=== PATIENT | female | born 1950 | race Caucasian/White ===

== ENCOUNTER 2018-07-09 17:08 | Outpatient (REF) | payer MEDICARE, SELFPAY ==
[2018-07-09 22:20] LABS: Iron 28 ug/dL (50-175); Total Iron Binding Capacity 479 ug/dL (250-450); Transferrin Sat 6 % (15-50)
[2018-07-09 22:21] LABS: Anion Gap 9.6 mmol/L (3-11); BUN 31 mg/dL (7-18); CO2 26.4 mmol/L (21.0-32.0); CREATININE 0.82 mg/dL (0.55-1.02); Calcium 8.6 mg/dL (8.5-10.1); Chloride 104 mmol/L (98-107); Cholesterol 211 mg/dL (50-200); Ferritin 6 ng/mL (8-388); Glucose 88 mg/dL (70-100); HDL Cholesterol 41 mg/dL (40-60); LDL CHOLESTEROL 143 mg/dL (<100); Potassium 3.9 mmol/L (3.5-5.1); Sodium 140 mmol/L (136-145); Triglyceride 190 mg/dL (30-150)
== END 2018-07-09 17:09 ==
LOC: NCHCN 17:08
PROVIDERS: PCP Nurse Practitioner Family; Visit Provider Internal Medicine
DX: I10 Essential (primary) hypertension (principal); D50.9 Iron deficiency anemia, unspecified; J45.40 Moderate persistent asthma, uncomplicated
CPT/HCPCS: 80048; 80061; 83721; 82728; 83540; 83550

== ENCOUNTER 2019-06-03 09:56 | Outpatient (REF) | payer MEDICARE, SELFPAY ==
[2019-06-03 21:19] LABS: HCT 32.7 % (36.0-46.0); HGB 9.2 g/dL (12.0-15.5); Mean Corp. HGB Concentration 28.1 g/dL (32.0-36.0); Mean Corpuscular Hemoglobin 23.2 pg (27.0-33.0); Mean Corpuscular Volume 82.4 fL (80-95); Platelet Count 379 x1000/uL (130-400); RBC 3.97 m/cumm (4.00-5.20); RBC Distribution Width 17.7 % (11.7-14.6); White Blood Cell Count 6.56 k/cumm (4.4-10.8)
[2019-06-03 21:53] LABS: BUN 19 mg/dL (7-18); CREATININE 0.74 mg/dL (0.55-1.02); Calcium 9.3 mg/dL (8.5-10.1); Calculated LDL 148 mg/dL; Chloride 103 mmol/L (98-107); Cholesterol 209 mg/dL (50-200); Ferritin 8 ng/mL (8-388); Glucose 97 mg/dL (70-100); HDL Cholesterol 46 mg/dL (40-60); Potassium 4.4 mmol/L (3.5-5.1); Sodium 141 mmol/L (136-145); Triglyceride 76 mg/dL (30-150)
== END 2019-06-03 10:16 ==
LOC: NCHCN 09:56
PROVIDERS: PCP Nurse Practitioner Family; Visit Provider Internal Medicine
DX: R06.09 Other forms of dyspnea (principal); D50.9 Iron deficiency anemia, unspecified; I10 Essential (primary) hypertension
CPT/HCPCS: 80048; 80061; 83721; 85027; 82728

== ENCOUNTER 2019-07-24 10:42 | Outpatient (REF) | payer MEDICARE, SELFPAY ==
[2019-07-25 05:48] LABS: Calculated LDL 77 mg/dL; Cholesterol 140 mg/dL (50-200); HDL Cholesterol 46 mg/dL (40-60); Triglyceride 86 mg/dL (30-150)
== END 2019-07-24 11:02 ==
LOC: NCHCN 10:42
PROVIDERS: PCP Nurse Practitioner Family; Visit Provider Internal Medicine
DX: Z13.6 Encounter for screening for cardiovascular disorders (principal)
CPT/HCPCS: 80061

== ENCOUNTER 2020-01-14 08:28 | Outpatient (REF) | payer MEDICARE, SELFPAY ==
[2020-01-14 21:27] LABS: HCT 35.3 % (36.0-46.0); HGB 10.3 g/dL (12.0-15.5)
[2020-01-14 21:49] LABS: Ferritin 8 ng/mL (8-252)
== END 2020-01-14 08:48 ==
LOC: NCHCN 08:28
PROVIDERS: PCP Internal Medicine; Visit Provider Internal Medicine
DX: D50.9 Iron deficiency anemia, unspecified (principal)
CPT/HCPCS: 82728; 85014; 85018

== ENCOUNTER 2020-04-22 08:20 | Outpatient (REF) | payer MEDICARE, SELFPAY ==
[2020-04-22 21:23] LABS: Abs Immature Grans 0.02 k/cumm (0.0-0.09); Absolute Basophil Count 0.02 k/cumm (0.0-0.2); Absolute Eosinophil Count 0.19 k/cumm (0.0-0.7); Absolute Lymphocyte Count 1.27 k/cumm (1.2-3.4); Absolute Monocyte Count 0.79 k/cumm (0.11-0.7); Absolute Neutrophil Count 6.82 k/cumm (1.2-6.7); Basophils % 0.2; Eosinophils % 2.1; HCT 42.4 % (36.0-46.0); HGB 13.4 g/dL (12.0-15.5); Immature Grans % 0.2 %; Lymphocytes % 13.9; Mean Corp. HGB Concentration 31.6 g/dL (32.0-36.0); Mean Corpuscular Volume 94.9 fL (80-95); Mean Platelet Volume 11.4 fL (8.0-11.0); Monocytes % 8.7; Neutrophils % 74.9; Platelet Count 238 x1000/uL (130-400); RBC 4.47 m/cumm (4.00-5.20); RBC Distribution Width 14.9 % (11.7-14.6); White Blood Cell Count 9.11 k/cumm (4.4-10.8)
[2020-04-22 22:10] LABS: Ferritin 23 ng/mL (8-252)
== END 2020-04-22 08:40 ==
LOC: NCHCN 08:20
PROVIDERS: PCP Internal Medicine; Visit Provider Internal Medicine
DX: D50.9 Iron deficiency anemia, unspecified (principal)
CPT/HCPCS: 82728; 85025

== ENCOUNTER 2020-10-26 08:02 | Outpatient (REF) | payer MEDICARE, SELFPAY ==
[2020-10-26 21:55] LABS: ALT 34 U/L (14-59); AST 18 U/L (15-37); Alkaline Phosphatase 111 U/L (46-116); Anion Gap 8.1 mmol/L (3-11); BUN 19 mg/dL (7-18); Bilirubin, Total 0.9 mg/dL (0.2-1.0); CO2 29.9 mmol/L (21.0-32.0); Calcium 9.6 mg/dL (8.5-10.1); Calculated LDL 78 mg/dL (<100); Chloride 101 mmol/L (98-107); Cholesterol 141 mg/dL (<200); Glucose 97 mg/dL (74-106); HDL Cholesterol 48 mg/dL (40-60); Potassium 3.6 mmol/L (3.5-5.1); Sodium 139 mmol/L (136-145); Total Protein 7.4 g/dL (6.4-8.2); Triglyceride 79 mg/dL (<150)
[2020-10-26 21:59] LABS: HCT 41.9 % (36.0-46.0); MCH 29.8 pg (27.0-33.0); MCV 96.1 fL (80-95); MPV 11.4 fL (8.0-11.0); Platelet Count 267 10^3/uL (130-400); RBC 4.36 10^6/uL (3.93-5.22); RDW 13.2 % (11.7-14.6); RDW-SD 47.3 fL; WBC 9.14 10^3/uL (4.4-10.8)
== END 2020-10-26 08:22 ==
LOC: NCHCN 08:02
PROVIDERS: PCP Internal Medicine; Visit Provider Internal Medicine
DX: I10 Essential (primary) hypertension (principal); D50.9 Iron deficiency anemia, unspecified
CPT/HCPCS: 80053; 80061; 85027

== ENCOUNTER 2021-04-23 08:05 | Outpatient (REF) | payer MEDICARE, SELFPAY ==
[2021-04-23 20:49] LABS: HCT 41.2 % (36.0-46.0); MCH 29.7 pg (27.0-33.0); MCHC 31.6 % (32.0-36.0); MCV 94.3 fL (80-95); MPV 11.7 fL (8.0-11.0); Platelet Count 246 10^3/uL (130-400); RBC 4.37 10^6/uL (3.93-5.22); RDW 13.5 % (11.7-14.6); RDW-SD 47.4 fL; WBC 9.11 10^3/uL (4.4-10.8)
[2021-04-23 21:26] LABS: Ferritin 19 ng/mL (8-252)
== END 2021-04-23 08:06 | disposition home or self-care (01) ==
LOC: NCHCN 08:05
PROVIDERS: PCP Internal Medicine; Visit Provider Internal Medicine
DX: D50.9 Iron deficiency anemia, unspecified (principal); I10 Essential (primary) hypertension
CPT/HCPCS: 85027; 82728

== ENCOUNTER 2021-12-16 15:28 | Outpatient (REF) | payer MEDICARE, SELFPAY ==
[2021-12-16 22:32] LABS: Ferritin 39 ng/mL (8-252)
[2021-12-16 22:42] LABS: Vitamin D 25 Total 26.8 ng/mL (30-100)
== END 2021-12-16 15:29 | disposition home or self-care (01) ==
LOC: NCHCN 15:28
PROVIDERS: PCP Internal Medicine; Visit Provider Internal Medicine
DX: D50.9 Iron deficiency anemia, unspecified (principal); M85.88 Other specified disorders of bone density and structure, other site
CPT/HCPCS: 82306; 82728

== ENCOUNTER 2022-02-21 13:37 | Outpatient (REF) | payer MEDICARE, SELFPAY ==
[2022-02-21 20:58] LABS: Abs Immature Grans 0.05 10^3/uL (0.0-0.06); Absolute Basophil Count 0.06 10^3/uL (0.0-0.2); Absolute Eosinophil Count 0.13 10^3/uL (0.0-0.7); Absolute Lymphocyte Count 1.93 10^3/uL (1.2-3.4); Absolute Monocyte Count 0.78 10^3/uL (0.1-0.8); Basophils % 0.6; Eosinophils % 1.2; HCT 40.4 % (36.0-46.0); HGB 12.7 g/dL (11.2-15.7); Immature Grans % 0.5; MCH 30.2 pg (27.0-33.0); MCHC 31.4 % (32.0-36.0); MCV 96.2 fL (80-95); MPV 11.4 fL (8.0-11.0); Monocytes % 7.3; Neutrophils % 72.4; Nucleated RBC 0 %; Platelet Count 263 10^3/uL (130-400); RDW 13.2 % (11.7-14.6); WBC 10.75 10^3/uL (4.4-10.8)
[2022-02-21 21:44] LABS: Ferritin 24 ng/mL (8-252)
[2022-02-21 21:56] LABS: Vitamin D 25 Total 29.5 ng/mL (30-100)
== END 2022-02-21 13:38 | disposition home or self-care (01) ==
LOC: LBN 13:37
PROVIDERS: PCP Internal Medicine; Visit Provider Internal Medicine Hematology & Oncology
DX: C50.919 Malignant neoplasm of unspecified site of unspecified female breast (principal); Z17.0 Estrogen receptor positive status [ER+]; D50.8 Other iron deficiency anemias; M85.80 Other specified disorders of bone density and structure, unspecified site
CPT/HCPCS: 82306; 82728; 85025

== ENCOUNTER 2022-03-29 09:21 | Outpatient (REF) | payer MEDICARE, SELFPAY ==
[2022-03-29 14:56] LABS: Abs Immature Grans 0.03 10^3/uL (0.0-0.06); Absolute Basophil Count 0.04 10^3/uL (0.0-0.2); Absolute Eosinophil Count 0.07 10^3/uL (0.0-0.7); Absolute Monocyte Count 0.41 10^3/uL (0.1-0.8); Absolute Neutrophil Count 6.64 10^3/uL (1.2-6.7); Basophils % 0.5; Eosinophils % 0.9; HCT 42.8 % (36.0-46.0); HGB 13.5 g/dL (11.2-15.7); Immature Grans % 0.4; Lymphocytes % 12.2; MCH 30.7 pg (27.0-33.0); MCHC 31.5 % (32.0-36.0); MCV 97 fL (80-95); MPV 11.4 fL (8.0-11.0); Platelet Count 229 10^3/uL (130-400); RDW 13.2 % (11.7-14.6); RDW-SD 47.2 fL; WBC 8.19 10^3/uL (4.4-10.8)
[2022-03-29 16:06] LABS: Ferritin 92 ng/mL (8-252)
[2022-03-30 09:05] LABS: Transferrin 263 mg/dL (201-352)
== END 2022-03-29 09:22 | disposition home or self-care (01) ==
LOC: LBN 09:21
PROVIDERS: PCP Internal Medicine; Visit Provider Internal Medicine Hematology & Oncology
DX: D50.8 Other iron deficiency anemias (principal)
CPT/HCPCS: 82728; 84466; 85025

== ENCOUNTER 2022-05-13 13:54 | Outpatient (REF) | payer MEDICARE, SELFPAY ==
[2022-05-13 21:14] LABS: Abs Immature Grans 0.07 10^3/uL (0.0-0.06); Absolute Eosinophil Count 0.04 10^3/uL (0.0-0.7); Absolute Lymphocyte Count 2.29 10^3/uL (1.2-3.4); Absolute Monocyte Count 0.97 10^3/uL (0.1-0.8); Basophils % 0.4; Eosinophils % 0.3; HCT 38.5 % (36.0-46.0); HGB 12.5 g/dL (11.2-15.7); Immature Grans % 0.5; Lymphocytes % 16.2; MCH 30.6 pg (27.0-33.0); MCHC 32.5 % (32.0-36.0); MCV 94 fL (80-95); MPV 11.2 fL (8.0-11.0); Monocytes % 6.9; Neutrophils % 75.7; Platelet Count 236 10^3/uL (130-400); RBC 4.08 10^6/uL (3.93-5.22); RDW 13.3 % (11.7-14.6); RDW-SD 46.5 fL; WBC 14.12 10^3/uL (4.4-10.8)
[2022-05-13 21:22] LABS: Absolute Basophil Count 0.06 10^3/uL (0.0-0.2); Absolute Neutrophil Count 10.69 10^3/uL (1.2-6.7)
[2022-05-13 23:04] LABS: Ferritin 46 ng/mL (8-252)
[2022-05-16 09:32] LABS: Transferrin 287 mg/dL (201-352)
== END 2022-05-13 13:55 | disposition home or self-care (01) ==
LOC: LBN 13:54
PROVIDERS: PCP Internal Medicine; Visit Provider Internal Medicine Hematology & Oncology
DX: D50.0 Iron deficiency anemia secondary to blood loss (chronic) (principal)
CPT/HCPCS: 82728; 84466; 85025

== ENCOUNTER 2022-07-12 11:21 | Outpatient (REF) | payer MEDICARE, SELFPAY ==
--- OUTSIDE RECORDS SUMMARY | 2022-07-12 11:36 | XMS_ITS | Encounter Summary ---
:1950 Author Organization [facility] Address [address] [place] [address] Care Team Providers Name Role Phone Jaimie Delgado Primary Care Provider Reason for Visit Reason Onset Date Comments Advice Only 05/27/2022 Encounter Details Date Type Department Care Team Description 05/27/2022 Telephone [facility] Armando Martinez MD Advice Only Adult Hematology & O ncology [address] [facility] [address] [facility] 1[address]2 [facility] [address] [place] [address] [place] [address] (Wo rk) Social History Tobacco Use Types Packs/Day Years Used Date Never Smoker Smokeless Tobacco: Never Used Alcohol Use Standard Drinks/Week Comments No 0 (1 standard drink = 0.6 oz pure alcoho l) Sex Assigned at Date Recorded Not on file documented as of this encounter Functional Status Functional Status Response Date of Assessment Because of a physical, mental, or emotional condition, No 09/03/2018 does this person have difficulty doing errands alone such as visiting a doctor's office or shopping? Cognitive Status Response Date of Assessment Because of a physical, mental, or emotional condition, No 09/03/2018 does this person have serious difficulty concentrating, remembering, or making decisions? documented as of this encounter Ordered Prescriptions Prescription Sig Dispensed Refills Start Date End Date phenazopyridine (PYRIDIUM) Take 1 Tablet by 21 Tablet 0 06/202206/03/2022 100 mg tablet mouth 3 times daily for 7 days. phenazopyridine (PYRIDIUM) Take 1 Tablet by 15 Tablet 0 06/202205/27/2022 100 mg tablet mouth 3 times daily as needed for up to 7 days for Pain. documented in this encounter Miscellaneous Notes Telephone Encounter - Armando Martinez MD - 05/27/2022 1700 EDT Patient call with complaint of dysuria started today. She tried to get a hold of her primary care physician and the heart rate clinic there was no one there to help her so she called us. Obtained at urinalysis at [facility] does not appear to clamp clear evidence of infection. Cultures are pending should be available in 2 to 3 days possibly Monday. In interim will start Pyridium as needed. There is any worsening of symptoms she should go to express care. documented in this encounter Plan of Treatment Upcoming Encounters Date Type Specialty Care Team Description 07/15/2022 Telemedicine Hematology and Oncology Armando Martinez MD [address] [place] [address] [address] [place] [address] (Wo rk) 07/20/2022 Office Visit Surgical Oncology Rio Pearson DO 111 [facility], [facility] 2 [place], [place] [address] (Chula rk) 09/23/2022 Office Visit Dermatology Miriam Bentley MD [address] [facility], [address] [place] [address] (Chula rk) documented as of this encounter Visit Diagnoses Not on filedocumented in this encounter Discontinued Medications Medication Sig Discontinue Reason Start Date End Date phenazopyridine (PYRIDIUM) Take 1 Tablet by Error 05/27/2022 05/27/2022 100 mg tablet mouth 3 times daily as needed for up to 7 days for Pain. documented as of this encounter Care Teams Social Professionals Relationship Specialty Start Date End Date Jaimie Delgado PCP - General Internal Medicine - Primary 08/18/21 [address] [place] [address] documented as of this encounter
--- OUTSIDE RECORDS SUMMARY | 2022-07-12 11:36 | XMS_ITS | Encounter Summary ---
:1950 Author Organization [facility] Address [address] [place] [address] Care Team Providers Name Role Phone Jaimie Delgado Primary Care Provider Reason for Visit Reason Onset Date Comments Appointment Related 05/25/2022 Encounter Details Date Type Department Care Team Description 05/25/2022 Telephone [facility] - Vitaliy Martinez MD Appointment Related [facility] Adult Hematology & [address] [facility], Oncology [facility] [address] [facility] [address] [place] [address] [place] [phone] (Wo rk) Social History Tobacco Use [...] making decisions? documented as of this encounter Miscellaneous Notes Telephone Encounter - Kaylyn Davies MA - 05/26/2022 1515 EDT 05/26/22 15:15 Orders printed and faxed elephone Encounter - Armando Martinez MD - 05/26/2022 1422 EDT Signed thank you elephone Encounter - Kaylyn Davies MA - 05/26/2022 1247 EDT DO - please review and sign labs attached and I will fax over to [facility]. Patient is all set to have a follow-up with you on 07/18/22 @ 1530 elephone Encounter - Armando Martinez MD - 05/25/2022 1627 EDT 1: History of iron deficiency. Status post IV Venofer with no side effects. Most recent mid February. Current hemoglobin 12.5 g, MCV 94, ferritin 46. No source of blood loss despite capsule endoscopy upper endoscopy and recent colonoscopy. Plan: -Follow-up CBC, ferritin to be drawn at a [facility] 07/11/2021. -Telemedicine to discuss results 07/18/2022. Kaylyn please schedule lab work at [facility] thank you documented in this encounter Plan of Treatment Upcoming Encounters Date Type Specialty Care Team Description 07/15/2022 Telemedicine Hematology and Oncology Armando Martinez MD [address] [facility], [facility] [address] [place] [address] (Wo rk) 07/20/2022 Office Visit Surgical Oncology Rio Pearson, DO [address] [facility], [facility], [facility] 2 [place], [place] [phone] (Wo rk) 09/23/2022 Office Visit Dermatology Miriam Bentley MD 111 [facility], [address] [place], [place] [phone] (Wo rk) Scheduled Orders Name Type Priority Associated Diagnoses Order S chedule COMPLETE BLOOD COUNT AND Lab Routine Iron deficiency anemia Expected: 07/11/2022 DIFFERENTIAL due to chronic blood (Approx imate), loss Expires: 2022 FERRITIN Lab Routine Iron deficiency anemia Expec nusrat: 07/11/2022, due to chronic blood Expires : 06/26/2023 loss documented as of this encounter Visit Diagnoses Diagnosis Iron deficiency anemia due to chronic bl ood loss - Primary Iron deficiency anemia secondary to bloo d loss (chronic) documented in this encounter Care Teams Senior Asic Design Engineer Relationship Specialty Start Date End Date Jaimie Delgado PCP - General Internal Medicine - Primary 08/18/21 [address] [place] [address] documented as of this encounter
--- OUTSIDE RECORDS SUMMARY | 2022-07-12 11:36 | XMS_ITS | Encounter Summary ---
:1950 Author Organization [facility] Address [address] [place] [address] Care Team Providers Name Role Phone Jaimie Delgado Primary Care Provider Reason for Referral Radiology Services (Routine/Next Available) - Authorization Not Required Specialty Diagnoses / Procedures Referred By Contact Refer red To Contact Diagnoses Asymptomatic menopausal state Jaimie Delgado [facility] Procedures XR DEXA BONE DENSITY [address] [place] [address] Referral ID Status Reason Start Expiration Visits Visits Date Date Requested Authorized [id number] Authorization Not 12/17/2021 1 1 Required Reason for Visit Radiology Services (Routine/Next Available) - Authorization Not Required Specialty Diagnoses / Procedures Referred By Contact Refer red To Contact Diagnoses Asymptomatic menopausal state Jaimie Delgado [facility] [place] [facility] Procedures XR DEXA BONE DENSITY [address] [place] [address] Referral ID Status Reason Start Expiration Visits Visits Date Date Requested Authorized [id number] Authorization Not 12/17/2021 1 1 Required Encounter Details Date Type Department Care Team Description 03/16/2022 Hospital Encounter [facility] - A symptomatic menopausal [facility] [place] [address] Social History Tobacco Use Types Packs/Day Years [...] making decisions? documented as of this encounter Medications at Time of Discharge Medication Sig Dispensed Refills Start Date End Date ALBUTEROL INHL Inhale 2 Inhalers as directed as needed (Rarely) . 0 anastrozole (ARIMIDEX) 1 mg Take 1 Tablet by 90 Tablet 3 tablet mouth daily. atorvastatin (LIPITOR) 20 mg Take 20 mg by 0 02/19 tablet mouth daily. Calcium-Cholecalciferol, D3, Take by mouth 0 (CALCARB) 600 mg(1,500mg) daily. -200 unit tablet ferrous sulfate (SLOW FE) 142 Take 284 mg by 0 mg (45 mg iron) ER tablet mouth daily. FLUoxetine (PROZAC) 20 mg Take 20 mg by 0 capsuleIndications: Anemia, mouth daily. unspecified fluticasone-salmeterol Inhale 1 Puff as 0 (ADVAIR) 250-50 mcg/dose directed every 12 diskus inhalerIndications: hours as needed. Anemia, unspecified gluc agarwal/chondro agarwal A/vit C/Mn Take 1 Tab by 0 (GLUCOSAMINE 1500 COMPLEX mouth daily. ORAL) hydrochlorothiazide Take 50 mg by 0 (HYDRODIURIL) 50 mg mouth daily. tabletIndications: Anemia, unspecified montelukast (SINGULAIR) 10 mg Take 10 mg by 0 tabletIndications: Anemia, mouth daily. unspecified rOPINIRole (REQUIP) 0.5 mg Take 1 mg by mouth 0 tabletIndications: Anemia, at bedtime. unspecified SYMBICORT 160-4.5 Inhale 1 Puff as 0 04/17/2021 mcg/actuation HFA aerosol directed 2 times inhaler inhaler daily. documented as of this encounter Discharge Disposition Disposition Code Departure Means Destination Home or Self Care documented in this encounter Plan of Treatment Upcoming Encounters Date Type Specialty Care Team Description 07/15/2022 Telemedicine Hematology and Oncology Armando Martinez MD 130 [facility] [address] [place], [place] [phone] (Wo rk) 07/20/2022 Office Visit Surgical Oncology Rio Pearson ricarda Bush DO 111 [facility], [facility], [facility] 2 [place], [place] [phone] (Wo rk) 09/23/2022 Office Visit Dermatology Miriam Bentley MD [address] [facility], [facility] 5 [place], [place] [address] (Wo rk) documented as of this encounter Procedures Procedure Name Priority Date/Time Associated Diagnosis Comme nts DXA BONE DENSITY Routine 03/16/2022 8:53 EDT Asymptomatic Resu lts for this menopausal state procedure a re in the results section. documented in this encounter Results XR DEXA BONE DENSITY (03/16/2022 8:53 EDT) Anatomical Region Laterality Modality DEXA Specimen Narrative Felix Gallegos MD - 03/18/2022 11:54 ED T Indication: postmenopausal; screening for osteoporosis; history of glucocorticoids; prior fracture; cancer; asthma or emphysema; Accession number: [id number] Clinical Information Provided by Patient : Has had a low trauma fracture ?? Has taken Glucocorticoids ?? Has used the following medications: Clari min D Has the following medical conditions: As thma or Emphysema, Cancer Patient maximum height was 63.5 Menopause Age 55 No regular weight bearing exercise ?? Onset of menses at age 11 Number of children 3 Bone Density: Exam date 03/16/2022 Region BMD (g/cm2) T-score Z-score Classification AP Spine(L1-L4) 1.035 -0.1 ??2.2 Normal Femoral Neck(Left) 0.675 -1.6 ??0.5 Oste openia Total Hip(Left) 0.805 -1.1 ??0.6 Osteope dean World Health Organization criteria for B MD impression classify patients as Normal (T-score at or above ? 1.0), Osteopenia (T-score between ? 1.0 and ? 2.5), or Osteoporosis (T-score at or below ? 2.5). ?? 10-year Fracture Risk??: Major Osteoporotic Fracture 25% Hip Fracture 5.0% Reported Risk Factors: [place] (), Neck BMD=0.675, BMI=30.9 , previous fracture, glucocorticoids ?? FRAX?? Version 3.08. Fracture probabi lity calculated for an untreated patient. Fracture probability may be low er if the patient has received treatment. Previous Exams: ?? Region Exam Date Age BMD (g/cm2) T-score BMD Change vs. Baseline BMD Change vs. Previous AP Spine (L1-L4) 03/16/2022 72 1.035 -0. 1 -0.020 (-1.9%) -0.020 (-1.9%) 10/19/2018 68 1.056 ??0.1 ?? Total Hip(Left) 03/16/2022 72 0.805 -1.1 -0.070 (-7.9%)* -0.070 (-7.9%)* 10/19/2018 68 0.875 -0.6 ?? *Denotes significance at 95% confidence level, LSC for AP Spine = 0.022 g/cm2, ??LSC for Total Hip = 0.027 g/cm2 ? Impression: The patient has low bone mas s, based on the Left Femoral Neck T-score. The patient has an estimated te n-year risk of hip fracture of 5% and an estimated ten-year risk of major fracture of 25%, based on the WHO FRAX algorithm. The patient has risk fac tors, including: previous fracture, history of glucocorticoid ther apy. The BMD for the Total Hip(Left) decreased, changing by -7.9% s moody the last DXA exam. Discussion: BONE DENSITY IS LOW AT ONE O R MORE SKELETAL SITES. THE PATIENT'S BMD AND CLINICAL RISK FACTORS CONTRIBUTE TO THIS PATIENT'S HIGH RISK OF FRACTURE. This patient's lowest T-score is low at one or more skeletal sites. ??It meets the World Health Organization's (W HO) criteria for ? low bone mass? (T-score between -1.0 and -2.5). ?? The patient's 10-year risk of hip fractu re and 10 year risk of a major osteoporotic fracture as calculated by F RAX exceeds the threshold where pharmacological therapy is recommended b y the National Osteoporosis Foundation (NOF). ??However, all treatme nt decisions require clinical judgment and consideration of individual patient factors, including pa tient preferences, comorbidities, previous drug use, risk factors not capt ured in the FRAX model (e.g., frailty, falls, vitamin D deficiency, in creased bone turnover, interval significant decline in bone density) and possible under or overestimation of fracture risk by FRAX. The patient sh ould follow a healthful lifestyle (good nutrition with adequate calcium an d vitamin D, and appropriate weight-bearing exercise). Follow-Up: Consider a repeat BMD and Mikayla tebral Fracture Assessment (VFA) exam in 2 years or sooner if medically n ecessary, to reassess this patient's status. Reported by: Felix Gallegos MD, on 03/16 8:53:00 AM. documented in this encounter Visit Diagnoses Diagnosis Asymptomatic menopausal state Asymptomatic postmenopausal status (age- related) (natural) documented in this encounter Care Teams Special Educator Relationship Specialty Start Date End Date Jaimie Delgado PCP - General Internal Medicine - Primary 08/18/21 [address] [place] [address] documented as of this encounter
--- OUTSIDE RECORDS SUMMARY | 2022-07-12 11:36 | XMS_ITS | Clinical Summary ---
:1950 Author Organization [facility] Address [address] [place] [address] Care Team Providers Name Role Phone Jaimie Delgado Primary Care Provider Allergies Active Allergy Reactions Severity Noted Date Comments Awsex-Iradq-Bitgmpz-Pramoxine Rash 09/16/2009 Erythromycin Rash 02/05/2019 Shellfish Containing Products Anaphylaxis High 08/01/2012 Avoid lobster as well Sulfa (Sulfonamide Antibiotics) Rash Medium 2 Tetracycline 05/25/2022 Medications Medication Sig Dispensed Refills Start Date End Date Status ALBUTEROL INHL Inhale 2 Inhalers as directed as needed (Rarely) . 0 Active montelukast (SINGULAIR) 10 Take 10 mg by 0 Active mg tabletIndications: mouth daily. Anemia, unspecified rOPINIRole (REQUIP) 0.5 mg Take 1 mg by 0 Active tabletIndications: Anemia, mouth at unspecified bedtime. hydrochlorothiazide Take 50 mg by 0 Active (HYDRODIURIL) 50 mg mouth daily. tabletIndications: Anemia, unspecified FLUoxetine (PROZAC) 20 mg Take 20 mg by 0 Active capsuleIndications: mouth daily. Anemia, unspecified fluticasone-salmeterol Inhale 1 Puff 0 Active (ADVAIR) 250-50 mcg/dose as directed diskus inhalerIndications: every 12 hours Anemia, unspecified as needed. gluc agarwal/chondro agarwal A/vit Take 1 Tab by 0 Active C/Mn (GLUCOSAMINE 1500 mouth daily. COMPLEX ORAL) Calcium-Cholecalciferol, Take by mouth 0 Active D3, (CALCARB) 600 daily. mg(1,500mg) -200 unit tablet atorvastatin (LIPITOR) 20 Take 20 mg by 0 03/14/2021 Active mg tablet mouth daily. SYMBICORT 160-4.5 Inhale 1 Puff 0 04/17/2021 Active mcg/actuation HFA aerosol as directed 2 inhaler inhaler times daily. anastrozole (ARIMIDEX) 1 Take 1 Tablet 90 Tablet 3 09/08/2021 Active mg tablet by mouth daily. ferrous sulfate (SLOW FE) Take 284 mg by 0 Active 142 mg (45 mg iron) ER mouth daily. tablet oxyCODONE (ROXICODONE) 5 TAKE ONE 0 05/12/2022 Active mg immediate release TABLET BY tablet MOUTH EVERY 6 HOURS NEEDED FOR PAIN FOR 3 DAYS * MAX DOSE 4 TABS Active Problems Problem Noted Date Vitamin D deficiency 12/28/2021 Absolute anemia 02/04/2020 Moderate persistent asthma without complication 2019 Malignant neoplasm of female breast ([facility]) 09/14/20 18 Overview: Left breast cancer. 1. 08/14/18: Routine mammogram BI-RADS Ca tegory 4 on left, Category 1 on right. Patient noted no appreciable changes in self-breast exam, chronic nipple inversion and discharge x 15 years 2. 08/21/18: Stereotactic bx showed nucle ar grade 1, invasive ductal carcinoma. ER+ (>90%), WA+ (>90%), Her-2 negative. 3. 09/14/18: Partial mastectomy and sent inel lymph node bx with Dr. Pearson. Tumor size 0.45 cm. Well differentiated. 0/1 lymph node involvement. 4. 11/21/18: completed XRT. 5. 12/21/18: Started anastrazole. 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 Heterozygous factor V Leiden mutation ([facility]) 2011 Asthma 02/18/2006 Abnormal Papanicolaou smear of non-cervical specimen 0 11/20/2000 Overview: S/P Colposcopy- negative Encounters Date Type Specialty Care Team Description 06/17/2022 Telephone Surgical Oncology Ami Pearson tment Related M, DO 05/27/2022 Telephone Hematology and Armando Martinez, Advice On ly Oncology MD 05/25/2022 Telemedicine Hematology and Armando Martinez, Iron defi ciency Oncology MD anemia due to chronic blood l oss (Primary Dx) 05/25/2022 Telephone Hematology and Armando Martinez, Appointme nt Related Oncology 05/14/2022 Lab Requisition Clinical Laboratory Outr Resulting Lab, Provider 04/27/2022 Telephone Hematology and Armando Martinez, Appointme nt Related Oncology from Last 3 Months Immunizations Name Administration Dates Next Due Covid-19 mRNA Vaccine (MODERNA COVID-19) PF 0.5 ml IM 2020, 12/15/2020 (12 yrs+) Shingrix (Zoster Vaccine, Recombinant) IM 10/29/2020, 2019 Surgical History Surgery Date Site/Laterality Comments SECTION times 3 BREAST SURGERY 08/20/2018 - Left Partial mastecto my and 09/19/2018 SLNBx BREAST LUMPECTOMY 11/20/2017 - Left 11/19/2018 RADIATION THERAPY OF 11/20/2017 - Left BREAST 11/19/2018 Medical History Medical History Date Comments Restless legs syndrome 08/01/2012 Galactorrhea 08/01/2012 Anemia Colon polyp Hypertension Lung disease asthma Chronic kidney disease hx kidney stones GERD (gastroesophageal reflux disease) Factor V Leiden (HCC-CMS) (HCC) Breast cancer, left (HCC-CMS) (HCC) 2018 Family History Medical History Relation Name Comments Heart Attack Under 50 Daughter Colon Cancer Father High Cholesterol Father Hypertension Father Breast Cancer Maternal Aunt Heart Attack Mother Colon Polyps Neg Hx Endometrial Cancer Neg Hx Esophageal Cancer Neg Hx Ovarian Cancer Neg Hx Pancreatic Cancer Neg Hx Rectal Cancer Neg Hx Stomach Cancer Neg Hx Relation Name Status Comments Brother Alive Brother Alive Daughter Alive Daughter Alive Daughter Alive Father Maternal Aunt Mother Alive Sister Alive Sister Alive Sister Alive Social History Tobacco Use Types Packs/Day Years Used Date Never Smoker Smokeless Tobacco: Never Used Alcohol Use Standard Drinks/Week Comments No 0 (1 standard drink = 0.6 oz pure alcoho l) Sex Assigned at Date Recorded Not on file Obstetrics History Grav Para Term Pre Abrt (TAB) (SAB) (Ect) Mult Lvng Comments 3 3 Date Outcome GA Total Labor/2nd/3rd Weight Sex Delivery Anes PTL Buffy A 1 A5 Name Clin Labor Para Para Para Last Filed Vital Signs Vital Sign Reading Time Taken Comments Blood Pressure 179/83 03/04/2022 1130 EDT Pulse 86 09/08/2021 1015 EDT Temperature 37.2 ??C (98.9 ??F) 03/04/2022 0950 EDT Respiratory Rate 16 06/22/2021 1313 EDT Oxygen Saturation 95% 03/04/2022 0951 EDT Inhaled Oxygen Concentration - - Weight 79.4 kg (175 lb) 03/04/2022 0950 EDT Height 157.5 cm (5' 2) 03/04/2022 0950 EDT Body Mass Index 32.01 03/04/2022 0950 EDT Plan of Treatment Upcoming Encounters Date Type Specialty Care Team Description 07/15/2022 Telemedicine Hematology and Oncology Armando Martinez MD [address] [place] [address] [address] [place] [address] (Wo rk) 07/20/2022 Office Visit Surgical Oncology Rio Pearson DO 111 [facility], [facility] 2 [place], [place] [phone] (Wo rk) 09/23/2022 Office Visit Dermatology Miriam Bentley MD 111 [facility], [facility] 5 [place], [place] [phone] (Wo rk) Health Maintenance Due Date Last Done Comments Asthma Action Plan 1950 Hepatitis C Screen 1950 Lung Function Test (Spirometry) 1950 COVID-19 Vaccine (3 - Booster for 06/11/2021 01/12/2021, Moderna series) Fall Risk Screening 06/22/2022 06/22/2021, 05/07/2020, 04/30/2019 Procedures Procedure Name Priority Date/Time Associated Diagnosis Comme nts TRANSFERRIN Routine 05/13/2022 13:20 EDT Results for this procedure are i n the results section . from Last 3 Months Results TRANSFERRIN (05/13/2022 13:20 EDT) Pathologist Sig nature Transferrin 287 201 - 352 mg/dL [facility] Specimen Blood - Venous blood (substance) Performing Organization Address City/State/ZIP Code Phon e Number [facility] [address] [place] [address] SERVICES from Last 3 Months Insurance Payer Benefit Plan Subscriber ID Effective Phone Address Typ e / Group Dates MEDICARE MEDICARE A/B [id number] 2013-Pres [address] edicare GL ent [id number] [place] [address] [facility] [id number] 2013-Pres [phone] [address] [address] [employer] ent [phone] [place] [address] [phone] (Work) Brittaney Grullon Personal/Family Self 1950 [address] (Home) [place], [place] [phone] (Work) Brittaney Grullon Personal/Family Self 1950 [address] (Home) [place], [place] [phone] (Work) Brittaney Grullon Personal/Family Self 1950 [address] (Home) [place], [place] [phone] (Work) Brittaney Grullon Personal/Family Self 1950 [address] (Home) [place], [place] [phone] (Work) Brittaney Grullon Personal/Family Self 1950 [address] (Home) [place], [place] [phone] (Work) Brittaney Grullon Personal/Family Self 1950 [address] (Home) [place], [place] [phone] (Work) Brittaney Grullon Personal/Family Self 1950 [address] (Home) [place], [place] [phone] (Work) Care Teams Architectural Project Manager Relationship Specialty Start Date End Date Jaimie Delgado PCP - General Internal Medicine - Primary 08/18/21 [address] [facility] [place] [id number]
--- OUTSIDE RECORDS SUMMARY | 2022-07-12 11:36 | XMS_ITS | Encounter Summary ---
:1950 Author Organization [facility] Address [address] [place] [address] Care Team Providers Name Role Phone Jaimie Delgado Primary Care Provider Encounter Details Date Type Department Care Team Description 03/29/2022 Lab Requisition [facility] Outr Resulting Lab, Pathology & Laboratory Provider [facility] [address] [place] [address] Social History Tobacco Use Types Packs/Day Years [...] making decisions? documented as of this encounter Plan of Treatment Upcoming Encounters Date Type Specialty Care Team Description 07/15/2022 Telemedicine Hematology and Oncology Armando Martinez MD [address] [place] [address] [address] [place] [address] (Wo rk) 07/20/2022 Office Visit Surgical Oncology Rio Pearson, [facility], Level 2 [place], [place] [address] (Wo rk) 09/23/2022 Office Visit Dermatology Miriam Bentley MD 111 [facility], [address] 5 [place], [place] [address] (Wo rk) documented as of this encounter Procedures Procedure Name Priority Date/Time Associated Diagnosis Comme nts TRANSFERRIN Routine 03/29/2022 9:15 EDT Results for this procedure are i n the results section . documented in this encounter Results TRANSFERRIN (03/29/2022 9:15 EDT) Pathologist Sig nature Transferrin 263 201 - 352 mg/dL [facility] Specimen Blood - Venous blood (substance) Performing Organization Address City/State/ZIP Code Phon e Number [facility] [address] [place] [address] SERVICES documented in this encounter Visit Diagnoses Not on filedocumented in this encounter Care Teams Interventional Technologist Relationship Specialty Start Date End Date Jaimie Delgado PCP - General Internal Medicine - Primary 08/18/21 [address] [place], [place] [address] documented as of this encounter
--- OUTSIDE RECORDS SUMMARY | 2022-07-12 11:36 | XMS_ITS | CCD ---
:1950 Author Care Team Providers Name Role Phone RANDOLPH KAN Attending Physician Unavailable RANDOLPH KAN Rounding (Secondary) Physician Unavailab le Vital Signs Unknown or Not Available. Allergies Allergy Code Allergy Type Reaction Status TETRACYCLINE 0 Drug allergy Hives Active ERYTHROMYCIN 0 Drug allergy Hives Active Procedures Unknown or Not Available. History of Immunizations Unknown or Not Available. Problems Unknown or Not Available. Results Unknown or Not Available. Active Medications Unknown or Not Available. Medications Administered During Visit Unknown or Not Available. Encounters Encounter Diagnosis Diagnosis Code Start Date Ganglion, right wrist [id number] 03/03/2022 Social History Smoking Status Code Start Date End Date Current every day smoker [id number] Patient Decision Aids Unknown or Not Available. Discharge Instructions You were admitted to [facility] on 03/03/2022 12:38 with a principal diagnosis of Ganglion, right wrist You were discharged from [facility] on 03/03/2022 00:00 Should you have any questions prior to d ischarge, please contact a member of your healthcare team. If you have left the ho spital and have any questions, please contact your primary care physician. Chief Complaint and Reason For Visit Unknown or Not Available. Function Status Unknown or Not Available. Plan of Care Unknown or Not Available. Referral/Transition of Care Unknown or Not Available.
--- OUTSIDE RECORDS SUMMARY | 2022-07-12 11:36 | XMS_ITS | Encounter Summary ---
:1950 Author Organization [facility] Address [address] [place] [address] Care Team Providers Name Role Phone Jaimie Delgado Primary Care Provider Reason for Referral Laboratory Services (Routine/Next Available) - New Request Specialty Diagnoses / Procedures Referred By Contact Refer red To Contact Diagnoses Iron deficiency anemia due to chronic blood loss Armando Martinez MD Procedures TRANSFERRIN SATURATION [address] [facility], [facility] [address] [place] [address] Referral ID Status Reason Start Date Expiration Date Visits V isits Requested Authorized [id number] New Request 05/02/2022 1 1 Reason for Visit Reason Onset Date Comments Appointment Related 04/27/2022 Encounter Details Date Type Department Care Team Description 04/27/2022 Telephone [facility] - Vitaliy Martinez MD Appointment Related [facility] & [address] [facility], Oncology [facility] [address] [place] [address] [place] [phone] (Wo rk) Social History Tobacco Use [...] encounter Miscellaneous Notes Telephone Encounter - Kaylyn Spencer RN - 05/02/2022 1104 EDT Armando Martinez MD to Md 14:25 She needs a follow-up appointment next year with [place] for diagnosis of breast cancer. At the [facility] where she had been referred she needs CBC, ferritin and transferrin saturation follow-up on recent iron infusion. Please arrange with her and then a telemedicine a week later to discuss telemedicine can be 15 minutes. Thank you all 11:09 Left message requesting call back. 11:16 New orders faxed to [facility]. 05/11/22 13:57 Patient aware elephone Encounter - Kaylyn Spencer RN - 04/27/[address] Martinez- Please advise elephone Encounter - Kelsea Oakley - 04/27/2022 1029 EDT Patient is calling to see when her next appointment is. February 25 note does not say when she should return. Please advise. Thanks. documented in this encounter Plan of Treatment Upcoming Encounters Date Type Specialty Care Team Description 07/15/2022 Telemedicine Hematology and Oncology Armando Martinez MD [address] [place] [address] [address] [place], [place] [phone] (Wo rk) 07/20/2022 Office Visit Surgical Oncology Lili Rio ricarda Bush, [address] [place] [facility], Level 2 [place], [place] [address] (Wo rk) 09/23/2022 Office Visit Dermatology Miriam Bentley MD [address] [place] [address] [facility], [address] 5 [place], [place] [address] (Wo rk) Scheduled Orders Name Type Priority Associated Diagnoses Order S chedule TRANSFERRIN SATURATION Lab Routine Iron deficiency an emia Expected: 05/02/2022 due to chronic blood loss (A pproximate), Expires: 05/02/2023 documented as of this encounter Visit Diagnoses Diagnosis Iron deficiency anemia due to chronic bl ood loss - Primary Iron deficiency anemia secondary to bloo d loss (chronic) documented in this encounter Care Teams Felt Finishing Supervisor Relationship Specialty Start Date End Date Jaimie Delgado PCP - General Internal Medicine - Primary 08/18/21 [address] [facility] [place] [address] documented as of this encounter
--- OUTSIDE RECORDS SUMMARY | 2022-07-12 11:36 | XMS_ITS | Encounter Summary ---
:1950 Author Organization [facility] Address [address] [place] [address] Care Team Providers Name Role Phone Jaimie Delgado Primary Care Provider Reason for Visit Reason Onset Date Comments Appointment Related 06/17/2022 Encounter Details Date Type Department Care Team Description 06/17/2022 Telephone [facility] Deepali Pearson DO Appointment Related Surgical Oncology - [address] [place] [address], [address], [address] [place], [place] [address] [place] [address] [phone] (Wo rk) Social History Tobacco Use Types [...] this encounter Miscellaneous Notes Telephone Encounter - Hayde Chris - 06/17/2022 1336 EDT Provider in OR on the morning of 06/24/2022. Reschedule to 07/20/2022 @ 15:[address] Pearson. Patient is aware. Mailed out appt reminder. Hayde Chris 06/17/2022 13:39 documented in this encounter Plan of Treatment Upcoming Encounters Date Type Specialty Care Team Description 07/15/2022 Telemedicine Hematology and Oncology Armando Martinez MD [address] [place] [address] [address] [place] [address] (Wo rk) 07/20/2022 Office Visit Surgical Oncology Rio Pearson DO [address] [facility], [facility] 2 [place], [place] [address] (Wo rk) 09/23/2022 Office Visit Dermatology Miriam Bentley MD 111 [facility], [facility] 5 [place], [place] [address] (Wo rk) documented as of this encounter Visit Diagnoses Not on filedocumented in this encounter Care Teams Imaging Account Manager Relationship Specialty Start Date End Date Jaimie Delgado PCP - General Internal Medicine - Primary 08/18/21 [address] [place] [address] documented as of this encounter
--- OUTSIDE RECORDS SUMMARY | 2022-07-12 11:36 | XMS_ITS | CCD ---
:1950 Author Care Team Providers Name Role Phone RANDOLPH SHARMA Attending Physician Unavailable Vital Signs Unknown or Not Available. Allergies Allergy Code Allergy Type Reaction Status COLY-MYCIN M PARENTERAL [id number] Drug allergy Hives Acti ve TETRACYCLINE 0 Drug allergy Hives Active ERYTHROMYCIN 0 Drug allergy Hives Active LOBSTER {Clinical monitoring 0 Food allergy ANAPHYLAXIS THROAT CLOSES Active unavailable} UP Procedures Unknown or Not Available. History of Immunizations Unknown or Not Available. Problems Unknown or Not Available. Results CULT URINE CULTURE* - Collect Date/Time: 05/27/2022 13:34 Test Name Code Test Result Test Units Test Ref Range COLLECTION MODE: 85744-2 NOT STATED N/A URINALYSIS WITH REFLEX CULT IF POSITIVE* - Collect Date/Time: 05/27/2022 13:34 Test Name Code Test Result Test Units Test Ref Range COLLECTION MODE: 47433-3 NOT STATED N/A Color 5778-6 YELLOW N/A yellow Appearance 5767-9 CLEAR N/A clear Glucose urine 43386-4 NEGATIVE N/A negative mg/dl Bilirubin 5770-3 NEGATIVE N/A negative Ketones 2514-8 NEGATIVE N/A negative mg/dl Spec gravity 5811-5 1.025 N/A 1.003 - 1.030 pH urine 2756-5 6.0 N/A 5.0 - 7.0 Protein 78367-5 NEGATIVE N/A negative mg/dl Urobilinogen 21942-4 0.2 N/A <or= 1 EU/dl Nitrite. 5802-4 NEGATIVE N/A negative Blood 5794-3 SMALL N/A negative Leukocytes. SMALL N/A negative MICROSCOPIC INDICATED N/A WBCs. 41182-4 10-25 N/A 0-5 / hpf RBCs 26389-9 0-5 N/A 0-5 / hpf Epith cells 85087-8 none N/A 0-5 / hpf Crystals none N/A none Bacteria moderate N/A none Mucus 8247-9 none N/A none Casts 91674-5 none N/A none /lpf Active Medications Unknown or Not Available. Medications Administered During Visit Unknown or Not Available. Encounters Unknown or Not Available. Social History Smoking Status Code Start Date End Date Current every day smoker [id number] Patient Decision Aids Unknown or Not Available. Discharge Instructions You were admitted to [facility] on 05/27/2022 13:21 You had the following tests done: CULT URINE CULTURE* URINALYSIS WITH REFLEX CULT IF POSITIVE* You were discharged from [facility] on 05/27/2022 13:21 Should you have any questions prior to d ischarge, please contact a member of your healthcare team. If you have left the spital and have any questions, please contact your primary care physician. Chief Complaint and Reason For Visit Unknown or Not Available. Function Status Unknown or Not Available. Plan of Care Unknown or Not Available. Referral/Transition of Care Unknown or Not Available.
--- OUTSIDE RECORDS SUMMARY | 2022-07-12 11:36 | XMS_ITS | CCD ---
:1950 Author Care Team Providers Name Role Phone HI BECERRIL Attending Physician Unavailable Vital Signs Unknown or Not Available. Allergies Allergy Code Allergy Type Reaction Status COLY-MYCIN M PARENTERAL 3364912 Drug allergy Hives Acti ve TETRACYCLINE 0 Drug allergy Hives Active ERYTHROMYCIN 0 Drug allergy Hives Active LOBSTER {Clinical monitoring 0 Food allergy ANAPHYLAXIS THROAT CLOSES Active unavailable} UP Procedures Unknown or Not Available. History of Immunizations Unknown or Not Available. Problems Unknown or Not Available. Results [facility] COVID RHEONIX* - Collect Date/Christophe e: 05/10/2022 09:43 Test Name Code Test Result Test Units Test Ref Range Tier- 51416-2 PRE-OP N/A SARS COV2 RNA: 18316-8 NEGATIVE N/A REFERENCE RAN GE: NEGAT Active Medications Unknown or Not Available. Medications Administered During Visit Unknown or Not Available. Encounters Unknown or Not Available. Social History Smoking Status Code Start Date End Date Current every day smoker [id number] Patient Decision Aids Unknown or Not Available. Discharge Instructions You were admitted to [facility] on 05/10/2022 15:52 You had the following tests done: COPLE Y COVID RHEONIX* You were discharged from [facility] on 05/10/2022 15:52 Should you have any questions prior to [...]
--- OUTSIDE RECORDS SUMMARY | 2022-07-12 11:36 | XMS_ITS | Encounter Summary ---
:1950 Author Organization [facility] Address [address] [place] [address] Care Team Providers Name Role Phone Jaimie Delgado Primary Care Provider Encounter Details Date Type Department Care Team Description 03/07/2022 Hospital Encounter [facility] [place] [address] [place], [place] [id number] Social History Tobacco Use Types Packs/Day Years [...] 20 mg Take 20 mg by 0 /2 03/2021 tablet mouth daily. Calcium-Cholecalciferol, D3, Take by [...] Telemedicine Hematology and Oncology Armando Martinez MD [address] [place] [address] [address] [place] [address] (Wo rk) 07/20/2022 Office Visit Surgical Oncology Rio Pearson DO 111 [facility], [facility] 2 [place], [place] [phone] (Wo rk) 09/23/2022 Office Visit Dermatology Miriam Bentley MD 111 [facility], [facility] 5 [place], [place] [address] (Wo rk) documented as of this encounter Visit Diagnoses Not on filedocumented in this encounter Care Teams Adjuster Leader Relationship Specialty Start Date End Date Jaimie Delgado PCP - General Internal Medicine - Primary 08/18/21 [address] [place] [address] documented as of this encounter
--- OUTSIDE RECORDS SUMMARY | 2022-07-12 11:36 | XMS_ITS | CCD ---
:1950 Author Care Team Providers Name Role Phone HI BECERRIL Attending Physician Unavailable Vital Signs Vital Sign Value Unit Date/Time Recent/Initial? BMI (Body Mass Index) 29.77 kg/m^2 05/03/2022 14:40 In itial VS Weight Measured 172.36 lbs 05/03/2022 14:40 Initial VS Height 63.8 in 05/03/2022 14:40 Initial VS BSA (Body Surface Area) 1.88 m^2 05/03/2022 14:40 Initial VS BP Systolic 167 mmHg 05/12/2022 10:42 Initial VS BP Diastolic 80 mmHg 05/12/2022 10:42 Initial VS Respiratory Rate 21 bpm 05/12/2022 10:42 Initial VS Heart Rate 69 bpm 05/12/2022 10:42 Initial VS O2 % BldC Oximetry 99 % 05/12/2022 10:42 Initi al VS Body Temperature 36.4 degrees 05/12/2022 10:42 Initial VS Allergies Allergy Code Allergy Type Reaction Status COLY-MYCIN M PARENTERAL 3534012 Drug allergy Hives Acti ve TETRACYCLINE 0 Drug allergy Hives Active ERYTHROMYCIN 0 Drug allergy Hives Active LOBSTER {Clinical monitoring 0 Food allergy ANAPHYLAXIS THROAT CLOSES Active unavailable} UP Procedures Procedure Code Procedure Type Date Synovectomy, Extensor Tendon Sheath, Wrist, Single 47734 CPT 05/12/2022 Compartment Anesthesia, Nerves/Muscles/Tendons/Fascia & 76902 CPT 05/12/2022 Bursae, Lower Arm/Hand History of Immunizations Unknown or Not Available. Problems Unknown or Not Available. Results Unknown or Not Available. Active Medications Unknown or Not Available. Medications Administered During Visit Medication Dose Units Frequency Route Date/Time of L ast Dose CeFAZolin IVPB FROZEN PREMIX: 2 GM X1 IVPB 05/12/2022 07:40 2GM/100ML ACETAMINOPHEN TABLET: 325MG 975 MG X1 PO 05/12/2022 07:14 CELECOXIB CAPSULE: 100MG 200 MG X1 PO 05/12/2022 07:14 LACTATED RINGERS 1000ML 1000 ML X1 IV 0 05/12/2022 07:15 MIDAZOLAM INJ SDV: 2MG/2ML 2 MG X1 IVP 05/12/2022 07:24 Encounters Encounter Diagnosis Diagnosis Code Start Date Other infective (teno)synovitis, right wrist L84671 05/12/2022 Social History Smoking Status Code Start Date End Date Current every day smoker [id number] Patient Decision Aids Unknown or Not Available. Discharge Instructions You were admitted to [facility] on 05/12/2022 06:16 with a principal diagnosis of Other infective (teno)synovitis, righ t wrist You had the following procedures done: Synovectomy, Extensor Tendon Sheath, Wrist, Single Compartment Anesthesia, Nerves/Mu scles/Tendons/Fascia & Bursae, Lower Arm/Hand You were discharged from [facility] on 05/12/2022 10:35 Should you have any questions prior to d ischarge, please contact a member of your healthcare team. If you have left the ho spital and have any questions, please contact your primary care physician. Chief Complaint and Reason For Visit Chief Complaint Date of Onset RIGHT DORSAL CARPAL MASS EXCISION 60MIN OP Function Status Unknown or Not Available. Plan of Care Unknown or Not Available. Referral/Transition of Care Unknown or Not Available.
--- OUTSIDE RECORDS SUMMARY | 2022-07-12 11:36 | XMS_ITS | Encounter Summary ---
:1950 Author Organization [facility] Address [address] [place] [address] Care Team Providers Name Role Phone Jaimie Delgado Primary Care Provider Encounter Details Date Type Department Care Team Description 05/14/2022 Lab Requisition [facility] Outr Resulting Lab, Pathology & Laboratory Provider [facility] [address] [place] [id number] Social History Tobacco Use Types Packs/Day Years [...] Telemedicine Hematology and Oncology Armando Martinez MD [address] [place] [address] [address] [place] [address] (Wo rk) 07/20/2022 Office Visit Surgical Oncology Rio Pearson, [facility], [address] [place], [place] [address] (Wo rk) 09/23/2022 Office Visit Dermatology Miriam Bentley MD 111 [facility], [address] [place], [place] [address] (Wo rk) documented as of this encounter Procedures Procedure Name Priority Date/Time Associated Diagnosis Comme nts TRANSFERRIN Routine 05/13/2022 13:20 EDT Results for this procedure are i n the results section . documented in this encounter Results TRANSFERRIN (05/13/2022 13:20 EDT) Pathologist Sig nature Transferrin 287 201 - 352 mg/dL [facility] Specimen Blood - Venous blood (substance) Performing Organization Address City/State/ZIP Code Phon e Number [facility] [address] [place] [address] SERVICES documented in this encounter Visit Diagnoses Not on filedocumented in this encounter Care Teams Military Logistics Specialist Relationship Specialty Start Date End Date Jaimie Delgado PCP - General Internal Medicine - Primary 08/18/21 [address] [place] [address] documented as of this encounter
--- OUTSIDE RECORDS SUMMARY | 2022-07-12 11:37 | XMS_ITS | Encounter Summary ---
:1950 Author Organization [facility] Address [address] [place] [address] Care Team Providers Name Role Phone Juan Pablo Garrett MD Primary Care Provider Reason for Visit Reason Onset Date Comments Appointment Related 08/11/2020 Encounter Details Date Type Department Care Team Description 08/11/[address] [facility] Deepali Pearson, Appointment Related Surgical Oncology - [address] [facility], [address], [address] [place], [place] [address] [place] [address] [phone] (Wo rk) Social History Tobacco Use Types Packs/Day Years Used Date Never Smoker Smokeless Tobacco: Never Used Alcohol Use Standard Drinks/Week Comments No 0 (1 standard drink = 0.6 oz pure alcoho l) Sex Assigned at Date Recorded Not on file COVID-19 Exposure Response Date Recorded In the last month, have you been in contact with No / Unsure 08/07/2020 9:35 EDT someone who was confirmed or suspected to have Coronavirus / COVID-19? documented as of this encounter Functional Status [...] Notes Telephone Encounter - Hayde Chris - 08/11/2020 1106 EDT Outside provider visit notes; put into Dr. Pearson's inbox for review. Hayde CuellarakinDalton 08/11/2020 11:07 documented in this encounter Plan of Treatment Upcoming Encounters Date Type Specialty Care Team Description 07/15/2022 Telemedicine Hematology and Oncology Armando Martinez MD [address] [place] [address] [address] [place] [address] (Wo rk) 07/20/2022 Office Visit Surgical Oncology Rio Pearson DO 111 [facility], [facility] 2 [place], [place] [address] (Wo rk) 09/23/2022 Office Visit Dermatology Miriam Bentley MD 111 [facility], [address] [place], [place] [address] (Wo rk) documented as of this encounter Visit Diagnoses Not on filedocumented in this encounter Care Teams Citrus Peeler Relationship Specialty Start Date End Date Juan Pablo Garrett MD PCP - General 04/30/19 06/21/21 [address] [place] [address] documented as of this encounter
--- OUTSIDE RECORDS SUMMARY | 2022-07-12 11:37 | XMS_ITS | Encounter Summary ---
:1950 Author Organization [facility] Address [address] [place] [address] Care Team Providers Name Role Phone Juan Pablo Garrett MD Primary Care Provider Reason for Visit (Routine) - Authorization Not Required Specialty Diagnoses / Procedures Referred By Contact Refer red To Contact Diagnoses Need for vaccination Sylvester Vance MD Procedures SARS-COV-2 VACCINE 1ST DOSE APPT [address] [place] [address] Referral ID Status Reason Start Expiration Visits Visits Date Date Requested Authorized [id number] Authorization Not 12/14/2020 1 1 Required Encounter Details Date Type Department Care Team Description 12/15/2020 Immunization [facility] N eed for vaccination [facility] (Prim michael Dx) Mobile Testing [address] [place], [place] [address] Social History Tobacco Use Types Packs/Day Years [...] Hematology and Oncology Armando Martinez MD 130 [facility] [address] [place], [place] [phone] (Wo rk) 07/20/2022 Office Visit Surgical Oncology Rio Pearson DO 111 [facility], [facility] 2 [place], [place] [phone] (Wo rk) 09/23/2022 Office Visit Dermatology Miriam Bentley MD 111 [facility], [facility] 5 [place], [place] [address] (Wo rk) documented as of this encounter Visit Diagnoses Diagnosis Need for vaccination - Primary Need for prophylactic vaccination and in oculation against unspecified single disease documented in this encounter Orders Immunization/Injection Count Last Ordered Date First O rdered Date COVID-19 MRNA VACCINE (MODERNA COVID-19) 1 021 PF 0.5 ML IM (18 YRS+) Appointment Requests Count Last Ordered Date First Ord ered Date SARS-COV-2 VACCINE 1ST DOSE APPT 1 12/15/2020 documented in this encounter Care Teams Potato Chip Sorter Relationship Specialty Start Date End Date Juan Pablo Garrett MD PCP - General 04/30/19 06/21/21 4 [place] [address] documented as of this encounter
--- OUTSIDE RECORDS SUMMARY | 2022-07-12 11:37 | XMS_ITS | Encounter Summary ---
:1950 Author Organization [facility] Address [address] [place] [address] Care Team Providers Name Role Phone Juan Pablo Garrett MD Primary Care Provider Encounter Details Date Type Department Care Team Description 06/06/2019 Orders Only [facility] Myrna Delgado Family history of ischemic heart disease (Primary Dx); Cardiology - Main 4 [facility] R [place] [address] 111 [facility] [phone] [place] [address] (Work) [phone] Social History Tobacco Use Types Packs/Day Years [...] Telemedicine Hematology and Oncology Armando Martinez MD [address] [place] [address] [address] [place] [address] (Wo rk) 07/20/2022 Office Visit Surgical Oncology Rio Pearson, 111 [facility], [facility] 2 [place], [place] [address] (Wo rk) 09/23/2022 Office Visit Dermatology Miriam Bentley MD [address] [place] [address] [facility], Level 5 [place], [place] [address] (Wo rk) documented as of this encounter Procedures Procedure Name Priority Date/Time Associated Diagnosis Comme nts EXERCISE TOLERANCE Routine 06/13/2019 13:57 Resul ts for this TEST WAVEFORM EDT procedure are in the results section. documented in this encounter Results EXERCISE TOLERANCE TEST WAVEFORM (06/13/2019 13:57 EDT) Specimen Narrative [facility] EKG - 06/13/2019 14:2 7 EDT For report of this Waveform, see associated Image Study. ? [facility] Stress ? Test Date: ?2019-06-13 Pat Name: ? BRITTANEY GRULLON ? Department: ? Room: ? Gender: ? Female ? Rn Advanced: ?? : ?1950 ? Requested By: CHASE ELY Order Number: [id number] ?Bill LOZOYA: ? Interpretive Statements Procedure Note DANCE INSTRUCTOR, IMAGING - 06/13/2019 For report of this Waveform, see asia silverio Image Study. [facility] Stress Test Date: 2019-06-13 Pat Name: BRITTANEY GRULLON Department: Room: Gender: Female Rn Advanced: : 1950 Requested By: CHASE ELY Order Number: [id number] Bill LOZOYA: Interpretive Statements Performing Organization Address City/State/ZIP Code Phon e Number [facility] EKG documented in this encounter Visit Diagnoses Diagnosis Family history of ischemic heart disease - Primary Dyspnea on exertion Other dyspnea and respiratory abnormalit y documented in this encounter Care Teams Manager Transit Relationship Specialty Start Date End Date Juan Pablo Garrett MD PCP - General 04/30/19 06/21/21 [address] [place] [address] documented as of this encounter
--- OUTSIDE RECORDS SUMMARY | 2022-07-12 11:37 | XMS_ITS | Encounter Summary ---
:1950 Author Organization [facility] Address [address] [place] [address] Care Team Providers Name Role Phone Juan Pablo Garrett MD Primary Care Provider Reason for Visit Reason Comments Cardiac Testing Cardiology (Routine) - Order Cancelled Specialty Diagnoses / Procedures Referred By Contact Refer red To Contact Diagnoses Family history of ischemic heart disease Dyspnea on exertion Jaimie Delgado Procedures EXERCISE TOLERANCE TEST [address] [place] [address] Referral ID Status Reason Start Date Expiration Date Visits V isits Requested Authorized [id number] Order 06/07/2019 1 1 Cancelled Encounter Details Date Type Department Care Team Description 06/13/2019 Procedure visit [facility] Myrna Delgado on R 4 [place] [address] Cardiology - [address] [place], [place] [address] Social History Tobacco Use Types Packs/Day Years [...] making decisions? documented as of this encounter Discharge Diagnoses Diagnosis I49.3 Ventricular premature depolarizati on-I49.3[ICD-10-CM] I10 Essential (primary) hypertension-I10 [ICD-10-CM] R06.09 Other forms of dyspnea-R06.09[ICD -10-CM] documented in this encounter Discharge Disposition Disposition Code Departure Means Destination Auto Discharge documented in this encounter Plan of Treatment Upcoming Encounters Date Type Specialty Care Team Description 07/15/2022 Telemedicine Hematology and Oncology Armando Martinez MD [address] [place] [address] [address] [place], [place] [phone] (Wo rk) 07/20/2022 Office Visit Surgical Oncology Rio Pearson DO 111 [facility] 2 [place], [place] [address] (Wo rk) 09/23/2022 Office Visit Dermatology Miriam Bentley MD 111 [facility], [facility] 5 [place], [place] [address] (Wo rk) documented as of this encounter Procedures Procedure Name Priority Date/Time Associated Diagnosis Comme nts STRESS TEST - SCANNED 06/13/2019 16:00 EDT documented in this encounter Visit Diagnoses Not on filedocumented in this encounter Orders Imaging Orders Without Results Count Last Ordered Date First Ordered Date STRESS TEST - SCANNED 1 06/13/2019 documented in this encounter Care Teams Hogshead Inspector Relationship Specialty Start Date End Date Juan Pablo Garrett MD PCP - General 04/30/19 06/21/21 [address] [place] [address] documented as of this encounter
--- OUTSIDE RECORDS SUMMARY | 2022-07-12 11:37 | XMS_ITS | Encounter Summary ---
:1950 Author Organization [facility] Address [address] [place] [address] Care Team Providers Name Role Phone Juan Pablo Garrett MD Primary Care Provider Reason for Visit Reason Onset Date Comments Results 09/24/2018 Appointment Related 09/24/2018 Encounter Details Date Type Department Care Team Description 09/24/2018 Telephone [facility] Ingris Betts Resul ts; Appointment Surgical Oncology - RN Related [address] [place] [address] [place] [address] Social History Tobacco Use Types Packs/Day [...] this encounter Miscellaneous Notes Telephone Encounter - Ingris Betts RN - 09/24/2018 1147 EST Spoke with Brittaney. Relayed her pathology was available. She was OK with hearing the results over the phone. Brittaney was glad that her margins and LN were negative and for the small size of her tumor. Relayed to her that she has an appointment with Dr. Peterson on 10/08 at 1:30. Stated that her records were sent to the Medical Oncology office and they will contact us with her appointment. Brittaney will be coming for her POV on Monday. She did mention she noticed a bunch under her arm. It is not painful, but she does notice it by evening. Explained this sounded like a seroma. Advised icing, Advil, some compression and rest. Advised she call if this becomes red or painful; otherwise, she will wait until Monday's appointment. documented in this encounter Plan of Treatment Upcoming Encounters Date Type Specialty Care Team Description 07/15/2022 Telemedicine Hematology and Oncology Armando Martinez MD [address] [place] [address] [address] [place] [address] (Wo rk) 07/20/2022 Office Visit Surgical Oncology Rio Pearson DO 111 [facility], [facility] 2 [place], [place] [address] (Wo rk) 09/23/2022 Office Visit Dermatology Miriam Bentley MD 111 [facility], [facility] 5 [place], [place] [address] (Wo rk) documented as of this encounter Visit Diagnoses Not on filedocumented in this encounter Care Teams Graphic Editor Relationship Specialty Start Date End Date Juan Pablo Garrett MD PCP - General 07/05/16 04/28/19 [address] [place] [address] documented as of this encounter
--- OUTSIDE RECORDS SUMMARY | 2022-07-12 11:37 | XMS_ITS | Encounter Summary ---
:1950 Author Organization [facility] Address [address] [place] [address] Care Team Providers Name Role Phone Jaimie Delgado Primary Care Provider Reason for Referral Laboratory Services (Routine/Next Available) - New Request Specialty Diagnoses / Procedures Referred By Contact Refer red To Contact Diagnoses Other iron deficiency anemia Armando Martinez MD Procedures TRANSFERRIN SATURATION [address] [facility] [address] [place] [address] Referral ID Status Reason Start Date Expiration Date Visits V isits Requested Authorized [id number] New Request 02/25/2022 1 1 aboratory Services (Routine/Next Available) - New Request Specialty Diagnoses / Procedures Referred By Contact Refer red To Contact Diagnoses Other iron deficiency anemia Armando Martinez MD Procedures COMPLETE BLOOD COUNT AND DIFFERENTIAL [address] [facility] [address] [place] [address] Referral ID Status Reason Start Date Expiration Date Visits V isits Requested Authorized [id number] New Request 02/25/2022 1 1 Reason for Visit Reason Onset Date Comments Appointment Related 02/25/2022 Encounter Details Date Type Department Care Team Description 02/25/2022 Telephone [facility] - Vitaliy Martinez MD Appointment Related [facility] [place] [facility] & [address] [facility], Oncology [facility] [address] [place] [address] [place], [place] [phone] ([place] butts) Social History Tobacco Use Types Packs/Day Years [...] this encounter Miscellaneous Notes Telephone Encounter - Anais Cummings RN - 02/25/2022 1624 EDT Labs ordered and faxed to [facility]. Therapy plan for Venofer 300 mg x1 entered. [facility] will call patient to schedule. elephone Encounter - Armando Martinez MD - 02/25/2022 1605 EDT Please schedule a infusion of Venofer 300 mg IV x1 next week at her convenience. Also could you call the [facility] ([phone]) where she gets blood work done : CBC, ferritin, transferrin saturation, labs to be drawn on March 29 diagnosis of iron deficiency anemia. Thank you documented in this encounter Plan of Treatment Upcoming Encounters Date Type Specialty Care Team Description 07/15/2022 Telemedicine Hematology and Oncology Armando Martinez MD 130 [facility], [facility] [address] [place] [address] (Wo rk) 07/20/2022 Office Visit Surgical Oncology Rio Pearson DO 111 [facility], [facility] 2 [place], [place] [address] (Wo rk) 09/23/2022 Office Visit Dermatology Miriam Bentley MD 111 [facility], Level [address] [place], [place] [phone] (Wo rk) Scheduled Orders Name Type Priority Associated Diagnoses Order S chedule COMPLETE BLOOD COUNT AND Lab Routine Other iron defic iency Expected: 03/29/2022 DIFFERENTIAL anemia (Approximate), Expires: 2022 TRANSFERRIN SATURATION Lab Routine Other iron deficie ncy Expected: 03/29/2022 anemia (Approximate), Expires: 2022 documented as of this encounter Visit Diagnoses Diagnosis Other iron deficiency anemia - Primary documented in this encounter Care Teams Ballet Soloist Relationship Specialty Start Date End Date Jaimie Delgado PCP - General Internal Medicine - Primary 08/18/21 [address] [place] [address] documented as of this encounter
--- OUTSIDE RECORDS SUMMARY | 2022-07-12 11:37 | XMS_ITS | Encounter Summary ---
:1950 Author Organization [facility] Address [address] [place] [address] Care Team Providers Name Role Phone Juan Pablo Garrett MD Primary Care Provider Reason for Referral (Routine) - Authorization Not Required Specialty Diagnoses / Procedures Referred By Contact Refer red To Contact Diagnoses Need for vaccination Sylvester Vance MD Procedures SARS-COV-2 VACCINE 1ST DOSE APPT [address] [place] [address] Referral ID Status Reason Start Expiration Visits Visits Date Date Requested Authorized [id number] Authorization Not 12/14/2020 1 1 Required Encounter Details Date Type Department Care Team Description 12/14/2020 Transcribe Orders [facility] Vance, [place] [facility] vaccination Center - [address] (Primary Dx) Mobile Testing [address] [phone] [address] (Work) [phone] Social History Tobacco Use Types Packs/Day Years [...] making decisions? documented as of this encounter Progress Notes Anmol Coreas - 12/14/2020 1229 EST tan documented in this encounter Plan of Treatment Upcoming Encounters Date Type Specialty Care Team Description 07/15/2022 Telemedicine Hematology and Oncology Armando Martinez MD [address] [place] [address] [address] [place] [address] (Wo rk) 07/20/2022 Office Visit Surgical Oncology Rio Pearson DO 111 [facility] 2 [place], [place] [address] (Wo rk) 09/23/2022 Office Visit Dermatology Miriam Bentley MD 111 [facility] 5 [place], [place] [address] (Wo rk) documented as of this encounter Visit Diagnoses Diagnosis Need for vaccination - Primary Need for prophylactic vaccination and in oculation against unspecified single disease documented in this encounter Orders Appointment Requests Count Last Ordered Date First Ord ered Date SARS-COV-2 VACCINE 1ST DOSE APPT 1 12/15/2020 documented in this encounter Care Teams Helper Maintenance Cleaning Relationship Specialty Start Date End Date Juan Pablo Garertt MD PCP - General 04/30/19 06/21/21 [address] [place] [address] documented as of this encounter
--- OUTSIDE RECORDS SUMMARY | 2022-07-12 11:37 | XMS_ITS | Encounter Summary ---
:1950 Author Organization [facility] Address [address] [place] [address] Care Team Providers Name Role Phone Juan Pablo Garrett MD Primary Care Provider Encounter Details Date Type Department Care Team Description 09/26/2018 Results Only [facility] Ami Pearson, Imaging Surgical Oncology - [address] [address] [place], [place] [phone] (Wo rk) Social History Tobacco Use Types [...] Telemedicine Hematology and Oncology Armando Martinez MD [address] [place] [address] [address] [place] [phone] (Wo rk) 07/20/2022 Office Visit Surgical Oncology Rio Pearson, [address] [facility], [facility] 2 [place], [place] [address] (Wo rk) 09/23/2022 Office Visit Dermatology Miriam Bentley MD 111 [facility], Level [address] [place], [place] [address] (Wo rk) documented as of this encounter Visit Diagnoses Not on filedocumented in this encounter Care Teams Roustabout Crew Leader Relationship Specialty Start Date End Date Juan Pablo Garrett MD PCP - General 07/05/16 04/28/19 [address] [place] [address] documented as of this encounter
--- OUTSIDE RECORDS SUMMARY | 2022-07-12 11:37 | XMS_ITS | Encounter Summary ---
:1950 Author Organization [facility] Address [address] [place] [address] Care Team Providers Name Role Phone Juan Pablo Garrett MD Primary Care Provider None, Provider Primary Care Provider Unavailable Juan Pablo Garrett MD Primary Care Provider Unknown, Provider Primary Care Provider Jaimie Delgado Primary Care Provider Encounter Details Date Type Department Care Team Description 04/24/2019 Documentation Visit [facility] Valery Pearson, Surgical Oncology - [address] [address] [address], [place] [phone] (Wo rk) Social History Tobacco Use Types [...] Hematology and Oncology Armando Martinez MD 130 [facility] [address] [place] [address] (Wo rk) 07/20/2022 Office Visit Surgical Oncology Rio Pearson DO 111 [facility], [facility] 2 [place], [place] [address] (Wo rk) 09/23/2022 Office Visit Dermatology Miriam Bentley MD 111 [facility], [facility] 5 [place], [place] [address] (Wo rk) documented as of this encounter Visit Diagnoses Not on filedocumented in this encounter Care Teams Middle School Professional Relationship Specialty Start Date End Date Juan Pablo Garrett MD PCP - General 07/05/16 04/28/19 [address] [place] [address] None, Provider PCP - General 04/29/19 04/29/19 Juan Pablo Garrett MD PCP - General 04/30/19 06/21/21 [address] [place] [address] Unknown, Provider, PCP - General 08/13/21 08/17/21 Jaiime Delgado PCP - General Internal Medicine - 08/18/21 [address] [place] [place] [address] documented as of this encounter
--- OUTSIDE RECORDS SUMMARY | 2022-07-12 11:37 | XMS_ITS | Encounter Summary ---
:1950 Author Organization [facility] Address [address] [place] [address] Care Team Providers Name Role Phone Juan Pablo Garrett MD Primary Care Provider Encounter Details Date Type Department Care Team Description 05/12/2020 Travel Social History Tobacco Use Types Packs/Day Years Used Date Never Smoker Smokeless Tobacco: Never Used Alcohol Use Standard Drinks/Week Comments No 0 (1 standard drink = 0.6 oz pure alcoho l) Sex Assigned at Date Recorded Not on file COVID-19 Exposure Response Date Recorded In the last month, have you been in contact with No / Unsure 05/12/2020 14:19 EDT someone who was confirmed or suspected [...] Telemedicine Hematology and Oncology Armando Martinez MD [address] [place] [address] [address] [place], [place] [phone] (Wo rk) 07/20/2022 Office Visit Surgical Oncology Rio Pearson, 111 [facility] Level 2 [place], [place] [address] (Wo rk) 09/23/2022 Office Visit Dermatology Miriam Bentley MD [address] [place] [address] [facility], Level [address] [place], [place] [address] (Wo rk) documented as of this encounter Visit Diagnoses Not on filedocumented in this encounter Care Teams Physician Practice Manager Relationship Specialty Start Date End Date Juan Pablo Garrett MD PCP - General 04/30/19 06/21/21 [address] [place] [address] documented as of this encounter
--- OUTSIDE RECORDS SUMMARY | 2022-07-12 11:37 | XMS_ITS | Encounter Summary ---
:1950 Author Organization [facility] Address [address] [place] [address] Care Team Providers Name Role Phone Jaimie Delgado Primary Care Provider Reason for Visit Reason Comments Follow-up Encounter Details Date Type Department Care Team Description 02/25/2022 Telemedicine [facility] - Randolph Martinez Iro n deficiency anemia due to chronic blood loss (Primary Dx); [facility] Adult Hematology MD Vitamin D deficiency; & Oncology [address], Other iron deficiency anemia [address] [place] [address] [place], [place] [phone] Social History Tobacco Use Types Packs/Day Years [...] documented as of this encounter Progress Notes Randolph Shoemaker RN - 02/25/2022 1530 EDT Patient rooming was completed remotely by RANDOLPH SHOEMAKER RN in compliance with efforts to reduce exposure to COVID19. Patient pharmacy verified: Yes Patient insurance verified: Yes Verbal consent given by patient to continue with telemedicine visit: Yes 02/25/22 14:58 Randolph ponce MD - 02/25/2022 1530 EDT [facility] Telemedicine/Audio Note Brittaney Grullon :1950 Age: 72 y.o. Date of Service: 02/25/2022 I am conducting today's visit by telemedicine due to the COVID-19 pandemic, and by the recommendations from the [facility] to minimize patient exposure to our medical center. All patients who have routine follow up visits or are not on active cancer treatments will have visits postponed for an appropriate interval (as decided by the physician) or these visits may be offered by telemedicine or phone consultation. This consultation has been reviewed by appropriate clinical staff and has been deemed appropriate for a phone consultation. The patient consents to a phone visit, is at home/work, and I, their MD, am in a private area. The location of the patient: Workplace Time of telemedicine initiation: 3: 36 Time of telemedicine conclusion: 4: 20 The location of the provider: Office Verbal consent: The concept of ???Telemedicine?? has been described to the patient.? Patient has been informed of the anticipated benefits and possible risks.? Patient understands the information provided regarding telemedicine, has had the opportunity to ask questions about this information, and all questions have been answered to patient???s satisfaction. Patient consents for the use of telemedicine in his/her medical care and authorizes the transmission of any relevant medical information to providers and theirstaff involved in patient???s medical or mental health care. The concept of ???Telemedicine?? has been described to the patient. Patient has been informed of the anticipated benefits and possible risks. Patient understands the information provided regarding telemedicine, has had the opportunity to ask questions about this information, and all questions have been answered to patient???s satisfaction. Patient consents for the use of telemedicine in his/her medical care and authorizes the transmission of any relevant medical information to providers and their staff involved in patient???s medical or mental health care. I have determined that an audio-only visit is appropriate due to: Patient request Internet access or other technical issue Physical exam not indicated based on available information Patient request due to travel and safety concerns Other HPI: 1:??Invasive ductal carcinoma left breast stage I, pT1, pN0 (SN), M0. ER positive OH positive HER-2 negative. -08/14/18: Routine mammogram BI-RADS Category 4 on left, Category 1 on right. Patient noted no appreciable changes in self-breast exam, chronic nipple inversion and discharge x 15 years -08/21/18: Stereotactic bx showed nuclear grade 1, invasive ductal carcinoma. ER+ (>90%), OH+ (>90%), Her-2 negative. -09/14/18: Partial mastectomy and sentinel lymph node bx with Dr. Pearson. Tumor size 0.45 cm. Well differentiated. 0/1 lymph node involvement. -11/21/18: completed XRT. Dr. Peterson -12/21/18: Started anastrazole. -08/18/2021 Bilateral cat 2 , benign. -09/08/2021 clinical LON. Surveillance: See Dr. Peterson today. I will see her once a year in December for the next [address] Pearson once a year in June. Continue anastrozole until December 2023. 2: Osteopenia -2018 osteopenia. On calcium and vitamin D -09/08/2021 asymptomatic. Schedule follow-up 02/11/2022. 3: History of iron deficiency on oral iron supplement. -Diagnosed many years ago. Takes intermittent oral iron supplement. -09/08/2021 pending CBC and iron studies. -09/10 status post Venofer x1, start oral iron twice a day. -12/28/2021 ferritin 39. -02/25/2022 ferritin 24. Hgb 12.7, MCH 30.2 MCV 96.2. PLT 263,000. WBC 10.7. Previous information: Colonoscopy 02/10/2021: Small polyp x1. Previous EGD 201 10: Possible Augusto's ulcer. Capsule ubinvjyxu04/6/12: Poor prep. Plan: Venofer x1. Check for stools for occult blood x4 consider EGD. Addendum: 03/09/2022 stools for occult blood negative x4. 4: Vitamin D deficiency. -12/28/2021 vitamin D 26.8 normal range 30-100 (Start vitamin D 1000 mg daily) -02/25/2022 vitamin D 29.5 (range 30-100) plan: Increase vitamin D 2000 mg a day recheck in 2 months. 4: Restless leg syndrome. -Chronic symptomatic. Check labs for electrolyte imbalances. Consider pramipexole Reason for Telemed: Discussed recent lab results for iron and vitamin D Subjective: Doing well has no complaints ROS: Review of Systems HENT: Negative for nosebleeds. Gastrointestinal: Negative for abdominal pain, blood in stool, diarrhea, heartburn, melena and nausea. Genitourinary: Negative for hematuria. Denies choluria Endo/Heme/Allergies: Does not bruise/bleed easily. All other systems reviewed and are negative. I have reviewed patient's past medical history, past surgical history, social and family history. Past Medical History: Diagnosis Date ??? Anemia ??? Breast cancer, left ([facility]) ([facility]) 2017 ??? Chronic kidney disease hx kidney stones ??? Colon polyp ??? Factor V Leiden ([facility]) (HCC) ??? 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 GERD (gastroesophageal reflux disease) ??? Hypertension ??? Lung disease asthma ??? Restless legs syndrome 08/01/2012 Past Surgical History: Procedure Laterality Date ??? BREAST LUMPECTOMY Left 2017 ??? BREAST SURGERY Left 08/2018 Partial mastectomy and SLNBx ??? SECTION times 3 ??? RADIATION THERAPY OF BREAST Left 2017 Social History Tobacco Use ??? Smoking status: Never Smoker ??? Smokeless tobacco: Never Used Substance Use Topics ??? Alcohol use: No ??? Drug use: No Social History Social History Narrative ??? Not on file Family History Problem Relation Age of Onset ??? Hypertension Father ??? High Cholesterol Father ??? Colon Cancer Father 86 ??? Heart Attack Mother ??? Heart Attack Under 50 Daughter 45 ??? Breast Cancer Maternal Aunt ??? Colon Polyps Neg Hx ??? Endometrial Cancer Neg Hx ??? Esophageal Cancer Neg Hx ??? Ovarian Cancer Neg Hx ??? Pancreatic Cancer Neg Hx ??? Rectal Cancer Neg Hx ??? Stomach Cancer Neg Hx I have reviewed allergies Allergies Allergen Reactions ??? Shellfish Containing Products Anaphylaxis Avoid lobster as well ??? Sulfa (Sulfonamide Antibiotics) Rash ??? Antibiotic [Vtais-Vbsvo-Ixyicph-Pramoxine] Rash ??? Erythromycin Rash I have reviewed current medications Current Outpatient Medications Medication Sig Dispense Refill Last Dose ??? albuterol 90 mcg/actuation inhaler (Patient not taking: Reported on 06/22/2021) ??? ALBUTEROL INHL Inhale 2 Inhalers as directed as needed (Rarely) . ??? anastrozole (ARIMIDEX) 1 mg tablet Take 1 Tablet by mouth daily. 90 Tablet 3 ??? atorvastatin (LIPITOR) 20 mg tablet ??? Calcium-Cholecalciferol, D3, (CALCARB) 600 mg(1,500mg) -200 unit tablet Take by mouth daily. (Patient not taking: Reported on 09/08/2021) ??? enoxaparin (LOVENOX) 40 mg/0.4 mL injection Inject 40 mg into the skin daily. Start 24 hours after surgery for 10 days (Patient not taking: Reported on 04/30/2019) 10 Syringe 0 ??? FERROUS FUMARATE (IRON ORAL) Take 50 mg by mouth 2 times daily . ??? FLUoxetine (PROZAC) 20 mg capsule Take 20 mg by mouth daily. ??? fluticasone-salmeterol (ADVAIR) 250-50 mcg/dose diskus inhaler Inhale 1 Puff as directed every 12 hours as needed. ??? gluc agarwal/chondro agarwal A/vit C/Mn (GLUCOSAMINE 1500 COMPLEX ORAL) Take 1 Tab by mouth daily. (Patient not taking: Reported on 09/08/2021) ??? Glucosamine HCl 1,500 mg tablet Take 1,500 mg by mouth daily. (Patient not taking: Reported on 06/22/2021) ??? hydrochlorothiazide (HYDRODIURIL) 50 mg tablet Take 50 mg by mouth daily. ??? montelukast (SINGULAIR) 10 mg tablet Take 10 mg by mouth daily. ??? oxyCODONE (ROXICODONE) 5 mg immediate release tablet Take 1 Tab by mouth every 4 hours as neededfor Pain. Daily Max: 30 mg (Patient not taking: Reported on 04/30/2019) 2 Tab 0 ??? rOPINIRole (REQUIP) 1 mg tablet Take 1 mg by mouth at bedtime. ??? SYMBICORT 160-4.5 mcg/actuation HFA aerosol inhaler inhaler No current facility-administered medications for this visit. Objective: No data found. There were no vitals taken for this visit. Examination: By history ECOG performance status:0 Maintaining all activities of daily living. General: Comfortable, cooperative and in no apparent distress NEURO: Alert and oriented x 3; Data reviewed with patient: Results for orders placed or performed in visit on 09/08/21 FERRITIN Result Value Ref Range FERRITIN - [facility] 19 11.1 - 264.0 ng/mL COMPLETE BLOOD COUNT WITH DIFFERENTIAL (AUTO) Result Value Ref Range ABSOLUTE NEUTROPHIL COUN - [facility] 7.0 2.2 - 8.85 10e3/uL BASO # - [facility] 0.08 0.01 - 0.11 10e/uL BASO % - [facility] 1 0 - 2 % EOS # - [facility] 0.18 0.03 - 0.61 10e3/ul EOS % - [facility] 2 0 - 5 % GRAN % - [facility] 75.0 40 - 80 % HEMATOCRIT - [facility] 44.4 34.9 - 44.4 % HEMOGLOBIN - [facility] 14.1 11.6 - 15.2 g/dl IG# - [facility] 0.03 0 - 0.7 10e3/uL IG% - [facility] 0.3 0 - 0.9 % LYMPH # - [facility] 1.3 1.09 - 3.3 10e3/ul LYMPH% - [facility] 13.3 (L) 20 - 40 % MEAN CORPUSCULAR HGB - [facility] 30.3 26.7 - 33.3 pg MEAN CORPUSCULAR HGB CONC - [facility] 31.8 (L) 32.1 - 35.9 g/dL MEAN CELL VOLUME - [facility] 95.3 81 - 98 fl MONO # - [facility] 0.8 0.1 - 0.8 10e3/uL MONO% - [facility] 8.6 0 - 12 % PLATELET COUNT 276 141 - 377 10e3/ul RED BLOOD COUNT - [facility] 4.66 3.86 - 5.04 10e6/ul RED CELL DISTRI WIDTH - [facility] 13.0 <14.7 % WHITE BLOOD COUNT - [facility] 9.4 4.0 - 12.4 10e3/ul COMPREHENSIVE METABOLIC PANEL (CMP) Result Value Ref Range ALBUMIN - [facility] 4.7 3.4 - 4.9 g/dL ALKALINE PHOSPHATASE - [facility] 117 38 - 126 U/L BILIRUBIN TOTAL 1.2 0.2 - 1.3 mg/dL BUN - [facility] 27 (H) 10 - 26 mg/dL CALCIUM - [facility] 10.6 (H) 8.5 - 10.5 mg/dL Chloride 96 96 - 110 mmol/L CO2 Total 30 22 - 32 mEq/L CREATININE 0.72 0.52 - 1.04 mg/dL eGFR >60 Anion Gap 15 0 - 18 GLUCOSE - [facility] 73 70 - 100 mg/dL Potassium 3.6 3.5 - 5.0 mEq/L Sodium 141 136 - 145 mEq/L TOTAL PROTEIN - [facility] 7.5 6.2 - 8.2 gm/dL SGOT/AST - [facility] 32 14 - 36 U/L SGPT/ALT - [facility] 29 0 - 35 U/L MAGNESIUM Result Value Ref Range Magnesium 1.90 1.7 - 2.8 mg/dL Assessment & Plan: 1: History of iron deficiency. Required infusion of Venofer x3 earlier this year. At the time ferritin was 39 continue on oral iron. Follow-up 2 months later, ferritin decreased to 25, Hgb 12.7 stable. Previous colonoscopy January 2021, previous EGD 2009: Possible Augusto's ulcer on a hiatal hernia. 2011 at a capsule endoscopy which was subdiagnostic due to poor prep. Clinical picture suggestive of persistent small bleed somewhere the digestive tract. We will check stools for occult blood x4 if any positive consider EGD. Plan: -Venofer 300 mg IV x1 with follow-up labs March 29. -Stools for occult blood x4. 2: Vitamin D deficiency start vitamin D 1000 units a day over 2 months ago. Follow-up labs shows vitamin D level still low will increase supplement. Plan: -Increase vitamin D 2000 units a day. Patient initiated phone contact with the office Yes Is an established patient (parent, guardian) Yes E/M provided within previous 7 days for same Assessment No Anticipate E/M service within 24hrs or next available urgent appointment No I spent a total of 44 minutes on the date of this encounter which includes time with the patient, time reviewing medical records and reviewing imaging reports and laboratory results, time updating the chart information, and time composing this note. This note was transcribed using [employer] voice recognition software. Please excuse any errors. Carbon copy: Dalia Martinez MD [facility]/ CC:Primary Care Provider: Jaimie Delgado [address] [facility] [address] Referring Provider: No referring provider defined for this encounter. Phone: N/A Fax: documented in this encounter Miscellaneous Notes Addendum Note - Anais Bautista RN - 02/25/2022 1530 EDT Addended by: ANAIS BAUTISTA on: 03/07/2022 09:49 Modules accepted: Orders documented in this encounter Plan of Treatment Upcoming Encounters Date Type Specialty Care Team Description 07/15/2022 Telemedicine Hematology and Oncology Randolph Martinez MD [address] [place] [address] [address] [place], [place] [phone] ([place]) 07/20/2022 Office Visit Surgical Oncology Rio Pearson DO [address] [facility], [address] [place], [place] [address] ([place]) 09/23/2022 Office Visit Dermatology Miriam Bentley MD [address] [facility], [address] [place], [place] [address] ([place]) documented as of this encounter Procedures Procedure Name Priority Date/Time Associated Diagnosis Comme nts POCT OCCULT BLOOD Routine 03/07/2022 Iron deficiency anemia Results for this SLIDE TEST X 3 due to chronic blood proce dure are in the loss results section. Other iron deficiency anemia documented in this encounter Results POCT OCCULT BLOOD SLIDE TEST X 3 (03/07/2022) Pathologist Sig nature Developer Lot Number [facility] POINT OF CARE Developer Expiration [facility] POINT OF CARE Date Card/Slide Lot Number [facility] POINT OF CARE #1 Card/Slide Expiration [facility] POINT OF CARE Date #1 Card Slide #1 [id number] [facility] POINT OF CARE Collection Date: Occult Blood Test Negative Negative [facility] POINT [facility] CARE Result #1 Positive Control Blue? [facility] POINT OF CAR E #1 Negative Control Clear? [facility] POINT OF CA RE #1 Card/Slide Lot Number [facility] POINT OF CARE #2 Card/Slide Expiration [facility] POINT OF CARE Date #2 Card Slide #2 [id number] [facility] POINT OF CARE Collection Date: Occult Blood Test Negative Negative [facility] POINT [facility] CARE Result #2 Positive Control Blue? [facility] POINT OF CAR E #2 Negative Control Clear? [facility] POINT OF CA RE #2 Card/Slide Lot Number [facility] POINT OF CARE #3 Card/Slide Expiration [facility] POINT OF CARE Date #3 Card Slide #3 [id number] [facility] POINT OF CARE Collection Date: Occult Blood Test Negative Negative [facility] POINT [facility] CARE Result #3 Positive Control Blue? [facility] POINT OF CAR E #3 Negative Control Clear? [facility] POINT OF CA RE #3 Specimen Feces - Specimen from rectum (specimen) Performing Organization Address City/State/ZIP Code Phon e Number [facility] POINT OF CARE documented in this encounter Visit Diagnoses Diagnosis Iron deficiency anemia due to chronic bl ood loss - Primary Iron deficiency anemia secondary to bloo d loss (chronic) Vitamin D deficiency Unspecified vitamin D deficiency Other iron deficiency anemia documented in this encounter Discontinued Medications Medication Sig Discontinue Reason Start Date End Date albuterol 90 04/21/2021 02/25/2022 mcg/actuation inhaler enoxaparin (LOVENOX) 40 Inject 40 mg into 09/15/2018 02/25/2022 mg/0.4 mL the skin daily. injectionIndications: Start 24 hours Heterozygous factor V after surgery for Leiden mutation (HCC-CMS) 10 days (HCC) Glucosamine HCl 1,500 mg Take 1,500 mg by 02/25/2022 tablet mouth daily. oxyCODONE (ROXICODONE) 5 Take 1 Tab by mouth 8 02/25/2022 mg immediate release every 4 hours as tablet needed for Pain. Daily Max: 30 mg FERROUS FUMARATE (IRON Take 50 mg by mouth 2 times daily . 02/25/2022 ORAL) documented as of this encounter Historical Medications This list may reflect changes made after this encounter. Medication Sig Dispensed Refills Start Date End Date ferrous sulfate (SLOW FE) Take 284 mg by mouth 0 142 mg (45 mg iron) ER daily. tablet added in this encounter Care Teams Primary Care Nurse Practitioner Relationship Specialty Start Date End Date Jaimie Delgado PCP - General Internal Medicine - Primary 08/18/21 [address] [place] [address] documented as of this encounter
--- OUTSIDE RECORDS SUMMARY | 2022-07-12 11:37 | XMS_ITS | Encounter Summary ---
:1950 Author Organization [facility] Address [address] [place] [address] Care Team Providers Name Role Phone Juan Pablo Garrett MD Primary Care Provider Encounter Details Date Type Department Care Team Description 02/10/[address] [facility] Donny Lopez MD Lab - [address] [facility] [address] [place] [address] [place] [phone] (Wo rk) Social History Tobacco Use Types [...] Hematology and Oncology Armando Martinez MD [address] [facility] [address] [place] [address] (Wo rk) 07/20/2022 Office Visit Surgical Oncology Rio Pearson DO [address] [facility], [address] [address] ([place]) 09/23/2022 Office Visit Dermatology Miriam Bentley MD 111 [facility], [address] [address] ([place]) documented as of this encounter Procedures Procedure Name Priority Date/Time Associated Diagnosis Comme nts SURGICAL PATHOLOGY Routine 02/10/2021 Results f or this procedure are i n the results section . documented in this encounter Results SURGICAL PATHOLOGY (02/10/2021) Specimen Narrative [facility] - 021 12:07 EDT Name: BRITTANEY GRULLON ? : [birth year] ?Age/Sex: 70/F ?Unit#: [id number] ? Loc: END ? Status: DEP CLI ?? Reg Date: 02/10/21 ? Pt.Phone Number : ? Specimen: [id number] ? STA TUS: SOUT ?Spec Date:02/10/21 ? Physician Copies: ?Donny Lopez MD ? Tissues: A ?? Endoscopy specimen (CECUM) ? Juan Pablo Garrett ?? CPT: 97237 ?? Units: ??1 ?FINAL DIAGNOSIS ? CECUM, POLYP, BIOPSY; ? - Tubular adenoma. ? GROSS DESCRIPTION ? Specimen is received in formalin labeled Brittaney Paiz and cecal polyp are ? two mucosal fragments measuring 0 .1 x 0.2 x 0.2 cm and 0.2 x 0.2 x 0.2 cm. es 1 ? KT ?? PREOP DX/CLINICAL HISTORY ?HX OF POLYPS Signed ____(signature on file)____ Teo albaroChica Diane 02/11/21 ?? By the signature above, the attending ph ysician certifies that he/she has personally conducted a gross and/or microscopic exa mination of the described specimens and rendered or confirmed the above diagnosi s. Test [facility] by [facility], [address] [address] Supervisor Publications: Leena Gallo MD PHD Performing Organization Address City/State/[facility] Code Phon e Number [facility] [address] [place] [id number] documented in this encounter Visit Diagnoses Not on filedocumented in this encounter Care Teams Physicist Acoustics Relationship Specialty Start Date End Date Juan Pablo Garrett MD PCP - General 04/30/19 06/21/21 [address] [place] [address] documented as of this encounter
--- OUTSIDE RECORDS SUMMARY | 2022-07-12 11:37 | XMS_ITS | Encounter Summary ---
:1950 Author Organization [facility] Address [address] [place] [address] Care Team Providers Name Role Phone Juan Pablo Garrett MD Primary Care Provider Encounter Details Date Type Department Care Team Description 11/06/2020 Travel Social History Tobacco Use Types Packs/Day Years Used Date Never Smoker Smokeless Tobacco: Never Used Alcohol Use Standard Drinks/Week Comments No 0 (1 standard drink = 0.6 oz pure alcoho l) Sex Assigned at Date Recorded Not on file COVID-19 Exposure Response Date Recorded In the last month, have you been in contact with No / Unsure 11/06/2020 10:41 EST someone who was confirmed or suspected to [...] Telemedicine Hematology and Oncology Armando Martinez MD [address] [place] [address] [address] [place] [address] (Wo rk) 07/20/2022 Office Visit Surgical Oncology Rio Pearson, DO [address] [facility], [facility] 2 [place], [place] [address] (Wo rk) 09/23/2022 Office Visit Dermatology Miriam Bentley MD [address] [facility], [address] [place], [place] [address] (Wo rk) documented as of this encounter Visit Diagnoses Not on filedocumented in this encounter Care Teams Conservation Technician Relationship Specialty Start Date End Date Juan Pablo Garrett MD PCP - General 04/30/19 06/21/21 [address] [place] [address] documented as of this encounter
--- OUTSIDE RECORDS SUMMARY | 2022-07-12 11:37 | XMS_ITS | Encounter Summary ---
:[address] [facility] Address [address] [place] [address] Care Team Providers Name Role Phone Juan Pablo Garrett MD Primary Care Provider Encounter Details Date Type Department Care Team Description 10/19/[address] [phone] [place] [address] (Work) [place] [address] Social History Tobacco Use Types Packs/Day Years [...] as directed as needed (Rarely) . 0 FLUoxetine (PROZAC) 20 mg Take 20 mg by 0 capsuleIndications: Anemia, mouth daily. unspecified fluticasone-salmeterol Inhale 1 Puff as 0 (ADVAIR) 250-50 mcg/dose directed every diskus inhalerIndications: 12 hours as Anemia, unspecified needed. gluc agarwal/chondro agarwal A/vit Take 1 Tab by 0 C/Mn (GLUCOSAMINE 1500 mouth daily. COMPLEX ORAL) hydrochlorothiazide Take 50 mg by 0 (HYDRODIURIL) 50 mg mouth daily. tabletIndications: Anemia, unspecified montelukast (SINGULAIR) 10 Take 10 mg by 0 mg tabletIndications: mouth daily. Anemia, unspecified rOPINIRole (REQUIP) 0.5 mg Take 1 mg by 0 tabletIndications: Anemia, mouth at unspecified bedtime. budesonide/formoterol Inhale 2 Puffs 0 05/10/2021 fumarate (SYMBICORT as directed INHALATION) daily. enoxaparin (LOVENOX) 40 Inject 40 mg 10 Syringe 0 09/15/2018 02/25/2022 mg/0.4 mL into the skin injectionIndications: daily. Start 24 Heterozygous factor V Leiden hours after mutation (HCC-CMS) (HCC) surgery for 10 days FERROUS FUMARATE (IRON ORAL) Take 50 mg by mouth 2 times daily . 0 02/25/2022 oxyCODONE (ROXICODONE) 5 mg Take 1 Tab by 2 Tab 0 09/1402/25/2022 immediate release tablet mouth every 4 hours as needed for Pain. Daily Max: 30 mg documented as of this encounter Discharge Disposition Disposition Code Departure Means Destination Home or Self Senior Care documented in this encounter Plan of Treatment Upcoming Encounters Date Type Specialty Care Team Description 07/15/2022 Telemedicine Hematology and Oncology Armando Martinez MD [address] [place] [address] [address] [place] [address] (Wo rk) 07/20/2022 Office Visit Surgical Oncology Rio Pearson DO 111 [facility], [facility] 2 [place], [place] [address] ([place] r[place]) 09/23/2022 Office Visit Dermatology Miriam Bentley MD 111 [facility], [address] [place], [place] [address] ([place]o beckie) documented as of this encounter Visit Diagnoses Not on filedocumented in this encounter Care Teams Voice Instructor Relationship Specialty Start Date End Date Juan Pablo Garrett MD PCP - General 07/05/16 04/28/19 [address] [place] [address] documented as of this encounter
--- OUTSIDE RECORDS SUMMARY | 2022-07-12 11:37 | XMS_ITS | Encounter Summary ---
:1950 Author Organization [facility] Address [address] [place] [address] Care Team Providers Name Role Phone Juan Pablo Garrett MD Primary Care Provider Encounter Details Date Type Department Care Team Description 04/30/2019 Results Only [facility] Ami Pearson, Imaging Surgical Oncology - [address] [address] [address], [place] [phone] (Wo rk) Social History Tobacco Use Types [...] Telemedicine Hematology and Oncology Armando Martinez MD [address] [place] [address] [address] [place] [phone] (Wo rk) 07/20/2022 Office Visit Surgical Oncology Lili Rio ricarda Bush DO [address] [facility], [facility], Level 2 [place] [address] (Wo rk) 09/23/2022 Office Visit Dermatology Miriam Bentley MD [address] [facility], [address] 5 [place] [address] (Wo rk) documented as of this encounter Procedures Procedure Name Priority Date/Time Associated Diagnosis Comme nts [facility] 04/30/2019 10:12 Results for this BREAST-BREAST CARE EDT procedure are in CENTER ONLY the results section. documented in this encounter Results [facility] BREAST-BREAST CARE CENTER ONLY (04/30/2019 10:12 EDT) Anatomical Region Laterality Modality Other Specimen Narrative [facility] BREAST IMAGING MAIN C [facility] - 04/30/2019 10:12 EDT See Notes Tab. Procedure Note PHARMACY BENEFIT MANAGER, IMAGING - 04/30/2019 See Notes Tab. Performing Organization Address City/State/ZIP Code Phon e Number [facility] BREAST IMAGING [facility] documented in this encounter Visit Diagnoses Not on filedocumented in this encounter Care Teams Multi Needle Machine Operator Relationship Specialty Start Date End Date Juan Pablo Garrett MD PCP - General 04/30/19 06/21/[address] [place] [address] documented as of this encounter
--- OUTSIDE RECORDS SUMMARY | 2022-07-12 11:37 | XMS_ITS | Encounter Summary ---
:1950 Author Organization [facility] Address [address] [place] [address] Care Team Providers Name Role Phone Juan Pablo Garrett MD Primary Care Provider Reason for Visit Reason Onset Date Comments Appointment Related 05/06/2021 Encounter Details Date Type Department Care Team Description 05/06/2021 Telephone [facility] Deepali Pearson, Appointment Related Surgical Oncology - [address] [place] [address], [address], [address] [place], [place] [address] [place] [address] [phone] (Wo rk) Social History Tobacco Use [...] this encounter Miscellaneous Notes Telephone Encounter - Miriam Norton - 05/06/2021 0940 EDT Gave the patient a call to reschedule her 05/07/[address] Pearson (patient canceled via televox) While on the phone with the patient we rescheduled this appt to: 06/22/2021 @ 1:20pm - pt Is aware Miriam Norton 05/06/2021 9:41 elephone Encounter - Hayde Chris - 05/06/2021 0817 EDT televox cancellation; 05/07/2021 @ 11:[address] Pearson[address] Hayde Chris 05/06/2021 8:17 documented in this encounter Plan of Treatment Upcoming Encounters Date Type Specialty Care Team Description 07/15/2022 Telemedicine Hematology and Oncology Armando Martinez MD [address] [place] [address] [address] [place], [place] [phone] (Wo rk) 07/20/2022 Office Visit Surgical Oncology Rio Pearson DO 111 [facility], [facility] 2 [place], [place] [phone] (Wo rk) 09/23/2022 Office Visit Dermatology Miriam Bentley MD 111 [facility], [facility] 5 [place], [place] [address] (Wo rk) documented as of this encounter Visit Diagnoses Not on filedocumented in this encounter Care Teams Telephoto Installer Relationship Specialty Start Date End Date Juan Pablo Garrett MD PCP - General 04/30/19 06/21/21 4 [place] [address] documented as of this encounter
--- OUTSIDE RECORDS SUMMARY | 2022-07-12 11:37 | XMS_ITS | Encounter Summary ---
:1950 Author Organization [facility] Address [address] [place] [address] Care Team Providers Name Role Phone Jaimie Delgado Primary Care Provider Reason for Visit Reason Comments Telemedicine Phone Call Encounter Details Date Type Department Care Team Description 12/28/2021 Telemedicine [facility] - Armando Martinez, Ot er iron deficiency [facility] Adult Hematology MD anemia (Primary Dx) & Oncology [address] [facility], [address] [place] [address] [address] [facility] MOB-B [address] [place] [address] [place], [place] [phone] Social History Tobacco Use Types Packs/Day [...] documented as of this encounter Progress Notes Armando Martinez MD - 12/28/2021 1030 EST [facility] Telemedicine/Audio Note Brittaneyroberta Grullon :1950 Age: 71 y.o. Date of Service: 12/28/2021 I am conducting today's visit by telemedicine due to the COVID-19 pandemic, and by the recommendations from the [facility] to minimize patient exposure to our [...] the patient: Workplace Time of telemedicine initiation: 8: 05 Time of telemedicine conclusion: 8:11 The location of the provider: Office Verbal [...] I, pT1, pN0 (SN), M0. ER positive DE positive HER-2 negative. -08/14/18: Routine mammogram BI-RADS Category 4 on left, Category 1 on right. Patient noted no appreciable changes in self-breast exam, chronic nipple inversion and discharge x 15 years -08/21/18: Stereotactic bx showed nuclear grade 1, invasive ductal carcinoma. ER+ (>90%), DE+ (>90%), Her-2 negative. -09/14/18: Partial mastectomy and [...] iron twice a day. -12/28/2021 ferritin 39. 4: Vitamin D deficiency. -12/28/2021 vitamin D 26.8 normal range 30-100 (Start vitamin D 1000 mg daily) 4: Restless leg syndrome. -Chronic symptomatic. Check labs for electrolyte imbalances. Consider pramipexole Reason for Telemed: Discussed recent lab results for iron and vitamin D Subjective: Doing well has no complaints ROS: ROS I have reviewed patient's past medical history, past surgical history, social and family history. Past Medical History: Diagnosis Date ??? Anemia ??? Breast cancer, left (HCC-CMS) (HCC) 2017 ??? Chronic kidney disease hx kidney stones ??? Colon polyp ??? Factor V Leiden (HCC-CMS) (HCC) ??? 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 GERD (gastroesophageal [...] ??? Sulfa (Sulfonamide Antibiotics) Rash ??? Antibiotic [Czgvr-[id number]-Xcpfdtb-Pramoxine] Rash ??? Erythromycin Rash I have reviewed [...] Assessment & Plan: 1: History of iron deficiency on oral iron twice a day ferritin up to 39. Continue without modification and recheck labs first week in February. 2: Vitamin D deficiency recent finding started on vitamin D 1000 units daily. Will recheck labs in February. Plan: -Labs to be obtained at [facility] with a follow-up telemedicine a week later. Patient initiated phone contact with the office Yes Is an established patient (parent, guardian) Yes E/M provided within previous 7 days for same Assessment No Anticipate E/M service within 24hrs or next available urgent appointment No I spent a total of 6 minutes on the date of this encounter which includes time with the patient, time reviewing medical records and reviewing imaging reports and laboratory results, time updating the chart information, and time composing this note. This note was transcribed using [facility] [employer] [facility] voice recognition software. Please excuse any errors. Armando Martinez MD [facility]:Primary Care Provider: Jaimie Delgado [address] [facility] [address] Referring Provider: No referring provider defined for this encounter. Phone: N/A Fax: documented in this encounter Plan of Treatment Upcoming Encounters Date Type Specialty Care Team Description 07/15/2022 Telemedicine Hematology and Oncology Armando Martinez MD [address] [place] [address] [address] [place] [phone] (Wo rk) 07/20/2022 Office Visit Surgical Oncology Rio Pearson DO 111 [facility], [facility] 2 [place], [place] [phone] (Wo rk) 09/23/2022 Office Visit Dermatology Miriam Bentley MD 111 [facility], [facility] 5 [place], [place] [phone] (Wo rk) documented as of this encounter Visit Diagnoses Diagnosis Other iron deficiency anemia - Primary documented in this encounter Care Teams Basic Acoustic Analyst Relationship Specialty Start Date End Date Jaimie Delgado PCP - General Internal Medicine - Primary 08/18/21 [address] [place] [address] documented as of this encounter
--- OUTSIDE RECORDS SUMMARY | 2022-07-12 11:37 | XMS_ITS | Encounter Summary ---
:1950 Author Organization [facility] Address [address] [place] [address] Care Team Providers Name Role Phone Jaimie Delgado Primary Care Provider Reason for Referral Radiology Services (Routine/Next Available) - Authorization Not Required Specialty Diagnoses / Procedures Referred By Contact Refer red To Contact Diagnoses Encounter for screening mammogram for breast cancer Kaylen Jimenez MD Procedures [place] BREAST SCREENING OMAR BILATERAL [place] BREAST SCREENING OMAR BILATERAL Referral ID Status Reason Start Expiration Visits Visits Date Date Requested Authorized [id number] Authorization Not 06/22/2021 1 1 Required Reason for Visit Radiology Services (Routine/Next Available) - Authorization Not Required Specialty Diagnoses / Procedures Referred By Contact Refer red To Contact Diagnoses Encounter for screening mammogram for breast cancer Kaylen Jimenez MD Procedures MA BREAST SCREENING OMAR BILATERAL MA BREAST SCREENING OMAR BILATERAL Referral ID Status Reason Start Expiration Visits Visits Date Date Requested Authorized [id number] Authorization Not 06/22/2021 1 1 Required Encounter Details Date Type Department Care Team Description 08/18/2021 Hospital Encounter [facility] Breast Encounter for Imaging Mammography - screen ing mammogram [facility] [place] for breast cancer [address] [place], [place] [address] Social History Tobacco Use Types Packs/Day Years Used Date Never Smoker Smokeless Tobacco: Never Used Alcohol Use Standard Drinks/Week Comments No 0 (1 standard drink = 0.6 oz pure alcoho l) Sex Assigned at Date Recorded Not on file COVID-19 Exposure Response Date Recorded In the last month, have you been in contact with No / Unsure 08/18/2021 14:16 EDT someone who was confirmed or suspected to have Coronavirus / COVID-19? documented as of this encounter Last Filed Vital Signs Vital Sign Reading Time Taken Comments Blood Pressure - - Pulse - - Temperature - - Respiratory Rate - - Oxygen Saturation - - Inhaled Oxygen Concentration - - Weight - - Height 157.5 cm (5' 2) 08/18/2021 1446 EDT Body Mass Index - - documented in this encounter Functional Status Functional Status Response [...] as directed as needed (Rarely) . 0 atorvastatin (LIPITOR) 20 mg Take 20 mg by 0 02/19 tablet mouth daily. Calcium-Cholecalciferol, D3, Take by mouth 0 (CALCARB) 600 mg(1,500mg) daily. -200 unit tablet FLUoxetine (PROZAC) 20 mg Take 20 mg [...] 0 tabletIndications: Anemia, mouth at unspecified bedtime. SYMBICORT 160-4.5 Inhale 1 Puff as 0 04/17/2021 mcg/actuation HFA aerosol directed 2 times inhaler inhaler daily. albuterol 90 mcg/actuation 0 1 02/25/2022 inhaler anastrozole (ARIMIDEX) 1 mg Take 1 Tab by 90 Tab 3 12/1109/08/2021 tablet mouth daily. enoxaparin (LOVENOX) 40 Inject 40 mg 10 Syringe 0 09/15/2018 02/25/2022 mg/0.4 mL into the skin injectionIndications: daily. Start 24 Heterozygous factor V Leiden hours after mutation (HCC-CMS) (HCC) surgery for 10 days FERROUS FUMARATE (IRON ORAL) Take 50 mg by mouth 2 times daily . 0 02/25/2022 Glucosamine HCl 1,500 mg Take 1,500 mg by 0 02/25/2022 tablet mouth daily. oxyCODONE (ROXICODONE) 5 mg Take 1 Tab by 2 Tab 0 09/1402/25/2022 immediate release tablet mouth every 4 hours as needed for Pain. Daily Max: 30 mg documented as of this encounter Discharge Disposition Disposition Code Departure Means Destination Home or Self Alf documented in this encounter Plan of Treatment Upcoming Encounters Date Type Specialty Care Team Description 07/15/2022 Telemedicine Hematology and Oncology Armando Martinez MD [address] [place] [address] [address] [place] [address] (Wo rk) 07/20/2022 Office Visit Surgical Oncology Rio Pearson DO 111 [facility], [facility] 2 [place], [place] [phone] (Chula rk) 09/23/2022 Office Visit Dermatology Miriam Bentley MD 111 [facility], Level 5 [place], [place] [phone] (Wo rk) documented as of this encounter Procedures Procedure Name Priority Date/Time Associated Diagnosis Comme nts [place] BREAST SCREENING Routine 08/18/2021 14:58 Encounter for Res ults for this OMAR BILATERAL EDT screening mammogram proced ure are in for breast cancer the result s section. documented in this encounter Results [place] BREAST SCREENING OMAR BILATERAL (08/18/2021 14:58 EDT) Anatomical Region Laterality Modality Breast Bilateral Mammography Specimen Impressions [facility] - 08/20/2021 15:18 EDT Negative, no evidence of malignancy. RECOMMENDATION: Routine screening mammog lamar is recommended. OVERALL ASSESSMENT: BI-RADS 2: Benign These results will be communicated to yo ur patient via a lay letter from Radiology. If any additional imaging is needed we will contact your patient directly. Narrative [facility] - 08/20/2021 15:18 EDT [place] BREAST SCREENING OMAR BILATERAL ??08/18/2021 3:10 PM History: routine Comparison: ??Comparison has been made t o previous images. Technique: Routine 3D tomosynthesis with synthesized 2D views with CAD Bilateral Breast Composition: The breast tissue is almost entirely fatty. Bilateral Breast Findings: ??No new sign ificant masses, calcifications or other abnormalities are seen. Lumpectomy scar in the upper central left breast is stable. ??There is no evidence of tumor recurrence. Procedure Note Nimesh Mei MD - 08/20/2021 [place] BREAST SCREENING OMAR BILATERAL 2020 3:10 PM History: routine Comparison: Comparison has been made to previous images. Technique: Routine 3D tomosynthesis with synthesized 2D views with CAD Bilateral Breast Composition: The breast tissue is almost entirely fatty. Bilateral Breast Findings: No new signif icant masses, calcifications or other abnormalities are seen. Lumpectomy scar in the upper central left breast is stable. There is no evidence of tumor recurrence. IMPRESSION Negative, no evidence of malignancy. RECOMMENDATION: Routine screening mammog lamar is recommended. OVERALL ASSESSMENT: BI-RADS 2: Benign These results will be communicated to yo ur patient via a lay letter from Radiology. If any additional imaging is needed we will contact your patient directly. Performing Organization Address City/State/ZIP Code Phon e Number [facility] [place] documented in this encounter Visit Diagnoses Diagnosis Encounter for screening mammogram for br east cancer documented in this encounter Care Teams Environment Coordinator Relationship Specialty Start Date End Date Jaimie Delgado PCP - General Internal Medicine - Primary 08/18/21 [address] [place] [address] documented as of this encounter
--- OUTSIDE RECORDS SUMMARY | 2022-07-12 11:37 | XMS_ITS | Encounter Summary ---
:1950 Author Organization [facility] Address [address] [place] [address] Care Team Providers Name Role Phone Unavailable Primary Care Provider Unavailable Encounter Details Date Type Department Care Team Description 06/22/2021 Travel Social History Tobacco Use Types Packs/Day Years Used Date Never Smoker Smokeless Tobacco: Never Used Alcohol Use Standard Drinks/Week Comments No 0 (1 standard drink = 0.6 oz pure alcoho l) Sex Assigned at Date Recorded Not on file COVID-19 Exposure Response Date Recorded In the last month, have you been in contact with No / Unsure 06/22/2021 13:06 EDT someone who was confirmed or suspected [...] Telemedicine Hematology and Oncology Armando Martinez MD [address] [place] [address] [address] [place] [address] (Wo rk) 07/20/2022 Office Visit Surgical Oncology Rio Pearson, DO [address] [place] [facility], [facility], [facility] 2 [place], [place] [phone] (Wo rk) 09/23/2022 Office Visit Dermatology Miriam Bentley MD 111 [facility], [address] 5 [place], [place] [phone] (Wo rk) documented as of this encounter Visit Diagnoses Not on filedocumented in this encounter
--- OUTSIDE RECORDS SUMMARY | 2022-07-12 11:37 | XMS_ITS | Encounter Summary ---
:[address] [facility] Address [address] [place] [address] Care Team Providers Name Role Phone Juan Pablo Garrett MD Primary Care Provider Reason for Visit Reason Onset Date Comments Post-OP Follow Up 09/18/2018 Encounter Details Date Type Department Care Team Description 09/18/2018 Telephone [facility] Ingris Betts RN Po st-OP Follow Up Surgical Oncology - [facility] [address] [place], [place] [phone] Social History Tobacco Use Types Packs/Day Years [...] Telephone Encounter - Ingris Betts RN - 09/18/2018 1359 EDT Called Brittaney again and left a message with my contact information with her answering service. elephone Encounter - Ingris Betts RN - 09/18/2018 1011 EDT Post-operative call. Surgery: 09/14/18 Left NL partial mastectomy and sentinel LN biopsy Attempted to call Brittaney, but she was not available per her answering service. Will try later. documented in this encounter Plan of Treatment Upcoming Encounters Date Type Specialty Care Team Description 07/15/2022 Telemedicine Hematology and Oncology Armando Martinez MD [address] [place] [address] [address] [place] [address] (Wo rk) 07/20/2022 Office Visit Surgical Oncology Rio Pearson DO 111 [facility], [facility] 2 [place], [place] [phone] (Wo rk) 09/23/2022 Office Visit Dermatology Miriam Bentley MD 111 [facility], Level [address] [place], [place] [phone] (Wo rk) documented as of this encounter Visit Diagnoses Not on filedocumented in this encounter Care Teams Manager Transport Relationship Specialty Start Date End Date Juan Pablo Garrett MD PCP - General 07/05/16 04/28/19 [address] [place] [address] documented as of this encounter
--- OUTSIDE RECORDS SUMMARY | 2022-07-12 11:37 | XMS_ITS | Encounter Summary ---
:1950 Author Organization [facility] Address [address] [place] [address] Care Team Providers Name Role Phone Juan Pablo Garrett MD Primary Care Provider Reason for Visit Reason Onset Date Comments Medications Refill 12/11/2020 Encounter Details Date Type Department Care Team Description 12/11/2020 Refill [facility] Armando Martinez MD Medications Refill Adult Hematology & [address], MOB-B Oncology [address] [place] [address] [place], [place] [address] [phone] Social History Tobacco Use Types Packs/Day Years [...] Sig Dispensed Refills Start Date End Date anastrozole (ARIMIDEX) 1 Take 1 Tab by mouth 90 Tab 3 09/08/2021 mg tablet daily. documented in this encounter Miscellaneous Notes Telephone Encounter - Ken Berry RN - 12/11/2020 9348 EST Anastrozole [facility] #90 day supply Let her know we got the info Last seen by Dr. Jain 05/12/21; Plan: 1. Continue anastrazole. 2. Return for follow-up in 1 year. Next appt 05/11/21 w/ ET 12/11/20 15:57 Returned call to Brittaney, confirmed we received the refill request and will send to EO in clinic. [place] - agree with attached? documented in this encounter Plan of Treatment Upcoming Encounters Date Type Specialty Care Team Description 07/15/2022 Telemedicine Hematology and Oncology Armando Martinez MD [address] [place] [address] [address] [place] [phone] (Wo rk) 07/20/2022 Office Visit Surgical Oncology Rio Pearson DO 111 [facility], [facility] 2 [place], [place] [phone] (Wo rk) 09/23/2022 Office Visit Dermatology Miriam Bentley MD 111 [facility], [facility] 5 [place], [place] [address] (Wo rk) documented as of this encounter Visit Diagnoses Not on filedocumented in this encounter Discontinued Medications Medication Sig Discontinue Reason Start Date End Date anastrozole (ARIMIDEX) 1 Take 1 mg by mouth Reorder 12/03/2018 12/11/2020 mg tablet daily. documented as of this encounter Care Teams Post Doc Fellowship Relationship Specialty Start Date End Date Juan Pablo Garrett MD PCP - General 04/30/19 06/21/[address] [place] [address] (work) documented as of this encounter
--- OUTSIDE RECORDS SUMMARY | 2022-07-12 11:37 | XMS_ITS | Encounter Summary ---
:1950 Author Organization [facility] Address [address] [place] [address] Care Team Providers Name Role Phone Juan Pablo Garrett MD Primary Care Provider Reason for Visit Reason Comments Follow-up Encounter Details Date Type Department Care Team Description 04/30/[address] [facility] Ami Pearson Ma lignant neoplasm of Surgical Oncology - DO central portion of [address] left breast in 111 [facility] [place], [place] [address] [facility], Main receptor positive [phone] Pavilion, Level 2 ([facility]) (Primary [place], [place] Dx) [phone] (Wo rk) Social History Tobacco Use Types Packs/Day Years Used Date Never Smoker Smokeless Tobacco: Never Used Alcohol Use Standard Drinks/Week Comments No 0 (1 standard drink = 0.6 oz pure alcoho l) Sex Assigned at Date Recorded Not on file documented as of this encounter Last Filed Vital Signs Vital Sign Reading Time Taken Comments Blood Pressure 144/65 04/30/2019 0943 EDT Pulse 78 04/30/2019 0943 EDT Temperature 36.6 ??C (97.8 ??F) 04/30/2019 0943 EDT Respiratory Rate 16 04/30/2019 0943 EDT Oxygen Saturation - - Inhaled Oxygen Concentration - - Weight - - Height - - Body Mass Index - - documented in [...] as of this encounter Discharge Diagnoses Diagnosis C50.112 Malignant neoplasm of central po rtion of left female breast-C50.112[ICD-10-CM] Z17.0 Estrogen receptor positive status [ER+]-Z17.0[ICD-10-CM] documented in this encounter Discharge Disposition Disposition Code Departure Means Destination Auto Discharge documented in this encounter Progress Notes Lili Torres, Ami Bush, DO - 04/30/2019 0940 EDT Subjective: Patient ID: Brittaney Grullon is an 69 y.o. female. Chief Complaint Patient presents with ??? Follow-up HPI Brittaney Grullon is a pleasant 69-year-old female seen in followup for a left-sided breast cancer. As you recall, this is a patient that had a screen detected abnormality identified in 07/2018. In August,she underwent biopsy, which showed an invasive cancer. She elected to move forward with a partial mastectomy and sentinel lymph node biopsy at the end of 08/2018. 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 She had 0 of 1 lymph nodes positive. This was ER/MD positive, HER-2/yuval negative. Following her surgical intervention, Brittaney had radiation therapy with Dr Jordan Peterson at [facility]. She feels that she tolerates that quite well. She is now taking anastrozole with Dr Jain and also feels like that is going reasonably well. She has appreciated a change in her shortness of breath since November that seems like it continually worsening. She does have a history of asthma, but this seems like it progressive. She additionally notes some occasional nipple discharge on the left side, but this has been chronic since she went through menopause, and she has had nipple inversion on that side since that time as well. Patient Active Problem List Diagnosis ??? Asthma ??? Abnormal Papanicolaou smear of vagina ??? Heterozygous factor V Leiden mutation (HCC-CMS) ??? Restless legs syndrome ??? Galactorrhea ??? Iron deficiency anemia ??? Malignant neoplasm of central portion of left female breast (HCC-CMS) Past Medical History: Diagnosis Date ??? Anemia ??? Chronic kidney disease hx kidney stones ??? Colon polyp ??? Factor V Leiden (HCC-CMS) ??? 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 GERD (gastroesophageal reflux disease) ??? Hypertension ??? Lung disease asthma ??? Restless legs syndrome 08/01/2012 Past Surgical History: Procedure Laterality Date ??? BREAST SURGERY Left 08/2018 Partial mastectomy and SLNBx ??? SECTION times 3 Family History Problem Relation Age of Onset ??? Hypertension Father ??? High Cholesterol Father ??? Colon Cancer Father 86 ??? Heart Attack Mother ??? Heart Attack Under 50 Daughter 45 ??? Breast Cancer Neg Hx ??? Colon Polyps Neg Hx ??? Endometrial Cancer Neg Hx ??? Esophageal Cancer Neg Hx ??? Ovarian Cancer Neg Hx ??? Pancreatic Cancer Neg Hx ??? Rectal Cancer Neg Hx ??? Stomach Cancer Neg Hx Social Social History Tobacco Use ??? Smoking status: Never Smoker ??? Smokeless tobacco: Never Used Substance Use Topics ??? Alcohol use: No ??? Drug use: No Current Outpatient Medications on File Prior to Visit Medication Sig Dispense Refill ??? ALBUTEROL INHL Inhale 2 Inhalers as directed as needed (Rarely) . ??? budesonide/formoterol fumarate (SYMBICORT INHALATION) Inhale 2 Puffs as directed daily. ??? enoxaparin (LOVENOX) 40 mg/0.4 mL injection [...] ORAL) Take 1 Tab by mouth daily. ??? hydrochlorothiazide (HYDRODIURIL) 50 mg tablet Take [...] Take 1 mg by mouth at bedtime. No current facility-administered medications on file prior to visit. Allergies Allergen Reactions ??? Shellfish Containing Products Anaphylaxis Avoid lobster as well ??? Sulfa (Sulfonamide Antibiotics) Rash ??? Antibiotic [Snnba-Lkjrn-Yvotnyc-Pramoxine] Rash Review of Systems Constitutional: Negative for chills, fever and weight loss. HENT: Negative for hearing loss. Eyes: Negative for blurred vision, double vision and photophobia. Respiratory: Positive for cough, shortness of breath and wheezing. Cardiovascular: Negative for chest pain and palpitations. Gastrointestinal: Negative for abdominal pain, heartburn, nausea and vomiting. Genitourinary: Negative for dysuria, frequency and urgency. Neurological: Negative for sensory change, focal weakness and headaches. - See HPI Objective: BP (!) 144/65 Pulse 78 Temp 36.6 ??C (97.8 ??F) (Tympanic) Resp 16 Physical Exam Constitutional: She is oriented to person, place, and time. She appears well- developed and well-nourished. No distress. HENT: Head: Normocephalic and atraumatic. Eyes: Conjunctivae and EOM are normal. Pupils are equal, round, and reactive to light. Neck: Normal range of motion. No thyromegaly present. Cardiovascular: Regular rhythm. No murmur heard. Pulmonary/Chest: Effort normal. No respiratory distress. She has wheezes. Lymphadenopathy: She has no cervical adenopathy. Neurological: She is alert and oriented to person, place, and time. No cranial nerve deficit. Breast: Breasts and axilla are examined in the seated and the supine position. There are no obvious masses palpated in either breast. She has a well healed surgical scar on the left that is somewhat nodular to palpation, US of that area shows a hypoechoic lesion without vascularity consistent with scar tissue. Her breast has lost a little volume. There is chronic left nipple inversion with no discharge today. There are no axillary masses. Assessment: Brittaney Grullon is seen in the office today in 6-month followup for her left breast cancer. She is doing quite well from the standpoint of this breast cancer. In general, her biggest issue right now is some worsening of her breathing. She does have chronic asthma and today was stating that she definitelyneeded to use her inhaler. She was scheduled to follow up with her primary care in July, and I urged her to move that appointment up in light of this change. 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 On exam, she has no evidence of recurrent disease. We did order her mammogram for July. She knows to return to our clinic sooner if she were to develop any new or worrisome signs or symptoms. Plan: (C50.112, Z17.0) Malignant neoplasm of central portion of left breast in female, estrogen receptor positive (HCC-CMS) (primary encounter diagnosis) Ami Pearson DO No orders of the defined types were placed in this encounter. documented in this encounter Plan of Treatment Upcoming Encounters Date Type Specialty Care Team Description 07/15/2022 Telemedicine Hematology and Oncology Armando Martinez MD [address] [place] [address] [address] [place] [address] (Chula butts) 07/20/2022 Office Visit Surgical Oncology Rio Pearson DO 111 [facility], [facility] 2 [place], [place] [phone] (Chula butts) 09/23/2022 Office Visit Dermatology Miriam Bentley MD 111 [facility], Level 5 [place], [place] [phone] (Chula butts) documented as of this encounter Procedures Procedure Name Priority Date/Time Associated Diagnosis Comme nts ORDERS - SCANNED 05/13/2019 14:32 EDT documented in this encounter Visit Diagnoses Diagnosis Malignant neoplasm of central portion of left breast in female, estrogen receptor positive (HCC-CMS) (HCC) - Primary documented in this encounter Orders Admission Count Last Ordered Date First Ordered Date ORDERS - SCANNED 1 05/14/2019 documented in this encounter Care Teams Biological Plant Operator Relationship Specialty Start Date End Date Juan Pablo Garrett MD PCP - General 04/30/19 06/21/[address] [place] [address] documented as of this encounter
--- OUTSIDE RECORDS SUMMARY | 2022-07-12 11:37 | XMS_ITS | Encounter Summary ---
:1950 Author Organization Health system Address [address] [place] [address] Care Team Providers Name Role Phone Juan Pablo Garrett MD Primary Care Provider Reason for Visit Reason Onset Date Comments Appointment Related 09/18/2018 09/26/18 reschedule Encounter Details Date Type Department Care Team Description 09/18/2018 Telephone [facility] Ami Pearson Ap pointment Related Surgical Oncology - DO (09/26/18 reschedule) [address] [address] [place], [place] [phone] (Wo rk) Social History Tobacco Use Types [...] this encounter Miscellaneous Notes Telephone Encounter - Jessie Norman - 09/18/2018 0923 EDT Patient will keep her appointment as is. elephone Encounter - EmeritaJovita - 09/18/2018 0848 EDT Patient checking to see if we have an earlier appointment on 09/26/18? She prefers the morning that day, if possible. Please call. documented in this encounter Plan of Treatment Upcoming Encounters Date Type Specialty Care Team Description 07/15/2022 Telemedicine Hematology and Oncology Armando Martinez MD [address] [place] [address] [address] [place], [place] [phone] (Wo rk) 07/20/2022 Office Visit Surgical Oncology Rio Pearson DO 111 [facility], [facility] 2 [place], [place] [phone] (Wo rk) 09/23/2022 Office Visit Dermatology Miriam Bentley MD 111 [facility], [facility] 5 [place], [place] [address] (Wo rk) documented as of this encounter Visit Diagnoses Not on filedocumented in this encounter Care Teams Menswear Salesperson Relationship Specialty Start Date End Date Juan Pablo Garrett MD PCP - General 07/05/16 04/28/19 [address] [place] [address] documented as of this encounter
--- OUTSIDE RECORDS SUMMARY | 2022-07-12 11:37 | XMS_ITS | Encounter Summary ---
:1950 Author Organization [facility] Address [address] [place] [address] Care Team Providers Name Role Phone Juan Pablo Garrett MD Primary Care Provider Encounter Details Date Type Department Care Team Description 08/07/2020 Travel Social History Tobacco Use Types Packs/Day [...] Telemedicine Hematology and Oncology Armando Martinez MD [address] [place] [address] [address] [place], [place] [address] (Wo rk) 07/20/2022 Office Visit Surgical Oncology Rio Pearson, 111 [facility] Level 2 [place], [place] [phone] (Wo rk) 09/23/2022 Office Visit Dermatology Miriam Bentley MD [address] [place] [facility], Level 5 [place], [place] [phone] (Wo rk) documented as of this encounter Visit Diagnoses Not on filedocumented in this encounter Care Teams Project Management Relationship Specialty Start Date End Date Juan Pablo Garrett MD PCP - General 04/30/19 06/21/21 [address] [place] [address] documented as of this encounter
--- OUTSIDE RECORDS SUMMARY | 2022-07-12 11:37 | XMS_ITS | Encounter Summary ---
:1950 Author Organization [facility] Address [address] [place] [address] Care Team Providers Name Role Phone Juan Pablo Garrett MD Primary Care Provider Reason for Visit Reason Comments Follow-up Encounter Details Date Type Department Care Team Description 11/01/2019 Office Visit [facility] Ami Pearson Ma lignant neoplasm of Surgical Oncology - DO central portion of [address] left breast in 111 [facility] female, [place] [address] [facility], Main receptor positive [phone] Pavilion, Level 2 ([facility]) (Primary [place], [place] Dx) [phone] (Wo rk) Social History Tobacco Use Types Packs/Day Years Used Date Never Smoker Smokeless Tobacco: Never Used Alcohol Use Standard Drinks/Week Comments No 0 (1 standard drink = 0.6 oz pure alcoho l) Sex Assigned at Date Recorded Not on file documented as of this encounter Last Filed Vital Signs Vital Sign Reading Time Taken Comments Blood Pressure 160/74 11/01/2019 0905 EST Pulse 72 11/01/2019 0905 EST Temperature 36.8 ??C (98.2 ??F) 11/01/2019 0905 EST Respiratory Rate 20 11/01/2019 0905 EST Oxygen Saturation - - Inhaled Oxygen Concentration [...] documented as of this encounter Progress Notes Ami Pearson, DO - 11/01/2019 0907 EST Subjective: Patient ID: Brittaney Grullon is an [...] of 1 lymph nodes positive. This was ER/MO positive, HER-2/yuval negative. Following her surgical intervention, Brittaney had radiation therapy with Dr Jordan Peterson at [facility]. She feels that she tolerates that quite well. She is nowtaking anastrozole with Dr Jain and also feels like that is going reasonably well. She is noticing a little bit of joint pain in her proximal arms bilaterally. This started just about a month ago and so is probably pretty unlikely related to the anastrozole. Thought pains typically starts early and get better over time. Additionally, she has had a rough year. Her daughter somewhat unexpectedly in January, and so the holidays are certainly a concern for her. She just had a mammogram in July. Patient Active Problem List Diagnosis ??? Asthma [...] ??? Sulfa (Sulfonamide Antibiotics) Rash ??? Antibiotic [Sewts-Qqcvi-Ubmaqbj-Pramoxine] Rash Review of Systems Constitutional: Negative for chills, fever and weight loss. HENT: Negative for hearing loss. Eyes: Negative for blurred vision, double vision and photophobia. Respiratory: Negative for cough, shortness of breath and wheezing. Cardiovascular: Negative for chest pain and palpitations. Gastrointestinal: Negative for abdominal pain, heartburn, nausea and vomiting. Genitourinary: Negative for dysuria, frequency and urgency. Musculoskeletal: Positive for myalgias. Neurological: Negative for sensory change, focal weakness and headaches. - See HPI Objective: BP (!) 160/74 Pulse 72 Temp 36.8 ??C (98.2 ??F) (Tympanic) Resp 20 Physical Exam Constitutional: She is oriented to person, place, and time. She appears well- developed and well-nourished. No distress. HENT: Head: Normocephalic and atraumatic. Eyes: Pupils are equal, round, and reactive to light. Conjunctivae and EOM are normal. Neck: Normal range of motion. No thyromegaly present. Cardiovascular: Regular rhythm. No murmur heard. Pulmonary/Chest: Effort normal and breath sounds normal. No respiratory distress. Lymphadenopathy: She has no cervical adenopathy. Neurological: She is alert and oriented to person, place, and time. No cranial nerve deficit. Breast: Breasts and axilla are examined in the seated and the supine position. There are no obvious masses palpated in either breast. She has a well healed surgical scar on the left with minimal radiation changes to the breast. There is no nipple inversion or discharge. There are no axillary masses. Assessment: Brittaney is seen in the office today in 6-month followup for her left breast cancer. She is doing well from the standpoint of this breast cancer. She is maintaining a stable weight. 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 Her mammogram from July was reviewed and was negative. I willsee her back in 6 months for clinical breast exams, sooner if there are any issues. Thank you for allowing me to participate in the care of this very pleasant patient. Plan: No diagnosis found. Ami Pearson DO No orders of the defined types were placed in this encounter. documented in this encounter Plan of Treatment Upcoming Encounters Date Type Specialty Care Team Description 07/15/2022 Telemedicine Hematology and Oncology Armando Martinez MD [address] [place] [address] [address] [place] [address] (Wo rk) 07/20/2022 Office Visit Surgical Oncology Rio Pearson DO 111 [facility], [facility] 2 [place], [place] [phone] (Wo rk) 09/23/2022 Office Visit Dermatology Miriam Bentley MD 111 [facility], [facility] 5 [place], [place] [address] (Wo rk) documented as of this encounter Visit Diagnoses Diagnosis Malignant neoplasm of central portion of left breast in female, estrogen receptor positive (HCC-CMS) (HCC) - Primary documented in this encounter Care Teams Airline Lounge Receptionist Relationship Specialty Start Date End Date Juan Pablo Garrett MD PCP - General 04/30/19 06/21/21 [address] [place] [address] documented as of this encounter
--- OUTSIDE RECORDS SUMMARY | 2022-07-12 11:37 | XMS_ITS | Encounter Summary ---
:1950 Author Organization [facility] Address [address] [place] [address] Care Team Providers Name Role Phone Jaimie Delgado Primary Care Provider Reason for Visit Reason Onset Date Comments Appointment Related 12/28/2021 Encounter Details Date Type Department Care Team Description 12/28/2021 Telephone [facility] - Vitaliy Martinez MD Appointment Related [facility] & [address] [facility], Oncology [facility] [address] [facility] 1-2 [address] [place] [address] [place] [phone] [phone] (Wo rk) Social History Tobacco Use [...] this encounter Miscellaneous Notes Telephone Encounter - Charmaine Garcia - 12/29/2021 0839 EST Tele med appt scheduled for 02/28/[address] Martinez. elephone Encounter - Lisa Bah RN - 12/28/2021 1346 EST 12/28/21 13:46 Pt's visit today has been changed to telemedicine visit. 12/28/21 15:37 Labs ordered. Orders faxed to [facility] - [phone] - confirmed w/ front office clerk staff. Pt. To call and schedule lab draw directly with office. Sent to Gianna to schedule telemedicine visit. elephone Encounter - Armando Martinez MD - 12/28/2021 0814 EST Please change his encounter telemedicine. Spoke to the patient this morning. Kaylyn need to order a CBC, ferritin, vitamin D level first week in February at the [facility] telephone number is [phone] please ask him to do this and send us a copy. Forward this note to Gianna so she can arrange for telemedicine encounter the following week after the labs. Thank you all documented in this encounter Plan of Treatment Upcoming Encounters Date Type Specialty Care Team Description 07/15/2022 Telemedicine Hematology and Oncology Armando Martinez MD [address] [place] [address] [address] [place] [address] (Chula butts) 07/20/2022 Office Visit Surgical Oncology Rio Pearson DO 111 [facility], Level 2 [place], [place] [phone] (Chula butts) 09/23/2022 Office Visit Dermatology Miriam Bentley MD 111 [facility], Level 5 [place], [place] [phone] (Wo rk) Scheduled Orders Name Type Priority Associated Diagnoses Order S chedule VITAMIN D (25,OH) Lab Routine Malignant neoplasm of b reast Expected: 02/18/2022 in female, estrogen receptor (Approximate), Expires: positive, unspecified 2022 laterality, unspecified site of breast (HCC-C MS) (HCC) Other iron deficiency anemia documented as of this encounter Visit Diagnoses Diagnosis Malignant neoplasm of breast in female, estrogen receptor positive, unspecified laterality, unspecified site of breast ( HCC-CMS) (HCC) - Primary Other iron deficiency anemia documented in this encounter Care Teams Stopperer Assembler Relationship Specialty Start Date End Date Jaimie Delgado PCP - General Internal Medicine - Primary 08/18/21 [address] [place] [address] documented as of this encounter
--- OUTSIDE RECORDS SUMMARY | 2022-07-12 11:37 | XMS_ITS | Encounter Summary ---
:1950 Author Organization [facility] Address [address] [place] [address] Care Team Providers Name Role Phone Juan Pablo Garrett MD Primary Care Provider Reason for Visit Reason Onset Date Comments Appointment Related 04/30/2020 Encounter Details Date Type Department Care Team Description 04/30/2020 Telephone [facility] Deepali Pearson DO Appointment Related Surgical Oncology - [address] [place] [address], [address], [address] [place], [place] [address] [place] [address] [phone] (Wo rk) Social History Tobacco Use [...] this encounter Miscellaneous Notes Telephone Encounter - AdriHa mathewyl - 04/30/2020 0370 EDT Spoke with patient she is aware of her new time on 05/07/[address] Pearson. documented in this encounter Plan of Treatment Upcoming Encounters Date Type Specialty Care Team Description 07/15/2022 Telemedicine Hematology and Oncology Armando Martinez MD 130 [facility] [address] [place], [place] [address] (Wo rk) 07/20/2022 Office Visit Surgical Oncology Rio Pearson, 111 [facility], [facility] 2 [place], [place] [phone] (Wo rk) 09/23/2022 Office Visit Dermatology Miriam Bentley MD 111 [facility], Level 5 [place], [place] [phone] (Wo rk) documented as of this encounter Visit Diagnoses Not on filedocumented in this encounter Care Teams Extrusion Press Supervisor Relationship Specialty Start Date End Date Juan Pablo Garrett MD PCP - General 04/30/19 06/21/21 [address] [place] [address] documented as of this encounter
--- OUTSIDE RECORDS SUMMARY | 2022-07-12 11:37 | XMS_ITS | Encounter Summary ---
:1950 Author Organization [facility] Address [address] [place] [address] Care Team Providers Name Role Phone Juan Pablo Garrett MD Primary Care Provider Encounter Details Date Type Department Care Team Description 08/06/2019 Hospital Encounter [facility] - Rashawn Garrett, [facility] [address] [address] [place] [address] (Wo rk) Social History Tobacco Use Types [...] as of this encounter Discharge Diagnoses Diagnosis C50.912 Malignant neoplasm of unspecifie d site of left female breast-C50.912[ICD-10-CM] Z17.0 Estrogen receptor positive status [ER+]-Z17.0[ICD-10-CM] documented in this encounter Medications at Time of Discharge [...] 0 tabletIndications: Anemia, mouth at unspecified bedtime. anastrozole (ARIMIDEX) 1 mg Take 1 mg by 0 201812/11/2020 tablet mouth daily. budesonide/formoterol Inhale 2 Puffs 0 05/10/2021 fumarate [...] Disposition Code Departure Means Destination Auto Discharge Home documented in this encounter Plan of Treatment Upcoming Encounters Date Type Specialty Care Team Description 07/15/2022 Telemedicine Hematology and Oncology Armando Martinez MD [address] [place] [address] [address] [place] [address] (Wo rk) 07/20/2022 Office Visit Surgical Oncology Rio Pearson DO 111 [facility], Level 2 [place], [place] [phone] (Wo rk) 09/23/2022 Office Visit Dermatology Miriam Bentley MD 111 [facility], Level 5 [place], [place] [phone] (Wo rk) documented as of this encounter Visit Diagnoses Not on filedocumented in this encounter Care Teams Rn Mds Relationship Specialty Start Date End Date Juan Pablo Garrett MD PCP - General 04/30/19 06/21/[address] [place] [address] documented as of this encounter
--- OUTSIDE RECORDS SUMMARY | 2022-07-12 11:37 | XMS_ITS | Encounter Summary ---
:1950 Author Organization [facility] Address [address] [place] [address] Care Team Providers Name Role Phone Juan Pablo Garrett MD Primary Care Provider Encounter Details Date Type Department Care Team Description 05/07/2020 Ancillary Procedure [facility] Surgical Oncology - Main [facility] [address] [place] [address] Social History Tobacco Use Types Packs/Day Years Used Date Never Smoker Smokeless Tobacco: Never Used Alcohol Use Standard Drinks/Week Comments No 0 (1 standard drink = 0.6 oz pure alcoho l) Sex Assigned at Date Recorded Not on file COVID-19 Exposure Response Date Recorded In the last month, have you been in contact with No / Unsure 05/07/2020 12:51 EDT someone who was confirmed or suspected [...] Hematology and Oncology Armando Martinez MD [address] [place] [address] [phone] (Wo rk) 07/20/2022 Office Visit Surgical Oncology LiliRio ricarda Bush, [address] [facility] [facility], [address] [place], [place] [phone] (Wo rk) 09/23/2022 Office Visit Dermatology Miriam Bentley MD [address] [facility], [address] [place], [place] [phone] (Wo rk) documented as of this encounter Procedures Procedure Name Priority Date/Time Associated Diagnosis Comme nts [facility] - Routine 05/07/2020 14:05 Results for this [facility] EDT procedure are in ONLY the results section. documented in this encounter Results [facility] - [facility] ONLY (05/07/2020 14:05 EDT) Specimen Narrative POINT OF CARE [facility] - 05/07/2020 14:05 E DT This is a non-reportable exam. Performing Organization Address City/State/ZIP Code Phon e Number [facility] POINT OF CARE POINT [facility] CARE [facility] documented in this encounter Visit Diagnoses Not on filedocumented in this encounter Care Teams Threading Machine Operator Relationship Specialty Start Date End Date Juan Pablo Garrett MD PCP - General 04/30/19 06/21/[address] [place] [address] documented as of this encounter
--- OUTSIDE RECORDS SUMMARY | 2022-07-12 11:37 | XMS_ITS | Encounter Summary ---
:1950 Author Organization [facility] Address [address] [place] [address] Care Team Providers Name Role Phone Jaimie Delgado Primary Care Provider Encounter Details Date Type Department Care Team Description 02/25/2022 Prep for Procedure [facility] - Armando Martinez MD [facility] Adult Hematology & [address] [place] [address], Oncology [facility] Faisal Walsh, [facility] [address] [place] [address] [place], [place] [phone] (Wo rk) Social History Tobacco Use [...] Hematology and Oncology Armando Martinez MD [address] [facility], [facility] [address] [place] [phone] (Wo rk) 07/20/2022 Office Visit Surgical Oncology Rio Pearson DO [address] [facility], [facility] 2 [place], [place] [phone] (Wo rk) 09/23/2022 Office Visit Dermatology Miriam Bentley MD [address] [facility], [facility] 5 [place], [place] [phone] (Wo rk) documented as of this encounter Visit Diagnoses Not on filedocumented in this encounter Care Teams Business Development Director Relationship Specialty Start Date End Date Jaimie Delgado PCP - General Internal Medicine - Primary 08/18/21 [address] [place] [address] documented as of this encounter
--- OUTSIDE RECORDS SUMMARY | 2022-07-12 11:37 | XMS_ITS | Encounter Summary ---
:1950 Author Organization [facility] Address [address] [place] [address] Care Team Providers Name Role Phone Jaimie Delgado Primary Care Provider Reason for Visit Reason Onset Date Comments Results 09/10/2021 Appointment Related 09/10/2021 Encounter Details Date Type Department Care Team Description 09/10/2021 Telephone [facility] - Armando Martinez, Res jessica; Appointment [facility] Adult Hematology & MD Related Oncology [address] [facility], [address] [facility] [address] [place] [address] [address] [place] [phone] Social History Tobacco Use Types Packs/Day [...] Telephone Encounter - Kaylyn Spencer RN - 09/13/2021 1443 EDT Spoke with Cameron scheduled patient for September 20 at 11:30. 14:57 Patient aware and agrees with above, no further questions at this time. Orders written pending signature 09/14/21 11:38 Orders signed and faxed. elephone Encounter - Armando Martinez MD - 09/10/2021 1405 EDT Diagnosis of iron deficiency. Please schedule Venofer 300 mg x 1. She is very busy at work today please call her Monday to schedule with her. We will also need a follow-up ferritin level only 3 weeks later we will follow by phone. Thank you documented in this encounter Plan of Treatment Upcoming Encounters Date Type Specialty Care Team Description 07/15/2022 Telemedicine Hematology and Oncology Armando Martinez MD [address] [place] [address] [address] [place], [place] [phone] (Wo rk) 07/20/2022 Office Visit Surgical Oncology Rio Pearson DO [address] [facility], [facility] 2 [place], [place] [phone] (Wo rk) 09/23/2022 Office Visit Dermatology Miriam Bentley MD [address] [facility], [facility] 5 [place], [place] [phone] (Wo rk) documented as of this encounter Visit Diagnoses Not on filedocumented in this encounter Care Teams Lead Worker Of Housekeeping And Laundry Relationship Specialty Start Date End Date Jaimie Delgado PCP - General Internal Medicine - Primary 08/18/21 [address] [facility] [place] [address] documented as of this encounter
--- OUTSIDE RECORDS SUMMARY | 2022-07-12 11:37 | XMS_ITS | Encounter Summary ---
:1950 Author Organization [facility] Address [address] [place] [address] Care Team Providers Name Role Phone Jaimie Delgado Primary Care Provider Reason for Referral Radiology Services (Routine/Next Available) - Authorization Not Required Specialty Diagnoses / Procedures Referred By Contact Refer red To Contact Diagnoses Osteopenia of multiple sites Armando Martinez MD Procedures XR DEXA BONE DENSITY [address], [address] [place] [address] Referral ID Status Reason Start Expiration Visits Visits Date Date Requested Authorized [id number] Authorization Not 1 1 Required 1 Reason for Visit Reason Comments Follow-up Encounter Details Date Type Department Care Team Description 09/08/[address] [facility] - Armando Martinez, Alexandre ignant neoplasm of breast in female, estrogen receptor positive, unspecified laterality, unspecified site of breast (HCC-CMS) (HCC) (Primary Dx); [facility] Adult Hematology Other iron deficiency anemia; & Oncology [address], Osteopenia of multiple sites ; [address] [place] [address] Restless leg [address] [place] [address] [place], [place] [phone] Social History Tobacco Use Types Packs/Day [...] Sign Reading Time Taken Comments Blood Pressure 140/80 09/08/2021 1015 EDT Pulse 86 09/08/2021 1015 EDT Temperature - - Respiratory Rate - - Oxygen Saturation 96% 09/08/2021 1015 EDT Inhaled Oxygen Concentration - - Weight 77.1 kg (170 lb) 09/08/2021 1015 EDT Height - - Body Mass Index 31.09 08/18/2021 1446 EDT documented in this encounter Functional Status Functional [...] Start Date End Date anastrozole (ARIMIDEX) 1 mg Take 1 Tablet by 90 Tablet 3 tablet mouth daily. documented in this encounter Progress Notes Evans Daniel RN - 09/08/2021 1030 EDT Procedures: - Venipuncture Performed by: EVANS DANIEL RN Site Collected: Right Antecubital Space Volume Withdrawn: LAV EDTA 3.0 mL and Searchlight SST 8.5 mL Patient Response:Patient tolerated venipuncture well and Butterfly used Number of attempts: Collected on: 09/08/21 11:02 Ordering Provider:Armando Martinez MD TOspArmando hester MD - 09/08/2021 1030 EDT Hem/Onc. Follow up Note Brittaney Grullon :1950 Age:71 y.o. Gender:female Date of Service:09/08/2021 History of present illness: 1:??Invasive ductal carcinoma left breast stage I, pT1, pN0 (SN), M0. ER positive TN positive HER-2 negative. -08/14/18: Routine mammogram BI-RADS Category 4 on left, Category 1 on right. Patient noted no appreciable changes in self-breast exam, chronic nipple inversion and discharge x 15 years -08/21/18: Stereotactic bx showed nuclear grade 1, invasive ductal carcinoma. ER+ (>90%), TN+ (>90%), Her-2 negative. -09/14/18: Partial mastectomy and [...] once a year in June. Continue anastrozole on 22 December 2023. 2: Osteopenia -2018 osteopenia. -09/08/2021 asymptomatic. Needs follow-up bone density study, scheduled. 3: History of iron deficiency on oral iron supplement. -Diagnosed many years ago. Takes intermittent oral iron supplement. -09/08/2021 pending CBC and iron studies. 4: Restless leg syndrome. -Chronic symptomatic. Check labs for electrolyte imbalances. Consider pramipexole Interim History: Mrs. Parisi comes in for a scheduled follow-up. Works full-time night shifts and most of the week.Does not have much opportunity to exercise. Compliant with anastrozole with no side effects. Screening mammogram last month category 2 benign findings. Review of systems: Review of Systems Constitutional: Positive for malaise/fatigue (Fatigue grade 1 is which she attributes to long hours and frequent night shifts.). Negative for diaphoresis, fever and weight loss. No signs and symptoms of thrombosis Musculoskeletal: Positive for joint pain (General arthralgias hips shoulders). Denies edema of the upper or lower extremities. Denies calf tenderness. All other systems reviewed and are negative. Vital Signs: Patient Vitals for the past 24 hrs: BP Pulse SpO2 Weight 09/08/21 1015 140/80 86 96 % 77.1 kg (170 lb) Wt Readings from Last 3 Encounters: 09/08/21 77.1 kg (170 lb) 05/12/20 77.1 kg (170 lb) 09/03/18 76.9 kg (169 lb 8 oz) Ht Readings from Last 1 Encounters: 08/18/21 157.5 cm (62) Estimated body surface area is 1.84 meters squared as calculated from the following: Height as of 08/18/21: 157.5 cm (62). Weight as of this encounter: 77.1 kg (170 lb). ECOG Performance Status: 0 Physical exam: Physical Exam Constitutional: Appearance: She is obese. Eyes: General: No scleral icterus. Cardiovascular: Rate and Rhythm: Normal rate and regular rhythm. Pulmonary: Effort: Pulmonary effort is normal. Breath sounds: Normal breath sounds. No wheezing. Chest: Breasts: Right: Inverted nipple (Chronic) present. No mass, nipple discharge or skin change. Left: Inverted nipple (Chronic) present. No mass, nipple discharge or skin change. Comments: Left breast no evidence of local recurrence at the lumpectomy scar axilla scar or in between. Abdominal: Palpations: Abdomen is soft. Comments: No hepatosplenomegaly Musculoskeletal: General: No swelling. Normal range of motion. Cervical back: Normal range of motion. Right lower leg: No edema. Left lower leg: No edema. Comments: No acrocyanosis. No arthritis Lymphadenopathy: Upper Body: Right upper body: No supraclavicular, axillary or pectoral adenopathy. Left upper body: No supraclavicular, axillary or pectoral adenopathy. Neurological: General: No focal deficit present. Mental Status: She is alert. Psychiatric: Mood and Affect: Mood normal. Previous medical history: Past Medical History: Diagnosis Date ??? Anemia ??? Breast cancer, left (HCC-CMS) (HCC) 2017 ??? Chronic kidney disease hx kidney stones ??? Colon polyp ??? Factor V Leiden (HCC-CMS) (HCC) ??? 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 GERD (gastroesophageal reflux disease) ??? Hypertension ??? Lung disease asthma ??? Restless legs syndrome 08/01/2012 Allergies: Allergies Allergen Reactions ??? Shellfish Containing Products Anaphylaxis Avoid lobster as well ??? Sulfa (Sulfonamide Antibiotics) Rash ??? Antibiotic [Spadp-Cqrrx-Tvgplou-Pramoxine] Rash ??? Erythromycin Rash Medications: Current Outpatient Medications Medication Sig Dispense Refill Last Dose ??? albuterol 90 mcg/actuation inhaler (Patient not taking: Reported on 06/22/2021) Not Taking ??? ALBUTEROL INHL Inhale 2 Inhalers as directed as needed (Rarely) . Taking ??? anastrozole (ARIMIDEX) 1 mg tablet Take 1 Tablet by mouth daily. 90 Tablet 3 ??? atorvastatin (LIPITOR) 20 mg tablet Taking ??? Calcium-Cholecalciferol, D3, (CALCARB) 600 mg(1,500mg) -200 unit tablet Take by mouth daily. (Patient not taking: Reported on 09/08/2021) Not Taking ??? enoxaparin (LOVENOX) 40 mg/0.4 mL injection Inject 40 mg into the skin daily. Start 24 hours after surgery for 10 days (Patient not taking: Reported on 04/30/2019) 10 Syringe 0 Not Taking ??? FERROUS FUMARATE (IRON ORAL) Take 50 mg by mouth 2 times daily . Taking ??? FLUoxetine (PROZAC) 20 mg capsule Take 20 mg by mouth daily. Taking ??? fluticasone-salmeterol (ADVAIR) 250-50 mcg/dose diskus inhaler Inhale 1 Puff as directed every 12 hours as needed. Taking ??? gluc agarwal/chondro agarwal A/vit C/Mn (GLUCOSAMINE 1500 COMPLEX ORAL) Take 1 Tab by mouth daily. (Patient not taking: Reported on 09/08/2021) Not Taking ??? Glucosamine HCl 1,500 mg tablet Take 1,500 mg by mouth daily. (Patient not taking: Reported on 06/22/2021) Not Taking ??? hydrochlorothiazide (HYDRODIURIL) 50 mg tablet Take 50 mg by mouth daily. Taking ??? montelukast (SINGULAIR) 10 mg tablet Take 10 mg by mouth daily. Taking ??? oxyCODONE (ROXICODONE) 5 mg immediate release tablet Take 1 Tab by mouth every 4 hours as neededfor Pain. Daily Max: 30 mg (Patient not taking: Reported on 04/30/2019) 2 Tab 0 Not Taking ??? rOPINIRole (REQUIP) 1 mg tablet Take 1 mg by mouth at bedtime. Taking ??? SYMBICORT 160-4.5 mcg/actuation HFA aerosol inhaler inhaler Taking No current facility-administered medications for this visit. Data Review: Labs: Results for orders placed or performed in [...] 117 38 - 126 U/L BILIRUBIN TOTAL - [facility] 1.2 0.2 - 1.3 mg/dL BUN - [...] Range Magnesium 1.90 1.7 - 2.8 mg/dL Imaging: [facility] BREAST SCREENING [facility] BILATERAL Narrative: [facility] BREAST SCREENING [facility] BILATERAL 08/18/2021 3:10 PM History: routine Comparison: Comparison has been made to previous images. Technique: Routine 3D tomosynthesis with synthesized 2D views with CAD Bilateral Breast Composition: The breast tissue is almost entirely fatty. Bilateral Breast Findings: No new significant masses, calcifications or other abnormalities are seen. Lumpectomy scar in the upper central left breast is stable. There is no evidence of tumor recurrence. Impression: Negative, no evidence of malignancy. RECOMMENDATION: Routine screening mammography is recommended. OVERALL ASSESSMENT: BI-RADS 2: Benign These results will be communicated to your patient via a lay letter from Radiology. If any additional imaging is needed we will contact your patient directly. Assessment: 1: Left breast invasive ductal carcinoma stage I. Status post lumpectomy and sentinel node biopsy followed by radiation therapy 2017. Started on anastrozole with no side effects, patient states she hasbeen compliant. On physical exam no evidence of local recurrence or metastatic disease. Plan: -Continue anastrozole until December 2023. -She is seeing Dr. Peterson Rad/Onc today. -I will see her in follow-up December and then once a year from thereon. -She is scheduled to see Dr. Pearson surgical team at [facility] in June 2022. -Dr. Pearson's team has been scheduling the screening mammograms in July. 2: History of osteopenia. She is on anastrozole that can cause further loss of bone density. Last DEXA scan 2017. Will need to recheck. Plan: -Schedule DEXA scan in the next couple of weeks 3: History of iron deficiency on oral iron supplements. I see no follow-up labs for many years. Plan: -Labs today including CBC ferritin. -For now she will continue on oral iron supplement Addendum: 09/10/2021: Ferritin 18, hemoglobin 14.1. No anemia. Ferritin seems to be a little low this could explain the restless leg syndrome. Increase oral iron supplement. 4: History of restless leg syndrome. Having trouble sleeping at night. Differential diagnosis electrolyte imbalances, iron deficiency (goal ferritin greater than 75), if no reversible etiology considercourse of pramipexole (0.125 mg once daily 2 hours before bedtime). Plan: -Check for electrolyte, check ferritin. Followed by phone. Addendum: Ferritin low this could explain restless leg syndrome. She is taking Slow Fe twice a day cannot increase the dose due to constipation. We will give her a trial of Bentyl for 300 mg IV x1. She is aware of the 3 to 4% risk of anaphylaxiswith this infusion. She agrees to proceed. We will schedule for next week with a follow-up ferritin 3 to [address] [place] [address] Dalia Jimenez, Dr. Peterson, Dr. Pearson [facility]. This note was transcribed using [employer] voice recognition software, please excuse any food service sales representatives errors. Consult: First time of seeing this patient in follow-up. Total consult time 37 minutes [id number] in coordinating care. Additional 5 to 10 minutes telephone follow-up on Monday. Armando Martinez MD [facility] [email or web address] signed by Armando Martinez MD at 09/10/2021 14:08 EDTdocumented in this encounter Plan of Treatment Upcoming Encounters Date Type Specialty Care Team Description 07/15/2022 Telemedicine Hematology and Oncology Armando Martinez MD [address] [place] [address], [address] [place] [phone] (Wo rk) 07/20/2022 Office Visit Surgical Oncology Lili Rioniko Walsh, [address] [facility], [facility], [address] [place], [place] [phone] (Wo rk) 09/23/2022 Office Visit Dermatology Miriam Bentley MD [address] [facility], [address] [place], [place] [phone] (Wo rk) Scheduled Orders Name Type Priority Associated Diagnoses Order S chedule COMPREHENSIVE METABOLIC Lab STAT Malignant neoplas m of Ordered: 09/08/2021 PANEL (ONCOLOGY USE breast in female, ONLY-INC MG) estrogen receptor positive, unspecified laterality, unspecified site of breast (HCC-CMS) XR DEXA BONE DENSITY Imaging Routine Osteopenia of multip le Expected: 09/15/2021 sites (Approximate), Expires: 2021 documented as of this encounter Procedures Procedure Name Priority Date/Time Associated Comments Diagnosis COMPLETE BLOOD COUNT Routine 09/08/2021 11:00 Malignant neopla sm Results for this WITH DIFFERENTIAL EDT of breast in procedure are in (AUTO) female, estrogen the results receptor positive, section. unspecified laterality, unspecified site of breast (HCC-CMS) (HCC) MAGNESIUM Routine 09/08/2021 11:00 Malignant neoplasm Resul ts for this EDT of breast in procedure are i n female, estrogen the results receptor positive, section. unspecified laterality, unspecified site of breast (HCC-CMS) (HCC) FERRITIN Routine 09/08/2021 11:00 Other iron Results for this EDT deficiency anemia procedure are in the results section. COMPREHENSIVE Routine 09/08/2021 11:00 Malignant neoplasm Resu lts for this METABOLIC PANEL (CMP) EDT of breast in proced ure are in female, estrogen the results receptor positive, section. unspecified laterality, unspecified site of breast (HCC-CMS) (HCC) documented in this encounter Results MAGNESIUM (09/08/2021 11:00 EDT) Pathologist Sig nature Magnesium 1.90 1.7 - 2.8 mg/dL [facility] Specimen Performing Organization Address [facility] Phon e Number [facility] [address] [place] [address] (ABNORMAL) COMPREHENSIVE METABOLIC PANEL (CMP) (09/08/2021 11:00 EDT) ALBUMIN - [facility] 4.7 3.4 - 4.9 [facility] g/dL [facility] ALKALINE 117 38 - 126 U/L [facility]PHATASE [facility] BILIRUBIN TOTAL 1.2 0.2 - 1.3 [facility] mg/dL [facility] BUN - [facility] 27 (H) 10 - 26 mg/dL [facility] CALCIUM - [facility] 10.6 (H) 8.5 - 10.5 [facility] mg/dL [facility] Chloride 96 96 - 110 [facility] mmol/L [facility] CO2 Total 30 22 - 32 mEq/L [facility] CREATININE 0.72 0.52 - 1.04 [facility] mg/dL [facility] eGFR >60 [facility] Comment: [facility] Chronic renal impairment is defined as GFR <60 Multiply result by 1.210 for patients . eGFR calculated using the IDMS-traceable MDRD Study Equation. ??(effective 09/22/2014) Anion Gap 15 0 - 18 [facility] GLUCOSE - [facility] 73 70 - 100 [facility] mg/dL [facility] Potassium 3.6 3.5 - 5.0 [facility] mEq/L [facility] Sodium 141 136 - 145 [facility] mEq/L [facility] TOTAL PROTEIN - 7.5 6.2 - 8.2 [facility] Comment: gm/dL [facility] Total protein samples collected with heparin can demon strate a 6-10% positive bias. ??Interpret total protein resul t with caution. SGOT/AST - [facility] 32 14 - 36 U/L [facility] SGPT/ALT - [facility] 29 0 - 35 U/L [facility] Specimen Performing Organization Address City/[facility]/ZIP Code Phon e Number [facility] [address] [place] [address] (ABNORMAL) COMPLETE BLOOD COUNT WITH DIFFERENTIAL (AUTO) (09/08/2021 11:00 EDT) Pathologist Sig nature ABSOLUTE NEUTROPHIL 7.0 2.2 - 8.85 [facility] COUN - [facility] 10e3/uL CENTER LAB BASO # - [facility] 0.08 0.01 - 0.11 [facility] 10e/uL [facility] BASO % - [facility] 1 0 - 2 % [facility] EOS # - CV 0.18 0.03 - 0.61 [facility] 10e3/ul [facility] EOS % - [facility] 2 0 - 5 % [facility] GRAN % - CV 75.0 40 - 80 % [facility] HEMATOCRIT - [facility] 44.4 34.9 - 44.4 % [facility] HEMOGLOBIN - [facility] 14.1 11.6 - 15.2 [facility] g/dl [facility] IG# - [facility] 0.03 0 - 0.7 10e3/uL [facility] IG% - CV 0.3 0 - 0.9 % [facility] LYMPH # - [facility] 1.3 1.09 - 3.3 [facility] 10e3/ul [facility] LYMPH% - MC 13.3 (L) 20 - 40 % [facility] MEAN CORPUSCULAR HGB 30.3 26.7 - 33.3 pg [facility] ME D - CV CENTER LAB MEAN CORPUSCULAR HGB 31.8 (L) 32.1 - 35.9 [facility] CONC - [facility] g/dL [facility] MEAN CELL VOLUME - 95.3 81 - 98 fl [facility] MONO # - [facility] 0.8 0.1 - 0.8 [facility] 10e3/uL [facility] MONO% - [facility] 8.6 0 - 12 % [facility] PLATELET COUNT 276 141 - 377 [facility] 10e3/ul [facility] RED BLOOD COUNT - 4.66 3.86 - 5.04 [facility] 10e6/ul [facility] RED CELL DISTRI WIDTH 13.0 <14.7 % [facility] WHITE BLOOD COUNT - 9.4 4.0 - 12.4 [facility] 10e3/ul [facility] Specimen Performing Organization Address City/State/ZIP Code Phon e Number [facility] [address] [place] [address] FERRITIN (09/08/2021 11:00 EDT) FERRITIN - [facility] 19 11.1 - 264.0 [facility] Comment: ng/mL [facility] The results of this assay can be falsely lowered due t o the consumption of Biotin. Specimen Blood - Venous blood (substance) Performing Organization Address City/[facility] Code Phon e Number [facility] [address] [place] [address] documented in this encounter Visit Diagnoses Diagnosis Malignant neoplasm of breast in female, estrogen receptor positive, unspecified laterality, unspecified site of breast ( HCC-CMS) (HCC) - Primary Other iron deficiency anemia Osteopenia of multiple sites Restless leg Restless legs syndrome (RLS) documented in this encounter Discontinued Medications Medication Sig Discontinue Reason Start Date End Date anastrozole (ARIMIDEX) 1 Take 1 Tab by mouth Reorder 1 09/08/2021 mg tablet daily. documented as of this encounter Care Teams Fountain Vending Mechanic Relationship Specialty Start Date End Date Jaimie Delgado PCP - General Internal Medicine - Primary 08/18/21 [address] [place] [address] documented as of this encounter
--- OUTSIDE RECORDS SUMMARY | 2022-07-12 11:37 | XMS_ITS | Encounter Summary ---
:1950 Author Organization [facility] Address [address] [place] [address] Care Team Providers Name Role Phone Juan Pablo Garrett MD Primary Care Provider Reason for Visit Reason Comments Follow-up Encounter Details Date Type Department Care Team Description 05/07/2020 Office Visit [facility] Ami Pearson Ma lignant neoplasm of Surgical Oncology - DO central portion of [address] left breast in [address] [facility] [place] [address] [facility], Main receptor positive [phone] Pavilion, Level 2 ([facility]) (Primary [place], [place] Dx) [phone] (Wo rk) Social History [...] Sign Reading Time Taken Comments Blood Pressure 147/67 05/07/2020 1257 EDT Pulse 73 05/07/2020 1257 EDT Temperature 35.4 ??C (95.7 ??F) 05/07/2020 1257 EDT Respiratory Rate 16 05/07/2020 1257 EDT Oxygen Saturation - - Inhaled Oxygen [...] encounter Progress Notes Ami Pearson, DO - 05/07/2020 1320 EDT Subjective: Patient ID: Brittaney Grullon is an 70 y.o. female. Chief Complaint Patient presents with ??? Follow-up HPI Brittaney Grullon is a pleasant 70-year-old female seen in followup for a left-sided breast cancer. ??As you recall, this is a patient that had a screen detected abnormality identified in 07/2018. ??In August, she underwent biopsy, which showed an invasive cancer. ??She elected to move forward with a partial mastectomy and sentinel lymph node biopsy at the end of 08/2018. 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 ??She had 0 of 1 lymph nodes positive.??This was ER/UT positive, HER-2/yuval negative. Following her surgical intervention, Brittaney had radiation therapy with Dr Jordan Peterson at [facility]. ??She feels that she tolerates that quite well. ??She is now taking anastrozole with Dr Jain and also feels like that is going reasonably well. Brittaney has been concerned about anastrozole, as she wonders if it is making it harder for her to breathe. She has had asthma for a really long time and feels like it has gotten significantly worse, and she wonders if there is any connection between anastrozole and that. She denies any changes in her self- breast exam. She notes no unusual things. She has had chronic milky, thick discharge on her left side since she went through menopause, but that is about when she developed nipple inversion on that side. This does not correlate to her surgery or treatment for cancer. Patient Active Problem List Diagnosis ??? Asthma ??? Abnormal Papanicolaou smear of non-cervical specimen ??? Heterozygous factor V Leiden mutation (HCC-CMS) ??? Restless leg ??? Galactorrhea ??? Iron deficiency anemia ??? Malignant neoplasm of female breast (HCC-CMS) ??? Absolute anemia ??? Moderate persistent asthma without complication Past Medical History: Diagnosis Date ??? Anemia [...] anastrozole (ARIMIDEX) 1 mg tablet Take 1 mg by mouth daily. ??? budesonide/formoterol fumarate (SYMBICORT INHALATION) Inhale 2 Puffs as directed daily. ??? Calcium-Cholecalciferol, D3, (CALCARB) 600 mg(1,500mg) -200 unit tablet Take by mouth daily. ??? enoxaparin (LOVENOX) 40 mg/0.4 mL [...] Take 1 Tab by mouth daily. ??? Glucosamine HCl 1,500 mg tablet Take 1,500 mg by mouth daily. ??? hydrochlorothiazide (HYDRODIURIL) 50 [...] ??? Sulfa (Sulfonamide Antibiotics) Rash ??? Antibiotic [Ptvev-Lljnm-Fmgypok-Pramoxine] Rash ??? Erythromycin Rash Review of Systems Constitutional: Negative for [...] headaches. - See HPI Objective: BP (!) 147/67 Pulse 73 Temp (!) 35.4 ??C (95.7 ??F) (Tympanic) Resp 16 Physical Exam Constitutional: [...] no obvious masses palpated in either breast. There is left nipple inversion that is chronic with some yeast likedischarge when that nipple is everted. There are no axillary masses. Assessment: Brittaney Grullon is seen in the office today in a 6-month followup for her left breast cancer. On exam, she has no evidence of recurrent disease. We talked about the fact that I am unclear as to any connection between shortness of breath and use of aromatase inhibitors. I think this is much morelikely related to a very rough allergy season that we have been having here in [place]. 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 Plan: No diagnosis found. Ami Pearson DO No orders of the defined types were placed in this encounter. documented in this encounter Plan of Treatment Upcoming Encounters Date Type Specialty Care Team Description 07/15/2022 Telemedicine Hematology and Oncology Armando Martinez MD [address] [place] [address] [address] [place] [address] (Chula butts) 07/20/2022 Office Visit Surgical Oncology Rio Pearson DO 111 [facility] 2 [place], [place] [phone] ([place] but[place]) 09/23/2022 Office Visit Dermatology Miriam Bentley MD 111 [facility], [facility] 5 [place], [place] [phone] (Wo rk) documented as of this encounter Procedures Procedure Name Priority Date/Time Associated Diagnosis Comme nts ORDERS - SCANNED 05/13/2020 9:39 EDT documented in this encounter Visit Diagnoses Diagnosis Malignant neoplasm of central portion of left breast in female, estrogen receptor positive (HCC-CMS) (HCC) - Primary documented in this encounter Orders Admission Count Last Ordered Date First Ordered Date ORDERS - SCANNED 1 05/14/2020 documented in this encounter Care Teams Manager Strategic Partnerships Relationship Specialty Start Date End Date Juan Pablo Garrett MD PCP - General 04/30/19 06/21/21 [address] [place] [address] documented as of this encounter
--- OUTSIDE RECORDS SUMMARY | 2022-07-12 11:37 | XMS_ITS | Encounter Summary ---
:1950 Author Organization [facility] Address [address] [place] [address] Care Team Providers Name Role Phone Jaimie Delgado Primary Care Provider Encounter Details Date Type Department Care Team Description 08/18/2021 Travel Social History Tobacco Use Types Packs/Day [...] Telemedicine Hematology and Oncology Armando Martinez MD [address] [place] [address] [address] [place] [address] (Wo rk) 07/20/2022 Office Visit Surgical Oncology Rio Pearson, [address] [place] [address] [facility], Level 2 [place], [place] [phone] (Wo rk) 09/23/2022 Office Visit Dermatology Miriam Bentley MD [address] [place] [address] [facility], Level 5 [place], [place] [phone] (Wo rk) documented as of this encounter Visit Diagnoses Not on filedocumented in this encounter Care Teams Farebox Repairer Relationship Specialty Start Date End Date Jaimie Delgado PCP - General Internal Medicine - Primary 08/18/21 [address] [place] [address] documented as of this encounter
--- OUTSIDE RECORDS SUMMARY | 2022-07-12 11:37 | XMS_ITS | Encounter Summary ---
:1950 Author Organization [facility] Address [address] [place] [address] Care Team Providers Name Role Phone Juan Pablo Garrett MD Primary Care Provider None, Provider Primary Care Provider Unavailable Juan Pablo Garrett MD Primary Care Provider Reason for Visit Reason Onset Date Comments Appointment Related 03/25/2019 03/29/19 Encounter Details Date Type Department Care Team Description 03/25/2019 Telephone [facility] Ami Pearson Ap pointment Related Surgical Oncology - DO (03/29/19 ) [address] [facility], [place] [phone] (Wo rk) Social History Tobacco Use Types [...] this encounter Miscellaneous Notes Telephone Encounter - Zaina Blanco - 03/25/2019 1353 EDT Pt has been rescheduled for 04/30/2019 @ 8:00am, with Ami Pearson DO. Pt is aware of her apt. Telephone Encounter - An Lopes - 03/25/2019 1313 EDT Reason for Call: Appointment Related (03/29/19 ) 9 am Summary/Symptoms: Pt would like to reschedule this appointment Please call back to do so An Lopes 03/25/2019 13:14 documented in this encounter Plan of Treatment Upcoming Encounters Date Type Specialty Care Team Description 07/15/2022 Telemedicine Hematology and Oncology Armando Martinez MD [address] [place] [address] [address] [place] [address] (Wo rk) 07/20/2022 Office Visit Surgical Oncology Rio Pearson DO 111 [facility], [facility] 2 [place], [place] [phone] (Wo rk) 09/23/2022 Office Visit Dermatology Miriam Bentley MD 111 [facility], [facility] 5 [place] [phone] (Wo rk) documented as of this encounter Visit Diagnoses Not on filedocumented in this encounter Care Teams Hydro Mechanic Relationship Specialty Start Date End Date Juan Pablo Garrett MD PCP - General 07/05/16 04/28/19 [address] [place] [address] None, Provider PCP - General 04/29/19 04/29/19 Juan Pablo Garrett MD PCP - General 04/30/19 06/21/21 [address] [place] [address] documented as of this encounter
--- OUTSIDE RECORDS SUMMARY | 2022-07-12 11:37 | XMS_ITS | Encounter Summary ---
:1950 Author Organization [facility] Address [address] [place] [address] Care Team Providers Name Role Phone Juan Pablo Garrett MD Primary Care Provider Encounter Details Date Type Department Care Team Description 06/13/2019 Results Only Imaging [facility] Jaimie Delgado Primary Care Weekend [address] [place] [address] 1 [facility] [place], [place] [address] [phone] Social History Tobacco Use Types Packs/Day Years [...] Description 07/15/2022 Telemedicine Hematology and Oncology Armando Matrinez MD [address] [place] [address] [address] [place] [address] (Wo rk) 07/20/2022 Office Visit Surgical Oncology Rio Pearson DO 111 [facility], Level 2 [place], [place] [phone] (Chula rk) 09/23/2022 Office Visit Dermatology Miriam Bentley MD 111 [facility], Level 5 [place] [phone] (Chula rk) documented as of this encounter Procedures Procedure Name Priority Date/Time Associated Diagnosis Comme nts EXERCISE TOLERANCE 06/13/2019 14:00 Resul ts for this TEST EDT procedure are i n the results section. documented in this encounter Results EXERCISE TOLERANCE TEST (06/13/2019 14:00 EDT) Specimen Narrative [facility] - 06/13/2019 15:55 EDT *[facility]* [address] [place] [address] *Interpreting Group:* *[facility]* [address] [place] [address] Stress Electrocardiography David protocol Date of study: ??06/13/2019 *PATIENT PRESENTATION* Height: ? 162.1cm (63.8in) Blood Pressure: Weight: ? 78.3kg (172.2lb) BSA: ?1.9m^2 Referring physician: Juan Pablo Garrett Ordering physician: ??Jaimie Delgado i Impressions: ?? Normal study after maxim al exercise. Summary: 1. Stress ECG conclusions: The stress EC G is negative. Rare ventricular ?? ectopy. 2. Stress: The target heart rate was ach ieved. The heart rate response ?? to stress is normal. There is restin g hypertension with an ?? appropriate response to stress. The patient experienced no chest pain ?? during stress. Exercise capacity is above normal for age. CAD likelihood: ??Pre test likelihood of CAD: 10%. Post test likelihood of CAD: 2.5%. Indication: ?? Dyspnea with exertion. History: ??No cardiac history. ??Patient 's presenting symptoms: asymptomatic. ??Dyspnea. 69 year old fem keysha, no known CAD, presents for c/o dyspnea with exertion. Has h/o asthm a. Denies chest pain, denies current pain. States she has normal ETT 10 years ago at [facility]. PMH: ?? Asthma. ??Risk factors: ??Family history of coronary artery disease. Hypertension. Dyslipidemia. ??M edications: ??Albuterol Enoxaparin HCTZ Inhalers. Protocol: ??David protocol. Baseline ECG: ??Incomplete RBBB. Stress protocol: + +---+--------+ + --------+ + + Stage ? HR BP ? ST/T ? Rhythm ?? Symptoms ?? Comments ? (mmHg) ? + +---+--------+ + --------+ + + Baseline ?? 75 154/68 ?? Nonspecific T Sinus ?? None ? Pt used ?? supine ? (97) ? rhythm ? albuterol ? inhaler ? from home ? prior to ? arrival ? for test, ? preventati ? ve with ? her asthma ? history, ? no ? respirator ? y distress ? at rest. ?? + +---+--------+ + --------+ + + Baseline ?? 84 154/68 ? standing ? (97) ? + +---+--------+ + --------+ + + Stage I; ?? 112 182/60 ? Moderate ? 1.7mph, ? (101) ? dyspnea ? 10degrees; ? 3 min ? + +---+--------+ + --------+ + + Stage II; ?? 128 206/64 ?? Same as abov e Sinus ?? Moderate to ? 2.5mph, ? (111) ? rhythm, severe ? 12degrees; ? rare ? dyspnea, ? 3 min ? PVC's ?? moderate ? fatigue ? + +---+--------+ + --------+ + + Peak stress 129 ? + +---+--------+ + --------+ + + Immediate ?? 128 222/0 ? post stress ?? (74) ? + +---+--------+ + --------+ + + Recovery; 1 120 212/66 ? min ? (115) ? + +---+--------+ + --------+ + + Recovery; 3 100 ? Subsiding ? min ? + +---+--------+ + --------+ + + Recovery; 6 90 198/76 ? Resolved ? min ? (117) ? + +---+--------+ + --------+ + + Recovery; 9 84 168/82 ?? Same as above Same as ? min ? (111) ? above ? + +---+--------+ + --------+ + + * Stress results: ?? Maximal heart rate du ring stress was 129bpm (87% of maximal predicted heart rate). The maxim al predicted heart rate was 149bpm. The target heart rate was achiev ed. The heart rate response to stress is normal. There is resting hyper tension with an appropriate response to stress. The rate-pressure pr oduct for the peak heart rate and blood pressure was 09467og Hg/min. ? ?The patient experienced no chest pain during stress. ?? The patient exper ienced moderate to severe dyspnea in response to stress. Exercise capacity is above normal for age. Stress ECG: ?? The stress ECG is negativ e. ?Rare ventricular ectopy. Study data: ??Dr. Bahman Gonzalez supervised and was readily available during the procedure. ??Study status: ??Routine . ??Consent: ??The risks, benefits, and alternatives to the procedure were e xplained to the patient and informed consent was obtained. ??Procedu re: ??Initial setup. A baseline ECG was recorded. ECG tracings were obta ined using the X-scribe 2 machine. Surface ECG leads and manual cu ff blood pressure measurements were monitored. Heart sounds: Normal. Radha ng sounds: Normal. Treadmill exercise testing was performed using the David protocol. The patient exercised for 5 min 59 sec, to protocol stage 2, to a maximal work rate of 7.1mets. Exercise was terminated due to moderate to severe dyspnea and moderate fatigue. ??Study completion : ??The patient tolerated the procedure well and was discharged from [facility]. ??Discharge: ??The patient left the laboratory in stable condition. ? Birthdate: ??Patient birthdate: 1950. ??Sex: ??Gender: female. ??Study date: ??Study date: 06/13/2019. Study time: 02:00 PM. Signature Documentation: ?? The Stress E CG portion of this study was interpreted by Dr. Marciano Aviles. Electronically signed by Maricano Aviles MD 06/13/2019 15:55 Procedure Note Marciano Aviles MD, - 06/13/2019 *[facility]* [address] [place] [address] *Interpreting Group:* *[facility]* [address] [place] [address] Stress Electrocardiography David protocol Date of study: 06/13/2019 *PATIENT PRESENTATION* Height: 162.1cm (63.8in) Blood Pressure: Weight: 78.3kg (172.2lb) BSA: 1.9m^2 Referring physician: Juan Pablo Garrett Ordering physician: Jaimie Delgado Impressions: Normal study after maximal exercise. Summary: 1. Stress ECG conclusions: The stress EC G is negative. Rare ventricular ectopy. 2. Stress: The target heart rate was ach ieved. The heart rate response to stress is normal. There is resting h ypertension with an appropriate response to stress. The pat ient experienced no chest pain during stress. Exercise capacity is abo ve normal for age. CAD likelihood: Pre test likelihood of C AD: 10%. Post test likelihood of CAD: 2.5%. Indication: Dyspnea with exertion. History: No cardiac history. Patient's p resenting symptoms: asymptomatic. Dyspnea. 69 year old nitin irvin, no known CAD, presents for c/o dyspnea with exertion. Has h/o asthm a. Denies chest pain, denies current pain. States she has normal ETT 10 years ago at [facility]. PMH: Asthma. Risk factors: Family histor y of coronary artery disease. Hypertension. Dyslipidemia. Med ications: Albuterol Enoxaparin HCTZ Inhalers. Protocol: David protocol. Baseline ECG: Incomplete RBBB. Stress protocol: + +---+--------+ + --------+ + + Stage HR BP ST/T Rhythm Symptoms Comments (mmHg) + +---+--------+ + --------+ + + Baseline 75 154/68 Nonspecific T Sin us None Pt used supine (97) rhythm albuterol inhaler from home prior to arrival for test, preventati ve with her asthma history, no respirator y distress at rest. + +---+--------+ + --------+ + + Baseline 84 154/68 standing (97) + +---+--------+ + --------+ + + Stage I; 112 182/60 Moderate 1.7mph, (101) dyspnea 10degrees; 3 min + +---+--------+ + --------+ + + Stage II; 128 206/64 Same as above Si nus Moderate to 2.5mph, (111) rhythm, severe 12degrees; rare dyspnea, 3 min PVC's moderate fatigue + +---+--------+ + --------+ + + Peak stress 129 + +---+--------+ + --------+ + + Immediate 128 222/0 post stress (74) + +---+--------+ + --------+ + + Recovery; 1 120 212/66 min (115) + +---+--------+ + --------+ + + Recovery; 3 100 Subsiding min + +---+--------+ + --------+ + + Recovery; 6 90 198/76 Resolved min (117) + +---+--------+ + --------+ + + Recovery; 9 84 168/82 Same as above S vipin as min (111) above + +---+--------+ + --------+ + + * Stress results: Maximal heart rate durin g stress was 129bpm (87% of maximal predicted heart rate). The maxim al predicted heart rate was 149bpm. The target heart rate was achiev ed. The heart rate response to stress is normal. There is resting hyper tension with an appropriate response to stress. The rate-pressure pr oduct for the peak heart rate and blood pressure was 17979in Hg/min. T patient experienced no chest pain during stress. The patient experien david moderate to severe dyspnea in response to stress. Exercise capacity is above normal for age. Stress ECG: The stress ECG is negative. Rare ventricular ectopy. Study data: Dr. Bahman Gonzalez supervised a nd was readily available during the procedure. Study status: Routine. Co nsent: The risks, benefits, and alternatives to the procedure were e xplained to the patient and informed consent was obtained. Procedure : Initial setup. A baseline ECG was recorded. ECG tracings were obta ined using the X-scribe 2 machine. Surface ECG leads and manual cu ff blood pressure measurements were monitored. Heart sounds: Normal. Radha ng sounds: Normal. Treadmill exercise testing was performed using the David protocol. The patient exercised for 5 min 59 sec, to protocol stage 2, to a maximal work rate of 7.1mets. Exercise was terminated due to moderate to severe dyspnea and moderate fatigue. Study completion: The patient tolerated the procedure well and was discharged from [facility]. Discharge: The patient left the laboratory in stable condition. Birthdate: Patient birthdate: 1950. Sex: Gender: fely chowdary. Study date: Study date: 06/13/2019. Study time: 02:00 PM. Signature Documentation: The Stress ECG portion of this study was interpreted by Dr. Marciano Aviles. Electronically signed by Marciano Aviles MD 06/13/2019 15:55 Performing Organization Address City/State/ZIP Code Phon e Number [facility] documented in this encounter Visit Diagnoses Not on filedocumented in this encounter Care Teams Coat Operator Insulator Relationship Specialty Start Date End Date Juan Pablo Garrett MD PCP - General 04/30/19 06/21/21 [address] [place] [address] documented as of this encounter
--- OUTSIDE RECORDS SUMMARY | 2022-07-12 11:37 | XMS_ITS | Encounter Summary ---
:[address] [facility] Address [address] [place] [address] Care Team Providers Name Role Phone Juan Pablo Garrett MD Primary Care Provider Reason for Visit Reason Onset Date Comments Follow-up 04/30/2019 Encounter Details Date Type Department Care Team Description 04/30/2019 Orders Only [facility] Ami Pearson Mal ignant neoplasm of left breast in female, estrogen receptor positive, unspecified site of breast (FORMERLY [facility]) (Primary Dx); Hematology & Oncology DO Personal history of breast cancer - [id number] [place] [address] [facility] 2 [place] [address] (Wo rk) Social History Tobacco Use [...] Hematology and Oncology Armando Martinez MD [address] [facility], [facility] [address] [place], [place] [phone] (Wo rk) 07/20/2022 Office Visit Surgical Oncology LiliRio ricarda Bush, [address] [facility], [facility], Level [address] [place], [place] [address] (Wo rk) 09/23/2022 Office Visit Dermatology Miriam Bentley MD 111 [facility], [address] [place], [place] [address] (Wo rk) documented as of this encounter Procedures Procedure Name Priority Date/Time Associated Diagnosis Comme nts MA BILAT 2D/3D OMAR Routine 08/06/2019 10:14 Resu lts for this DX OR AV MAMMO EXAM EDT procedur e are in the results section. documented in this encounter Results MA BILAT 2D/3D OMAR DX OR AV MAMMO EXAM (08/06/2019 10:14 EDT) Anatomical Region Laterality Modality Other Specimen Narrative [facility] - 08/06/2019 12:03 EDT BILAT 2D/3D OMAR DX OR AV ??MAMMO EXAM 08/06/2019 10:14 AM Signs and Symptoms/Comments: ?? C50.912-Malignant neoplasm of unspecifie d site of left female breast (FORMERLY [facility])-ICD-10 Z17.0-Estrogen receptor positive status (ER+)-ICD-10; 1st mammogram since surger y s/p left breast partial 09/14/18, screen right breast Comparison: Mammogram dated 07/01/2015 to present FINDINGS: Left breast: 2-D and 3-D mammogram was p erformed in the CC and MLO projections. Computer assisted detection was also performed.Scattered fibroglandular densi ties are present. A lumpectomy scar and sentinel node scar i s noted in the upper outer quadrant and axillary region of the left breast. No discrete mass, architectural distortion or suspicious c alcifications are present. Right breast: 2-D and 3-D mammogram was performed in the CC and MLO projections. Computer assisted detection was also performed.Scattered fibroglandular densi ties are present No discrete mass, architectural distortion or suspic ious calcifications are present. IMPRESSION: Left breast: BI-RADS Category Assessment 2: Benign Findings. Right breast: BI-RADS Category Assessmen t 1: Negative. Overall BI-RADS Category Assessment 2: B enign Findings. Recommendation: Annual bilateral screeni ng mammogram is recommended and next due in July 2020. The results of the imaging studies were discussed with the patient by the poultry service technician. Portions of this document may have been prepared with speech recognition software or keyboard data en try techniques. Minor irregularities or keyboarding misprints may be present. Procedure Note Lizeth Alvarez MD, MD - 08/06/2019 BILAT 2D/3D OMAR DX OR AV MAMMO EXAM 07/21 10:14 AM Signs and Symptoms/Comments: C50.912-Malignant neoplasm of unspecifie d site of left female breast (FORMERLY [facility])-ICD-10 Z17.0-Estrogen receptor positive status (ER+)-ICD-10; 1st mammogram since surger y s/p left breast partial 09/14/18, screen right breast Comparison: Mammogram dated 07/01/2015 to present FINDINGS: Left breast: 2-D and 3-D mammogram was p erformed in the CC and MLO projections. Computer assisted detection was also performed.Scattered fibroglandular densi ties are present. A lumpectomy scar and sentinel node scar i s noted in the upper outer quadrant and axillary region of the left breast. No discrete mass, architectural distortion or suspicious c alcifications are present. Right breast: 2-D and 3-D mammogram was performed in the CC and MLO projections. Computer assisted detection was also performed.Scattered fibroglandular densi ties are present No discrete mass, architectural distortion or suspic ious calcifications are present. IMPRESSION: Left breast: BI-RADS Category Assessment 2: Benign Findings. Right breast: BI-RADS Category Assessmen t 1: Negative. Overall BI-RADS Category Assessment 2: B enign Findings. Recommendation: Annual bilateral screeni ng mammogram is recommended and next due in July 2020. The results of the imaging studies were discussed with the patient by the poultry service technician. Portions of this document may have been prepared with speech recognition software or keyboard data en try techniques. Minor irregularities or keyboarding misprints may be present. Performing Organization Address City/State/ZIP Code Phon e Number [facility] RAD[facility] documented in this encounter Visit Diagnoses Diagnosis Malignant neoplasm of left breast in fem keysha, estrogen receptor positive, unspecified site of breast (HCC-CMS) (HCC) - Primary Personal history of breast cancer Personal history of malignant neoplasm o f breast documented in this encounter Care Teams Automatic Pad Making Machine Operator Relationship Specialty Start Date End Date Juan Pablo Garrett MD PCP - General 04/30/19 06/21/[address] [place] [address] documented as of this encounter
--- OUTSIDE RECORDS SUMMARY | 2022-07-12 11:37 | XMS_ITS | Encounter Summary ---
:1950 Author Organization [facility] Address [address] [place] [address] Care Team Providers Name Role Phone Jaimie Delgado Primary Care Provider Reason for Visit Episode Based Medications (Routine) - Authorization Not Required Specialty Diagnoses / Procedures Referred By Contact Refer red To Contact Diagnoses Other iron deficiency anemia Armando Martinez MD [facility] Room 130 [facility], [facility] [address] [facility] [address] [place] [address] [place] [address] Fax: Referral ID Status Reason Start Expiration Visits Visits Date Date Requested Authorized [id number] Authorization Not 02/25/2022 02/25/2023 1 1 Required Encounter Details Date Type Department Care Team Description 03/04/2022 Hospital Encounter [facility]ION Other iron deficiency ROOM anemia (Primary Dx) [address] [id number] Social History Tobacco Use Types Packs/Day Years Used Date Never Smoker Smokeless Tobacco: Never Used Alcohol Use Standard Drinks/Week Comments No 0 (1 standard drink = 0.6 oz pure alcoho l) Sex Assigned at Date Recorded Not on file documented as of this encounter Last Filed Vital Signs Vital Sign Reading Time Taken Comments Blood Pressure 179/83 03/04/2022 1130 EDT Pulse - - Temperature 37.2 ??C (98.9 ??F) 03/04/2022 0950 EDT Respiratory Rate - - Oxygen Saturation 95% 03/04/2022 0951 EDT Inhaled Oxygen Concentration - - Weight 79.4 kg (175 lb) 03/04/2022 0950 EDT Height 157.5 cm (5' 2) 03/04/2022 0950 EDT Body Mass Index 32.01 03/04/2022 0950 EDT documented in this encounter Functional Status [...] or Self Care documented in this encounter Miscellaneous Notes Addendum Note - Zainab Durant RN - 03/04/2022 1000 EDT Encounter addended by: Zainab Durant RN on: 03/04/2022 12:24 Actions taken: Flowsheet accepted documented in this encounter Plan of Treatment Upcoming Encounters Date Type Specialty Care Team Description 07/15/2022 Telemedicine Hematology and Oncology Armando Martinez MD [address] [place] [address] [phone] (Wo rk) 07/20/2022 Office Visit Surgical Oncology Rio Pearson DO 111 [facility], [facility] 2 [place], [place] [address] (Wo rk) 09/23/2022 Office Visit Dermatology Miriam Bentley MD 111 [facility], [facility] 5 [place], [place] [address] (Wo rk) documented as of this encounter Visit Diagnoses Diagnosis Other iron deficiency anemia - Primary documented in this encounter Administered Medications Inactive Administered Medications - up to 3 most recent administrations Medication Order MAR Action Action Date Dose Rate Site iron sucrose (VENOFER) 300 mg, New Bag 03/04/2022 10:09 EDT 300 mg 176 mL/hr sodium chloride (NS) 0.9 % 250 mL IVPB 300 mg, intravenous, Administer over 90 Minutes, ONCE, 1 dose, Starting on Mon03/04/22 at 1030, Until Mon03/04/22 at 1200, Routine documented in this encounter Orders Medications Ordered That Might Not Have Count Last Ord ered Date First Ordered Date Been Administered acetaminophen (TYLENOL) tablet 650 mg 1 03/04/2022 diphenhydrAMINE (BENADRYL) capsule 25 mg 1 022 diphenhydrAMINE (BENADRYL) injection 50 mg 03/04 EPINEPHrine (ADRENALIN) injection 0.3 mg iron sucrose (VENOFER) 300 mg, sodium 03/04/2022 chloride (NS) 0.9 % 250 mL IVPB methylPREDNISolone sod suc(PF) 1 03/04/2022 (SOLU-MEDROL) injection 100 mg sodium chloride 0.9 % (flush) flush 10 mL 2021 sodium chloride 0.9 % (flush) flush 20 mL 1 2021 documented in this encounter Care Teams Rack Carrier Relationship Specialty Start Date End Date Jaimie Delgado PCP - General Internal Medicine - Primary 08/18/21 [address] [place] [address] documented as of this encounter
--- OUTSIDE RECORDS SUMMARY | 2022-07-12 11:37 | XMS_ITS | Encounter Summary ---
:1950 Author Organization [facility] Address [address] [place] [address] Care Team Providers Name Role Phone Juan Pablo Garrett MD Primary Care Provider Reason for Visit Reason Comments Follow-up 1 year follow up Encounter Details Date Type Department Care Team Description 05/12/2020 Office Visit [facility] - Keith Jain Ma lignant neoplasm of [facility] Adult Hematology breast in female, & Oncology [address], estrogen receptor [address] Edi MOB-B positive, unspecified 1[address] laterality, [place] [address] [place] unspecified site of [phone] breast ([facility]) [phone] (Primary Dx) (Work) Social History Tobacco Use Types Packs/Day Years [...] Sign Reading Time Taken Comments Blood Pressure 144/76 05/12/2020 1422 EDT Pulse 75 05/12/2020 1422 EDT Temperature - - Respiratory Rate - - Oxygen Saturation 96% 05/12/2020 1422 EDT Inhaled Oxygen Concentration - - Weight 77.1 kg (170 lb) 05/12/2020 1422 EDT Height - - Body Mass Index 31.09 09/07/2018 1444 EDT documented in this encounter Functional Status [...] documented as of this encounter Progress Notes Evans Hudson MA - 05/12/2020 1430 EDT Patient denies travel outside of [place] in past 2 weeks Suspicion of Abuse: no - If yes, please document evidence: - Assessed on: 05/12/20 14:19 - Assessed by: EVANS HUDSON MA Keith Joseph MD - 05/12/2020 1430 EDT Problem 1??August 2018: Left breast cancer. 1. 08/14/18: Routine mammogram BI-RADS Category 4 on left, Category 1 on right. Patient noted no appreciable changes in self-breast exam, chronic nipple inversion and discharge x 15 years 2. 08/21/18: Stereotactic bx showed nuclear grade 1, invasive ductal carcinoma. ER+ (>90%), AZ+ (>90%), Her-2 negative. 3. 09/14/18: Partial mastectomy and sentinel lymph node bx with Dr. Pearson. Tumor size 0.45 cm. Welldifferentiated. 0/1 lymph node involvement. 4. 11/21/18: completed XRT. 5. 12/21/18: Started anastrazole. Subjective Interim History:Patient presents for a follow-up. She saw Dr. Ami Pearson last week and had an ultrasound. Complains of shortness of breath with exertion. Denies any chest pain or palpitations. Occasionally has cough. Denies any fevers. Denies feeling any abnormal lumps within her breasts. Denies any change in her medications. Review of Systems Constitutional: Negative for chills, fever and weight loss. HENT: Negative for hearing loss. Eyes: Negative for blurred vision and pain. Respiratory: Positive for shortness of breath (Exertional). Negative for cough, hemoptysis and sputum production. Cardiovascular: Negative for chest pain and palpitations. Gastrointestinal: Negative for abdominal pain, nausea and vomiting. Genitourinary: Negative. Musculoskeletal: Negative for back pain and joint pain. Skin: Negative. Neurological: Negative for tingling and headaches. Endo/Heme/Allergies: Negative. Psychiatric/Behavioral: Negative. Family History Problem Relation Age of Onset [...] Hx ??? Stomach Cancer Neg Hx Social History Tobacco Use ??? Smoking status: Never Smoker ??? Smokeless tobacco: Never Used Substance Use Topics ??? Alcohol use: No ??? Drug use: No Social History Social History Narrative ??? Not on file Current Outpatient Medications Medication Sig Dispense Refill Last Dose ??? ALBUTEROL INHL Inhale 2 Inhalers as directed as needed (Rarely) . Taking ??? anastrozole (ARIMIDEX) 1 mg tablet Take 1 mg by mouth daily. Taking ??? budesonide/formoterol fumarate (SYMBICORT INHALATION) Inhale 2 Puffs as directed daily. Taking ??? Calcium-Cholecalciferol, D3, (CALCARB) 600 mg(1,500mg) -200 unit tablet Take by mouth daily. Taking ??? enoxaparin (LOVENOX) 40 mg/0.4 mL [...] as directed every 12 hours as needed. Not Taking ??? gluc agarwal/chondro agarwal A/vit C/Mn (GLUCOSAMINE 1500 COMPLEX ORAL) Take 1 Tab by mouth daily. Taking ??? Glucosamine HCl 1,500 mg tablet Take 1,500 mg by mouth daily. Taking ??? hydrochlorothiazide (HYDRODIURIL) 50 mg tablet [...] 1 mg by mouth at bedtime. Taking No current facility-administered medications for this visit. There were no vitals filed for this visit. Wt Readings from Last 3 Encounters: 09/03/18 76.9 kg (169 lb 8 oz) 05/10/18 77.7 kg (171 lb 3.2 oz) 06/11/14 74.3 kg (163 lb 14.4 oz) Physical Exam Constitutional: She is oriented to person, place, and time. She is cooperative. HENT: Head: Normocephalic and atraumatic. Eyes: Conjunctivae and EOM are normal. Cardiovascular: Normal rate and regular rhythm. Pulmonary/Chest: Breath sounds normal. Abdominal: Soft. There is no tenderness. Lymphadenopathy: She has no cervical adenopathy. Right axillary: No pectoral and no lateral adenopathy present. Left axillary: No pectoral and no lateral adenopathy present. Right: No supraclavicular adenopathy present. Left: No supraclavicular adenopathy present. Neurological: She is alert and oriented to person, place, and time. Skin: Skin is warm and dry. Psychiatric: She has a normal mood and affect. Assessment & Plan 1. 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 Tumor size 0.45 cm. Well differentiated, 0/1 lymph node involvement. ER+/AZ+, Her-2 -. S/p partial mastectomy. Completed XRT treatment 11/21/18. Began anastrazole 12/2018. Tolerating this relatively well. Reports 15 to 20 pound weight gain over the last couple of years. ? Anastrozole. I encouraged her to start an exercise regimen and to follow adiet plan. Can consider switching to letrozole if weight gain continues to be an issue. She has heterozygous factor V Leiden mutation. She saw Dr. Pearson last week and had an ultrasound. 2. Bone health. Evidence of mild osteopenia on bone density scan. Continue Calcium vitamin D supplementation, as well as weight bearing exercises. Plan: 1. Continue anastrazole. 2. Return for follow-up in 1 year. Keith Jain MD Hematology/Oncology [facility] documented in this encounter Plan of Treatment Upcoming Encounters Date Type Specialty Care Team Description 07/15/2022 Telemedicine Hematology and Oncology Armando Martinez MD [address] [place] [address] [address] [place], [place] [phone] (Wo rk) 07/20/2022 Office Visit Surgical Oncology Rio Pearson DO 111 [facility], [facility] 2 [place], [place] [phone] (Wo rk) 09/23/2022 Office Visit Dermatology Miriam Bentley MD 111 [facility], [facility] 5 [place], [place] [address] (Wo rk) documented as of this encounter Visit Diagnoses Diagnosis Malignant neoplasm of breast in female, estrogen receptor positive, unspecified laterality, unspecified site of breast ( HCC-CMS) (HCC) - Primary documented in this encounter Care Teams Banking Center Manager Relationship Specialty Start Date End Date Juan aPblo Garrett MD PCP - General 04/30/19 06/21/21 [address] [place] [address] (work) documented as of this encounter
--- OUTSIDE RECORDS SUMMARY | 2022-07-12 11:37 | XMS_ITS | Encounter Summary ---
:1950 Author Organization [facility] Address [address] [place] [address] Care Team Providers Name Role Phone Juan Pablo Garrett MD Primary Care Provider Reason for Visit Reason Comments Other lip lesion Encounter Details Date Type Department Care Team Description 10/05/2020 Office Visit [facility] Brannon Rueda Lip lesion (Primary [address] MD Robi Dx) [address] [place], [place] [phone] Avenue [phone] [facility], [address] [place] [address] (Wo rk) Social History Tobacco [...] documented as of this encounter Progress Notes Brannon Rueda MD - 10/05/2020 1000 EST Due to computer system disruption, additional clinical information for this visit is Scanned Note. For patients, please refer to guidance in [employer] on how to locate information. Generally this information will appear as a scanned documents saved in My Documents activity. documented in this encounter Plan of Treatment Upcoming Encounters Date Type Specialty Care Team Description 07/15/2022 Telemedicine Hematology and Oncology Armando Martinez MD [address] [place] [address] [address] [place], [place] [phone] (Wo rk) 07/20/2022 Office Visit Surgical Oncology Rio Pearson DO 111 [facility], [facility] [place] [facility] 2 [place], [place] [phone] (Wo rk) 09/23/2022 Office Visit Dermatology Miriam Bentley MD 111 [facility], [address] [place], [place] [phone] (Wo rk) documented as of this encounter Visit Diagnoses Diagnosis Lip lesion - Primary Diseases of lips documented in this encounter Care Teams Portable Power Tool Repairer Relationship Specialty Start Date End Date Juan Pablo Garrett MD PCP - General 04/30/19 06/21/21 [address] [place] [address] documented as of this encounter
--- OUTSIDE RECORDS SUMMARY | 2022-07-12 11:37 | XMS_ITS | Encounter Summary ---
:1950 Author Organization [facility] Address [address] [place] [address] Care Team Providers Name Role Phone Juan Pablo Garrett MD Primary Care Provider Reason for Referral Radiology Services (Routine) - Authorization Not Required Specialty Diagnoses / Procedures Referred By Contact Refer red To Contact Diagnoses Screening mammogram, encounter for Juan Pablo Garrett MD Procedures MA BREAST SCREENING [facility] [address] [place] [address] Referral ID Status Reason Start Expiration Visits Visits Date Date Requested Authorized [id number] Authorization Not 05/07/2020 1 1 Required Reason for Visit Radiology Services (Routine) - Authorization Not Required Specialty Diagnoses / Procedures Referred By Contact Refer red To Contact Diagnoses Screening mammogram, encounter for Juan Pablo Garrett MD Procedures MA BREAST SCREENING [facility] [address] [place] [address] Referral ID Status Reason Start Expiration Visits Visits Date Date Requested Authorized [id number] Authorization Not 05/07/2020 1 1 Required Encounter Details Date Type Department Care Team Description 08/07/2020 Hospital Encounter Zeynep Jak Screening mammogram, Mammography encounter for [address] [place] [address] Social History Tobacco Use Types Packs/Day Years [...] Concentration - - Weight - - Height 160 cm (5' 3) 08/07/2020 0941 EDT Body Mass Index - - documented [...] as directed as needed (Rarely) . 0 Calcium-Cholecalciferol, D3, Take by mouth 0 (CALCARB) [...] Telemedicine Hematology and Oncology Armando Martinez MD [address] [place] [address] [address] [place] [address] (Wo rk) 07/20/2022 Office Visit Surgical Oncology Rio Pearson DO 111 [facility], [facility] 2 [place], [place] [phone] (Wo rk) 09/23/2022 Office Visit Dermatology Miriam Bentley MD 111 [facility], [facility] 5 [place], [place] [phone] (Wo rk) documented as of this encounter Procedures Procedure Name Priority Date/Time Associated Diagnosis Comme nts OK BREAST SCREENING Routine 08/07/2020 9:53 EDT Screening mamm ogram, Results for this [facility]MAR BILATERAL encounter for procedure ar e in the results section. documented in this encounter Results MA BREAST SCREENING OMAR BILATERAL (08/07/2020 9:53 EDT) Anatomical Region Laterality Modality Breast Bilateral Mammography Specimen Impressions [facility] - 08/07/2020 13:28 EDT Negative, no evidence of malignancy. RECOMMENDATION: Routine screening mammog lamar is recommended. OVERALL ASSESSMENT: BI-RADS 2: Benign These results will be communicated to yo ur patient via a lay letter from Radiology. If any additional imaging is needed we will contact your patient directly. Narrative [facility] - 08/07/2020 13:28 EDT MA BREAST SCREENING OMAR BILATERAL ??08/07/2020 10:00 AM History: routine Comparison: ??Comparison has been made t o previous images. Technique: Routine 3D tomosynthesis with synthesized 2D views with CAD Bilateral Breast Composition: The breast tissue is almost entirely fatty. Bilateral Breast Findings: ??No signific ant masses, calcifications or other abnormalities are seen. The lumpectomy scar in the upper central left breast is stable. ??There are no new concerning abnormalities. Procedure Note Nimesh Mei MD - 08/07/2020 MA BREAST SCREENING OMAR BILATERAL 2019 10:00 AM History: routine Comparison: Comparison has been made to previous images. Technique: Routine 3D tomosynthesis with synthesized 2D views with CAD Bilateral Breast Composition: The breast tissue is almost entirely fatty. Bilateral Breast Findings: No significan t masses, calcifications or other abnormalities are seen. The lumpectomy scar in the upper central left breast is stable. There are no new concerning abnormalities. IMPRESSION Negative, no evidence of malignancy. RECOMMENDATION: Routine screening mammog lamar is recommended. OVERALL ASSESSMENT: BI-RADS 2: Benign These results will be communicated to yo ur patient via a lay letter from Radiology. If any additional imaging is needed we will contact your patient directly. Performing Organization Address City/State/ZIP Code Phon e Number [facility] [place] documented in this encounter Visit Diagnoses Diagnosis Screening mammogram, encounter for documented in this encounter Care Teams Revenue Cycle Administrator Relationship Specialty Start Date End Date Juan Pablo Garrett MD PCP - General 04/30/19 06/21/[address] [place] [address] documented as of this encounter
--- OUTSIDE RECORDS SUMMARY | 2022-07-12 11:37 | XMS_ITS | Encounter Summary ---
:1950 Author Organization [facility] Address [address] [place] [address] Care Team Providers Name Role Phone Juan Pablo Garrett MD Primary Care Provider Encounter Details Date Type Department Care Team Description 01/12/2021 [facility] [facility] [address] [place], [place] [address] Social History Tobacco Use [...] Telemedicine Hematology and Oncology Armando Martinez MD [address] [place] [address] [address] [place] [phone] (Wo rk) 07/20/2022 Office Visit Surgical Oncology Rio Pearson, DO [address] [facility], [facility], Level 2 [place], [place] [phone] (Wo rk) 09/23/2022 Office Visit Dermatology Miriam Bentley MD 111 [facility], [address] 5 [place], [place] [phone] (Wo rk) documented as of this encounter Visit Diagnoses Not on filedocumented in this encounter Orders Immunization/Injection Count Last Ordered Date First O rdered Date COVID-19 MRNA VACCINE (MODERNA COVID-19) 1 021 PF 0.5 ML IM (18 YRS+) documented in this encounter Care Teams Track Liner Operator Relationship Specialty Start Date End Date Juan Pablo Garrett MD PCP - General 04/30/19 06/21/21 [address] [place] [address] documented as of this encounter
--- OUTSIDE RECORDS SUMMARY | 2022-07-12 11:37 | XMS_ITS | Encounter Summary ---
:1950 Author Organization [facility] Address [address] [place] [address] Care Team Providers Name Role Phone Juan Pablo Garrett MD Primary Care Provider Encounter Details Date Type Department Care Team Description 11/06/2020 Ancillary Procedure [facility] Surgical Oncology - Main [facility] [address] [place] [address] Social History Tobacco Use Types [...] Telemedicine Hematology and Oncology Armando Martinez MD [address] [place] [address] [phone] (Wo rk) 07/20/2022 Office Visit Surgical Oncology LiliRio ricarda Bush, [address] [facility], [facility], Level 2 [place], [place] [phone] (Wo rk) 09/23/2022 Office Visit Dermatology Miriam Bentley MD [address] [facility], [address] 5 [place], [place] [phone] (Wo rk) documented as of this encounter Procedures Procedure Name Priority Date/Time Associated Diagnosis Comme nts [facility] US BREAST - Routine 11/06/2020 12:01 Results for this BREAST CARE CENTER EST procedure are in ONLY the results section. documented in this encounter Results [facility] BREAST - BREAST CARE CENTER ONLY (11/06/2020 12:01 EST) Specimen Narrative [facility] - 11/06/2020 12:[address] This is a non-reportable exam. Performing Organization Address City/State/[facility] Code Phon e Number [facility] POINT OF CARE documented in this encounter Visit Diagnoses Not on filedocumented in this encounter Care Teams Cane Loader Relationship Specialty Start Date End Date Juan Pablo Garrett MD PCP - General 04/30/19 06/21/21 [address] [place] [address] documented as of this encounter
--- OUTSIDE RECORDS SUMMARY | 2022-07-12 11:37 | XMS_ITS | Encounter Summary ---
:1950 Author Organization [facility] Address [address] [place] [address] Care Team Providers Name Role Phone Juan Pablo Garrett MD Primary Care Provider Reason for Visit Reason Comments Post-OP Follow Up Encounter Details Date Type Department Care Team Description 09/26/2018 Post-op Visit [facility] Ami Pearson M alignant neoplasm Surgical Oncology - DO of central [facility] [address] [place] of left breast in 111 [facility] female, estrogen [place], [place] [phone] [place] [address], Main receptor positive [phone] Pavilion, Level 2 ([facility] (Primary [place], [place] Dx) [phone] (Wo rk) Social History Tobacco Use Types Packs/Day Years Used Date Never Smoker Smokeless Tobacco: Never Used Alcohol Use Standard Drinks/Week Comments No 0 (1 standard drink = 0.6 oz pure alcoho l) Sex Assigned at Date Recorded Not on file documented as of this encounter Last Filed Vital Signs Vital Sign Reading Time Taken Comments Blood Pressure 141/65 09/26/2018 1453 EST Pulse 71 09/26/2018 1453 EST Temperature 36.4 ??C (97.6 ??F) 09/26/2018 1453 EST Respiratory Rate - - Oxygen Saturation - [...] Discharge documented in this encounter Progress Notes Ami Pearson DO - 09/26/2018 1500 EST Brittaney Grullon is very pleasant and is seen in postoperative evaluation for her left partial mastectomy and sentinel lymph node biopsy. She has been doing well since her surgery. She has had minimal to no pain, although she does appreciate a bulge in her axilla, which has felt like an egg since shortly after the surgery when she started to do more exercise. On physical exam, she has a large seroma in the left axilla. This was drained under sterile technique for about 55 mL of clear serous fluid. 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 She will be meeting with radiation and medical oncology to discuss next steps. I will see her back in 6 months. I did tell her that it is not unexpected if this were to reaccumulate. If it does, she needs to call and we will get her in sooner. Thank you for allowing me to participate in the care of this very pleasant patient. documented in this encounter Plan of Treatment Upcoming Encounters Date Type Specialty Care Team Description 07/15/2022 Telemedicine Hematology and Oncology Armando Martinez MD [address] [place] [address] [address] [place] [phone] (Wo rk) 07/20/2022 Office Visit Surgical Oncology Rio Pearson DO 111 [facility] 2 [place], [place] [phone] (Wo rk) 09/23/2022 Office Visit Dermatology Miriam Bentley MD 111 [facility], Level 5 [place], [place] [phone] (Wo rk) documented as of this encounter Visit Diagnoses Diagnosis Malignant neoplasm of central portion of left breast in female, estrogen receptor positive (HCC-CMS) (HCC) - Primary documented in this encounter Care Teams Banana Ripening Room Supervisor Relationship Specialty Start Date End Date Juan Pablo Garrett MD PCP - General 07/05/16 04/28/19 [address] [place] [address] documented as of this encounter
--- OUTSIDE RECORDS SUMMARY | 2022-07-12 11:38 | XMS_ITS | Encounter Summary ---
:1950 Author Organization [facility] Address [address] [place] [address] Care Team Providers Name Role Phone Steve Barbour MD Primary Care Provider Unavailable Encounter Details Date Type Department Care Team Description 03/11/2016 Results Only Imaging [facility]- Eleazar Segundo PRISM MD [phone] [place] [phone] (Wo rk) Social History Tobacco Use Types Packs/Day Years Used Date Never Smoker Smokeless Tobacco: Never Used Alcohol Use Standard Drinks/Week Comments No 0 (1 standard drink = 0.6 oz pure alcoho l) Sex Assigned at Date Recorded Not on file documented as of this encounter Plan of Treatment Upcoming Encounters Date Type Specialty Care Team Description 07/15/2022 Telemedicine Hematology and Oncology Armando Martinez MD [address] [place] [address] [address] [place] [phone] (Wo rk) 07/20/2022 Office Visit Surgical Oncology Rio Pearson DO 111 [facility] 2 [place], [place] [phone] (Wo rk) 09/23/2022 Office Visit Dermatology Miriam Bentley MD 111 [facility] 5 [place], [place] [phone] (Wo rk) Pending Results Name Type Priority Associated Diagnoses Date/Ti me OUTSIDE IMAGES - CT NEURO Imaging 13:25 EDT documented as of this encounter Visit Diagnoses Not on filedocumented in this encounter Care Teams Fishing Lure Assembler Relationship Specialty Start Date End Date Steve Barbour MD PCP - General 08/12/09 documented as of this encounter
--- OUTSIDE RECORDS SUMMARY | 2022-07-12 11:38 | XMS_ITS | Encounter Summary ---
:1950 Author Organization [facility] Address [address] [place] [address] Care Team Providers Name Role Phone Juan Pablo Garrett MD Primary Care Provider Encounter Details Date Type Department Care Team Description 08/14/[address] [facility]- Ailin Garrett PRISM MD [phone] [address] [place], [place] [address] (Wo rk) Social History Tobacco Use Types Packs/Day Years Used Date Never Smoker Smokeless Tobacco: Never Used Alcohol Use Standard Drinks/Week Comments No 0 (1 standard drink = 0.6 oz pure alcoho l) Sex Assigned at Date Recorded Not on file documented as of this encounter Functional Status Functional Status Response Date of Assessment Because of a physical, mental, or emotional condition, No 05/10/2018 does this person have difficulty doing errands alone such as visiting a doctor's office or shopping? Cognitive Status Response Date of Assessment Because of a physical, mental, or emotional condition, No 05/10/2018 does this person have serious difficulty concentrating, remembering, or making decisions? documented as of this encounter Plan of Treatment Upcoming Encounters Date Type Specialty Care Team Description 07/15/2022 Telemedicine Hematology and Oncology Armando Martinez MD [address] [place] [address] [address] [place] [phone] (Wo rk) 07/20/2022 Office Visit Surgical Oncology Rio Pearson, DO 111 [facility], [facility], Level 2 [place], [place] [phone] (Wo rk) 09/23/2022 Office Visit Dermatology Miriam Bentley MD [address] [place] [address] [facility], Level 5 [place], [place] [phone] (Wo rk) documented as of this encounter Procedures Procedure Name Priority Date/Time Associated Diagnosis Comme nts RAD US BREAST 08/14/2018 8:57 EDT Results for this BILATERAL COMPLETE procedure are in the results section. MA UNI LEFT ONLY 08/14/2018 7:57 EDT Resu lts for this 2D/3D DX OR AV procedure are in MAMMO EXAM the results section. documented in this encounter Results RAD US BREAST BILATERAL COMPLETE (08/14/2018 8:57 EDT) Anatomical Region Laterality Modality Other Specimen Narrative [facility] RADIOLOGY ACC/MAIN [place] [facility] - 08/14/2018 13:58 EDT RAD US BREAST BILATERAL COMPLETE, UNI LEFT ONLY 2D/3D DX OR AV MAMMO EXAM 08/14/2018 8:57 AM Signs and Symptoms/Comments: ?? Left breast inconclusive mammogram asymm etry with distortion central region at anterior depth. Patient states she does not have left breast pain as noted on VMR, but has lef t breast non spontaneous milky discharge. Comparison: Mammogram dated 12/11/2003 to present. Technique: Left whole breast 2-D and 3-D ML and spo t compression 2-D and 3-D CC views of the left breast were performed. Ultrasound of all four quadrants of both breasts and the axilla ry regions were evaluated. Findings: Left breast: There are scattered fibrogl andular densities. The previously noted area of architectural d istortion in the upper outer quadrant persists on the additional view s. This is best seen on the CC view. No suspicious calcifications ar e noted. A coarse calcification is noted at 2 o'c lock, 7 cm out from the nipple within the left breast. Multiple small cystic regions are noted at 1 o'clock, 4 cm out from the ni pple which in real time appears to represent a confluence of harjinder ts. No suspicious masses or lesions are noted. No sonographic abnorm ality is noted in the left subareolar region to explain patient's m ilky nipple discharge. Evaluation of all four quadrants of the right breast demonstrates no discrete mass or lesion. Morphologically normal-appearing lymph nodes are noted within both axillary reg ions. Impression: Left breast: BI-RADS Category Assessment 4: Suspicious. A stereotactic biopsy is recommended of th e area of architectural distortion in the upper outer quadrant. This is best seen on the CC view. Right breast: BI-RADS Category Assessmen t 1: Negative. Overall BI-RADS Category Assessment 4: S uspicious. Recommendation: A stereotactic biopsy of the architectur al distortion in the lateral left breast is recommended. Clinical follow-up is recommended of the patient's left-sided milky nipple discharge. Any decision to biopsy should be based on clinical grounds. The results of the imaging studies were discussed with the patient by Dr. Alvarez. Portions of this document may have been prepared with speech recognition software or keyboard data en try techniques. Minor irregularities or keyboarding misprints may be present. Procedure Note Lizeth Alvarez MD - 08/14/2018 RAD US BREAST BILATERAL COMPLETE, UNI LE FT ONLY 2D/3D DX OR AV MAMMO EXAM 08/14/2018 8:57 AM Signs and Symptoms/Comments: Left breast inconclusive mammogram asymm etry with distortion central region at anterior depth. Patient states she does not have left breast pain as noted on VMR, but has lef t breast non spontaneous milky discharge. Comparison: Mammogram dated 12/11/2003 to present. Technique: Left whole breast 2-D and 3-D ML and spo t compression 2-D and 3-D CC views of the left breast were performed. Ultrasound of all four quadrants of both breasts and the axilla ry regions were evaluated. Findings: Left breast: There are scattered fibrogl andular densities. The previously noted area of architectural d istortion in the upper outer quadrant persists on the additional view s. This is best seen on the CC view. No suspicious calcifications ar e noted. A coarse calcification is noted at 2 o'c lock, 7 cm out from the nipple within the left breast. Multiple small cystic regions are noted at 1 o'clock, 4 cm out from the ni pple which in real time appears to represent a confluence of harjinder ts. No suspicious masses or lesions are noted. No sonographic abnorm ality is noted in the left subareolar region to explain patient's m ilky nipple discharge. Evaluation of all four quadrants of the right breast demonstrates no discrete mass or lesion. Morphologically normal-appearing lymph nodes are noted within both axillary reg ions. Impression: Left breast: BI-RADS Category Assessment 4: Suspicious. A stereotactic biopsy is recommended of th e area of architectural distortion in the upper outer quadrant. This is best seen on the CC view. Right breast: BI-RADS Category Assessmen t 1: Negative. Overall BI-RADS Category Assessment 4: S uspicious. Recommendation: A stereotactic biopsy of the architectur al distortion in the lateral left breast is recommended. Clinical follow-up is recommended of the patient's left-sided milky nipple discharge. Any decision to biopsy should be based on clinical grounds. The results of the imaging studies were discussed with the patient by Dr. Alvarez. Portions of this document may have been prepared with speech recognition software or keyboard data en try techniques. Minor irregularities or keyboarding misprints may be present. Performing Organization Address City/State/ZIP Code Phon e Number [facility] RADIOLOGY ACC/MAIN [place] UNI LEFT ONLY 2D/3D DX OR AV MAMMO EXAM (08/14/2018 7:57 EDT) Anatomical Region Laterality Modality Other Specimen Narrative [facility] RADIOLOGY ACC/MAIN [place] [facility] - 08/14/2018 13:58 EDT RAD US BREAST BILATERAL COMPLETE, UNI LEFT ONLY 2D/3D DX OR AV MAMMO EXAM 08/14/2018 8:57 AM Signs and Symptoms/Comments: ?? Left breast inconclusive mammogram asymm etry with distortion central region at anterior depth. Patient states she does not have left breast pain as noted on VMR, but has lef t breast non spontaneous milky discharge. Comparison: Mammogram dated 12/11/2003 to present. Technique: Left whole breast 2-D and 3-D ML and spo t compression 2-D and 3-D CC views of the left breast were performed. Ultrasound of all four quadrants of both breasts and the axilla ry regions were evaluated. Findings: Left breast: There are scattered fibrogl andular densities. The previously noted area of architectural d istortion in the upper outer quadrant persists on the additional view s. This is best seen on the CC view. No suspicious calcifications ar e noted. A coarse calcification is noted at 2 o'c lock, 7 cm out from the nipple within the left breast. Multiple small cystic regions are noted at 1 o'clock, 4 cm out from the ni pple which in real time appears to represent a confluence of harjinder ts. No suspicious masses or lesions are noted. No sonographic abnorm ality is noted in the left subareolar region to explain patient's m ilky nipple discharge. Evaluation of all four quadrants of the right breast demonstrates no discrete mass or lesion. Morphologically normal-appearing lymph nodes are noted within both axillary reg ions. Impression: Left breast: BI-RADS Category Assessment 4: Suspicious. A stereotactic biopsy is recommended of th e area of architectural distortion in the upper outer quadrant. This is best seen on the CC view. Right breast: BI-RADS Category Assessmen t 1: Negative. Overall BI-RADS Category Assessment 4: S uspicious. Recommendation: A stereotactic biopsy of the architectur al distortion in the lateral left breast is recommended. Clinical follow-up is recommended of the patient's left-sided milky nipple discharge. Any decision to biopsy should be based on clinical grounds. The results of the imaging studies were discussed with the patient by Dr. Alvarez. Portions of this document may have been prepared with speech recognition software or keyboard data en try techniques. Minor irregularities or keyboarding misprints may be present. Procedure Note Lizeth Alvarez MD - 08/14/2018 RAD US BREAST BILATERAL COMPLETE, UNI LE FT ONLY 2D/3D DX OR AV MAMMO EXAM 08/14/2018 8:57 AM Signs and Symptoms/Comments: Left breast inconclusive mammogram asymm etry with distortion central region at anterior depth. Patient states she does not have left breast pain as noted on VMR, but has lef t breast non spontaneous milky discharge. Comparison: Mammogram dated 12/11/2003 to present. Technique: Left whole breast 2-D and 3-D ML and spo t compression 2-D and 3-D CC views of the left breast were performed. Ultrasound of all four quadrants of both breasts and the axilla ry regions were evaluated. Findings: Left breast: There are scattered fibrogl andular densities. The previously noted area of architectural d istortion in the upper outer quadrant persists on the additional view s. This is best seen on the CC view. No suspicious calcifications ar e noted. A coarse calcification is noted at 2 o'c lock, 7 cm out from the nipple within the left breast. Multiple small cystic regions are noted at 1 o'clock, 4 cm out from the ni pple which in real time appears to represent a confluence of harjinder ts. No suspicious masses or lesions are noted. No sonographic abnorm ality is noted in the left subareolar region to explain patient's m ilky nipple discharge. Evaluation of all four quadrants of the right breast demonstrates no discrete mass or lesion. Morphologically normal-appearing lymph nodes are noted within both axillary reg ions. Impression: Left breast: BI-RADS Category Assessment 4: Suspicious. A stereotactic biopsy is recommended of th e area of architectural distortion in the upper outer quadrant. This is best seen on the CC view. Right breast: BI-RADS Category Assessmen t 1: Negative. Overall BI-RADS Category Assessment 4: S uspicious. Recommendation: A stereotactic biopsy of the architectur al distortion in the lateral left breast is recommended. Clinical follow-up is recommended of the patient's left-sided milky nipple discharge. Any decision to biopsy should be based on clinical grounds. The results of the imaging studies were discussed with the patient by Dr. Alvarez. Portions of this document may have been prepared with speech recognition software or keyboard data en try techniques. Minor irregularities or keyboarding misprints may be present. Performing Organization Address City/State/ZIP Code Phon e Number [facility]/[place] documented in this encounter Visit Diagnoses Not on filedocumented in this encounter Care Teams Vocal Music Instructor Relationship Specialty Start Date End Date Juan Pablo Garrett MD PCP - General 07/05/16 04/28/19 [address] [place] [address] documented as of this encounter
--- OUTSIDE RECORDS SUMMARY | 2022-07-12 11:38 | XMS_ITS | Encounter Summary ---
:1950 Author Organization [facility] Address [address] [place] [address] Care Team Providers Name Role Phone Juan Pablo Garrett MD Primary Care Provider Reason for Referral Radiology Services (Routine) - New Request Specialty Diagnoses / Procedures Referred By Contact Refer red To Contact Diagnoses Malignant neoplasm of left female breast, unspecified estrogen receptor status, unspecified site of breast ([facility]) ([facility]) Ami Pearson DO Procedures CHEST PA AND LATERAL 111 [facility], [facility], Level 2 [place] [address] Referral ID Status Reason Start Date Expiration Date Visits V isits Requested Authorized [id number] New Request 09/03/2018 1 1 Reason for Visit Reason Onset Date Comments Pre-procedure 09/03/2018 labs and CXR Encounter Details Date Type Department Care Team Description 09/03/2018 Orders Only [facility] Ami Pearson Ma lignant neoplasm of Surgical Oncology - DO left female breast, [place] [address] [place] unspecified estrogen 111 [facility] receptor status, [place] [address] [facility], [facility] unspecified site of [phone] Pavilion, Level 2 breast ([facility]) [place], [place] (Primary Dx) [phone] (Wo rk) Social History Tobacco [...] Telemedicine Hematology and Oncology Armando Martinez MD [address] [place] [address] [address] [place] [phone] (Wo rk) 07/20/2022 Office Visit Surgical Oncology Rio Pearson DO 111 [facility], [facility] 2 [place], [place] [phone] (Wo rk) 09/23/2022 Office Visit Dermatology Miriam Bentley MD 111 [facility], [facility] 5 [place], [place] [phone] (Wo rk) documented as of this encounter Procedures Procedure Name Priority Date/Time Associated Diagnosis Comme nts CHEST PA AND Routine 09/03/2018 11:39 Malignant neoplasm Resul ts for this LATERAL EDT of left female procedure are in breast, unspecified the resu lts estrogen receptor section. status, unspecified site of breast (HCC-CMS) documented in this encounter Results CHEST PA AND LATERAL (09/03/2018 11:39 EDT) Anatomical Region Laterality Modality Other Specimen Narrative [facility] RADIOLOGY ACC/MAIN CA MPUS - 09/03/2018 12:03 EDT CHEST 2 VIEWS ??09/03/2018 11:39 AM Clinical History/Comments: C50.912-Malignant neoplasm of unspecifie d site of left female breast (HCC-CMS)-ICD-10; new left breast cancer Comparison: None. Technique: Two views of the chest were performed us ing dual energy technique with bone and soft tissue reconstruction . Findings: Soft tissues: ??Normal. Bones: Normal. Cardiac and mediastinal contours: There is a large hiatal hernia. Lungs: There is some minimal linear scar ring or atelectasis within the left lower lung. ?? Pleura/diaphragms:Normal. Impression: 1. ??Hiatal hernia. Procedure Note Iglesia Ray MD - 09/03/2018 CHEST 2 VIEWS 09/03/2018 11:39 AM Clinical History/Comments: C50.912-Malignant neoplasm of unspecifie d site of left female breast (HCC-CMS)-ICD-10; new left breast cancer Comparison: None. Technique: Two views of the chest were performed us ing dual energy technique with bone and soft tissue reconstruction . Findings: Soft tissues: Normal. Bones: Normal. Cardiac and mediastinal contours: There is a large hiatal hernia. Lungs: There is some minimal linear scar ring or atelectasis within the left lower lung. Pleura/diaphragms:Normal. Impression: 1. Hiatal hernia. Performing Organization Address City/State/ZIP Code Phon e Number [facility] RADIOLOGY ACC/MAIN [place] COMPREHENSIVE METABOLIC PANEL (CMP) (09/03/2018 11:27 EDT) Potassium 4.0 3.5 - 5.0 [facility] MEDICAL mEq/L [facility] Sodium 137 136 - 145 [facility] mEq/L [facility] Chloride 101 96 - 110 [facility] mEq/L [facility] CO2 30 22 - 32 mEq/L [facility] Total Alkaline 88 38 - 126 U/L [facility] Phosphatase [facility] Bilirubin, Total 0.7 <1.4 mg/dl [facility] AST 25 15 - 46 U/L [facility] ALT 32 <53 U/L [facility] Albumin 4.4 3.4 - 4.9 [facility] MEDICAL g/dl [facility] Total Protein 7.1 6.3 - 8.2 [facility] MEDICAL g/dl [facility] Creatinine 0.66 0.52 - 1.04 [facility] mg/dl [facility] GFR, Calculated 90 >60 [facility] Comment: ml/min/1.73m2 [facility] eGFR calculated using CKD-EPI equation for SERVICES non Americans. Multiply eGFR by 1.16 for Americans. BUN 21 10 - 26 mg/dl [facility] Calcium 10.2 8.5 - 10.5 [facility] mg/dl [facility] Calculated Calcium 9.9 8.5 - 10.5 [facility] mg/dl [facility] Glucose, Serum 89 70 - 100 [facility] mg/dl [facility] Fasting? No [facility] Specimen Blood specimen (specimen) - Blood Performing Organization Address City/State/ZIP Code Phon e Number [facility] [address] [place] [address] SERVICES (ABNORMAL) COMPLETE BLOOD COUNT AND DIFFERENTIAL (09/03/2018 11:27 EDT) Pathologist Sig nature WBC 10.55 4.0 - 12.4 [facility]ORATORY SERVICES RBC 4.16 3.86 - 5.04 [facility]ORATORY SERVICES Hemoglobin 11.7 11.6 - 15.2 [facility] gm/dl [facility] HCT 36.6 34.9 - 44.4 % [facility] MCV 88 81 - 98 fl [facility] MCH 28.1 26.7 - 33.3 pg [facility] MCHC 32.0 (L) 32.1 - 35.9 [facility] gm/dl LABORATORY SERVICES RDW-CV 17.0 (H) <14.7 % [facility] RDW-SD 54.5 (H) <50.4 fl [facility] Anisocytosis 1+ [facility] PLT 280 141 - 377 /[facility]ORATORY SERVICES MPV 11.0 9.5 - 12.7 fl [facility] Neutrophils 71.7 % [facility] Lymphocytes 17.2 % [facility] Monocytes 8.2 % [facility] Eosinophils 1.5 % [facility] Basophils 0.7 % [facility] Immature Grans 0.7 % [facility] ABS Neutrophils 7.57 2.20 - 8.85 [facility] LABORATORY SERVICES ABS Lymphs 1.81 1.09 - 3.30 [facility] K/[facility] LABORATORY SERVICES ABS Monocytes 0.87 (H) 0.1 - 0.8 K/[facility]ATORY SERVICES ABS Eosinophils 0.16 0.03 - 0.61 [facility] K/[facility]ORATORY SERVICES ABS Basophils 0.07 0.01 - 0.11 [facility] K/[facility]ORATORY SERVICES ABS Immature Grans 0.07 (H) 0 - 0.06 /[facility]ORATORY SERVICES Type of Diff: Automated [facility] Specimen Blood specimen (specimen) - Blood Performing Organization Address City/State/ZIP Code Phon e Number [facility] [address] [place] [address] SERVICES documented in this encounter Visit Diagnoses Diagnosis Malignant neoplasm of left female breast , unspecified estrogen receptor status, unspecified site of breast ([facility]) ([facility]) - Primary documented in this encounter Care Teams Teacher Music Relationship Specialty Start Date End Date Juan Pablo Garrett MD PCP - General 07/05/16 04/28/19 [address] [place] [address] documented as of this encounter
--- OUTSIDE RECORDS SUMMARY | 2022-07-12 11:38 | XMS_ITS | Encounter Summary ---
:1950 Author Organization [facility] Address [address] [place] [address] Care Team Providers Name Role Phone Juan Pablo Garrett MD Primary Care Provider Encounter Details Date Type Department Care Team Description 07/20/2017 Results Only Imaging [facility]- Ailin Garrett PRISM MD [phone] 4 [place], [place] [address] (Wo rk) Social History [...] Telemedicine Hematology and Oncology Armando Martinez MD [address] [place] [address] [address] [place], [place] [phone] (Wo rk) 07/20/2022 Office Visit Surgical Oncology Rio Pearson DO 111 [facility] 2 [place], [place] [phone] (Wo rk) 09/23/2022 Office Visit Dermatology Miriam Bentley MD 111 [facility] 5 [place], [place] [phone] (Wo rk) documented as of this encounter Procedures Procedure Name Priority Date/Time Associated Diagnosis Comme nts MA 2D/3D BILATERAL 07/20/2017 9:50 EDT Re sults for this OMAR ROUTINE procedure are i n SCREENING MAMMO the results section. documented in this encounter Results MA 2D/3D BILATERAL OMAR ROUTINE SCREENING MAMMO (07/20/2017 9:50 EDT) Anatomical Region Laterality Modality Other Specimen Narrative [facility] RADIOLOGY S PROSPECT - 07/20/2017 15:08 EDT Comparison has been made to previous images. Bilateral Breast Findings: (Routine 3D t omosynthesis with synthesized 2D views with CAD) There are scattered fibroglandular densi ties (25% - 50% fibroglandular). No significant masses, calcifications or other abnormalities are seen. IMPRESSION: BILATERAL BREASTS: Negative, no evidence of malignancy. Normal interval follow-up is recommended in 12 months. OVERALL ASSESSMENT - CATEGORY 1 - NEGATI VE END OF IMPRESSION These results will be communicated to yo ur patient via a lay letter from Radiology. If any additional imagin g is needed we will contact your patient directly. I have personally reviewed the images an d the above interpretation and agree with the findings. Procedure Note Yamilet Gallegos MD - 07/20/2017 Comparison has been made to previous [facility]. Bilateral Breast Findings: (Routine 3D t omosynthesis with synthesized 2D views with CAD) There are scattered fibroglandular densi ties (25% - 50% fibroglandular). No significant masses, calcifications or other abnormalities are seen. IMPRESSION: BILATERAL BREASTS: Negative, no evidence of malignancy. Normal interval follow-up is recommended in 12 months. OVERALL ASSESSMENT - CATEGORY 1 - NEGATI VE END OF IMPRESSION These results will be communicated to yo ur patient via a lay letter from Radiology. If any additional imagin g is needed we will contact your patient directly. I have personally reviewed the images an d the above interpretation and agree with the findings. Performing Organization Address City/State/ZIP Code Phon e Number [facility] RADIOLOGY S PROSPECT documented in this encounter Visit Diagnoses Not on filedocumented in this encounter Care Teams Oracle Developer Relationship Specialty Start Date End Date Juan Pablo Garrett MD PCP - General 07/05/16 04/28/19 [address] [place] [address] documented as of this encounter
--- OUTSIDE RECORDS SUMMARY | 2022-07-12 11:38 | XMS_ITS | Encounter Summary ---
:1950 Author Organization [facility] Address [address] [place] [address] Care Team Providers Name Role Phone Juan Pablo Garrett MD Primary Care Provider Encounter Details Date Type Department Care Team Description 08/14/2018 Hospital Encounter [facility] - Rashawn Garrett, [facility] [address] [address] [place] [address] (Wo rk) Social History Tobacco Use Types [...] as of this encounter Discharge Diagnoses Diagnosis R92.2 Inconclusive mammogram-R92.2[ICD-1 0-CM] N64.89 Other specified disorders of [address] st-N64.89[ICD-10-CM] documented in this encounter Medications at Time [...] needed. Anemia, unspecified gluc agarwal/chondro agarwal A/vit Take 1 Tab by 0 C/Mn (GLUCOSAMINE 1500 mouth daily. COMPLEX ORAL) hydrochlorothiazide Take 50 mg by 0 (HYDRODIURIL) 50 mg mouth daily. tabletIndications: Anemia, unspecified montelukast (SINGULAIR) 10 Take 10 mg by 0 mg tabletIndications: mouth daily. Anemia, unspecified rOPINIRole (REQUIP) 0.5 mg Take 1 mg by 0 tabletIndications: Anemia, mouth at bedtime. unspecified budesonide/formoterol Inhale 2 Puffs as 0 05/10/2021 fumarate (SYMBICORT directed daily. INHALATION) FERROUS FUMARATE (IRON ORAL) Take 50 mg by mouth 2 times daily . 0 02/25/2022 documented as of this encounter Discharge Disposition Disposition Code Departure Means Destination Auto Discharge Home documented in this encounter Plan of Treatment Upcoming Encounters Date Type Specialty Care Team Description 07/15/2022 Telemedicine Hematology and Oncology Armando Martinez MD [address] [place] [address] [address] [place], [place] [phone] (Wo rk) 07/20/2022 Office Visit Surgical Oncology Rio Pearson DO 111 [facility] 2 [place], [place] [phone] (Wo rk) 09/23/2022 Office Visit Dermatology Miriam Bentley MD 111 [facility] 5 [place], [place] [phone] (Wo rk) documented as of this encounter Visit Diagnoses Not on filedocumented in this encounter Care Teams College Administrator Relationship Specialty Start Date End Date Juan Pablo Garrett MD PCP - General 07/05/16 04/28/19 [address] [place] [address] documented as of this encounter
--- OUTSIDE RECORDS SUMMARY | 2022-07-12 11:38 | XMS_ITS | Encounter Summary ---
:1950 Author Organization [facility] Address [address] [place] [address] Care Team Providers Name Role Phone Tiffanie Garrett MD Primary Care Provider Encounter Details Date Type Department Care Team Description 09/14/2018 [facility] aYnn Pearson neoplasm Encounter Perioperative M, DO of [facility] Services- Main [facility] s [address] of left female [address] [facility], [place] [address] [facility], [facility] unspecified [phone] Pavilion, Level 2 estrogen receptor [place], [place] status ([facility]) [id number] Social History Tobacco Use Types Packs/Day Years Used Date Never Smoker Smokeless Tobacco: Never Used Alcohol Use Standard Drinks/Week Comments No 0 (1 standard drink = 0.6 oz pure alcoho l) Sex Assigned at Date Recorded Not on file documented as of this encounter Last Filed Vital Signs Vital Sign Reading Time Taken Comments Blood Pressure 131/61 09/14/2018 1500 EDT Pulse - - Temperature 36.9 ??C (98.4 ??F) 09/14/2018 1500 EDT Respiratory Rate 18 09/14/2018 1500 EDT Oxygen Saturation 95% 09/14/2018 1503 EDT Inhaled Oxygen Concentration - - Weight 76.7 kg (169 lb) 09/07/2018 1444 EDT Height 157.5 cm (5' 2) 09/07/2018 1444 EDT Body Mass Index 30.91 09/07/2018 1444 EDT documented in this encounter [...] as of this encounter Discharge Diagnoses Diagnosis C50.412 Malignant neoplasm of upper-oute r quadrant of left female breast-C50.412[ICD-10-CM] I10 Essential (primary) hypertension-I10 [ICD-10-CM] K21.9 Gastro-esophageal reflux disease w ithout esophagitis-K21.9[ICD-10-CM] 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 You don't have to wake up to take medicines. Take prescription medicines if pain is not tolerable with the tylenol and ibuprofen. After 2 days start using the tylenol and ibuprofen as needed. You got a form of Ibuprofen at 1230, you may take ibuprofen again at 630pm While you are taking the prescription pain medicines you should be sure to drink lots of water, don't take the pain meds on an empty stomach, and take colace 100mg by mouth twice a day (over the counter stool softener). If you have not had a BM for 3 days start taking Miralax 17gms by mouth every night (over the counter laxative) until your bowels are moving regularly. Prescription pain medications can be habit forming (addicting) and should be used with caution. Additional InstructionsMendez, Ramírez, MD - 09/14/2018 10:41 EDT Breast Surgery Instructions: [facility] Activity Light activity for the first 24 hours, avoiding those activities that require repetitive movement inthe affected arm and if you also had any axillary surgery. Avoid strenuous activity (weight lifting, sports, etc.) for approximately 2 weeks or until your doctors says it is okay. NO heavy lifting greater than 10 to 15 pounds for at least 2 weeks. Most individuals can return to their normal activities within 2 to 3 weeks after surgery. This depends on the type of work you do and any further treatment you will receive. Wound care Dressing: If you have a dressing you can gently remove it 48 hours after your surgery. After this time, your incision may be left uncovered. Underneath your dressing will be either steri-strips or surgical glue. Steri-strips (white paper strips): Leave in place until they begin to peel away, usually 7-10 days or when you doctor removes them Surgical glue: will flake off in 7-14 days. Surgical glue acts like a dressing and can get wet in the shower. Showering: most of the time, it is okay for you to shower after 24 hours. If you have a drain you can shower. Remove any dressings around the area and make sure the drain has no tension. Allow the water to gently run over your incision; pat incision dry. Do not take baths until your drain is out and your wound has healed. Pain or discomfort Apply an ice pack to your incision for the first 2 to 3 days every hour for 15 minutes while awake. If you were given a post-mastectomy bra after your surgery, we encourage you to wear the bra day andnight for the first 48 hours. The support to your incision will enhance your comfort. Generally Tylenol, Tylenol Extra Strength or Advil is adequate for pain relief after your breast surgery. If you are taking a narcotic pain medicine, it is important that you do NOT DRIVE OR CONSUME ALCOHOL while taking this drug. Although you may feel responsibly alert, your reaction time and coordination may be impaired. Any narcotic is best tolerated taken with food. Constipation may occur, take astool softener or mild laxative. Notify your doctor if you have any question or proplems with: Your breast becomes very firm and discolored. Incision becomes red, hot, swollen. Persistent or increase bleeding/ drainage. Pain unrelieved by your medication. Fever greater than 100F (38C). documented in this encounter Medications at Time [...] Heterozygous factor V Leiden hours after mutation ([facility]) ([facility]) surgery for 10 days FERROUS FUMARATE (IRON ORAL) Take 50 mg by mouth 2 times daily . 0 02/25/2022 oxyCODONE (ROXICODONE) 5 mg Take 1 Tab by 2 Tab 0 09/1402/25/2022 immediate release tablet mouth every 4 hours as needed for Pain. Daily Max: 30 mg documented as of this encounter Ordered Prescriptions Prescription Sig Dispensed Refills Start Date End Date oxyCODONE (ROXICODONE) 5 Take 1 Tab by mouth 2 Tab 0 10 / 02/25/2022 mg immediate release every 4 hours as tablet needed for Pain. Daily Max: 30 mg documented in this encounter Discharge Disposition Disposition Code Departure Means Destination Home or Self Care documented in this encounter Progress Notes Sunshine Felder RN - 09/07/2018 1500 EDT Brittaney Grullon has been instructed as follows regarding medication administration for the day of thescheduled procedure. Date of Surgery: 09/14/2018 Instructions for Taking Medications Day of Surgery Medication Sig Last Dose Hold DOS Take DOS ALBUTEROL INHL Inhale 2 Inhalers as directed as needed (Rarely) . Yes budesonide/formoterol fumarate (SYMBICORT INHALATION) Inhale 2 Puffs as directed daily. Yes FERROUS FUMARATE (IRON ORAL) Take 50 mg by mouth 2 times daily . 09/07/2018 FLUoxetine (PROZAC) 20 mg capsule Take 20 mg by mouth daily. Yes fluticasone-salmeterol (ADVAIR) 250-50 mcg/dose diskus inhaler Inhale 1 Puff as directed every 12 hours as needed. Yes gluc agarwal/chondro agarwal A/vit C/Mn (GLUCOSAMINE 1500 COMPLEX ORAL) Take 1 Tab by mouth daily. 09/07/2018 hydrochlorothiazide (HYDRODIURIL) 50 mg tablet Take 50 mg by mouth daily. Yes montelukast (SINGULAIR) 10 mg tablet Take 10 mg by mouth daily. Yes rOPINIRole (REQUIP) 1 mg tablet Take 1 mg by mouth at bedtime. Yes documented in this encounter H&P Notes Ramírez Lang MD - 09/14/2018 1038 EDT The preoperative history and physical which was performed within 30 days of this procedure has been reviewed and the clinically appropriate elements of the physical examination have been repeated. There are no changes to the documented history and physical or if so such changes are documented below Ramírez Lang MD 09/14/2018 10:38 Yann Schmidt DO - 09/03/2018 1000 EDT Subjective: Patient ID: Brittaney Grullon is an 68 y.o. female. Chief Complaint Patient presents with ??? New Patient Visit HPI Brittaney Grullon is a very pleasant 68-year-old female seen in consultation at the request of Dr Carmita Roche for a left breast cancer. This is a patient that had a screen detected abnormality identified on her most recent screening mammogram. This showed as an asymmetry. There was no reliable ultrasound finding. Therefore, stereotactic biopsy was undertaken. This showed a nuclear grade 1 invasive ductal carcinoma, ER/CT positive, HER-2 negative. She had not appreciated any changes in her self-breast exam. She has had chronic nipple inversion and nipple discharge on that left side for at least 15 years. She started her menstrual cycle at the age of 11. She has had 3 pregnancies with 3 deliveries, with her first child at the age of 17. Her only family history is of a breast cancer in a maternal aunt whowas quite elderly at the time of diagnosis. Brittaney does have a heterozygous factor V Leiden deficiency. Patient Active Problem List Diagnosis ??? Asthma ??? Abnormal Papanicolaou smear of vagina ??? Heterozygous factor V Leiden mutation (HCC-CMS) ??? Restless legs syndrome ??? Galactorrhea ??? Iron deficiency anemia Past Medical History: Diagnosis Date ??? Anemia ??? Chronic kidney disease hx kidney stones ??? Colon polyp ??? Factor V Leiden (HCC-CMS) ??? 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 GERD (gastroesophageal reflux disease) ??? Hypertension ??? Lung disease asthma ??? Restless legs syndrome 08/01/2012 Past Surgical History: Procedure Laterality Date ??? SECTION times 3 Family History Problem [...] Stomach Cancer Neg Hx Social Social History Substance Use Topics ??? Smoking status: Never Smoker ??? Smokeless tobacco: Never Used ??? Alcohol use No Current Outpatient Prescriptions on File Prior to Visit Medication Sig Dispense Refill ??? ALBUTEROL INHL Inhale 2 Inhalers as directed as needed (Rarely) . ??? budesonide/formoterol fumarate (SYMBICORT INHALATION) Inhale 2 Puffs as directed daily. ??? FERROUS FUMARATE (IRON ORAL) Take 50 [...] Take 10 mg by mouth daily. ??? rOPINIRole (REQUIP) 1 mg tablet Take 1 mg by mouth at bedtime. No current facility-administered medications on file prior to visit. Allergies Allergen Reactions ??? Shellfish Containing Products Anaphylaxis Avoid lobster as well ??? Sulfa (Sulfonamide Antibiotics) Rash ??? Antibiotic [Dcyiv-Qvhud-Tcpbiwv-Pramoxine] Rash Review of Systems Constitutional: Negative for [...] and headaches. - See HPI Objective: BP 140/65 Pulse 73 Temp 36.4 ??C (97.5 ??F) (Tympanic) Ht 160.7 cm (63.27) Wt 76.9 kg (169 lb 8 oz) BMI 29.77 kg/m2 Physical Exam Constitutional: She is oriented to [...] palpated in either breast. She has a vague finding at the 12:00 position on the left on US butI cannot reliably see her clip. There is no nipple inversion or discharge. There are no axillary masses. Assessment: Brittaney is seen in the office today in evaluation for a new left-sided breast cancer. We discussed her pathology report in detail. We then discussed the differences between local regional treatment of surgery and radiation and systemic treatment of hormone blockade and occasionally chemotherapy. I have ex plained surgical intervention to her and described the differences between partial mastectomy and mastectomy as it relates to overall survival, local regional recurrence, hospital time and recuperation. I described to her sentinel lymph node biopsy, how it is performed and how we use this in staging. F ollowing this discussion, she is wishing to move forward with a partial mastectomy and sentinel lymph node biopsy. Risks and benefits were discussed with her in detail. Risks include but are not limited to bleeding, infection, injury to surrounding nerves and blood vessels, lymphedema, margin positivity and need for additional surgery. I will recheck to our hematology team to get action plan for her factor V Leiden disorder. Thank you for allowing me to participate in the care of this very pleasant patient. Plan: No diagnosis found. Yann Pearson DO No orders of the defined types were placed in this encounter. documented in this encounter OR Notes OR Surgeon - Yann Pearson DO - 09/14/2018 0000 EDT OPERATIVE REPORT SERVICE DATE: 09/14/2018 SURGEON: Yann Pearson DO TELECOMMUNICATIONS SUPPORT: Ramírez Lang MD PREOPERATIVE DIAGNOSIS: Left breast cancer. POSTOPERATIVE DIAGNOSIS: Left breast cancer. PROCEDURE: 1. Left needle-localized partial mastectomy. 2. Left sentinel lymph node biopsy. ANESTHESIA: General endotracheal and local. ESTIMATED BLOOD LOSS: Minimal. COMPLICATIONS: None. SPECIMENS: 1. Left partial mastectomy. 2. Left sentinel lymph nodes. INDICATIONS: This is a patient that presents with a new left breast cancer. We discussed several options and she is wishing to move forward with partial mastectomy and sentinel lymph node biopsy. Risksand benefits were discussed with her in detail. Risks include but are not limited to bleeding, infection, injury to surrounding nerves and blood vessels, margin positivity, lymphedema and need for additional surgery. Following this discussion, she asked me to proceed. NARRATIVE: The patient was first seen in preop, where I injected her breast with technetium sulfur colloid for the purposes of sentinel lymph node identification. Once in the operating room, anestheticand antibiotic were administered. Preoperatively, she had a wire placed by Radiology and these films were reviewed. Once she was asleep, she was prepped and draped in the normal sterile fashion. Local anesthetic was infused. A curvilinear incision was made. The wire was brought into this incision. Theentire area surrounding the wire was removed. This was marked and sent for a specimen mammogram. Attention was then focused to the left axilla. A Griffith counter was utilized to identify an area of highradioactive isotope uptake. A small incision was made in this area. This was carried down through the clavipectoral fascia into the deep axilla. Deep within the axilla, there was a sentinel lymph node identified. This was removed and sent to pathology. Final inspection revealed no further adenopathy nor any additional worrisome uptake. The specimen mammogram revealed the mass is well located in the central aspect of the specimen. At this point, copious irrigation was instilled into both cavities. Marking clips were placed in the breast. Additional Marcaine was infused. Deep dermis was reapproximated using 3-0 Vicryl in an interrupted fashion. The skin was closed using 4-0 Monocryl in a continuous fashion. The area was cleaned and dried. Mastisol and Steri-Strips were applied. A sterile dressing was applied. The patient tolerated the procedure well and was sent home in good condition. Unless otherwise noted, there were no complications, no blood loss, no cultures obtained, no specimens removed, and no drains retained. Yann Pearson DO 04 13 PM / Yann Pearson DO bn Confirmation: [id number] Dictation ID: [id number] documented in this encounter Miscellaneous Notes Anesthesia Post-Eval - Katie Omer - 09/14/2018 1507 EDT Anesthesia Post op Note Brittaney Grullon [id number] Anesthesia received: General; Vital Signs: Temp: 36.7 ??C (98.1 ??F), Heart Rate: 72 BPM, BP: 131/61, Resp: 16, SpO2: 94 % Vital signs Stable: Yes Consciousness: Recovered to baseline, Awake, Alert Patient's participation in evaluation:Able to participate Temperature Status: Normothermic Respiratory Status: Airway patent Supplemental O2: Room air Oxygen Saturation: Within patient's normal range Cardiovascular Status: Within patient's normal range Post-op Hydration: Adequate Nausea / Vomiting: None Pain Control: Adequate Current Pain Score: Numeric Pain Level (Scale 1-10): 1 Post-op Assessment: Tolerated procedure well Disposition: Home Complications: No apparent anesthetic complications Katie Omer 09/14/2018 15:07 rief Op Note - Ramírez Lang MD - 09/14/2018 1251 EDT Brief Operative Note Pre-Op Diagnosis: left breast invasive ductal carcinoma Post-Op Diagnosis: same Procedure: left breast needle localized partial mastectomy with sentinel lymph node biopsy Surgeon: Dr. Pearson Assisting: Ramírez Lang PGY1 Findings: See formal op note Anesthesia: GETA Fluids: 600 mL UOP: no leach EBL: minimal Drains/Retained Products: none Specimens: Left breast partial mastectomy with needle, Left sentinel lymph node Culture: none Complications: none Surgical Wound Classification: Class 1 Condition: Good Dispo: PACU Plan: Home from PACU Ramírez Lang MD 09/14/2018 12:51 [id number] signed by Ramírez Lang MD at 09/14/2018 12:54 EDT documented in this encounter Plan of Treatment Upcoming Encounters Date Type Specialty Care Team Description 07/15/2022 Telemedicine Hematology and Oncology Armando Martinez MD [address] [place] [address] [address] [place] [address] (Wo rk) 07/20/2022 Office Visit Surgical Oncology Rio Pearson DO [address] [facility], [facility] [address] [place], [place] [phone] (Wo rk) 09/23/2022 Office Visit Dermatology Miriam Bentley MD [address] [facility], [facility] [address] [place] [phone] (Wo rk) documented as of this encounter Procedures Procedure Name Priority Date/Time Associated Diagnosis Comme nts ECG REPORT - 09/18/2018 12:01 SCANNED EDT SURGICAL PATHOLOGY Routine 09/14/2018 12:37 Resul ts for this EDT procedure are i n the results section. documented in this encounter Results SURGICAL PATHOLOGY (09/14/2018 12:37 EDT) Pathology SURGICAL PATHOLOGY REPORT [facility] Report: Reports generated via electronic interface conta in original data; CENTER however they are lacking the format of the original re port. LABORATORY Caution should be taken when reading/interpretin g unformatted reports. SERVICES Name: ? BRITTANEY GRULLON ? Accession #: ? [id number] ? : ? 1950 (Age: 5 0) ??F ? Collect Date: ? 09/14/2018 ? Location: ? [facility] ? Receive Date: ? 2017 ? Provider: YANN PEARSON DO Copy to: TIFFANIE GARRETT MD ? Final Pathologic Diagnosis: SUMMARY DIAGNOSIS FOR MALIGNANT BREAST TUMORS AJCC (8th edition): pT1a pN0(sn) Laterality: ??Left ? Procedure: ??Partial mastectomy and sentinel lymph nod e biopsy Histologic Type: Invasive ductal with tubular features Tumor Size: ??0.45 cm Tumor Location: ??Upper outer quadrant [place] Combined Histologic Scores: ?Tubular differentiation: Score 1 ?Nuclear pleomorphism: Score 2 ?Mitotic Rate: ??Sco re 1 (actual count is less than 1/10 HPF with field diameter of 0.54 mm). ?Total Score: ??4 Overall Grade: ?Grade I (well) Invasive margins: ??Negative (4.0 mm from closest cecilia in, superior) DCIS: ??Not identified % DCIS: ??N/A DCIS margins: ??N/A LVI: ??Not identified Treatment effect in breast: No known presurgical thera py Lymph nodes: ?0/1 (positive/total number examin ed) [place] nodes: ?? 1 (examined and included in total) ? ER/CT: ?ER positiv e (greater than 90%); CT positive (greater than 90%) ([id number]) Her2/yuval: ? Negative 1+ ([id number]) ?? FINAL PATHOLOGIC DIAGNOSIS: A. ??BREAST, LEFT, PARTIAL MASTECTOMY: - Adenocarcinoma, invasive, ductal type with tubular f eatures, well differentiated. - Tumor location: Upper outer quadrant. - Tumor position: O'clock is unspecified, 4 cm from n ipple. - Tumor measures 0.45 cm in greatest dimension (pT1a, pN0)(sn). See comment. - Surgical resection margins negative. ??- 4.0 mm from superior margin. ??- 9.0 mm from medial margin. ??- 9.0 mm from lateral margin. ??- Greater than 1.0 cm from remaining margins. - Lymphatic vascular invasion not identified. - Ductal carcinoma in situ not identified. - Fibrocystic changes including: - Atypical ductal hyperplasia. - Usual ductal hyperplasia. - Columnar cell change. - Columnar cell hyperplasia. - Adenosis. - Interlobular fibrosis. - Microcysts. - Macrocysts. - Apocrine metaplasia. - Multiple intraductal papillomas (largest measuring 1 .0 cm in maximum dimension). - Microcalcifications associ ated with benign ductules and columnar cell change. - Prior biopsy site identified. B. ??LYMPH NODE, SENTINEL, LEFT, COUNT [id number], EXCISION BIOPSY: - One lymph node negative for malignancy (0/1). Comment: Residual invasive carcinoma measures only 2 mm in the current excision. ??On the prior core biopsy ([id number]) the carcin yasmin measures 0.45 cm in maximum linear dimension and it is this alaina surement upon which the staging is based. ??There is insufficient tumor for a formal 10 field count, but no mitotic figures are observed in either the current excision or the prior c ore biopsy. Document reviewed and electronically signed by: GUCCI FONTANA MD Report ??Date: 09/19/2018 14:35 By the signature above, the attending physician certif ies that he/she has personally conducted a gross and/or microscopic examin ation of the described specimens and rendered or confirmed the above diagnosi s. Specimen(s) Received: A. ??Left partial mastectomy; long stitch lateral, anisha rt stitch superior B. ??Left axillary sentinel node count [id number] Clinical History: Breast cancer Gross Description: A. ?Received fresh la belled with proper patient identification (initials H, D) and left partial mastect travis is an oriented portion of fibrofatty tissue (15 g, 3.0 cm superior to inferior x 2.0 cm medial to lateral x 4.7 cm anterior to posterior). There is a needl e localization wire entering the anterior aspect of the specimen. The specimen is sectioned from anterior (level 1) to posterior (level 10). ? In levels 3-7 there is a lanza-whit e stellate mass with central lanza-brown color (0.8 x 0.7 x 0.6 cm) w ith ill-defined borders. The mass is 0.3 cm from the nearest superior margin, is 0.4 cm from the lateral ma rgin, 0.6 cm from the medial margin, 0.9 cm from t he inferior margin and greater than 1.0 cm from all remaining margins. A biopsy site is identified i n levels 3-5 however a biopsy clip is identified in level 7. ? The remaining cut eleno face is composed of lobulated adipose tissue with a scant amount of white fibrous tissue. ? The entire specimen is submitted as follows: INK KAMARA Yellow-anterior Black-posterior Blue-superior Green-inferior ? Red-medial [place]-lateral ? BLOCK KAMARA A1-A2- ??barge pilot sectioning, level 6 entirely submitted A3-A4- ??anterior margin, perpendicular sections A5- ??level 2, entirely submitted A6- ??level 3, entirely submitted A7- ??level 4, entirely submitted A8-A9- ??level 5, thinned and entirely submitted A10-A11- ??level 7, bisected and entirely submitted A12-A13- ??level 8, bisected and entirely submitted A14- ??level 9, inferior half thinned A15- ??level 9, bisected superior half A16-A18- ??posterior margin, perpendicular sections Time removed from patient: 09/13/2018, 1206 hrs. Time in formalin: 09/13/2018, 1250 hrs. Time out of formalin: ??09/17/2018, 1900 hrs. B. ?Received in dunia l saline labelled with proper patient identification (initials H, D) and left axillary senti davida node count [id number] is an aggregate of fibrofatty tissue (4.1 x 3.8 x 1.5 cm) that contains a single lanza-pink lymph node (3.6 x 1.5 x 1.0). The node is sect ioned and entirely submitted as B1-B5. Dr. Huntley 09/17/2018 1:49 PM End of Report Specimen Performing Organization Address City/State/ZIP Code Phon e Number [facility] [address] [place] [address] SERVICES documented in this encounter Visit Diagnoses Diagnosis Malignant neoplasm of central portion of left female breast, unspecified estrogen receptor status (HCC-CMS) (HCC) documented in this encounter Administered Medications Inactive Administered Medications - up to 3 most recent administrations Medication Order MAR Action Action Date Dose Rate Site acetaminophen (TYLENOL) tablet 650 Given 09/14/2018 14:12 EDT 65 0 mg mg 650 mg, oral, PRN, 1 dose, Starting on Mon09/14/18 at 1250, Until Mon09/14/18 at 1412, Fever, Routine, Recovery (only) atropine 0.1 mg/mL syringe 0.5 mg 0.5 mg, intravenous, PRN, Starting on i 09/14/18 at 1250, Until Mon09/14/18 at 1731, Symptomatic HR < 50, Routine, Recovery (only) ceFAZolin (ANCEF) syringe 2 g Given by Other 09/14/2018 11:34 EDT 2 g 2 g, intravenous, Administer over 10 Minutes, PRE-OP ONCE, 1 dose, On Mon09/14/18 at 1030, Routine, Pre-Op DOS Rx Approved diphenhydrAMINE (BENADRYL) injection 12. 5 mg 12.5 mg, intravenous, PRN, 1 dose, Starting on Mon at 1250, Until Mon09/14/18 at 1731, nausea, Routine, Recovery (only) fentaNYL citrate (PF) 50 mcg/mL injectio n 25-50 mcg 25-50 mcg, intravenous, EVERY 5 MIN PRN, Starting on Mon09/14/18 at 1250, Until Mon09/14/18 at 1731, Pain, Routine, Recovery (only) lactated ringers (LR) infusion New Bag 09/14/2018 10:49 EDT 25 mL/hr at 25 mL/hr, intravenous, CONTINUOUS, Starting on Mon09/14/18 at 1030, Until Mon09/14/18 at 1731, Routine, Pre-Op DOS Rx Approved lactated ringers (LR) infusion at 75 mL/hr, intravenous, CONTINUOUS, St arting on Mon09/14/18 at 1315, Until Mon09/14/18 at 1731, Routine, Recovery (only) metoCLOPramide (REGLAN) injection 10 mg 10 mg, intravenous, PRN, 1 dose, Starting on 09/14 at 1250, Until Mon09/14/18 at 1731, Nausea, Routine, Recovery (only) midazolam (PF) (VERSED) 1 mg/mL injectio n 1 mg 1 mg, intravenous, EVERY 5 MIN PRN, 2 doses, Starting on Mon09/14/18 at 1250, Until Mon09/14/18 at 1731, Anxiety, Routine, Recovery (only) naloxone (NARCAN) injection 0.2 mg 0.2 mg, intravenous, PRN, Starting on Fr i 09/14/18 at 1250, Until Mon09/14/18 at 1731, Opioid Reversal, Routine, Recovery (only) ondansetron (PF) (ZOFRAN) injection 4 mg 4 mg, intravenous, PRN, 1 dose, Starting on Mon at 1250, Until Mon09/14/18 at 1731, Nausea, Vomiting, Routine, Recovery (only) oxyCODONE (ROXICODONE) immediate release tablet 5-10 mg 5-10 mg, oral, EVERY 30 MINUTES PRN, 2 doses, Starting on Mon09/14/18 at 1250, Until Mon09/14/18 at 1731, Pain, Routine, Recovery (o nly) documented in this encounter Active and Recently Administered Medications Times are shown in EDT. Scheduled Medication Order 09/12/2018 09/13/2018 09/14/2018 ceFAZolin (ANCEF) syringe 2 g (COMPLETED) 1134 (Given by Other - Provider: Jaimie Rashid RN - Comment: Given by Anes. Patrice ga) 2 g, intravenous, Administer over 10 Min utes, PRE-OP ONCE, 1 dose, Mon09/14/18 at 1030, Routine Continuous Medication Order 09/12/2018 09/13/2018 09/14/2018 lactated ringers (LR) infusion 1 049 (New Bag - Provider: Elvia Mancilla RN)1301 (Completed - Provider: Diya Donnelly, KYLE) at 25 mL/hr, intravenous, CONTINUOUS, St arting Mon09/14/18 at 1030, Until Mon09/14/18 at 1731, Routine lactated ringers (LR) infusion 1 301 (Continued Infusion - Provider: Diya Donnelly, KYLE) at 75 mL/hr, intravenous, CONTINUOUS, St arting Mon09/14/18 at 1315, Until Mon09/14/18 at 1731, Routine PRN Medication Order 09/12/2018 09/13/2018 09/14/2018 acetaminophen (TYLENOL) tablet 650 mg (COMPLETED) 1412 (Given - Provider: Diya Donnelly RN) 650 mg, oral, PRN, 1 dose, Starting Mon09/14/18 at 1250, Until Discontinued, Fever, Routine atropine 0.1 mg/mL syringe 0.5 mg 0.5 mg, intravenous, PRN, Starting Mon at 1250, Until Mon09/14/18 at 1731, Symptomatic HR < 50, Routine diphenhydrAMINE (BENADRYL) injection 12.5 mg 12.5 mg, intravenous, PRN, 1 dose, Start ing Mon09/14/18 at 1250, Until Mon09/14/18 at 1731, nausea, Routine fentaNYL citrate (PF) 50 mcg/mL injection 25-50 mcg 25-50 mcg, intravenous, EVERY 5 MIN PRN, Starting Mon09/14/18 at 1250, Until Mon09/14/18 at 1731, Pain, Routine metoCLOPramide (REGLAN) injection 10 mg 10 mg, intravenous, PRN, 1 dose, Startin g Mon09/14/18 at 1250, Until Mon09/14/18 at 1731, Nausea, Routine midazolam (PF) (VERSED) 1 mg/mL injection 1 mg 1 mg, intravenous, EVERY 5 MIN PRN, 2 do ses, Starting Mon09/14/18 at 1250, Until Mon09/14/18 at 1731, Anxiety, Routine naloxone (NARCAN) injection 0.2 mg 0.2 mg, intravenous, PRN, Starting Mon at 1250, Until Mon09/14/18 at 1731, Opioid Reversal, Routine ondansetron (PF) (ZOFRAN) injection 4 mg 4 mg, intravenous, PRN, 1 dose, Starting Mon09/14/18 at 1250, Until Mon09/14/18 at 1731, Nausea, Vomiting, Routine oxyCODONE (ROXICODONE) immediate release tablet 5-10 mg 5-10 mg, oral, EVERY 30 MINUTES PRN, 2 d oses, Starting Mon09/14/18 at 1250, Until Mon09/14/18 at 1731, Pain, Routine documented in this encounter Orders Medications Ordered That Might Not Have Count Last Ord ered Date First Ordered Date Been Administered acetaminophen (TYLENOL) solution unit dose 1 09/14 cup 650 mg atropine 0.1 mg/mL syringe 0.5 mg 1 09/14/2018 diphenhydrAMINE (BENADRYL) injection 12.5 1 2017 mg fentaNYL citrate (PF) 50 mcg/mL injection 1 2017 25-50 mcg lactated ringers (LR) infusion 1 09/14/2018 metoCLOPramide (REGLAN) injection 10 mg 1 09/14/20 18 midazolam (PF) (VERSED) 1 mg/mL injection 1 2017 1 mg naloxone (NARCAN) injection 0.2 mg 1 09/14/2018 ondansetron (PF) (ZOFRAN) injection 4 mg 1 018 oxyCODONE (ROXICODONE) immediate release 1 018 tablet 5-10 mg Procedures Count Last Ordered Date First Ordered Date ECG REPORT - SCANNED 1 09/18/2018 Nursing Count Last Ordered Date First Ordered Date PLACE SEQUENTIAL COMPRESSION DEVICE 1 09/14/2018 Admission Count Last Ordered Date First Ordered Date STATUS: OUTPATIENT SURGICAL OP 1 09/14/2018 BED/SERVICES Transfer Count Last Ordered Date First Ordered Date NOTIFY PPS PACU PATIENT DISCHARGE 1 09/14/2018 NOTIFY PPS PATIENT ARRIVAL IN PACU 1 09/14/2018 Discharge Count Last Ordered Date First Ordered Date DISCHARGE PATIENT 1 09/14/2018 documented in this encounter Care Teams Display Trimmer Relationship Specialty Start Date End Date Tiffanei Garrett MD PCP - General 07/05/16 04/28/19 [address] [place] [address] documented as of this encounter
--- OUTSIDE RECORDS SUMMARY | 2022-07-12 11:38 | XMS_ITS | Encounter Summary ---
:1950 Author Organization [facility] Address [address] [place] [address] Care Team Providers Name Role Phone Juan Pablo Garrett MD Primary Care Provider Reason for Referral Consult (3 - 10 Business Days) - Specialty Report Received Specialty Diagnoses / Procedures Referred By Contact Refer red To Contact Surgical Oncology Diagnoses Adenocarcinoma of left breast ([facility]) ([facility]) Carmita Roche Stanley, Mary A, MD HEAD NURSE [address] [place], [place] Pavilion, [address] [address] [place], [place] Phone: [phone] Referral ID Status Reason Start Expiration Visits Visits Date Date Requested Authorized [id number] Specialty Specialty 1 1 Report Services 8 Received Required Question Answer Reason for Request: Adenocarcinoma, invasive harjinder nam with tubular onsult (3 - 10 Business Days) - Specialty Report Received Specialty Diagnoses / Procedures Referred By Contact Refer red To Contact Surgical Oncology Diagnoses Adenocarcinoma of left breast (HCC-CMS) (HCC) Carmita Roche Mp2 Surg - Oncology HEAD NURSE [address] [facility] [address] [place] [address] [facility] Phone: [place], [address] [place] [address] Referral ID Status Reason Start Expiration Visits Visits Date Date Requested Authorized [id number] Specialty Specialty 1 1 Report Services 8 Received Required Question Answer Reason for Request: Adenocarcinoma, invasive harjinder nam with tubular Reason for Visit Reason Onset Date Comments Follow-up 08/30/2018 Encounter Details Date Type Department Care Team Description 08/30/2018 Telephone [facility] Women's Carmita Roche NP Follow-up Services - [facility] 111 [facility] [address] [place] [address] Pavilion, [place] [address] (Wo rk) Social History Tobacco Use Types [...] this encounter Miscellaneous Notes Telephone Encounter - Carmita Roche ANP - 08/30/2018 1648 EDT Discussed her concerns about having student/resident do surgery. Rec: visit to [facility] to discuss concern as well as second opinion with Dr. Monge. She is very comfortable with that idea. Other Orders Placed This Visit Procedures ??? Amb Consult/Follow Up Surgical Oncology ??? Amb Consult/Follow Up Surgical Oncology documented in this encounter Plan of Treatment Upcoming Encounters Date Type Specialty Care Team Description 07/15/2022 Telemedicine Hematology and Oncology Michelle, Brenden, MD [address] [facility], [facility] [address] [place] [address] (Wo rk) 07/20/2022 Office Visit Surgical Oncology Lili Rioniko Walsh DO 111 [facility], [facility], Level 2 [place], [place] [address] (Wo rk) 09/23/2022 Office Visit Dermatology Miriam Bentley MD [address] [facility], [facility], Level 5 [place], [place] [address] (Wo rk) Scheduled Referrals Name Type Priority Associated Diagnoses Order S chedule AMB CONS/FOLLOW Outpatient Referral Routine Adenocarcinoma Of Left Ordered: UP SURGICAL Breast (Hcc-Cms) (Hcc) 08/30 ONCOLOGY AMB CONS/FOLLOW Outpatient Referral Routine Adenocarcinoma Of Left Ordered: UP SURGICAL Breast (Hcc-Cms) (Hcc) 08/30 ONCOLOGY documented as of this encounter Visit Diagnoses Diagnosis Adenocarcinoma of left breast (HCC-CMS) (HCC) - Primary documented in this encounter Care Teams Compositor Apprentice Relationship Specialty Start Date End Date Juan Pablo Garrett MD PCP - General 07/05/16 04/28/19 [address] [place] [address] documented as of this encounter
--- OUTSIDE RECORDS SUMMARY | 2022-07-12 11:38 | XMS_ITS | Encounter Summary ---
:1950 Author Organization [facility] Address [address] [place] [address] Care Team Providers Name Role Phone Juan Pablo Garrett MD Primary Care Provider Reason for Visit Reason Comments Gynecologic Exam Encounter Details Date Type Department Care Team Description 05/10/2018 Office Visit [facility] Carmita Roche Encounter for Women's Services - DARREN Muñoz gynecological [facility] [place] [address] [place] examination without 111 [facility] abnormal finding [place], [place] [id number] [place] [address] (Primary Dx) [phone] Pavilion, Level 4 [place] [phone] (Wo rk) Social History Tobacco Use Types Packs/Day Years Used Date Never Smoker Smokeless Tobacco: Never Used Alcohol Use Standard Drinks/Week Comments No 0 (1 standard drink = 0.6 oz pure alcoho l) Sex Assigned at Date Recorded Not on file documented as of this encounter Last Filed Vital Signs Vital Sign Reading Time Taken Comments Blood Pressure 144/84 05/10/2018 1000 EDT Pulse - - Temperature - - Respiratory Rate - - Oxygen Saturation - - Inhaled Oxygen Concentration - - Weight 77.7 kg (171 lb 3.2 oz) 05/10/2018 1000 EDT Height 160.7 cm (5' 3.25) 05/10/2018 1000 EDT Body Mass Index 30.09 05/10/2018 1000 EDT documented in this encounter Functional Status [...] as of this encounter Discharge Diagnoses Diagnosis Z01.419 Encounter for gynecological exam ination (general) (routine) without abnormal findings-Z01.419[ICD-10-CM] documented in this encounter Discharge Disposition Disposition Code Departure Means Destination Auto Discharge documented in this encounter Progress Notes Carmita Roche ANP - 05/10/2018 1015 EDT SUBJECTIVE: Brittaney Grullon is an 68 y.o. postmenopausal woman who presents for an annual hose suspender cutter exam. No bleeding, spotting, or discharge noted. Just a tiny bit of loss of urine when cough or sneezing; doesn't wear a pad regularly. Still has a little bit of nipple discharge on right. Women's Health Initiative Questionnaire: negative Last pap NILM with negative HRHPV in 2013 ?? Regular self breast exam: yes ?? Brittaney participates in exercise- No regular ?? Sexual History: not currently active ?? Domestic Violence History: no ?? Diet: common adult Patient Active Problem List Diagnosis Date Noted ??? Iron deficiency anemia 02/10/2014 ICD10 Update Auto Replacement ??? Restless legs syndrome 08/01/2012 ??? 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 Asthma 02/18/2006 ??? Heterozygous factor V Leiden mutation (HCC-CMS) 12/07/2011 ??? Abnormal Papanicolaou smear of vagina 11/20/2000 S/P Colposcopy- negative Past Medical History: Diagnosis Date ??? Anemia [...] Father 86 ??? Heart Attack Mother ??? Breast Cancer Neg Hx ??? Colon Polyps Neg Hx ??? Endometrial Cancer Neg Hx ??? Esophageal Cancer Neg Hx ??? Ovarian Cancer Neg Hx ??? Pancreatic Cancer Neg Hx ??? Rectal Cancer Neg Hx ??? Stomach Cancer Neg Hx Current Outpatient Prescriptions Medication Sig Dispense Refill ??? ALBUTEROL INHL [...] mouth at bedtime. No current facility-administered medications for this visit. Allergies Allergen Reactions ??? Shellfish Containing Products Anaphylaxis Avoid lobster as well ??? Sulfa (Sulfonamide Antibiotics) Rash ??? Antibiotic [Huaya-Uxgrq-Dtppgcj-Pramoxine] Rash History Alcohol Use No History Smoking Status ??? Never Smoker Smokeless Tobacco ??? Never Used Review Of Systems: As mentioned above and in Subjective, all other Review of Systems reviewed and negative. OBJECTIVE: BP (!) 144/84 Ht 160.7 cm (63.25) Wt 77.7 kg (171 lb 3.2 oz) BMI 30.09 kg/m2 Body mass index is 30.09 kg/(m^2). General Appearance: healthy, alert, cooperative, oriented, and in no acute distress Neck: Neck supple. No adenopathy. Thyroid symmetric, normal size, Breast: Inspection negative. No nipple discharge or bleeding. No massses or tenderness. No axillary nodes or masses. Lungs: clear to auscultation Heart: regular rate and rhythm Abdomen: Abdomen soft, non-tender. 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 URETHRA: normal appearing urethra with no masses, tenderness, lesions, or scarring CLITORIS: normal appearing clitoris with no hypertrophy or enlargement BARTHOLIN'S GLANDS: normal appearing Bartholin's glands with no masses, tenderness or erythema VULVA: normal appearing vulva with no masses, tenderness, or lesions VAGINA: atrophic CERVIX: normal appearing cervix without discharge or lesions UTERUS: uterus is nontender and normal in size, contour, position, mobility, and consistency ADNEXA: unable to palpate ANUS AND PERINEUM: anus appears normal, perineum appears normal ASSESSMENT: Normal hose suspender cutter exam PLAN: Pap smear: pap done: no repeat necessary Mammography: Yearly ?? DEXAbone density: at [facility] Lifestyle and Patient Education Categories: Adequate intake of calcium and vitamin D Return Visit: 1 yr annual exam JAREK Romo documented in this encounter Plan of Treatment Upcoming Encounters Date Type Specialty Care Team Description 07/15/2022 Telemedicine Hematology and Oncology Armando Martinez MD [address] [place] [address] [address] [place] [address] (Chula butts) 07/20/2022 Office Visit Surgical Oncology Rio Pearson DO 111 [facility], [facility] 2 [place], [place] [address] (Chula butts) 09/23/2022 Office Visit Dermatology Miriam Bentley MD 111 [facility], Level 5 [place] [address] (hCula butts) Scheduled Orders Name Type Priority Associated Diagnoses Order S chedule PAP TEST- ORDER Pathology Routine Encounter for gynecologic al Ordered: 05/10/2018 ONLY examination without abnormal finding documented as of this encounter Visit Diagnoses Diagnosis Encounter for gynecological examination without abnormal finding - Primary Routine gynecological examination documented in this encounter Discontinued Medications Medication Sig Discontinue Reason Start Date End Date ascorbic acid (VITAMIN Take 1,000 mg by mouth 2 times daily . Patient Stopped Taking 05/10/2018 C) 1,000 mg tabletIndications: Anemia, unspecified calcium carbonate Take 1 Tab by Patient Stopped Taking 05/10/2018 (OS-ALEISHA) 500 mg calcium mouth daily. (1,250 mg) tablet per tablet [place]-3 Fatty Acids Take 300 mg by Patient Stopped Taking 05/10/2018 (FISH OIL) 300 mg mouth daily. capsule omeprazole (PRILOSEC) Take 20 mg by Patient Stopped Taking 05/10/2018 20 mg mouth daily. capsuleIndications: Anemia, unspecified documented as of this encounter Historical Medications This list may reflect changes made after this encounter. Medication Sig Dispensed Refills Start Date End Date gluc agarwal/chondro agarwal A/vit Take 1 Tab by mouth 0 C/Mn (GLUCOSAMINE 1500 daily. COMPLEX ORAL) budesonide/formoterol Inhale 2 Puffs as 0 05/10/2021 fumarate (SYMBICORT directed daily. INHALATION) added in this encounter Care Teams Hyster Driver Relationship Specialty Start Date End Date Juan Pablo Garrett MD PCP - General 07/05/16 04/28/19 [address] [place] [address] documented as of this encounter
--- OUTSIDE RECORDS SUMMARY | 2022-07-12 11:38 | XMS_ITS | Encounter Summary ---
:1950 Author Organization [facility] Address [address] [facility] [place] [address] Care Team Providers Name Role Phone Juan Pablo Garrett MD Primary Care Provider Encounter Details Date Type Department Care Team Description 09/03/2018 Phlebotomy Only [facility] Health Care Technician, Adia mata [facility] Outpatient of left female [address] breast, unspecified [place], [place] estrogen rece ptor [address] status, unspecified [phone] site of breast (HCC-CMS) (Prim michael Dx) Social History Tobacco Use Types Packs/Day Years [...] Hematology and Oncology Armando Martinez MD [address] [place] [address] [phone] (Wo rk) 07/20/2022 Office Visit Surgical Oncology Rio Pearson le M, DO [address] [facility], [facility], Level 2 [place], [place] [address] (Wo rk) 09/23/2022 Office Visit Dermatology Miriam Bentley MD [address] [facility], [address] [place], [place] [address] (Wo rk) documented as of this encounter Procedures Procedure Name Priority Date/Time Associated Comments Diagnosis COMPLETE BLOOD COUNT Routine 09/03/2018 11:27 Malignant neopla sm Results for this AND DIFFERENTIAL EDT of left female procedure are in breast, unspecified the resu lts estrogen receptor section. status, unspecified site of breast ([facility]) COMPREHENSIVE Routine 09/03/2018 11:27 Malignant neoplasm Resu lts for this METABOLIC PANEL (CMP) EDT of left female proc edure are in breast, unspecified the resu lts estrogen receptor section. status, unspecified site of breast ([facility]) documented in this encounter Results COMPREHENSIVE METABOLIC PANEL (CMP) (09/03/2018 11:27 EDT) Potassium 4.0 3.5 - 5.0 [facility] mEq/L [facility] Sodium 137 136 - 145 [facility] mEq/[facility] Chloride 101 96 - 110 [facility] mEq/L [facility] CO2 30 22 - 32 mEq/L [facility] Total Alkaline 88 38 - 126 U/L [facility] Phosphatase [facility] Bilirubin, Total 0.7 <1.4 mg/dl [facility] AST 25 15 - 46 U/L [facility] ALT 32 <53 U/L [facility] Albumin 4.4 3.4 - 4.9 [facility] g/dl [facility] Total Protein 7.1 6.3 - 8.2 [facility] g/dl [facility] Creatinine 0.66 0.52 - 1.04 [facility] mg/dl [facility] GFR, Calculated 90 >60 [facility] Comment: ml/min/1.73m2 [facility] eGFR calculated using CKD-EPI equation for SERVICES non Americans. Multiply eGFR by 1.16 for Americans. BUN 21 10 - 26 mg/dl [facility] Calcium 10.2 8.5 - 10.5 [facility] mg/dl [facility] Calculated Calcium 9.9 8.5 - 10.5 [facility] mg/dl [facility] Glucose, Serum 89 70 - 100 [facility] mg/dl [facility] Fasting? No [facility] Specimen Blood specimen (specimen) - Blood Performing Organization Address City/State/ZIP Code Phon e Number [facility] [address] [place] [address] SERVICES (ABNORMAL) COMPLETE BLOOD COUNT AND DIFFERENTIAL (09/03/2018 11:27 EDT) Pathologist Sig nature WBC 10.55 4.0 - 12.4 [facility] LABORATORY SERVICES RBC 4.16 3.86 - 5.04 [facility] LABORATORY SERVICES Hemoglobin 11.7 11.6 - 15.2 [facility] gm/dl LAB[facility]ATORY SERVICES HCT 36.6 34.9 - 44.4 % [facility] MCV 88 81 - 98 fl [facility] MCH 28.1 26.7 - 33.3 pg [facility] MCHC 32.0 (L) 32.1 - 35.9 [facility] gm/dl LABORATORY SERVICES RDW-CV 17.0 (H) <14.7 % [facility] SERVICES RDW-SD 54.5 (H) <50.4 fl [facility] SERVICES Anisocytosis 1+ [facility] PLT 280 141 - 377 /[facility] LABORATORY SERVICES MPV 11.0 9.5 - 12.7 fl [facility] SERVICES Neutrophils 71.7 % [facility] Lymphocytes 17.2 % [facility] Monocytes 8.2 % [facility] Eosinophils 1.5 % [facility] Basophils 0.7 % [facility] SERVICES Immature Grans 0.7 % [facility] ABS Neutrophils 7.57 2.20 - 8.85 [facility] LABORATORY SERVICES ABS Lymphs 1.81 1.09 - 3.30 [facility] LABORATORY SERVICES ABS Monocytes 0.87 (H) 0.1 - 0.8 K/cmm [facility] SERVICES ABS Eosinophils 0.16 0.03 - 0.61 [facility] K/[facility] LABORATORY SERVICES ABS Basophils 0.07 0.01 - 0.11 [facility] K/[facility] LABORATORY SERVICES ABS Immature Grans 0.07 (H) 0 - 0.06 K/[facility] LABORATORY SERVICES Type of Diff: Automated [facility] Specimen Blood specimen (specimen) - Blood Performing Organization Address City/State/ZIP Code Phon e Number [facility] [address] [place] [address] SERVICES documented in this encounter Visit Diagnoses Diagnosis Malignant neoplasm of left female breast , unspecified estrogen receptor status, unspecified site of breast ([facility]) (HC C) - Primary documented in this encounter Care Teams Site Acquisition Manager Relationship Specialty Start Date End Date Juan Pablo Garrett MD PCP - General 07/05/16 04/28/19 [address] [place], [place] [address] documented as of this encounter
--- OUTSIDE RECORDS SUMMARY | 2022-07-12 11:38 | XMS_ITS | Encounter Summary ---
:1950 Author Organization [facility] Address [address] [place] [address] Care Team Providers Name Role Phone Juan Pablo Garrett MD Primary Care Provider Encounter Details Date Type Department Care Team Description 08/21/2018 Hospital Encounter [facility] Garrett, [facility] 111 [facility] 4 [place] [address] [place] [address] (Wo rk) Social History Tobacco Use Types [...] unspecifie d site of left female breast-C50.912[ICD-10-CM] documented in this encounter Medications at Time [...] Telemedicine Hematology and Oncology Armando Martinez MD [address] [place] [address] [address] [place] [phone] (Chula butts) 07/20/2022 Office Visit Surgical Oncology Rio Pearson DO 111 [facility], [facility] 2 [place], [place] [address] (Chula butts) 09/23/2022 Office Visit Dermatology Miriam Bentley MD 111 [facility], [facility] 5 [place], [place] [address] (Chula butts) documented as of this encounter Visit Diagnoses Not on filedocumented in this encounter Care Teams Maintenance And Repair Worker Relationship Specialty Start Date End Date Juan Pablo Garrett MD PCP - General 07/05/16 04/28/19 [address] [place] [address] documented as of this encounter
--- OUTSIDE RECORDS SUMMARY | 2022-07-12 11:38 | XMS_ITS | Encounter Summary ---
:1950 Author Organization [facility] Address [address] [place] [address] Care Team Providers Name Role Phone Juan Pablo Garrett MD Primary Care Provider Encounter Details Date Type Department Care Team Description 08/14/2018 Hospital Encounter [facility] - Rashawn Garrett, [facility] [place] [address] [address] [place] [address] (Wo rk) Social History Tobacco Use Types [...] Hematology and Oncology Armando Martinez MD [address] [place] [address] [address] [place], [place] [phone] (Wo rk) 07/20/2022 Office Visit Surgical Oncology Rio Pearson DO 111 [facility] 2 [place], [place] [phone] (Wo rk) 09/23/2022 Office Visit Dermatology Miriam Bentley MD 111 [facility] 5 [place], [place] [phone] (Wo rk) documented as of this encounter Visit Diagnoses Not on filedocumented in this encounter Care Teams E/M Engineer Relationship Specialty Start Date End Date Juan Pablo Garrett MD PCP - General 07/05/16 04/28/19 [address] [place] [address] documented as of this encounter
--- OUTSIDE RECORDS SUMMARY | 2022-07-12 11:38 | XMS_ITS | Encounter Summary ---
:1950 Author Organization [facility] Address [address] [place] [address] Care Team Providers Name Role Phone Steve Barbour MD Primary Care Provider Unavailable Reason for Visit Reason Comments Follow-up Consult (Routine/Next Available) - Specialty Report Received Specialty Diagnoses / Procedures Referred By Contact Refer red To Contact Hematology Diagnoses Anemia, unspecified Fili Hill MD [address] [place] [id number] Referral ID Status Reason Start Expiration Visits Visits Date Date Requested Authorized [id number] Specialty Specialty 12/16/2013 1 1 Report Services Received Required Encounter Details Date Type Department Care Team Description 01/08/2014 Office Visit [facility] Elvin Veronica Hematology & MD Jennifer anemia, unspecified Oncology - [address] (Primary D x) [address] [place] [address] [address], [place] [address] (Wo rk) Social History Tobacco Use Types Packs/Day Years Used Date Never Smoker Smokeless Tobacco: Never Used Alcohol Use Standard Drinks/Week Comments No 0 (1 standard drink = 0.6 oz pure alcoho l) Sex Assigned at Date Recorded Not on file documented as of this encounter Last Filed Vital Signs Vital Sign Reading Time Taken Comments Blood Pressure 139/64 01/08/2014 1615 EST Pulse 91 01/08/2014 1615 EST Temperature 36.8 ??C (98.2 ??F) 01/08/2014 1615 EST Respiratory Rate 16 01/08/2014 1615 EST Oxygen Saturation - - Inhaled Oxygen Concentration - - Weight 71.8 kg (158 lb 6.4 oz) 01/08/2014 1615 EST Height - - Body Mass Index 28.06 12/16/2013 1041 EST documented in this encounter Discharge Diagnoses Diagnosis 280.9 IRON DEFIC ANEMIA NOS[ICD-9-CM] documented in this encounter Discharge Disposition Disposition Code Departure Means Destination Auto Discharge documented in this encounter Progress Notes Dasha Son MD - 01/08/2014 1640 EST REFERRING PROVIDER: Fili Hill MD PRIMARY CARE PROVIDER: Steve Carlin MD REASON FOR REFERRAL: Anemia HPI We are seeing Brittaney Grullon at the request of Dr. Hill for diagnosis and management of episodic anemia. Mrs. Grullon is a 63-year-old woman with a history of anemia during the last 3 or 4 years. She has had anemia in the past with her hemoglobin dropping from 12 to 6 and she has had a complete workup including colonoscopy and EGD at [facility]. In October 2013 was the last time that she had a drop in herhemoglobin down to 6. From her history, it does appear that she had had a small bowel study with a capsule endoscopy and they had difficulty with the capsule endoscopy passing down to her small bowel. She has taken iron and vitamin C as part of her supplementation and this has increased her counts appropriately in the past. She is currently taking 1 tablet a day. In the last 5 years, she has had 2 colonoscopies and 2 EGDs that have been negative for the culprit of her bleeding. She has had fecal occult blood testing done, the last one in 2012 and it was negative. She has never been able to see any blood. She has been seen recently by gastroenterology and they are considering another small bowel study, but would like us to see her prior to that evaluation. Shehas a history of factor V Leiden. Other family members with factor V Leiden include her sister and possibly her father, only her sister has had a thrombotic episode in the past. Ms Grullon was concerned of taking more iron because she thinks that it might provoke thrombosis in the setting of factor V Leiden. REVIEW OF SYSTEMS: Fatigue, but a 10 point review of symptoms is otherwise negative as filled out on her symptom reportform. PAST MEDICAL HISTORY: Anemia of unknown etiology, history of iron deficiency anemia of unknown etiology. PAST SURGICAL HISTORY: Three C-sections and she has had cyst removal in her wrists. [employer]SEM[employer] HISTORY: 3 times, 3 deliveries. First childbirth at 17. Last menstrual period at age 55. SOCIAL HISTORY: She lives in [place], [place]. 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 She is . FAMILY HISTORY: She has 3 sisters, 1 of which had cancer of unknown type at age 55 and she is currently 63 and doing well. Her father had colon cancer at age 86 and he at age 86. Her paternal grandfather at 93 of unknown causes. No other cancers in her paternal side of the family and on her maternal side her mother does not have cancer. She has a maternal aunt who had breast cancer at age 80 and she at age 89. Current Outpatient Prescriptions Medication Sig Dispense Refill ??? ALBUTEROL INHL Inhale as directed as needed (Rarely). ??? ascorbic acid (VITAMIN C) 1,000 mg tablet Take by mouth. ??? FERROUS FUMARATE (IRON ORAL) Take 50 mg by mouth daily. ??? FLUoxetine (PROZAC) 20 mg capsule Take 20 mg by mouth daily. ??? fluticasone-salmeterol (ADVAIR) 250-50 mcg/dose diskus inhaler Inhale 1 Puff as directed every 12 hours as needed. ??? hydrochlorothiazide (HYDRODIURIL) 50 mg tablet Take 50 mg by mouth daily. ??? montelukast (SINGULAIR) 10 mg tablet Take 10 mg by mouth daily. ??? omeprazole (PRILOSEC) 20 mg capsule Take 20 mg by mouth daily. ??? rOPINIRole (REQUIP) 1 mg tablet Take 1 mg by mouth at bedtime. No current facility-administered medications for this visit. Allergies Allergen Reactions ??? Shellfish Containing Products Anaphylaxis ??? Sulfa (Sulfonamide Antibiotics) Rash ??? Antibiotic (Vjfse-Fjmsc-Imzqfqp-Pramoxine) Rash ??? Other - See Comments antibiotics ROS - See HPI Objective: BP 139/64 Pulse 91 Temp(Src) 36.8 ??C (98.2 ??F) (Tympanic) Resp 16 Wt 71.85 kg (158 lb 6.4 oz) BMI 28.07 kg/m2 Physical Exam General: awake, alert and oriented x 3 Normocephalic, atraumatic PEERLA, non icteric, EOM intact Neck: supple, no lymphadenopathy, no JVD Heart: RRR, no murmur Lungs: Clear to auscultation bilaterally, no wheezes, rales or ronchi Abdomen: soft non tender non distended, no palpable organomegaly, no rigidity, no mass, bowel soundsheard and normal. Extremities: symmetric, no edema, no cyanosis Skin: no rash Neuro: non focal. Labs: Results for orders placed in visit on 12/16/13 COMPREHENSIVE METABOLIC PANEL (CMP) Result Value Range Potassium 3.8 3.5 - 5.0 mEq/L Sodium 138 136 - 145 mEq/L Chloride 97 96 - 110 mEq/L CO2 31 24 - 32 mEq/L Total Alkaline Phosphatase 84 38 - 126 U/L Bilirubin, Total 0.5 0.2 - 1.3 mg/dl AST 19 15 - 46 U/L ALT 31 9 - 52 U/L Albumin 4.4 3.4 - 4.9 g/dl Total Protein 7.5 6.5 - 8.3 g/dl Creatinine 0.67 0.52 - 1.04 mg/dl GFR, Calculated >60 >60 ml/min/1.73m2 BUN 24 10 - 26 mg/dl Calcium 9.6 8.5 - 10.5 mg/dl Calculated Calcium 9.6 8.5 - 10.5 mg/dl Glucose, Serum 82 70 - 100 mg/dl Fasting? Unknown HEMAGRAM Result Value Range WBC 9.30 4.0 - 12.4 K/cmm RBC 3.81 (*) 3.86 - 5.04 M/cmm Hemoglobin 8.7 (*) 11.6 - 15.2 gm/dl HCT 28.4 (*) 34.9 - 44.4 % MCV 75 (*) 81 - 98 fl MCH 22.8 (*) 26.7 - 33.3 pg MCHC 30.5 (*) 32.1 - 35.9 gm/dl PLT 453 (*) 141 - 320 K/cmm RDW-CV 22.0 (*) 11.7 - 14.6 % DIFFERENTIAL Result Value Range Neutrophils 71.0 45.5 - 79.7 % Lymphocytes 21.0 15.0 - 46.8 % Monocytes 6.0 1.8 - 12.0 % Eosinophils 2.0 0.6 - 6.9 % ABS Neutrophils 6.60 2.20 - 8.85 K/cmm ABS Lymphs 1.95 1.09 - 3.30 K/cmm ABS Monocytes 0.56 0.1 - 0.8 K/cmm ABS Eosinophils 0.19 0.03 - 0.61 K/cmm RBC Morphology 1+ Platelet Morphology 1+ Type of Diff: Manual Assessment: A 63-year-old woman with a history of iron deficiency anemia, most likely from a GI source, currently here for evaluation and discussion of other etiologies and treatment. She was recently seen by GI and they are considering a small bowel enteroscopy and she was referred to us for evaluation prior to this to determine if there is any further workup needed to be done. Ms Grullon has had a thorough GI workup including colonoscopies and endoscopies, without finding theculprit of her bleeding. She does have a hiatal hernia that has been noticed in one of the endoscopies and we do think that this could be contributing to her bleeding if nothing else can be found, but also AVMs are highly associated with her type of bleeding. She is taking iron, but at a suboptimal dose just once a day instead of 3 times a day and this is going to take longer for her to recover her iron stores. We explained to her that with her history of factor V Leiden there should not be any increased risk of thrombosis with increasing her iron dose to 3 times a day if she can tolerate it. She has not been tested for H. Pylori antibodies. Her bilirubin is <0.5, so hemolysis seems unlikely. Her MCV is low, platelets are high and she is anemic highly suggestive of iron loss. We will check her iron studies to confirm. She is taking an inadequate iron replacement, but she must still havea loss of iron at this time. Plan: 1. We agree with GI's plan to proceed with a small bowel enteroscopy. 2. We recommend that she increases her iron dose to 3 times a day and continue her multivitamin daily. 3. Today, we will recheck CBC, iron studies, H. pylori antibodies. 3. Return in about 4 weeks (around 02/05/2014). Labs at the time: CBCD, ferritin Dasha Son MD Hematology Oncology Fellow [id number] ADDENDUM: H. Pylori antibodies negative, suggesting no past infection. Ferritin is 9. Agree with proceeding tosmall bowel enteroscopy. Attestation statement: I saw and examined the patient with the resident/fellow. I agree with the findings and plan of care documented in the resident's/fellow's note. Elvin Veronica MD documented in this encounter Plan of Treatment Upcoming Encounters Date Type Specialty Care Team Description 07/15/2022 Telemedicine Hematology and Oncology Armando Martinez MD [address] [place] [address] [address] [place] [address] (Wo rk) 07/20/2022 Office Visit Surgical Oncology Rio Pearson DO 111 [facility], [facility] 2 [place], [place] [phone] (Wo rk) 09/23/2022 Office Visit Dermatology Miriam Bentley MD 111 [facility], [address] [place], [place] [phone] (Wo rk) documented as of this encounter Results (ABNORMAL) IRON (01/08/2014 17:33 EST) Pathologist Sig nature Iron 31 (L) 60 - 180 ug/dl [facility] Specimen Blood specimen (specimen) Performing Organization Address City/[facility]/ZIP Code Phon e Number [facility] [address] [place] [address] SERVICES [facility] [address] [place] [address] (ABNORMAL) IBC (01/08/2014 17:33 EST) Pathologist Sig nature TIBC 513 (H) 265 - 497 ug/dl [facility] Specimen Blood specimen (specimen) Performing Organization Address [facility] Phon e Number [facility] [address] [place] [address] SERVICES [facility] [address] [place] [address] (ABNORMAL) FERRITIN (01/08/2014 17:33 EST) Pathologist Sig nature Ferritin 9 (L) 10 - 291 ng/mL [facility] Specimen Blood specimen (specimen) Performing Organization Address City/[facility]/ZIP Code Phon e Number [facility] [address] [place] [address] [facility] [address] [place] [address] (ABNORMAL) COMPREHENSIVE METABOLIC PANEL (CMP) (01/08/2014 17:33 EST) Pathologist Sig nature Potassium 3.9 3.5 - 5.0 mEq/L [facility] Sodium 139 136 - 145 mEq/L [facility] Chloride 98 96 - 110 mEq/L [facility] CO2 30 24 - 32 mEq/L [facility] Total Alkaline 80 38 - 126 U/L [facility] Phosphatase Bilirubin, Total <0.5 0.2 - 1.3 mg/dl [facility] AST 21 15 - 46 U/L [facility] ALT 33 9 - 52 U/L [facility] Albumin 4.5 3.4 - 4.9 g/dl [facility] Total Protein 7.6 6.5 - 8.3 g/dl [facility] Creatinine 0.71 0.52 - 1.04 [facility] mg/dl GFR, Calculated >60 >60 [facility] ml/min/1.73m2 BUN 27 (H) 10 - 26 mg/dl [facility] Calcium 10.2 8.5 - 10.5 [facility] mg/dl Calculated Calcium 10.1 8.5 - 10.5 [facility] mg/dl Glucose, Serum 86 70 - 100 mg/dl [facility] Fasting? Unknown [facility] Specimen Blood specimen (specimen) Performing Organization Address City/[facility]/ZIP Code Phon e Number [facility] [address] [place] [address] SERVICES [facility] [address] [place] [address] HELICOBACTER PYLORI IGG ANTIBODY (01/08/2014 17:33 EST) H. Pylori IgG Ab NegativeComment: [facility] Assayed utilizing the iSSimpleX system. Specimen Blood specimen (specimen) Performing Organization Address City/[facility] Phon e Number [facility] [address] [place] [address] SERVICES [facility] [address] [place] [address] documented in this encounter Visit Diagnoses Diagnosis Iron deficiency anemia, unspecified - Pr imary documented in this encounter Care Teams Stock Clipper Relationship Specialty Start Date End Date Steve Barbour MD PCP - General 08/12/09 documented as of this encounter
--- OUTSIDE RECORDS SUMMARY | 2022-07-12 11:38 | XMS_ITS | Encounter Summary ---
:1950 Author Organization [facility] Address [address] [place] [address] Care Team Providers Name Role Phone Juan Pablo Garrett MD Primary Care Provider Reason for Visit Reason Onset Date Comments Other 08/28/2018 Encounter Details Date Type Department Care Team Description 08/28/2018 Telephone [facility] Women's Rodrick Vera RN Other Services - [facility] [address] [place] [address] Social History Tobacco Use Types [...] encounter Miscellaneous Notes Telephone Encounter - Charmaine Vera RN - 08/28/2018 [id number] EDT Brittaney NEVAREZ: [facility] from [facility]. Spoke with Brittaney: has mammo with positive biopsy results, asking for recommendation of surgeon, askedabout [facility], said wants a good doctor & is not comfortable with a resident. She said she feels positive about this and said I do not think of this as a sentence, jsut want to get it taken care of right away. Advised always has the right to request an Attending & decline a Resident or Fellow. Also said Carmita is not in the office today, but I will send Carmita a message & request she phone her MARYBETH. documented in this encounter Plan of Treatment Upcoming Encounters Date Type Specialty Care Team Description 07/15/2022 Telemedicine Hematology and Oncology Armando Martinez MD 130 [facility] [address] [place] [address] (Wo rk) 07/20/2022 Office Visit Surgical Oncology Rio Pearson DO 111 [facility], [facility] 2 [place], [place] [phone] (Wo rk) 09/23/2022 Office Visit Dermatology Miriam Bentley MD 111 [facility], [address] [place], [place] [phone] (Wo rk) documented as of this encounter Visit Diagnoses Not on filedocumented in this encounter Care Teams Healthcare Educator Relationship Specialty Start Date End Date Juan Pablo Garrett MD PCP - General 07/05/16 04/28/19 [address] [place] [address] documented as of this encounter
--- OUTSIDE RECORDS SUMMARY | 2022-07-12 11:38 | XMS_ITS | Encounter Summary ---
:1950 Author Organization [facility] Address [address] [place] [address] Care Team Providers Name Role Phone Steve Barbour MD Primary Care Provider Unavailable Encounter Details Date Type Department Care Team Description 01/22/2016 Hospital Encounter [facility] - Unknown, [facility] [place] [facility] [phone] [place] [address] ([place]) [place] [address] Social History Tobacco Use Types Packs/Day Years Used Date Never Smoker Smokeless Tobacco: Never Used Alcohol Use Standard Drinks/Week Comments No 0 (1 standard drink = 0.6 oz pure alcoho l) Sex Assigned at Date Recorded Not on file documented as of this encounter Medications at Time of Discharge Medication Sig Dispensed Refills Start Date End Date ALBUTEROL INHL Inhale 2 Inhalers as directed as needed (Rarely) . 0 FLUoxetine (PROZAC) 20 mg Take 20 mg by 0 capsuleIndications: Anemia, mouth daily. unspecified fluticasone-salmeterol Inhale 1 Puff as 0 (ADVAIR) 250-50 mcg/dose directed every 12 diskus inhalerIndications: hours as needed. Anemia, unspecified hydrochlorothiazide Take 50 mg by 0 (HYDRODIURIL) 50 mg mouth daily. tabletIndications: Anemia, unspecified montelukast (SINGULAIR) 10 Take 10 mg by 0 mg tabletIndications: mouth daily. Anemia, unspecified rOPINIRole (REQUIP) 0.5 mg Take 1 mg by 0 tabletIndications: Anemia, mouth at bedtime. unspecified ascorbic acid (VITAMIN C) Take 1,000 mg by mouth 2 times daily . 0 05/10/2018 1,000 mg tabletIndications: Anemia, unspecified calcium carbonate (OS-ALEISHA) Take 1 Tab by 0 05/10/2018 500 mg calcium (1,250 mg) mouth daily. tablet per tablet FERROUS FUMARATE (IRON ORAL) Take 50 mg by mouth 2 times daily . 0 02/25/2022 [place]-3 Fatty Acids (FISH Take 300 mg by 0 05/10/2018 OIL) 300 mg capsule mouth daily. omeprazole (PRILOSEC) 20 mg Take 20 mg by 0 05/10/2018 capsuleIndications: Anemia, mouth daily. unspecified documented as of this encounter Discharge Disposition Disposition Code Departure Means Destination Home or Self Custodial documented in this encounter Plan of Treatment Upcoming Encounters Date Type Specialty Care Team Description 07/15/2022 Telemedicine Hematology and Oncology Armando Martinez MD [address] [place] [address] [address] [place] [phone] (Wo rk) 07/20/2022 Office Visit Surgical Oncology Rio Pearson DO 111 [facility], [facility] 2 [place], [place] [phone] (Wo rk) 09/23/2022 Office Visit Dermatology Miriam Bentley MD 111 [facility], [facility] 5 [place], [place] [phone] (Wo rk) documented as of this encounter Visit Diagnoses Not on filedocumented in this encounter Care Teams District Representative Relationship Specialty Start Date End Date Steve Barbour MD PCP - General 08/12/09 documented as of this encounter
--- OUTSIDE RECORDS SUMMARY | 2022-07-12 11:38 | XMS_ITS | Encounter Summary ---
:1950 Author Organization [facility] Address [address] [place] [address] Care Team Providers Name Role Phone Juan Pablo Garrett MD Primary Care Provider Encounter Details Date Type Department Care Team Description 07/06/[address] [facility]- Ailin Garrett PRISM MD [phone] [address] [place], [place] [address] (Wo rk) Social History [...] Telemedicine Hematology and Oncology Armando Martinez MD [address] [place] [address] [address] [place], [place] [phone] (Wo rk) 07/20/2022 Office Visit Surgical Oncology Rio Pearson DO 111 [facility] 2 [place], [place] [address] (Wo rk) 09/23/2022 Office Visit Dermatology Miriam Bentley MD 111 [facility] 5 [place], [place] [phone] (Wo rk) documented as of this encounter Procedures Procedure Name Priority Date/Time Associated Diagnosis Comme nts MA 2D/3D BILATERAL 07/06/2016 8:57 EDT Re sults for this OMAR ROUTINE procedure are i n SCREENING MAMMO the results section. documented in this encounter Results MA 2D/3D BILATERAL OMAR ROUTINE SCREENING MAMMO (07/06/2016 8:57 EDT) Anatomical Region Laterality Modality Other Specimen Narrative [facility] - 07/06/2016 15:45 EDT Comparison has been made to previous [...] and agree with the findings. Procedure Note Deborah Lee MD - 07/06/2016 Comparison has been made to previous [place] [...] Organization Address City/State/ZIP Code Phon e Number [facility] documented in this encounter Visit Diagnoses Not on filedocumented in this encounter Care Teams Dry Wall Finisher Relationship Specialty Start Date End Date Garrett, Juan Pablo N, MD PCP - General 07/05/16 04/28/19 [address] [place] [address] documented as of this encounter
--- OUTSIDE RECORDS SUMMARY | 2022-07-12 11:38 | XMS_ITS | Encounter Summary ---
:1950 Author Organization [facility] Address [address] [place] [id number] Care Team Providers Name Role Phone Steve Barbour MD Primary Care Provider Unavailable Reason for Visit Reason Comments Follow-up Encounter Details Date Type Department Care Team Description 06/11/2014 Office Visit [facility] Elvin Veronica de jalil Hematology & MD Jennifer anemia, unspecified Oncology - [address] (Primary D x) [address] [place] [address] Pavilion, [place] [address] (Wo rk) Social History Tobacco Use Types Packs/Day Years Used Date Never Smoker Smokeless Tobacco: Never Used Alcohol Use Standard Drinks/Week Comments No 0 (1 standard drink = 0.6 oz pure alcoho l) Sex Assigned at Date Recorded Not on file documented as of this encounter Last Filed Vital Signs Vital Sign Reading Time Taken Comments Blood Pressure 146/70 06/11/2014 1018 EDT Pulse 66 06/11/2014 1018 EDT Temperature 36.2 ??C (97.1 ??F) 06/11/2014 1018 EDT Respiratory Rate 16 06/11/2014 1018 EDT Oxygen Saturation - - Inhaled Oxygen Concentration - - Weight 74.3 kg (163 lb 14.4 oz) 06/11/2014 1018 EDT Height - - Body Mass Index 29.03 01/29/2014 0734 EDT documented in this encounter Progress Notes Cesar Rodgers MD - 06/11/2014 1054 EDT REASON FOR VISIT: Iron deficiency anemia HPI Ms. Grullon is a pleasant 63 yo woman who presents today in follow up for iron deficient anemia. Shehas been taking iron fumarate at least once a day for the past 4 months. She reports her energy levels have improved to some extent. She has been doing she activities and she did 4 months ago but findsthat she is not as fatigued she used to be. Denies any new bleeding or bruising. Past Medical History Diagnosis Date ??? Restless legs syndrome 08/01/2012 ??? 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 Anemia ??? Colon polyp ??? Hypertension ??? Lung disease asthma ??? Chronic kidney disease hx kidney stones ??? GERD (gastroesophageal reflux disease) ??? Factor V Leiden Past Surgical History Procedure Laterality Date ??? section times 3 Social History Smoking status ??? Never Smoker Smokeless tobacco ??? Never Used History Alcohol Use No Current Outpatient Prescriptions Medication Sig Dispense Refill ??? ALBUTEROL INHL Inhale 2 Inhalers as directed as needed (Rarely) . ??? ascorbic acid (VITAMIN C) 1,000 mg tablet Take 1,000 mg by mouth 2 times daily . ??? calcium carbonate (OS-ALEISHA) 500 mg calcium (1,250 mg) tablet per tablet Take 1 Tab by mouth daily. ??? FERROUS FUMARATE (IRON ORAL) Take [...] Take 10 mg by mouth daily. ??? [place]-3 Fatty Acids (FISH OIL) 300 mg capsule Take 300 mg by mouth daily. ??? omeprazole (PRILOSEC) 20 mg capsule Take 20 mg by mouth daily. ??? rOPINIRole (REQUIP) 1 mg tablet Take 1 mg by mouth at bedtime. No current facility-administered medications for this visit. Allergies Allergen Reactions ??? Shellfish Containing Products Anaphylaxis ??? Sulfa (Sulfonamide Antibiotics) Rash ??? Antibiotic (Cujgz-Zjtpk-Trsrpio-Pramoxine) Rash ROS: Positive for mild fatigue. The rest of the 10 point review of systems as filled out on symptom report form is negative. All side effects are grade 1 unless otherwise indicated Objective: BP 146/70 Pulse 66 Temp(Src) 36.2 ??C (97.1 ??F) (Tympanic) Resp 16 Wt 74.345 kg (163 lb 14.4 oz) BMI 29.04 kg/m2 Physical Exam Constitutional: She appears well-developed and well-nourished. No distress. HENT: Head: Normocephalic and atraumatic. Mouth/Throat: Oropharynx is clear and moist. Eyes: Conjunctivae and EOM are normal. Pupils are equal, round, and reactive to light. Right eye exhibits no discharge. Left eye exhibits no discharge. No scleral icterus. Cardiovascular: Normal rate. Pulmonary/Chest: No respiratory distress. Neurological: She is alert. Skin: Skin is warm and dry. She is not diaphoretic. No pallor. Psychiatric: She has a normal mood and affect. Results for BRITTANEY GRULLON ( ) as of 06/11/2014 10:55 Ref. Range 06/11/2014 10:05 WBC Latest Range: 4.0-12.4 K/cmm 10.02 RBC Latest Range: 3.86-5.04 M/cmm 4.07 Hemoglobin Latest Range: 11.6-15.2 gm/dl 12.6 HCT Latest Range: 34.9-44.4 % 37.3 MCV Latest Range: 81-98 fl 92 MCH Latest Range: 26.7-33.3 pg 30.8 MCHC Latest Range: 32.1-35.9 gm/dl 33.6 PLT Latest Range: 141-320 K/cmm 252 RDW-CV Latest Range: 11.7-14.6 % 14.6 Assessment and Plan: Ms. Grullon is a pleasant 63 yo woman who presents today in follow up for iron deficiency anemia. Shhas responded very well to iron supplementation. Her CBC has normalized with increase in her MCV. Her ferritin level is still pending today but it that will continue to increase. She will benefit from continuing the iron supplementation. She probably has a small, slow GI bleeding which has not been identified. She will continue to have age-appropriate screening with her primary care physician. 1. Continue iron fumarate once daily. 2. Follow up with Primary care physician. 3. We will be glad to see her in follow up as deemed necessary by her PCP. Cesar Ana Maria Hematology- Oncology fellow ADDENDUM: Ferritin 12. Probably using her iron to make red cells and not adding much to iron storage. If she cannot build up her stores or if she becomes anemic again despite iron use, she could go back to TID dosing at first. If this does not work we could give her an iron infusion. I think she will respond tooral dosing. Attestation statement: I saw and examined the patient with the resident/fellow. I agree with the findings and plan of care documented in the resident's/fellow's note. Elvin Veronica MD documented in this encounter Plan of Treatment Upcoming Encounters Date Type Specialty Care Team Description 07/15/2022 Telemedicine Hematology and Oncology Armando Martinez MD [address] [place] [address] [address] [place] [address] ([place] butts) 07/20/2022 Office Visit Surgical Oncology Rio Pearson DO [address] [facility], [facility] [address] [place] [address] ([place]) 09/23/2022 Office Visit Dermatology Miriam Bentley MD [address] [facility], [address] [place] [address] ([place]) documented as of this encounter Visit Diagnoses Diagnosis Iron deficiency anemia, unspecified - Pr imary documented in this encounter Discontinued Medications Medication Sig Discontinue Reason Start Date End Date Miscellaneous Medication Mylanta/viscous 01/29/2014 06/11/2014 - See Admin Instructions lidocaine 2% in a 3:1 mixture. Take 5-10 ml every 1-2 hours as needed for throat or chest pain.. documented as of this encounter Historical Medications This list may reflect changes made after this encounter. Medication Sig Dispensed Refills Start Date End Date [place]-3 Fatty Acids (FISH Take 300 mg by mouth 0 05/10/2018 OIL) 300 mg capsule daily. calcium carbonate Take 1 Tab by mouth 0 05/10/2018 (OS-ALEISHA) 500 mg calcium daily. (1,250 mg) tablet per tablet added in this encounter Care Teams Avionics Supervisor Relationship Specialty Start Date End Date Steve Barbour MD PCP - General 08/12/09 documented as of this encounter
--- OUTSIDE RECORDS SUMMARY | 2022-07-12 11:38 | XMS_ITS | Encounter Summary ---
:1950 Author Organization [facility] Address [address] [place] [address] Care Team Providers Name Role Phone Juan Pablo Garrett MD Primary Care Provider Encounter Details Date Type Department Care Team Description 05/10/2018 Results Only [facility] LATCHER Melchor, Carmita Gross to, Pelvic Medicine and VOLUNTEER SERVICES SPECIALIST Reconstructive Surgery - [address] [facility] Medical Office [facility], [facility], [address] [place], [place] [id number] [place] [address] [phone] Social History Tobacco Use Types Packs/Day Years [...] Hematology and Oncology Armando Martinez MD [address] [facility] [address] [place] [address] (Wo rk) 07/20/2022 Office Visit Surgical Oncology Rio Pearson DO [address] [facility], [address] [place], [place] [address] (Wo rk) 09/23/2022 Office Visit Dermatology Miriam Bentley MD [address] [facility], [address] [place] [address] (Wo rk) documented as of this encounter Procedures Procedure Name Priority Date/Time Associated Diagnosis Comme nts PAP TEST- RESULT Routine 05/10/2018 0:00 EDT Resu lts for this ONLY procedure are i n the results section. documented in this encounter Results PAP TEST- RESULT ONLY (05/10/2018 0:00 EDT) Pathology Report: CYTOPATHOLOGY REPORT [facility] Reports generated via electronic interface contain yenifer ginal data; SERVICES however they are lacking the format of the original re port. Caution should be taken when reading/interpreting unfo rmatted reports. Name: ? BRITTANEY GRULLON ? Accession #: ? [id number] ? : ? 1950 (Age: 5 0) ??F ?Collect Date: ? 05/10/2018 ? Location: ? OBGYN ? Receive Date: ? 018 ? Provider: CARMITA HICKS ANP Copy to: ? Final Report SPECIMEN ADEQUACY ? Satisfactory for Evaluation - transformation zone component present GENERAL CATEGORIZATION ? Negative for Intraepithelial Lesion or Malignan cy INTERPRETATION ? Reactive cellular cuco nges associated with inflammation present (includes repair). Previous Gynecologic Pathology: ASC-US: 2006 Other: Additional clinical information: Z01.419 V72.31 Specimen/Source: ??Pap Test, Cervix/Endocervix, ThinPr ep Imaging System with manual evaluation Document reviewed and electronically signed by: ? JUANITA SANTIAGO MD ? Report ??Date: 05/18/2018 15:29 HPV with Pap Test ? Date Ordered: ? 05/18/2018 ? Status: ?? Signed Out ?Date Complete: ? 05/21/2018 ? By: ??Sys tem Interface ? Date Reported: ? 05/21/2018 ? Interpretation RESULT: Negative for HPV. No E6 or E7 mRNA is detected from HPV types 16,18,31,3 3,35, 39,45,51,52,56,58,59,66, and 68 by house mover media nusrat amplification. Comments Document reviewed and electronically signed by: ? System Interface ? Report date: 05/21/2018 By the signature above, the attending physician certif ies that he/she has personally conducted a gross and/or microscopic examin ation of the described specimens and rendered or confirmed the above diagnosi s. End of Report Specimen Performing Organization Address City/State/ZIP Code Phon e Number [facility] [address] [place] [address] SERVICES documented in this encounter Visit Diagnoses Not on filedocumented in this encounter Care Teams Tariff Compiler Relationship Specialty Start Date End Date Juan Pablo Garrett MD PCP - General 07/05/16 04/28/19 [address] [place] [address] documented as of this encounter
--- OUTSIDE RECORDS SUMMARY | 2022-07-12 11:38 | XMS_ITS | Encounter Summary ---
:1950 Author Organization [facility] Address [address] [place] [address] Care Team Providers Name Role Phone Juan Pablo Garrett MD Primary Care Provider Encounter Details Date Type Department Care Team Description 08/21/2018 Results Only Imaging [facility]- Ailin Garrett PRISM MD [phone] [address] [place], [place] [address] (Wo rk) Social History [...] Telemedicine Hematology and Oncology Armando Martinez MD [address] [place] [address] [address] [place] [address] (Wo rk) 07/20/2022 Office Visit Surgical Oncology Rio Pearson, DO 111 [facility], [facility], [address] [place], [place] [address] (Wo rk) 09/23/2022 Office Visit Dermatology Miriam Bentley MD [address] [place] [facility], [facility], [address] [place], [place] [address] (Wo rk) documented as of this encounter Procedures Procedure Name Priority Date/Time Associated Diagnosis Comme nts MA STEREO SPECIMEN 08/21/2018 11:41 Resul ts for this ONLY EDT procedure are i n the results section. UNI LEFT ONLY POST 08/21/2018 11:18 Resul ts for this PROCEDURE 2D/3D EDT procedure ar e in MAMMO CHARGES the results ATTACHED section. MA AFFIRM STEREO BX 08/21/2018 11:17 Resu lts for this MAMMO EDT procedure are i n the results section. documented in this encounter Results MA STEREO SPECIMEN ONLY (08/21/2018 11:41 EDT) Anatomical Region Laterality Modality Other Specimen Narrative [facility] ACC/MAIN CA MPUS - 08/21/2018 17:29 EDT Addendum Begins The images and pathology of left breast stereotactic biopsy were reviewed on 08/24/2018by Dr. Alvarez and Dr. Rodrigues. The biopsy was performed by Dr. Martinez. The pathology shows : Adenocarcinoma, in vasive ductal with tubular features, nuclear grade 1. This is felt to be malignant and concord ant. Surgical consultation is recommended. A construction representative of the Radiology Depart ment will call the patient with the results and recommendations. Addendum Ends Addendum Begins This exam has been addended for associat ion with another accession number for billing purposes. ??The text has not been changed. ?? /chichi ?? Addendum Ends AFFIRM STEREO BX MAMMO, UNI LEFT ONLY PO ST PROCEDURE 2D/3D MAMMO CHARGES ATTACHED ??08/21/2018 11:17 AM Clinical History/Comments: Left breast architectural distortion lat eral upper outer quadrant Comparisons: ?? July 2018, June thousand 17, st thousand 16, June thousand 15, June thousand 14, June thousand 13, June thousand 12. Procedure/Findings: Written and verbal informed consents wer e obtained from the patient for this stereotactic guided 1 site biop sy of architectural distortion in the upper, outer left chels[address] st, approximately 4 cm from the nipple on the Affirm upright unit. T he risks, benefits, and alternatives to this procedure were expl ained to the patient. Once the patient's full name, date of bi rth, and side of biopsy were confirmed, the patient was positioned in the upright biopsy device for an approach from the craniocaudal. T he lesion in question was targeted using tomosynthesis. Site verif ication and skin marking was performed according to established site marking procedure. A safety timeout was performed. The skin was cleansed with Betadine. ??1 cc of buffered 1% lidocaine was used for superficial anesthesia and 7 cc of 2% lidocaine with epinephrine were used for deeper anesthe britney. The skin was incised with a #11 blade. Ten ??core biopsies we re obtained using the Wenwoa 9 gauge vacuum-assisted stereotactic bio psy device. A [employer] T-shaped clip was deployed i n the area biopsied. Postprocedure digital mammography was pe rformed in the CC and ML 2D/3D projections; demonstrating the cli p to be appropriately positioned, correlating to the mammograp hic finding.. ?? There were no immediate postprocedure co mplications. ?? The patient was told that our biopsy care coordinato r will notify her of the results via phone in 3-5 business days. Impression: Successful stereotactic guided biopsy. P athology is pending. I have personally reviewed the images an d the above interpretation and agree with the findings. Procedure Note Nyla Martinez MD / Lizeth Alvarez MD - 08/24/2018 Addendum Begins The images and pathology of left breast stereotactic biopsy were reviewed on 08/24/2018by Dr. Alvarez and Dr. Rdorigues. The biopsy was performed by Dr. Martinez. The pathology shows : Adenocarcinoma, in vasive ductal with tubular features, nuclear grade 1. This is felt to be malignant and concord ant. Surgical consultation is recommended. A construction representative of the Radiology Depart ment will call the patient with the results and recommendations. Addendum Ends Addendum Begins This exam has been addended for associat ion with another accession number for billing purposes. The text ram s not been changed. /[employer] Addendum Ends AFFIRM STEREO BX MAMMO, UNI LEFT ONLY PO ST PROCEDURE 2D/3D MAMMO CHARGES ATTACHED 08/21/2018 11:17 AM Clinical History/Comments: Left breast architectural distortion lat eral upper outer quadrant Comparisons: July 2018, June thousand 17, st thousand 16, June thousand 15, June thousand 14, June thousand 13, June thousand 12. Procedure/Findings: Written and verbal informed consents wer e obtained from the patient for this stereotactic guided 1 site biop sy of architectural distortion in the upper, outer left chelsy st, approximately 4 cm from the nipple on the Affirm upright unit. T he risks, benefits, and alternatives to this procedure were expl ained to the patient. Once the patient's full name, date of bi rth, and side of biopsy were confirmed, the patient was positioned in the upright biopsy device for an approach from the craniocaudal. T he lesion in question was targeted using tomosynthesis. Site verif ication and skin marking was performed according to established site marking procedure. A safety timeout was performed. The skin was cleansed with Betadine. 1 c c of buffered 1% lidocaine was used for superficial anesthesia and 7 cc of 2% lidocaine with epinephrine were used for deeper anesthe britney. The skin was incised with a #11 blade. Ten core biopsies were obtained using the [employer] 9 gauge vacuum-assisted stereotactic bio psy device. A [employer] T-shaped clip was deployed i n the area biopsied. Postprocedure digital mammography was pe rformed in the CC and ML 2D/3D projections; demonstrating the cli p to be appropriately positioned, correlating to the mammograp hic finding.. There were no immediate postprocedure co mplications. The patient was told that our biopsy care coordinato r will notify her of the results via phone in 3-5 business days. Impression: Successful stereotactic guided biopsy. P athology is pending. I have personally reviewed the images an d the above interpretation and agree with the findings. Performing Organization Address City/State/ZIP Code Phon e Number [facility]MAIN [facility] UNI LEFT ONLY POST PROCEDURE 2D/3D MAMMO CHARGES ATTACHED (08/21/2018 11:18 EDT) Anatomical Region Laterality Modality Other Specimen Narrative [facility] ACC/MAIN [place] MPUS - 08/21/2018 11:43 EDT Addendum Begins The images and pathology of left breast stereotactic biopsy were reviewed on 08/24/2018by Dr. Alvarez and Dr. Rodrigues. The biopsy was performed by Dr. Martinez. The pathology shows : Adenocarcinoma, in vasive ductal with tubular features, nuclear grade 1. This is felt to be malignant and concord ant. Surgical consultation is recommended. A construction representative of the Radiology Depart ment will call the patient with the results and recommendations. Addendum Ends Addendum Begins This exam has been addended for associat ion with another accession number for billing purposes. ??The text has not been changed. ?? /chichi ?? Addendum Ends AFFIRM STEREO BX MAMMO, UNI LEFT ONLY PO ST PROCEDURE 2D/3D MAMMO CHARGES ATTACHED ??08/21/2018 11:17 AM Clinical History/Comments: Left breast architectural distortion lat eral upper outer quadrant Comparisons: ?? July 2018, [place] thousand 17, [address] [address] thousand 16, June thousand 15, June thousand 14, June thousand 13, June thousand 12. Procedure/Findings: Written and verbal informed consents wer e obtained from the patient for this stereotactic guided 1 site biop sy of architectural distortion in the upper, outer left chelsy st, approximately 4 cm from the nipple on the Affirm upright unit. T he risks, benefits, and alternatives to this procedure were expl ained to the patient. Once the patient's full name, date of bi rth, and side of biopsy were confirmed, the patient was positioned in the upright biopsy device for an approach from the craniocaudal. T he lesion in question was targeted using tomosynthesis. Site verif ication and skin marking was performed according to established site marking procedure. A safety timeout was performed. The skin was cleansed with Betadine. ??1 cc of buffered 1% lidocaine was used for superficial anesthesia and 7 cc of 2% lidocaine with epinephrine were used for deeper anesthe britney. The skin was incised with a #11 blade. Ten ??core biopsies we re obtained using the [employer] 9 gauge vacuum-assisted stereotactic bio psy device. A [employer] T-shaped clip was deployed i n the area biopsied. Postprocedure digital mammography was pe rformed in the CC and ML 2D/3D projections; demonstrating the cli p to be appropriately positioned, correlating to the mammograp hic finding.. ?? There were no immediate postprocedure co mplications. ?? The patient was told that our biopsy care coordinato r will notify her of the results via phone in 3-5 business days. Impression: Successful stereotactic guided biopsy. P athology is pending. I have personally reviewed the images an d the above interpretation and agree with the findings. Procedure Note Nyla Martinez MD / Lizeth Alvarez MD - 08/24/2018 Addendum Begins The images and pathology of left breast stereotactic biopsy were reviewed on 08/24/2018by Dr. Alvarez and Dr. Rodrigues. The biopsy was performed by Dr. Martinez. The pathology shows : Adenocarcinoma, in vasive ductal with tubular features, nuclear grade 1. This is felt to be malignant and concord ant. Surgical consultation is recommended. A construction representative of the Radiology Depart ment will call the patient with the results and recommendations. Addendum Ends Addendum Begins This exam has been addended for [employer] with another accession number for billing purposes. The text ram s not been changed. /[employer] Addendum Ends AFFIRM STEREO BX MAMMO, UNI LEFT ONLY PO ST PROCEDURE 2D/3D MAMMO CHARGES ATTACHED 08/21/2018 11:17 AM Clinical History/Comments: Left breast architectural distortion lat eral upper outer quadrant Comparisons: July 2018, June thousand 17, st thousand 16, June thousand 15, June thousand 14, June thousand 13, June thousand 12. Procedure/Findings: Written and verbal informed consents wer e obtained from the patient for this stereotactic guided 1 site biop sy of architectural distortion in the upper, outer left chelsy st, approximately 4 cm from the nipple on the Affirm upright unit. T he risks, benefits, and alternatives to this procedure were expl ained to the patient. Once the patient's full name, date of bi rth, and side of biopsy were confirmed, the patient was positioned in the upright biopsy device for an approach from the craniocaudal. T he lesion in question was targeted using tomosynthesis. Site verif ication and skin marking was performed according to established site marking procedure. A safety timeout was performed. The skin was cleansed with Betadine. 1 c c of buffered 1% lidocaine was used for superficial anesthesia and 7 cc of 2% lidocaine with epinephrine were used for deeper anesthe britney. The skin was incised with a #11 blade. Ten core biopsies were obtained using the Loyal[employer]vera 9 gauge vacuum-assisted stereotactic bio psy device. A [employer] T-shaped clip was deployed i n the area biopsied. Postprocedure digital mammography was pe rformed in the CC and ML 2D/3D projections; demonstrating the cli p to be appropriately positioned, correlating to the mammograp hic finding.. There were no immediate postprocedure co mplications. The patient was told that our biopsy care coordinato r will notify her of the results via phone in 3-5 business days. Impression: Successful stereotactic guided biopsy. P athology is pending. I have personally reviewed the images an d the above interpretation and agree with the findings. Performing Organization Address City/State/ZIP Code Phon e Number [facility] ACC/MAIN [place] MA AFFIRM STEREO BX MAMMO (08/21/2018 11:17 EDT) Anatomical Region Laterality Modality Other Specimen Narrative [facility] ACC/[facility] CA MPUS - 08/21/2018 11:43 EDT Addendum Begins The images and pathology of left breast stereotactic biopsy were reviewed on 08/24/2018by Dr. Alvarez and Dr. Rodrigues. The biopsy was performed by Dr. Martinez. The pathology shows : Adenocarcinoma, in vasive ductal with tubular features, nuclear grade 1. This is felt to be malignant and concord ant. Surgical consultation is recommended. A construction representative of the Radiology Depart ment will call the patient with the results and recommendations. Addendum Ends Addendum Begins This exam has been addended for associat ion with another accession number for billing purposes. ??The text has not been changed. ?? /chichi ?? Addendum Ends AFFIRM STEREO BX MAMMO, UNI LEFT ONLY PO ST PROCEDURE 2D/3D MAMMO CHARGES ATTACHED ??08/21/2018 11:17 AM Clinical History/Comments: Left breast architectural distortion lat eral upper outer quadrant Comparisons: ?? July 2018, June thousand 17, thousand 16, June thousand 15, June thousand 14, June 13, June thousand 12. Procedure/Findings: Written and verbal informed consents wer e obtained from the patient for this stereotactic guided 1 site biop sy of architectural distortion in the upper, outer left chelsy st, approximately 4 cm from the nipple on the Affirm upright unit. T he risks, benefits, and alternatives to this procedure were expl ained to the patient. Once the patient's full name, date of bi rth, and side of biopsy were confirmed, the patient was positioned in the upright biopsy device for an approach from the craniocaudal. T he lesion in question was targeted using tomosynthesis. Site verif ication and skin marking was performed according to established site marking procedure. A safety timeout was performed. The skin was cleansed with Betadine. ??1 cc of buffered 1% lidocaine was used for superficial anesthesia and 7 cc of 2% lidocaine with epinephrine were used for deeper anesthe britney. The skin was incised with a #11 blade. Ten ??core biopsies we re obtained using the Wenwoa 9 gauge vacuum-assisted stereotactic bio psy device. A [employer] T-shaped clip was deployed i n the area biopsied. Postprocedure digital mammography was pe rformed in the CC and ML 2D/3D projections; demonstrating the cli p to be appropriately positioned, correlating to the mammograp hic finding.. ?? There were no immediate postprocedure co mplications. ?? The patient was told that our biopsy care coordinato r will notify her of the results via phone in 3-5 business days. Impression: Successful stereotactic guided biopsy. P athology is pending. I have personally reviewed the images an d the above interpretation and agree with the findings. Procedure Note Nyla Martinez MD / Lizeth Alvarez MD - 08/30/2018 Addendum Begins The images and pathology of left breast stereotactic biopsy were reviewed on 08/24/2018by Dr. Alvarez and Dr. Rodrigues. The biopsy was performed by Dr. Martinez. The pathology shows : Adenocarcinoma, in vasive ductal with tubular features, nuclear grade 1. This is felt to be malignant and concord ant. Surgical consultation is recommended. A construction representative of the Radiology Depart ment will call the patient with the results and recommendations. Addendum Ends Addendum Begins This exam has been addended for associat ion with another accession number for billing purposes. The text ram s not been changed. /[employer] Addendum Ends AFFIRM STEREO BX MAMMO, UNI LEFT ONLY PO ST PROCEDURE 2D/3D MAMMO CHARGES ATTACHED 08/21/2018 11:17 AM Clinical History/Comments: Left breast architectural distortion lat eral upper outer quadrant Comparisons: July 2018, [place] thousand 17, Aug st thousand 16, June thousand 15, June thousand 14, June thousand 13, June thousand 12. Procedure/Findings: Written and verbal informed consents wer e obtained from the patient for this stereotactic guided 1 site biop sy of architectural distortion in the upper, outer left chelsy st, approximately 4 cm from the nipple on the Affirm upright unit. T he risks, benefits, and alternatives to this procedure were expl ained to the patient. Once the patient's full name, date of bi rth, and side of biopsy were confirmed, the patient was positioned in the upright biopsy device for an approach from the craniocaudal. T he lesion in question was targeted using tomosynthesis. Site verif ication and skin marking was performed according to established site marking procedure. A safety timeout was performed. The skin was cleansed with Betadine. 1 c c of buffered 1% lidocaine was used for superficial anesthesia and 7 cc of 2% lidocaine with epinephrine were used for deeper anesthe britney. The skin was incised with a #11 blade. Ten core biopsies were obtained using the L[employer] 9 gauge vacuum-assisted stereotactic bio psy device. A [employer] T-shaped clip was deployed i n the area biopsied. Postprocedure digital mammography was pe rformed in the CC and ML 2D/3D projections; demonstrating the cli p to be appropriately positioned, correlating to the mammograp hic finding.. There were no immediate postprocedure co mplications. The patient was told that our biopsy care coordinato r will notify her of the results via phone in 3-5 business days. Impression: Successful stereotactic guided biopsy. P athology is pending. I have personally reviewed the images an d the above interpretation and agree with the findings. Performing Organization Address City/State/ZIP Code Phon e Number [facility] documented in this encounter Visit Diagnoses Not on filedocumented in this encounter Care Teams General Maintenance Mechanic Relationship Specialty Start Date End Date Juan Pablo Garrett MD PCP - General 07/05/16 04/28/19 [address] [place] [address] documented as of this encounter
--- OUTSIDE RECORDS SUMMARY | 2022-07-12 11:38 | XMS_ITS | Encounter Summary ---
:1950 Author Organization [facility] Address [address] [place] [address] Care Team Providers Name Role Phone Juan Pablo Garrett MD Primary Care Provider Reason for Referral Prior Authorization (48 Hrs (Urgent)) - Authorization Not Required Specialty Diagnoses / Procedures Referred By Contact Refer red To Contact Diagnoses Heterozygous factor V Leiden mutation ([facility]) ([facility]) Elvin Veronica MD [address] [facility] 2 [place] [address] Referral ID Status Reason Start Expiration Visits Visits Date Date Requested Authorized [id number] Authorization Not Other 1 0 Required 8 Question Answer Medication to be Prior Authorized: Lovenox 40 Comments [facility] Precertification Request f or Medications 09/12/2018 URGENT: No Medication Administration: SQ Inj Patient Name: Brittaney Grullon Patient : [id number] Ordering MD: Glenys Nurse: ivette Phone: [phone] Is this a dosage change, renewal or a ne w medication? New Med Medication Start Date & Number of Cycles : Monday PT BSA: There is no height or weight on file to calculate BSA. What is the reason for taking this medic ation? VTE ppx post op Is this an on label usage of this medica tion? Yes What is the patient's current drug regim en? na Similar drugs patient has been on and fa iled? na Please Prior Auth Medications Listed bel ow: Lovenox 40mg SC daily How many days will patient be on the abo ve regimen in a month? 10 Qty per 30 days: 10 Number of Refills: 0 Local Pharmacy: Encounter Details Date Type Department Care Team Description 09/12/2018 Orders Only [facility] Ivette Quispe RN Heterozygous factor V Hematology & [address] [place] [address] [place] Le[place] [address] ([facility]) (Primary Dx) [address] [address] Social History Tobacco Use Types Packs/Day Years [...] Sig Dispensed Refills Start Date End Date enoxaparin (LOVENOX) 40 Inject 40 mg into 10 Syringe 0 09/1502/25/2022 mg/0.4 mL the skin daily. injectionIndications: Start 24 hours Heterozygous factor V after surgery for Leiden mutation ([facility]) 10 days ([facility]) documented in this encounter Plan of Treatment Upcoming Encounters Date Type Specialty Care Team Description 07/15/2022 Telemedicine Hematology and Oncology Armando Martinez MD [address] [place] [address] [address] [place] [address] ([place]) 07/20/2022 Office Visit Surgical Oncology Rio Pearson, DO 111 [facility], [address] [place], [place] [address] ([place]) 09/23/2022 Office Visit Dermatology Miriam Bentley MD 111 [facility], [address] [place], [place] [address] (Wo rk) Scheduled Referrals Name Type Priority Associated Diagnoses Order S chedule AMB MEDICATION PRIOR Outpatient Routine Heterozygous factor Ordered: AUTHORIZATION Referral V Leiden mutation 8 ([facility]) documented as of this encounter Visit Diagnoses Diagnosis Heterozygous factor V Leiden mutation ([facility]) ([facility]) - Primary Primary hypercoagulable state documented in this encounter Care Teams Precision Inspector Relationship Specialty Start Date End Date Juan Pablo Garrett MD PCP - General 07/05/16 04/28/19 [address] [place] [address] documented as of this encounter
--- OUTSIDE RECORDS SUMMARY | 2022-07-12 11:38 | XMS_ITS | Encounter Summary ---
:[address] [facility] Address [address] [place] [address] Care Team Providers Name Role Phone Juan Pablo Garrett MD Primary Care Provider Encounter Details Date Type Department Care Team Description 09/03/2018 Results Only [facility] Ami Pearson, Imaging Surgical Oncology - [address] [address] [address], [place] [phone] (Wo rk) Social History Tobacco Use Types [...] Telemedicine Hematology and Oncology Armando Martinez MD [address] [place] [address] [address] [place] [address] (Wo rk) 07/20/2022 Office Visit Surgical Oncology Lili Rio ricarda Bush DO [address] [facility], [facility], Level 2 [place], [place] [phone] (Wo rk) 09/23/2022 Office Visit Dermatology Miriam Bentley MD [address] [facility], Level 5 [place], [place] [address] (Wo rk) documented as of this encounter Procedures Procedure Name Priority Date/Time Associated Diagnosis Comme nts [facility] 09/03/2018 10:38 Results for this BREAST-BREAST CARE EDT procedure are in CENTER ONLY the results section. documented in this encounter Results [facility] BREAST-BREAST CARE CENTER ONLY (09/03/2018 10:38 EDT) Anatomical Region Laterality Modality Other Specimen Narrative [facility] BREAST IMAGING MAIN C AMPUS - 09/03/2018 10:38 EDT See Notes Tab. 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
--- OUTSIDE RECORDS SUMMARY | 2022-07-12 11:38 | XMS_ITS | Encounter Summary ---
:1950 Author Organization [facility] Address [address] [place] [address] Care Team Providers Name Role Phone Steve Barbour MD Primary Care Provider Unavailable Juan Pablo Garrett MD Primary Care Provider None, Provider Primary Care Provider Unavailable Juan Pablo Garrett MD Primary Care Provider Encounter Details Date Type Department Care Team Description 01/22/2016 Historical Results [facility] - Anita Lopez MD Only [facility] - [address] [place] [phone] (Wo rk) Social History Tobacco Use Types [...] Hematology and Oncology Armando Martinez MD [address] [facility] [address] [place], [place] [phone] (Wo rk) 07/20/2022 Office Visit Surgical Oncology Rio Pearson, DO [address] [facility], [facility], Level [address] [place], [place] [phone] (Wo rk) 09/23/2022 Office Visit Dermatology Miriam Bentley MD 111 [facility], [facility] 5 [place], [place] [address] (Wo rk) documented as of this encounter Procedures Procedure Name Priority Date/Time Associated Diagnosis Comme [facility] SURGICAL PATHOLOGY Routine 01/22/2016 Results f or this procedure are i n the results section . documented in this encounter Results SURGICAL PATHOLOGY (01/22/2016) Specimen Narrative [facility] - 016 11:27 EST Name: BRITTANEY GRULLON ? : 46 ?Age/Sex: 69/F ?Unit#: [id number] ? Loc: END ? Status: DEP CLI ?? Reg Date: 01/22/16 ? Pt.Phone Number : ? Specimen: [id number] ?ST ATUS: SOUT ?Spec Date:01/22/16 ? Physician Copies: ?Donny Lopez MD ? Tissues: A ?? Endoscopy specimen (CECUM) ? Steve Barbour CPT: 45386 ?? Units: ??1 ?FINAL DIAGNOSIS ? Cecum, polyp, biopsy; ? - Tubular adenoma. ? GROSS DESCRIPTION ? Received in formalin labeled with the patient's name and cecal polyp is a ? single mucosal tissue fragment me asuring 0.2 cm, e.s. 1. KF ?? PREOP DX/CLINICAL HISTORY ?HISTORY OF POLYPS Signed ____(signature on file)____ Leena Burrell M.D. 01/25/16 By the signature above, the attending ph ysician certifies that he/she has personally conducted a gross and/or microscopic exa mination of the described specimens and rendered or confirmed the above diagnosi s. Test Performed by [facility], [address] [place] [address] Creative Technologist: Leena Gallo MD PHD Performing Organization Address City/State/ZIP Code Phon e Number [facility] [address] [place] [address] LAB documented in this encounter Visit Diagnoses Not on filedocumented in this encounter Care Teams Agricultural Economist Relationship Specialty Start Date End Date Steve Barbour MD PCP - General 08/12/09 Juan Pablo Garrett MD PCP - General 07/05/16 04/28/19 [address] [place] [phone] None, Provider PCP - General 04/29/19 04/29/19 Juan Pablo Garrett MD PCP - General 04/30/19 06/21/21 [address] [place] [phone] documented as of this encounter
--- OUTSIDE RECORDS SUMMARY | 2022-07-12 11:38 | XMS_ITS | Encounter Summary ---
:1950 Author Organization [facility] Address [address] [place] [address] Care Team Providers Name Role Phone Steve Barbour MD Primary Care Provider Unavailable Reason for Visit Reason Comments Follow-up Encounter Details Date Type Department Care Team Description 02/10/2014 Office Visit [facility] Elvin Veronica factor V Leiden mutation ([facility]) (Primary Dx); Hematology & MD Jennifer Iron deficiency anemia, unspecified Oncology - [address] [place] [address] [address], [place] [address] (Wo rk) Social History Tobacco Use Types Packs/Day Years Used Date Never Smoker Smokeless Tobacco: Never Used Alcohol Use Standard Drinks/Week Comments No 0 (1 standard drink = 0.6 oz pure alcoho l) Sex Assigned at Date Recorded Not on file documented as of this encounter Last Filed Vital Signs Vital Sign Reading Time Taken Comments Blood Pressure 135/63 02/10/2014 1551 EDT Pulse 82 02/10/2014 1551 EDT Temperature 36.9 ??C (98.4 ??F) 02/10/2014 1551 EDT Respiratory Rate 16 02/10/2014 1551 EDT Oxygen Saturation - - Inhaled Oxygen Concentration - - Weight 71.9 kg (158 lb 8 oz) 02/10/2014 1551 EDT Height - - Body Mass Index 28.08 01/29/2014 0734 EDT documented in this encounter Discharge Diagnoses Diagnosis 280.9 IRON DEFIC ANEMIA NOS[ICD-9-CM] documented in this encounter Patient Instructions Patient InstructionsYuli Paredes - 02/10/2014 16:38 EDT 1) Follow up in 4 months 2) Continue taking your iron documented in this encounter Discharge Disposition Disposition Code Departure Means Destination Auto Discharge documented in this encounter Progress Notes Elvin Veronica MD - 02/10/2014 1623 EDT REASON FOR VISIT: Iron deficiency anemia HPI Ms. Grullon is a pleasant 63 yo woman who presents today in follow up for iron deficient anemia. Shereports she has been on and off iron for ~4 years. Thus far, work up has been negative for source and she recently underwent enteroscopy with GI to rule out bleeding source but this was normal. She eats a balanced diet with meat, vegetables, cheese. She states every time she stops taking iron, the Hg goes down again. She notes that when Hg is low, she feels SOB and fatigued. She has been taking 2 pills Slow Fe. Her energy is getting better and she denies any lightheadedness/dizziness, SOB, CP, abd pain/n/v, blood in stool. Past Medical History Diagnosis Date ??? Restless [...] by mouth 2 times daily . ??? FERROUS FUMARATE (IRON ORAL) Take 50 mg by mouth 2 times daily . ??? FLUoxetine (PROZAC) 20 mg capsule Take 20 mg by mouth daily. ??? fluticasone-salmeterol (ADVAIR) 250-50 mcg/dose diskus inhaler Inhale 1 Puff as directed every 12 hours as needed. ??? hydrochlorothiazide (HYDRODIURIL) 50 mg tablet Take 50 mg by mouth daily. ??? Miscellaneous Medication - See Admin Instructions Mylanta/viscous lidocaine 2% in a 3:1 mixture.Take 5-10 ml every 1-2 hours as needed for throat or chest pain.. 1 Each 0 ??? montelukast (SINGULAIR) 10 mg tablet Take 10 mg by mouth daily. ??? omeprazole (PRILOSEC) 20 mg capsule Take 20 mg by mouth daily. ??? rOPINIRole (REQUIP) 1 mg tablet Take 1 mg by mouth at bedtime. No current facility-administered medications for this visit. Allergies Allergen Reactions ??? Shellfish Containing Products Anaphylaxis ??? Sulfa (Sulfonamide Antibiotics) Rash ??? Antibiotic (Wqkbu-Hhyqt-Zbzonis-Pramoxine) Rash ROS - See HPI Objective: BP 135/63 Pulse 82 Temp(Src) 36.9 ??C (98.4 ??F) (Tympanic) Resp 16 Wt 71.895 kg (158 lb 8 oz) BMI 28.08 kg/m2 Physical Exam Constitutional: She appears well-developed [...] She has a normal mood and affect. 01/08/14: Hg/Hct 9.6,30.4, PLT 444, Ferritin 9 02/10/14: Hg/Hct 11.2, 34.9, PLT 291, Ferritin 20 Assessment and Plan: Ms. Grullon is a pleasant 63 yo woman who presents today in follow up for iron deficiency anemia. She is doing quite well and Hg/ferritin have both increased on current dose of Iron supplementation (50mg BID). Though workup for GI bleed has been negative thus far, given history of dropping Hg when Iron supplementation is stopped, it is possible she does have a slow bleed that has yet to be found. She may need to remain on chronic Iron supplementation. PLAN: 1. Continue current iron supplementation 2. Follow-up in 4 months for repeat Hemagram and ferritin . Iron deficiency anemia, unspecified - Hemagram This patient was staffed was staffed with Dr. Veronica. Follow up: 4 months Yuli Paredes MD 02/10/2014 17:26 Attestation statement: I saw and examined the patient with the resident/fellow. I agree with the findings and plan of care documented in the resident's/fellow's note. Elvin Veroinca MD documented in this encounter Plan of Treatment Upcoming Encounters Date Type Specialty Care Team Description 07/15/2022 Telemedicine Hematology and Oncology Armando Martinez MD [address] [place] [address] [address] [place] [phone] (Wo rk) 07/20/2022 Office Visit Surgical Oncology Rio Pearson DO 111 [facility], [facility] 2 [place], [place] [phone] (Wo rk) 09/23/2022 Office Visit Dermatology Miriam Bentley MD 111 [facility], [facility] 5 [place], [place] [phone] (Wo rk) documented as of this encounter Results HEMAGRAM (06/11/2014 10:05 EDT) Pathologist [facility] WBC 10.02 4.0 - 12.4 K/cmm [facility] RBC 4.07 3.86 - 5.04 M/cmm [facility] Hemoglobin 12.6 11.6 - 15.2 gm/dl [facility] HCT 37.3 34.9 - 44.4 % [facility] MCV 92 81 - 98 fl [facility] MCH 30.8 26.7 - 33.3 pg [facility] MCHC 33.6 32.1 - 35.9 gm/dl [facility] PLT 252 141 - 320 K/cmm [facility] RDW-CV 14.6 11.7 - 14.6 % [facility] Specimen Blood specimen (specimen) Performing Organization Address City/State/ZIP Code Phon e Number [facility] [address] [place] [address] SERVICES [facility] [address] [place] [address] documented in this encounter Visit Diagnoses Diagnosis Heterozygous factor V Leiden mutation (H [facility]-CMS) (HCC) - Primary Primary hypercoagulable state Iron deficiency anemia, unspecified documented in this encounter Care Teams Electromedical Equipment Repairer Relationship Specialty Start Date End Date Steve Barbour MD PCP - General 08/12/09 documented as of this encounter
--- OUTSIDE RECORDS SUMMARY | 2022-07-12 11:38 | XMS_ITS | Encounter Summary ---
:1950 Author Organization [facility] Address [address] [place] [address] Care Team Providers Name Role Phone Juan Pablo Garrett MD Primary Care Provider Encounter Details Date Type Department Care Team Description 07/27/2018 Results Only Imaging [facility]- Ailin Garrett PRISM MD [phone] 4 [place], [place] [address] (Wo rk) Social History [...] Hematology and Oncology Armando Martinez MD [address] [place] [address] [address] [place] [address] (Wo rk) 07/20/2022 Office Visit Surgical Oncology Rio Pearson, DO 111 [facility], [facility], Level [address] [place], [place] [phone] (Wo rk) 09/23/2022 Office Visit Dermatology Miriam Bentley MD [address] [place] [address] [facility], [address] [place], [place] [phone] (Wo rk) documented as of this encounter Procedures Procedure Name Priority Date/Time Associated Diagnosis Comme nts MA 2D/3D BILATERAL 07/27/2018 8:55 EDT Re sults for this OMAR ROUTINE procedure are i n SCREENING MAMMO the results section. documented in this encounter Results MA 2D/3D BILATERAL OMAR ROUTINE SCREENING MAMMO (07/27/2018 8:55 EDT) Anatomical Region Laterality Modality Other Specimen Narrative [facility] RADIOLOGY S PROSPECT - 07/27/2018 18:02 EDT Comparison has been made to previous images. Left Breast Findings: (Routine 3D tomosy nthesis with synthesized 2D views with CAD) There are scattered fibroglandular densi ties (25% - 50% fibroglandular). An asymmetry with possi ble distortion is present in the central breast at anterior depth. Right Breast Findings: (Routine 3D tomos ynthesis with synthesized 2D views with CAD) There are scattered fibroglandular densi ties (25% - 50% fibroglandular). No significant masses, calcifications or other abnormalities are seen. IMPRESSION: LEFT BREAST: INCOMPLETE Additional projections in the 3D/C-View mediolateral projection, spot compression in 3D/C-View craniocaud al projection, and ultrasound (if finding persists) are rec ommended at this time in the. RIGHT BREAST: Negative, no evidence of m alignancy. Normal interval follow-up is recommended in 12 months. The patient reports chronic left breast pain. If the pain is focal, a targeted ultrasound can be performed. If the pain is diffuse, clinical follow up is recommended. OVERALL ASSESSMENT - CATEGORY 0 - INCOMP LETE: NEED ADDITIONAL IMAGING EVALUATION END OF IMPRESSION These results will be communicated to yo ur patient via a lay letter from Radiology. If any additional imagin g is needed we will contact your patient directly. Procedure Note Juan, Nyla, MD - 08/27/2018 Comparison has been made to previous [facility]. Left Breast Findings: (Routine 3D tomosy nthesis with synthesized 2D views with CAD) There are scattered fibroglandular densi ties (25% - 50% fibroglandular). An asymmetry with possi ble distortion is present in the central breast at anterior depth. Right Breast Findings: (Routine 3D tomos ynthesis with synthesized 2D views with CAD) There are scattered fibroglandular densi ties (25% - 50% fibroglandular). No significant masses, calcifications or other abnormalities are seen. IMPRESSION: LEFT BREAST: INCOMPLETE Additional projections in the 3D/C-View mediolateral projection, spot compression in 3D/C-View craniocaud al projection, and ultrasound (if finding persists) are rec ommended at this time in the. RIGHT BREAST: Negative, no evidence of m alignancy. Normal interval follow-up is recommended in 12 months. The patient reports chronic left breast pain. If the pain is focal, a targeted ultrasound can be performed. If the pain is diffuse, clinical follow up is recommended. OVERALL ASSESSMENT - CATEGORY 0 - INCOMP LETE: NEED ADDITIONAL IMAGING EVALUATION END OF IMPRESSION These results will be communicated to yo ur patient via a lay letter from Radiology. If any additional imagin g is needed we will contact your patient directly. Performing Organization Address City/State/ZIP Code Phon e Number [facility] RADIOLOGY S PROSPECT documented in this encounter Visit Diagnoses Not on filedocumented in this encounter Care Teams Mfts Relationship Specialty Start Date End Date Juan Pablo Garrett MD PCP - General 07/05/16 04/28/19 [address] [place] [address] documented as of this encounter
--- OUTSIDE RECORDS SUMMARY | 2022-07-12 11:38 | XMS_ITS | Encounter Summary ---
:1950 Author Organization [facility] Address [address] [place] [address] Care Team Providers Name Role Phone Tiffanie Garrett MD Primary Care Provider Encounter Details Date Type Department Care Team Description 08/21/2018 Results Only [facility]- Nyla Salazar MD [phone] [place] [address] 1 [place] [address] (Wo rk) Social History Tobacco [...] documented as of this encounter Progress Notes Sophia Angulo - 08/27/2018 1035 EDT I told pt results of left breast bx done on 08-21-18 (POS). The patient would like to call Dr Garrett's office herself to discuss where she would like to be referred for a breast surgeon. I called Dr Garrett's to pass this on And spoke to Raquel. They will speak to pt first before making a referral. caden 10-8-18 documented in this encounter Plan of Treatment Upcoming Encounters Date Type Specialty Care Team Description 07/15/2022 Telemedicine Hematology and Oncology Armando Martinez MD [address] [place] [address] [address] (Wo rk) 07/20/2022 Office Visit Surgical Oncology Rio Pearson DO 111 [facility] 2 [place] [address] (Wo rk) 09/23/2022 Office Visit Dermatology Miriam Bentley MD 111 [facility], [facility] 5 [place] [address] (Wo rk) documented as of this encounter Procedures Procedure Name Priority Date/Time Associated Diagnosis Comme [facility] SURGICAL PATHOLOGY Routine 08/21/2018 14:39 Resul ts for this EDT procedure are i n the results section. documented in this encounter Results SURGICAL PATHOLOGY (08/21/2018 14:39 EDT) Pathology SURGICAL PATHOLOGY REPORT [facility] MEDICAL Report: CENTER Reports generated via electronic interface contain yenifer ginal data; LABORATORY however they are lacking the format of the original re port. SERVICES Caution should be taken when reading/interpreting unfo rmatted reports. Name: ? BRITTANEY GRULLON ? Accession #: ? [id number] ? : ? 1950 (Age: 5 0) ??F ?Collect Date: ? 08/21/2018 ? Location: ? [facility] ? Receive Date: ? 08/21/20 18 ? Provider: NYLA PRIEST MD Copy to: TIFFANIE HICKS ANP ? Final Pathologic Diagnosis: BREAST, LEFT, UPPER OUTER QUADRANT, 4 CM FROM NIPPLE, STEREOTACTIC VACUUM ASSISTED NEEDLE CORE BIOPSY: - Adenocarcinoma, invasive d uctal with tubular features, nuclear grade I. ??See comment. Comment: Estrogen and progesterone re ceptor assays and Her2 studies have been ordered and results will be issued in separate procedure reports. ?? Immunoperoxidase staining wa s performed on this case to further characterize the lesion. ?? ANTIBODY(CLONE)(BLOCK):RESULT P63 (4A4, [place]ott) (block 2): ??Negative in invasive c arcinoma NOTE: ??One or more of the reagents used in imm unoperoxidase testing in this case may not have been cleared or approved by the U.S. Food and Drug Administration (FDA). ??The FDA has determined that such clearance or approval is not necessary. ??These tests are used for clinical purposes. ??They should not be regarded as investigational or for research. ??These r eagents' performance characteristics have been de termined by the [facility] and/or by the referring labo lamar. ??The positive and negative controls worked appropriately. ??If immunope roxidase staining has been performed on alcohol fixed cytology specimens, which has not been fully validated , the assays should be interpreted with caution and correlated with clinical data. ??This laboratory is certified under the Clinical Laboratory Improvement Amendments of 1988 (CLIA-88) as qualified to perform high complexity clinical labor atory testing. ?? Estrogen and progesterone re ceptor assays and Her2 studies have been ordered and results will be issued in separate procedure reports. ??(Dr. Escamilla)/mpl ? Document reviewed and electronically signed by: ? SHAJI HOLDER MD ? Report ??Date: 08/24/2018 12:18 By the signature above, the attending physician certif ies that he/she has personally conducted a gross and/or microscopic examin ation of the described specimens and rendered or confirmed the above diagnosi s. Clinical History: Left breast architectural distortion ? Gross Description: ? Received in formalin labelled with proper patient identification (initials H, D) and left breast, 4 cm from nipple are 12 yellow and white cylindrical fatty tissue cores (0.8 cm to 3.2 cm in length, and each 0.3 cm in diameter). Entirely submitted in 1 through 6. Time removed from patient: 1100 hrs. 08/21/2018 Time placed in formalin: 1110 hrs. 08/21/2018 Time out of formalin: 1900 hrs. 08/22/2018 LAVELLE Hu (ASCP) 08/21/2018 3:50 PM ? ESTROGEN AND PROGESTERONE RECEPTOR IMMUNOPEROXIDASE ST AINS ? Date Ordered: ? 08/27/2018 ? Status: ?? Signed Out ?Date Complete: ? 08/27/2018 ? By: ??Radha Lopez ? Date Reported: ? 08/27/2018 ? Interpretation BREAST, LEFT, UPPER OUTER QUADRANT, 4 CM FROM NIPPLE, STEREOTACTIC VACUUM-ASSISTED NEEDLE CORE BIOPSY: - Adenocarcinoma, invasive. ?? - Positive for estrogen receptors (in greater than 90% of tumor cells). - Nuclear staining intensity: Strong. ?? - Positive for progester one receptors (in greater than 90% of tumor cells). - Nuclear staining intensity: ??Strong. Comment Cold ischemic time and total formalin fixation time ap propriate: Yes. Description Tissue submitted: Paraffin embedded tissue block label led [id number] (2) from [facility]. Immunohistochemical assays for estrogen receptors (SP1 , [place]ott) and progesterone receptors (16, Leica) have been performed on this specimen. Intranuclear receptor comple xes were visualized on tissue sections using an HRP polymer immunohistochemical technique. ??This assay is intended for paraffin-embedded tissue fix ed in 10% neutral buffered formalin for 6-72 hours. ? Results are reported as negative (<1% nuclear staining ) or positive with the proportion of positive cells noted. ??Estrogen recepto r expression in <5% of tumor cells may not have a s crispin interaction with estrogen receptor modulators such as Tamoxifen. ?? Reference: ??ASCO-CAP Guidel ine Recommendations for IHC testing of ER and PA. J Clin Oncol 2010;28:3316-5512. NOTE: ??One or more of the reagents used in imm unoperoxidase testing in this case may not have been cleared or approved by the U.S. Food and Drug Administration (FDA). ??The FDA has determined that such clearance or approval is not necessary. ??These tests are used for clinical purposes. ??They should not be regarded as investigational or for research. ??These r eagents' performance characteristics have been de termined by [facility] and/or by the referring labo lamar. ??The positive and negative controls worked appropriately. If immunopero xidase staining has been performed on alcohol fixed cytology specimens, which has not been fully validated , the assays should be interpreted with caution and correlated with clinical data. ??This laboratory is certified under the Clinical Laboratory Improvement Amendments of 1988 (CLIA-88) as qualified to perform high complexity clinical labor atory testing. Document reviewed and electronically signed by: ? SHAJI HOLDER MD ? Report date: 08/27/2018 By the signature above, the attending physician certif ies that he/she has personally conducted a gross and/or microscopic examin ation of the described specimens and rendered or confirmed the above diagnosi s. Her 2 IMMUNOPEROXIDASE REPORT ? Date Ordered: ? 08/27/2018 ? Status: ?? Signed Out ?Date Complete: ? 08/27/2018 ? By: ??Radha Lopez ? Date Reported: ? 08/27/2018 ? Interpretation ASSAY RESULTS Her2 SCORE: ?1+ TUMOR LOCATION: ??Left breast, upper outer quadrant. ? COLD ISCHEMIC TIME AND TOTAL FORMALIN FIXATIVE TIME AP PROPRIATE: Yes. CELLS WITH COMPLETE MEMBRANE STAINING: ??None. MEMBRANE STAINING INTENSITY: Faint. PARTIAL MEMBRANE STAINING: ??Present in 10% of cells. CYTOPLASMIC STAINING: Faint. STAINING PATTERN: Heterogeneous. STAINING IN BENIGN EPITHELIUM: Faint, Strong, Cytoplas meera. THE HER2 ASSAY PERFORMED IS INTERPRETED NEGATIVE. Description Tissue submitted: Paraffin embedded tissue block labelled [id number] (#2) from [facility]. Fixative: ??Formalin ??(This immunohistochemical assay is intended for paraffin-embedded tissue fix ed in 10% neutral buffered formalin for 6-72 hours; 18-24 hours with maximum tis griselda thickness of 3-4 millimeters is recommended for best assay performance. ??He r2 should not be performed on alcohol fixed tissues.) The assay was performed under appropriate conditions a ccording to the lining mechanic's instructions with appropriate assay and tissue controls using an Anti-Her2 (4B5) Rabbit Monoclonal Antibody ([place]ott). Her2 IHC Scoring Guidelines (invasive tumor component only) 0 ? negative ?No staining or membrane staining in less than 10% of cells 1+ ? negative ?Faint partial membrane staining in more than 10% of cells 2+ ? weakly positive ?Moderate complete membrane staining in more than 10% of cells 3+ ? positive ? Strong complete membrane staining in more than 10% of cells Reference: ??ASCO-CAP Recomm endations for Her2 Testing. J Clin Oncol 2013; epub (www.jco.org Aug 26, 2013) ? NOTE: ??One or more of the reagents used in imm unoperoxidase testing in this case may not have been cleared or approved by the U.S. Food and Drug Administration (FDA). ??The FDA has determined that such clearance or approval is not necessary. ??These tests are used for clinical purposes. ??They should not be regarded as investigational or for research. ??These r eagents' performance characteristics have been de termined by [facility] and/or by the referring labo lamar. ??The positive and negative controls worked appropriately. If immunopero xidase staining has been performed on alcohol fixed cytology specimens, which has not been fully validated , the assays should be interpreted with caution and correlated with clinical data. ??This laboratory is certified under the Clinical Laboratory Improvement Amendments of 1988 (CLIA-88) as qualified to perform high complexity clinical labor atory testing. Document reviewed and electronically signed by: ? SHAJI HOLDER MD ? Report date: 08/27/2018 By the signature above, the attending physician certif ies that he/she has personally conducted a gross and/or microscopic examin ation of the described specimens and rendered or confirmed the above diagnosi s. End of Report Specimen Performing Organization Address City/State/ZIP Code Phon e Number [facility] [address] [place] [address] SERVICES documented in this encounter Visit Diagnoses Not on filedocumented in this encounter Care Teams Recycle Worker Relationship Specialty Start Date End Date Tiffanie Garrett MD PCP - General 07/05/16 04/28/19 [address] [place], [place] [address] documented as of this encounter
--- OUTSIDE RECORDS SUMMARY | 2022-07-12 11:38 | XMS_ITS | Encounter Summary ---
:1950 Author Organization [facility] Address [address] [place] [address] Care Team Providers Name Role Phone Steve Barbour MD Primary Care Provider Unavailable Encounter Details Date Type Department Care Team Description 06/24/2014 Hospital Encounter [facility] - S Steve Barbour MD 1 [place] [address] Social History Tobacco Use Types Packs/Day Years Used Date Never Smoker Smokeless Tobacco: Never Used Alcohol Use Standard Drinks/Week Comments No 0 (1 standard drink = 0.6 oz pure alcoho l) Sex Assigned at Date Recorded Not on file documented as of this encounter Discharge Diagnoses Diagnosis V76.12 OTHER SCREENING MAMMOGRAM FOR MAL IGNANT NEOPLASM OF BREAST[ICD-9-CM] documented in this encounter Medications at Time [...] mouth 2 times daily . 0 02/25/2022 [place]-3 Fatty Acids (FISH Take 300 mg by [...] Telemedicine Hematology and Oncology Armando Martinez MD [address] [place] [address] [address] [id number] (Wo rk) 07/20/2022 Office Visit Surgical Oncology Rio Pearson DO 111 [facility], [facility] 2 [place], [place] [address] (Chula rk) 09/23/2022 Office Visit Dermatology Miriam Bentley MD 111 [facility], [facility] 5 [place], [place] [address] (Wo rk) documented as of this encounter Procedures Procedure Name Priority Date/Time Associated Diagnosis Comme nts MA 2D/3D BILATERAL 07/01/2015 8:49 EDT Re sults for this OMAR ROUTINE procedure are i n SCREENING MAMMO the results section. documented in this encounter Results MA 2D/3D BILATERAL OMAR ROUTINE SCREENING MAMMO (07/01/2015 8:49 EDT) Anatomical Region Laterality Modality Other Specimen Narrative [facility] - 07/01/2015 12:56 EDT Comparison has been made to previous images. Bilateral Breast Findings: (Routine digi nam views with CAD and 3D images with Tomosynthesis) The breasts are almost entirely fat (les s than 25% fibroglandular). No significant masses, calcifications or other [...] will contact your patient directly. Procedure Note Nimesh Mei MD - 07/01/2015 Comparison has been made to previous [facility] ges. Bilateral Breast Findings: (Routine digi nam views with CAD and 3D images with Tomosynthesis) The breasts are almost entirely fat (les s than 25% fibroglandular). No significant masses, calcifications or other [...] Organization Address City/State/ZIP Code Phon e Number [facility] documented in this encounter Visit Diagnoses Not on filedocumented in this encounter Care Teams Health Clinician Relationship Specialty Start Date End Date Steve Barbour MD PCP - General 08/12/09 documented as of this encounter
--- OUTSIDE RECORDS SUMMARY | 2022-07-12 11:38 | XMS_ITS | Encounter Summary ---
:1950 Author Organization [facility] Address [address] [place] [address] Care Team Providers Name Role Phone Juan Pablo Garrett MD Primary Care Provider Encounter Details Date Type Department Care Team Description 07/06/2016 Hospital Encounter [facility] - S Shivani Garrett Prospect MD [address] [address] [place] [address] (Wo rk) Social History Tobacco Use Types Packs/Day Years Used Date Never Smoker Smokeless Tobacco: Never Used Alcohol Use Standard Drinks/Week Comments No 0 (1 standard drink = 0.6 oz pure alcoho l) Sex Assigned at Date Recorded Not on file documented as of this encounter Discharge Diagnoses Diagnosis Z12.31 Encounter for screening mammogram for malignant neoplasm of breast-Z12.31[ICD-10-CM] documented in this encounter Medications at Time [...] mouth 2 times daily . 0 02/25/2022 [place]-3 Fatty Acids (FISH Take 300 mg by [...] Hematology and Oncology Armando Martinez MD [address] [place] [address] [address] [place] [address] (Wo rk) 07/20/2022 Office Visit Surgical Oncology Rio Pearson DO 111 [facility], [facility] 2 [place], [place] [address] (Wo rk) 09/23/2022 Office Visit Dermatology Miriam Bentley MD 111 [facility], Level 5 [place], [place] [address] (Wo rk) documented as of this encounter Visit Diagnoses Not on filedocumented in this encounter Care Teams Solution Coordinator Relationship Specialty Start Date End Date Juan Pablo Garrett MD PCP - General 07/05/16 04/28/[address] [place] [address] documented as of this encounter
--- OUTSIDE RECORDS SUMMARY | 2022-07-12 11:38 | XMS_ITS | Encounter Summary ---
:1950 Author Organization [facility] Address [address] [place] [address] Care Team Providers Name Role Phone Juan Pablo Garrett MD Primary Care Provider Reason for Visit Reason Onset Date Comments Follow-up 08/30/2018 Encounter Details Date Type Department Care Team Description 08/30/2018 Telephone [facility] WomenCarmita Zamarripa NP Follow-up Services - [facility] [address] [address] [place], [place], [place] [address] (Wo rk) Social History [...] Encounter - Carmita Roche ANP - 08/30/2018 1020 EDT 10:20 Left message to call. She is looking for surgeon for + breast biopsy but does not want a resident orstudent involved in care. documented in this encounter Plan of Treatment Upcoming Encounters Date Type Specialty Care Team Description 07/15/2022 Telemedicine Hematology and Oncology Armando Martinez MD [address] [facility] [address] [place], [place] [address] (Wo rk) 07/20/2022 Office Visit Surgical Oncology Rio Pearson DO 111 [facility], [facility] 2 [place], [place] [address] (Wo rk) 09/23/2022 Office Visit Dermatology Miriam Bentley MD 111 [facility], Level 5 [place], [place] [address] (Wo rk) documented as of this encounter Visit Diagnoses Not on filedocumented in this encounter Care Teams Scraper Hand Relationship Specialty Start Date End Date Juan Pablo Garrett MD PCP - General 07/05/16 04/28/19 [address] [place] [address] documented as of this encounter
--- OUTSIDE RECORDS SUMMARY | 2022-07-12 11:38 | XMS_ITS | Encounter Summary ---
:1950 Author Organization [facility] Address [address] [place] [address] Care Team Providers Name Role Phone Juan Pablo Garrett MD Primary Care Provider Reason for Visit Reason Onset Date Comments Other 09/13/2018 Encounter Details Date Type Department Care Team Description 09/13/2018 Telephone [facility] Surgical Kaur Betts, RN Other Oncology - [facility] [address] [place] [address] Social History Tobacco Use Types [...] encounter Miscellaneous Notes Telephone Encounter - Ingris Betts, RN - 09/13/2018 7873 EDT Spoke with Brittaney prior to her surgery tomorrow, 09/14/18. Relayed that it was recommended that she start Lovenox on the day following her surgery. She will have 10 days of this. Stated it has been ordered and she can pick it up in the [facility] Outpatient pharmacy on her way home. She can You Tube Lovenox for a video. She replied that her daughter is on this medication at present as is her neighbor. Either one can also assist her if needed. She voiced understanding. documented in this encounter Plan of Treatment Upcoming Encounters Date Type Specialty Care Team Description 07/15/2022 Telemedicine Hematology and Oncology Armando Martinez MD [address] [place] [address] [address] [place] [address] (Wo rk) 07/20/2022 Office Visit Surgical Oncology Rio Pearson DO 111 [facility], [facility] 2 [place], [place] [address] (Wo rk) 09/23/2022 Office Visit Dermatology Miriam Bentley MD 111 [facility], [facility] 5 [place], [place] [address] (Wo rk) documented as of this encounter Visit Diagnoses Not on filedocumented in this encounter Care Teams Medical Billing Service Relationship Specialty Start Date End Date Juan Pablo Garrett MD PCP - General 07/05/16 04/28/19 [address] [place] [address] documented as of this encounter
--- OUTSIDE RECORDS SUMMARY | 2022-07-12 11:38 | XMS_ITS | Encounter Summary ---
:1950 Author Organization [facility] Address [address] [place] [address] Care Team Providers Name Role Phone Juan Pablo Garrett MD Primary Care Provider Encounter Details Date Type Department Care Team Description 08/21/2018 Hospital Encounter [facility] - Rashawn Garrett, [facility] [address] [address] [place] [address] (Wo rk) Social History Tobacco Use Types [...] as of this encounter Discharge Diagnoses Diagnosis N64.89 Other specified disorders of chelsy st-N64.89[ICD-10-CM] [...] Hematology and Oncology Armando Martinez MD [address] [place] [address] [address] [place] [address] (Chula butts) 07/20/2022 Office Visit Surgical Oncology Rio Pearson DO 111 [facility], [facility] 2 [place], [place] [address] (Chula butts) 09/23/2022 Office Visit Dermatology Miriam Bentley MD 111 [facility], Level 5 [place], [place] [address] (Chula butts) documented as of this encounter Visit Diagnoses Not on filedocumented in this encounter Care Teams Agency Service Coordinator Relationship Specialty Start Date End Date Juan Pablo Garrett MD PCP - General 07/05/16 04/28/[address] [place] [address] documented as of this encounter
--- OUTSIDE RECORDS SUMMARY | 2022-07-12 11:38 | XMS_ITS | Encounter Summary ---
:1950 Author Organization [facility] Address [address] [place] [address] Care Team Providers Name Role Phone Steve Barbour MD Primary Care Provider Unavailable Encounter Details Date Type Department Care Team Description 07/01/2015 Hospital Encounter [facility] - S Markel Ya, TECHNICAL ACCOUNT MANAGER [place] 1 [place] [address] Social History Tobacco Use Types Packs/Day Years [...] mouth 2 times daily . 0 02/25/2022 [place]-3 Fatty Acids (FISH Take 300 mg by [...] Telemedicine Hematology and Oncology Armando Martinez MD [address] [place] [address] [address] (Wo rk) 07/20/2022 Office Visit Surgical Oncology Rio Pearson DO 111 [facility], [facility] 2 [place], [place] [address] (Wo rk) 09/23/2022 Office Visit Dermatology Miriam Bentley MD 111 [facility], [facility] 5 [place], [place] [address] (Wo rk) documented as of this encounter Visit Diagnoses Not on filedocumented in this encounter Care Teams Molasses Feed Mixer Relationship Specialty Start Date End Date Steve Barbour MD PCP - General 08/12/09 documented as of this encounter
--- OUTSIDE RECORDS SUMMARY | 2022-07-12 11:38 | XMS_ITS | Encounter Summary ---
:1950 Author Organization [facility] Address [address] [place] [address] Care Team Providers Name Role Phone Steve Barbour MD Primary Care Provider Unavailable Encounter Details Date Type Department Care Team Description 01/29/2014 Orders Only [facility] Jak Olivares MD Gastroenterology - [address] [address] Social History Tobacco Use Types Packs/Day Years Used Date Never Smoker Smokeless Tobacco: Never Used Alcohol Use Standard Drinks/Week Comments No 0 (1 standard drink = 0.6 oz pure alcoho l) Sex Assigned at Date Recorded Not on file documented as of this encounter Ordered Prescriptions Prescription Sig Dispensed Refills Start Date End Date Miscellaneous Medication Mylanta/viscous 1 Each 0 201306/11/2014 - See Admin Instructions lidocaine 2% in a 3:1 mixture. Take 5-10 ml every 1-2 hours as needed for throat or chest pain.. documented in this encounter Plan of Treatment Upcoming Encounters Date Type Specialty Care Team Description 07/15/2022 Telemedicine Hematology and Oncology Armando Martinez MD [address] [place] [address] [address] [place] [address] (Chula butts) 07/20/2022 Office Visit Surgical Oncology Rio Pearson DO 111 [facility], [facility], [facility] 2 [place], [place] [address] (Chula butts) 09/23/2022 Office Visit Dermatology Miriam Bentley MD 111 [facility], Level [address] [place], [place] [address] (Wo rk) documented as of this encounter Visit Diagnoses Not on filedocumented in this encounter Care Teams Cofounder Relationship Specialty Start Date End Date Steve Barbour MD PCP - General 08/12/09 documented as of this encounter
--- OUTSIDE RECORDS SUMMARY | 2022-07-12 11:38 | XMS_ITS | Encounter Summary ---
:1950 Author Organization [facility] Address [address] [place] [address] Care Team Providers Name Role Phone Juan Pablo Garrett MD Primary Care Provider Reason for Visit Reason Onset Date Comments Pre-procedure 09/10/2018 Antibiotic orders Encounter Details Date Type Department Care Team Description 09/10/2018 Pre-Procedure [facility] Ami Pearson neoplasm Orders Encounter Surgical Oncology - M, DO of central portion Main [place] [address] [place] of left female [address] breast, unspecified [facility], Main estrogen receptor [address] [place], Level 2 status ([facility]) [phone] [place], [place] (Primary Dx) [phone] Social History Tobacco Use Types Packs/Day Years [...] Hematology and Oncology Armando Martinez MD 130 [facility], [facility] [address] [place], [place] [address] (Wo rk) 07/20/2022 Office Visit Surgical Oncology Lili Rioniko Walsh DO 111 [facility], [facility], Level 2 [place], [place] [phone] (Wo rk) 09/23/2022 Office Visit Dermatology Miriam Bentley MD 111 [facility], [facility], Level 5 [place], [place] [phone] (Wo rk) documented as of this encounter Visit Diagnoses Diagnosis 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
--- OUTSIDE RECORDS SUMMARY | 2022-07-12 11:38 | XMS_ITS | Encounter Summary ---
:1950 Author Organization [facility] Address [address] [place] [address] Care Team Providers Name Role Phone Steve Barbour MD Primary Care Provider Unavailable Encounter Details Date Type Department Care Team Description 06/10/2014 Orders Only [email or web address] Elvin Veronica de ficiency Hematology & Oncology MD Jennifer anemia, unspecified - [address] (Primary Dx) [address] [place] [address] [facility] [phone] [phone] (Wo rk) Social History Tobacco Use Types [...] Hematology and Oncology Armando Martinez MD [address] [place] [address], [facility] [address] [place], [place] [phone] (Wo rk) 07/20/2022 Office Visit Surgical Oncology Rio Pearson DO [address] [place] [facility] [address] [phone] (Wo rk) 09/23/2022 Office Visit Dermatology Miriam Bentley MD 111 [facility], [facility], Level 5 [place], [place] [phone] (Wo rk) documented as of this encounter Results FERRITIN (06/11/2014 10:05 EDT) Pathologist Sig nature Ferritin 12 10 - 291 ng/mL [facility] Specimen Blood specimen (specimen) Performing Organization Address City/State/[facility] Code Phon e Number [facility] [address] [place] [address] SERVICES [facility] [address] [place] [address] documented in this encounter Visit Diagnoses Diagnosis Iron deficiency anemia, unspecified - Pr imary documented in this encounter Orders Lab Orders Without Results Count Last Ordered Date Fir st Ordered Date HEMAGRAM 1 06/10/2014 documented in this encounter Care Teams Evidence Specialist Relationship Specialty Start Date End Date Steve Barbour MD PCP - General 08/12/09 documented as of this encounter
--- OUTSIDE RECORDS SUMMARY | 2022-07-12 11:38 | XMS_ITS | Encounter Summary ---
:1950 Author Organization [facility] Address [address] [place] [address] Care Team Providers Name Role Phone Juan Pablo Garrett MD Primary Care Provider Reason for Referral Radiology Services (Routine) - New Request Specialty Diagnoses / Procedures Referred By Contact Refer red To Contact Diagnoses Malignant neoplasm of central portion of left breast in female, estrogen receptor positive (HCC-CMS) ([facility]) Ami Pearson, DO Procedures NM INJECTION ONLY SENTINAL NODE BREAST [address] [phone] Referral ID Status Reason Start Date Expiration Date Visits V isits Requested Authorized [id number] New Request 09/11/2018 1 1 adiology Services (Routine) - New Request Specialty Diagnoses / Procedures Referred By Contact Refer red To Contact Diagnoses Malignant neoplasm of central portion of left breast in female, estrogen receptor positive (HCC-CMS) ([facility]) Ami Pearson, DO Procedures MA NEEDLE LOC [address] [phone] Referral ID Status Reason Start Date Expiration Date Visits V isits Requested Authorized [id number] New Request 09/11/2018 1 1 adiology Services (Routine) - New Request Specialty Diagnoses / Procedures Referred By Contact Refer red To Contact Diagnoses Malignant neoplasm of central portion of left breast in female, estrogen receptor positive ([facility]) ([facility]) Ami Pearson DO Procedures MA BREAST SPECIMEN 111 [facility], [facility], [facility] 2 [place] [address] Referral ID Status Reason Start Date Expiration Date Visits V isits Requested Authorized [id number] New Request 09/11/2018 1 1 Reason for Visit Reason Onset Date Comments Follow-up 09/04/2018 nuc med injection an d needle loc Encounter Details Date Type Department Care Team Description 09/04/2018 Orders Only [facility] Ami Pearson Ma lignant neoplasm of Surgical Oncology - DO central portion of [facility] [address] [place] left breast in [address] [place] [address] female, estrogen [place], [place] [phone] [place] [address], [facility] receptor positive [phone] [place], [facility] 2 ([facility]) (Primary [place], [place] Dx) [phone] (Wo rk) Social History [...] Hematology and Oncology Armando Martinez MD [address] [place] [address] [address] [place], [place] [address] (Wo rk) 07/20/2022 Office Visit Surgical Oncology Rio Pearson DO [address] [place] [facility], [facility], Level 2 [place], [place] [phone] (Wo rk) 09/23/2022 Office Visit Dermatology Miriam Bentley MD [address] [place] [address] [facility], Level 5 [place], [place] [phone] (Wo rk) documented as of this encounter Procedures Procedure Name Priority Date/Time Associated Diagnosis Comme nts MA BREAST SPECIMEN Routine 09/14/2018 12:22 Malignant neoplasm Results for this EDT of central portion procedure are in of left breast in the result s female, estrogen section. receptor positive (HCC-CMS) NM INJECTION ONLY Routine 09/14/2018 11:16 Malignant neoplasm Results for this SENTINAL NODE EDT of central portion procedur e are in BREAST of left breast in the result s female, estrogen section. receptor positive (HCC-CMS) MA NEEDLE LOC Routine 09/14/2018 8:45 EDT Malignant neoplasm R esults for this of central portion procedure are in of left breast in the result s female, estrogen section. receptor positive (HCC-CMS) documented in this encounter Results MA BREAST SPECIMEN (09/14/2018 12:22 EDT) Anatomical Region Laterality Modality Other Specimen Narrative [facility] - 09/14/2018 15:48 EDT Addendum Begins Addendum: This is an addendum to the nee dle localization performed by Dr. Corbin on 09/14/2018. Imaging findi ngs and final pathology was reviewed by Dr. Alvarez. The pathology demonstrates invasive adenocarcinoma, ductal type with tubular features, well differentiated. Lymphovascular invasion is not identified. Surgical margins are negative. These findings are malignant and concordant. Dr. Pearson will call the patient to info rm her of the findings and follow-up recommendations. Addendum Ends MA BREAST SPECIMEN ??09/14/2018 12:22 PM Clinical History/Comments: architectural distortion upper outer kassidy drant per radiologist-C50.112-Malignant neoplasm o f central portion of left female breast ([facility])-ICD-10 Z17.0-Est rogen receptor positive status (ER+)-ICD-10; new left breast can cer Findings: A specimen from the left breast was rece ived from the operating room and imaged in 2 orthogonal planes. The s pecimen contains the clip as well as the mass with architectural dist ortion; it is fairly centrally located within the specimen. T here are couple of calcifications as well. Dr. Corbin relayed these findings to Dr. Dhiraj hargrove in the operating room on 09/14/2018 at 12:17 hours. Portions of this document may have bee n prepared using voice recognition software or keyboard data en try. ??Minor irregularities or keyboard misprints may be present. Procedure Note Noelle Corbin MD / Lizeth Alvarez MD - 09/21/2018 Addendum Begins Addendum: This is an addendum to the nee dle localization performed by Dr. Corbin on 09/14/2018. Imaging findi ngs and final pathology was reviewed by Dr. Alvarez. The pathology demonstrates invasive adenocarcinoma, ductal type with tubular features, well differentiated. Lymphovascular invasion is not identified. Surgical margins are negative. These findings are malignant and concordant. Dr. Pearson will call the patient to info rm her of the findings and follow-up recommendations. Addendum Ends MA BREAST SPECIMEN 09/14/2018 12:22 PM Clinical History/Comments: architectural distortion upper outer kassidy drant per radiologist-C50.112-Malignant neoplasm o f central portion of left female breast ([facility])-ICD-10 Z17.0-Est rogen receptor positive status (ER+)-ICD-10; new left breast can cer Findings: A specimen from the left breast was rece ived from the operating room and imaged in 2 orthogonal planes. The s pecimen contains the clip as well as the mass with architectural dist ortion; it is fairly centrally located within the specimen. T here are couple of calcifications as well. Dr. Corbin relayed these findings to Dr. Dhiraj hargrove in the operating room on 09/14/2018 at 12:17 hours. Portions of this document may have bee n prepared using voice recognition software or keyboard data en try. Minor irregularities or keyboard misprints may be present. Performing Organization Address City/State/ZIP Code Phon e Number [facility] NM INJECTION ONLY SENTINAL NODE BREAST (09/14/2018 11:16 EDT) Anatomical Region Laterality Modality Other Specimen Narrative [facility] - 09/17/2018 12:52 EDT Clinical History/Comments: Left BR CA. Comparison: None. 1 mCi Tc-99m Sulfur Colloid was injected around the breast tumor. In addition, 0.2 mCi Tc-99m Sulfur Colloid was injected subdermally over the breast tumor.? No images were o btained. ?? Procedure Note Perry Banks MD - 09/17/2018 Clinical History/Comments: Left BR CA. Comparison: None. 1 mCi Tc-99m Sulfur Colloid was injected around the breast tumor. In addition, 0.2 mCi Tc-99m Sulfur Colloid was injected subdermally over the breast tumor.? No images were o btained. Performing Organization Address City/State/ZIP Code Phon e Number [facility] MA NEEDLE LOC (09/14/2018 8:45 EDT) Anatomical Region Laterality Modality Other Specimen Narrative [facility] - 09/14/2018 11:22 EDT MA NEEDLE LOC ??09/14/2018 8:45 AM Clinical History/Comments: architectural distortion upper outer kassidy drant per radiologist--C50.112-Malignant neoplasm of central portion of left female breast (HCC-CMS)-ICD-10 Z17.0-Est rogen receptor positive status (ER+)-ICD-10; new left breast can cer Comparisons: Mammograms dated August 21, 2018, Julem 2017, July 27, 2018. Procedure: Written and verbal informed consents wer e obtained for a left mammographic guided needle localization. ??Informed consent was obtained for mammographic guided needle localization procedure of the clip. The risks, benefits and altern atives were discussed with the patient. Proper identity and site ve rification were obtained. The patient was placed in the mammograph ic crosshair localization device for approach from the craniocauda l direction. The clip was localized using an alphanum kitty grid and coordinates were obtained and the target was marked on the patient's skin according to established site marking pr ocedure. A safety timeout was performed. The skin was cleansed wit h Betadine. 3 cc of 1% buffered lidocaine was used for local an esthesia. ??A [place] Mammalok ?? 7.5 ??cm needle was inserted, and an ort hogonal view was obtained. The J-wire was deployed. The tip of the needle is 16 mm beyond the clip. ??The patient will be seen subsequ ently by Dr. Pearson for surgical excision. The patient tolerated the procedure well and experienced no immediate complications. She was transpo rted to the surgical suite in good condition. [facility] Pearson in the OR. Impression: Technically successful mammographic wire localization of the clip in the left breast. Pathology is pending. ??Dr. Pearson will notify the patient of the results. ??Further work up and treatment will be as per Dr. Pearson. Procedure Note Nyla Martinez MD - 09/14/2018 MA NEEDLE LOC 09/14/2018 8:45 AM Clinical History/Comments: architectural distortion upper outer kassidy drant per radiologist--C50.112-Malignant neoplasm of central portion of left female breast (HCC-CMS)-ICD-10 Z17.0-Est rogen receptor positive status (ER+)-ICD-10; new left breast can cer Comparisons: Mammograms dated August 21, 2018, 2017, July 27, 2018. Procedure: Written and verbal informed consents wer e obtained for a left mammographic guided needle localization. Informed consent was obtained for mammographic guided needle localization procedure of the clip. The risks, benefits and altern atives were discussed with the patient. Proper identity and site ve rification were obtained. The patient was placed in the mammograph ic crosshair localization device for approach from the craniocauda l direction. The clip was localized using an alphanum kitty grid and coordinates were obtained and the target was marked on the patient's skin according to established site marking pr ocedure. A safety timeout was performed. The skin was cleansed wit h Betadine. 3 cc of 1% buffered lidocaine was used for local an esthesia. A [place] Mammalok 7.5 cm needle was inserted, and an ortho gonal view was obtained. The J-wire was deployed. The tip of the needle is 16 mm beyond the clip. The patient will be seen subsequen tly by Dr. Pearson for surgical excision. The patient tolerated the procedure well and experienced no immediate complications. She was transpo rted to the surgical suite in good condition. Images were annotated and sent to the [facility] for review by Dr. Pearson in the OR. Impression: Technically successful mammographic wire localization of the clip in the left breast. Pathology is pending. Dr. Pearson will no tify the patient of the results. Further work up and treatment w ill be as per Dr. Pearson. Performing Organization Address City/State/ZIP Code Phon e Number [facility] [place] documented in this encounter Visit Diagnoses Diagnosis Malignant neoplasm of central portion of left breast in female, estrogen receptor positive (HCC-CMS) (HCC) - Primary documented in this encounter Care Teams Maltster Relationship Specialty Start Date End Date Juan Pablo Garrett MD PCP - General 07/05/16 04/28/19 [address] [place] [address] documented as of this encounter
--- OUTSIDE RECORDS SUMMARY | 2022-07-12 11:38 | XMS_ITS | Encounter Summary ---
:1950 Author Organization [facility] Address [address] [place] [address] Care Team Providers Name Role Phone Steve Barbour MD Primary Care Provider Unavailable Reason for Visit Reason Onset Date Comments Labs Only 02/10/2014 Encounter Details Date Type Department Care Team Description 02/10/2014 Orders Only [facility] Noni Phillips, Jamison erozygous factor V Leiden mutation (CMS-HCC) (Primary Dx); Hematology & RN Anemia, unspecified Oncology - Main [address] [place] [address] [address] [place], [place] [address] Social History Tobacco Use Types Packs/Day Years Used Date Never Smoker Smokeless Tobacco: Never Used Alcohol Use Standard Drinks/Week Comments No 0 (1 standard drink = 0.6 oz pure alcoho l) Sex Assigned at Date Recorded Not on file documented as of this encounter Plan of Treatment Upcoming Encounters Date Type Specialty Care Team Description 07/15/2022 Telemedicine Hematology and Oncology Armando Martinez MD [address] [place] [address] [address] (Wo rk) 07/20/2022 Office Visit Surgical Oncology Rio Pearson DO 111 [facility], [facility] 2 [place], [place] [phone] (Wo rk) 09/23/2022 Office Visit Dermatology Miriam Bentley MD 111 [facility], Level [address] [place], [place] [phone] (Wo rk) documented as of this encounter Results FERRITIN (02/10/2014 14:46 EDT) Pathologist Sig nature Ferritin 20 10 - 291 ng/mL [facility] Specimen Blood specimen (specimen) Performing Organization Address City/State/ZIP Code Phon e Number [facility] [address] [place] [address] SERVICES [facility] [address] [place] [address] documented in this encounter Visit Diagnoses Diagnosis Heterozygous factor V Leiden mutation (H CC-CMS) (HCC) - Primary Primary hypercoagulable state Anemia, unspecified documented in this encounter Care Teams Marketing Development Representative Relationship Specialty Start Date End Date Steve Barbour MD PCP - General 08/12/09 documented as of this encounter
--- OUTSIDE RECORDS SUMMARY | 2022-07-12 11:38 | XMS_ITS | Encounter Summary ---
:1950 Author Organization [facility] Address [address] [place] [address] Care Team Providers Name Role Phone Steve Barbour MD Primary Care Provider Unavailable Encounter Details Date Type Department Care Team Description 01/08/2014 Phlebotomy Only [facility] Jr. Systems Administrator, Iron deficiency - [facility] Outpatient anemia, unspecified [address] [place], [place] [phone] Social History Tobacco Use Types Packs/Day Years [...] Hematology and Oncology Armando Martinez MD [address] [place] [address] [address] [place], [place] [phone] (Wo rk) 07/20/2022 Office Visit Surgical Oncology Rio Pearson DO 111 [facility], [facility] 2 [place], [place] [phone] (Wo rk) 09/23/2022 Office Visit Dermatology Miriam Bentley MD 111 [facility], [facility] 5 [place], [place] [address] (Wo rk) documented as of this encounter Procedures Procedure Name Priority Date/Time Associated Comments Diagnosis IBC Routine 01/08/2014 17:33 Iron deficiency Results for this EST anemia, unspecified procedur e are in the results section. HELICOBACTER PYLORI Routine 01/08/2014 17:33 Iron deficiency R esults for this IGG ANTIBODY EST anemia, unspecified procedur e are in the results section. DIFFERENTIAL Routine 01/08/2014 17:33 Iron deficiency Results for this EST anemia, unspecified procedur e are in the results section. COMPLETE BLOOD COUNT Routine 01/08/2014 17:33 Iron deficiency Results for this EST anemia, unspecified procedur e are in the results section. COMPLETE BLOOD COUNT Routine 01/08/2014 17:33 Iron deficiency AND DIFFERENTIAL EST anemia, unspecified IRON Routine 01/08/2014 17:33 Iron deficiency Results for this EST anemia, unspecified procedur e are in the results section. FERRITIN Routine 01/08/2014 17:33 Iron deficiency Results for this EST anemia, unspecified procedur e are in the results section. COMPREHENSIVE Routine 01/08/2014 17:33 Iron deficiency Results for this METABOLIC PANEL (CMP) EST anemia, unspecified procedure are in the results section. documented in this encounter Results (ABNORMAL) DIFFERENTIAL (01/08/2014 17:33 EST) Pathologist Sig nature Neutrophils 71.3 45.5 - 79.7 % [facility] Lymphocytes 17.9 15.0 - 46.8 % [facility] Monocytes 8.6 1.8 - 12.0 % [facility] Eosinophils 1.4 0.6 - 6.9 % [facility] Basophils 0.8 0.2 - 1.4 % [facility] ABS Neutrophils 8.52 2.20 - 8.85 K/cmm [facility] ABS Lymphs 2.14 1.09 - 3.30 K/cmm [facility] ABS Monocytes 1.03 (H) 0.1 - 0.8 K/cmm [facility] ABS Eosinophils 0.17 0.03 - 0.61 K/cmm [facility] ABS Basophils 0.10 0.01 - 0.11 K/cmm [facility] Type of Diff: Automated [facility] Specimen Performing Organization Address City/State/ZIP Code Phon e Number [facility] [address] [place] [address] SERVICES [facility] [address] [place] [address] (ABNORMAL) HEMAGRAM (01/08/2014 17:33 EST) Pathologist Sig nature WBC 11.97 4.0 - 12.4 K/cmm [facility] RBC 4.00 3.86 - 5.04 M/cmm [facility] Hemoglobin 9.6 (L) 11.6 - 15.2 gm/dl [facility] HCT 30.4 (L) 34.9 - 44.4 % [facility] MCV 76 (L) 81 - 98 fl [facility] MCH 23.9 (L) 26.7 - 33.3 pg [facility] MCHC 31.5 (L) 32.1 - 35.9 gm/dl [facility] PLT 444 (H) 141 - 320 K/cmm [facility] RDW-CV 20.0 (H) 11.7 - 14.6 % [facility] Specimen Performing Organization Address City/[facility]/ZIP Code Phon e Number [facility] [address] [place] [address] SERVICES [facility] [address] [place] [address] (ABNORMAL) IRON (01/08/2014 17:33 EST) Pathologist Sig nature Iron 31 (L) 60 - 180 ug/dl [facility] Specimen Blood specimen (specimen) Performing Organization Address City/State/ZIP Code Phon e Number [facility] [address] [place] [address] SERVICES [facility] [address] [place] [address] (ABNORMAL) IBC (01/08/2014 17:33 EST) Pathologist Sig nature TIBC 513 (H) 265 - 497 ug/dl [facility] Specimen Blood specimen (specimen) Performing Organization Address City/[facility]/ZIP Code Phon e Number [facility] [address] [place] [address] SERVICES [facility] [address] [place] [address] (ABNORMAL) FERRITIN (01/08/2014 17:33 EST) Pathologist Sig nature Ferritin 9 (L) 10 - 291 ng/mL [facility] Specimen Blood specimen (specimen) Performing Organization Address City/[facility]/ZIP [facility] Phon e Number [facility] [address] [place] [address] SERVICES [facility] [address] [place] [address] (ABNORMAL) COMPREHENSIVE METABOLIC PANEL (CMP) (01/08/2014 17:33 [...] Specimen Blood specimen (specimen) Performing Organization Address City/[facility]/ZIP Code Phon e Number [facility] [address] [place] [address] SERVICES [facility] [address] [place] [address] HELICOBACTER PYLORI IGG ANTIBODY (01/08/2014 17:33 EST) H. Pylori IgG Ab NegativeComment: [facility] Assayed utilizing the [employer] system. Specimen Blood specimen (specimen) Performing Organization Address City/[facility]/ZIP Code Phon e Number [facility] [address] [place] [address] SERVICES [facility] [address] [place] [address] documented in this encounter Visit Diagnoses Diagnosis Iron deficiency anemia, unspecified documented in this encounter Care Teams Application Defense Manager Relationship Specialty Start Date End Date Steve Barbour MD PCP - General 08/12/09 documented as of this encounter
--- OUTSIDE RECORDS SUMMARY | 2022-07-12 11:38 | XMS_ITS | Encounter Summary ---
:[address] [facility] Address [address] [place] [address] Care Team Providers Name Role Phone Steve Barbour MD Primary Care Provider Unavailable Juan Pablo Garrett MD Primary Care Provider None, Provider Primary Care Provider Unavailable Juan Pablo Garrett MD Primary Care Provider Unknown, Provider Primary Care Provider Jaimie Delgado Primary Care Provider Encounter Details Date Type Department Care Team Description 01/09/2014 Telephone [facility] Miriam Veronica MD Hematology & Oncology - 111 [facility], [address] [place], [place] [phone] [place] [phone] (Wo rk) Social History Tobacco Use Types Packs/Day Years Used Date Never Smoker Smokeless Tobacco: Never Used Alcohol Use Standard Drinks/Week Comments No 0 (1 standard drink = 0.6 oz pure alcoho l) Sex Assigned at Date Recorded Not on file documented as of this encounter Miscellaneous Notes Telephone Encounter - Sridevi Ramirez - 01/09/2014 1118 EST 01/09/14@11:20AM: Spoke with patient. Patient scheduled for four week follow up. Patient scheduled for February 10 at 4 pm. Patient advised to check in at 3:30 pm for lab work. Patient confirmed appointment date and time. documented in this encounter Plan of Treatment Upcoming Encounters Date Type Specialty Care Team Description 07/15/2022 Telemedicine Hematology and Oncology Armando Martinez MD 130 [facility] [address] [place], [place] [address] (Wo rk) 07/20/2022 Office Visit Surgical Oncology Rio Pearson DO 111 [facility], [facility], [facility] 2 [place], [place] [phone] (Wo rk) 09/23/2022 Office Visit Dermatology Miriam Bentley MD 111 [facility], [facility] 5 [place], [place] [phone] (Wo rk) documented as of this encounter Visit Diagnoses Not on filedocumented in this encounter Care Teams Weigher And Charger Relationship Specialty Start Date End Date Steve Barbour MD PCP - General 08/12/09 Juan Pablo Garrett MD PCP - General 07/05/16 04/28/19 [address] [place], [place] [phone] None, Provider PCP - General 04/29/19 04/29/19 Juan Pablo Garrett MD PCP - General 04/30/19 06/21/[address] [place], [place] [phone] Unknown, Provider, PCP - General 08/13/21 08/17/21 Jaimie Delgado PCP - General Internal Medicine - 08/18/21 [address] [place] [place] [address] documented as of this encounter
--- OUTSIDE RECORDS SUMMARY | 2022-07-12 11:39 | XMS_ITS | Encounter Summary ---
:1950 Author Organization [facility] Address [address] [place] [address] Care Team Providers Name Role Phone Unavailable Primary Care Provider Unavailable Encounter Details Date Type Department Care Team Description 01/11/2005 Hospital Encounter [facility] - Joaquina Ya FNP Other [address] [place] [address] Social History Tobacco Use Types Packs/Day Years Used Date Never Assessed Sex Assigned at Date Recorded Not on file documented as of this encounter Discharge Disposition Disposition Code Departure Means Destination Auto Discharge documented in this encounter Plan of Treatment Upcoming Encounters Date Type Specialty Care Team Description 07/15/2022 Telemedicine Hematology and Oncology Armando Martinez MD [address] [place] [address] [phone] (Wo rk) 07/20/2022 Office Visit Surgical Oncology Rio Pearson DO 111 [place] 2 [place], [place] [phone] (Wo rk) 09/23/2022 Office Visit Dermatology Miriam Bentley MD 111 [facility] 5 [place] [phone] (Wo rk) documented as of this encounter Procedures Procedure Name Priority Date/Time Associated Diagnosis Comme nts KHUSHI MAMMO SCREENING Routine 01/11/2005 15:53 Resul ts for this DIGITAL EST procedure are i n the results section. documented in this encounter Results MA MAMMO SCREENING DIGITAL (01/11/2005 15:53 EST) Anatomical Region Laterality Modality Other Specimen Impressions [facility] - 07/24/2009 12 :40 EDT IMPRESSION: BILATERAL BREASTS - CATEGORY 1 Negative, no evidence of malignancy. Nor mal interval follow-up is recommended in 12 months. OVERALL ASSESSMENT - NEGATIVE END OF IMPRESSION Narrative [facility] - 07/24/2009 12 :40 EDT ROUTINE ?? HX LT BR NODULE 12:00 [PCP POLINA PEREZ, SPENCER MAO] Comparison is made to films from 004, 10-31-2002, and 10-29-2001. Bilateral Breast Findings (CAD used to i nterpret routine digital projection): There are scattered fibroglandular densi ties. No significant masses, calcifications or other abnormalities ar e seen. Procedure Note Mia Zarco MD - 07/24/2009 ROUTINE HX LT BR NODULE 12:00 [PCP POLINA PEREZ, SPENCER MAO] Comparison is made to films from 004, 10-31-2002, and 10-29-2001. Bilateral Breast Findings (CAD used to i nterpret routine digital projection): There are scattered fibroglandular densi ties. No significant masses, calcifications or other abnormalities ar e seen. IMPRESSION IMPRESSION: BILATERAL BREASTS - CATEGORY 1 Negative, no evidence of malignancy. Nor mal interval follow-up is recommended in 12 months. OVERALL ASSESSMENT - NEGATIVE END OF IMPRESSION Performing Organization Address City/State/ZIP Code Phon e Number [facility] 111 [facility] [address] [facility] [address] [place], [place] [address] documented in this encounter Visit Diagnoses Not on filedocumented in this encounter
--- OUTSIDE RECORDS SUMMARY | 2022-07-12 11:39 | XMS_ITS | Encounter Summary ---
:[address] [facility] Address [address] [place] [address] Care Team Providers Name Role Phone Steve Barbour MD Primary Care Provider Unavailable Juan Pablo Garrett MD Primary Care Provider None, Provider Primary Care Provider Unavailable Juan Pablo Garrett MD Primary Care Provider Unknown, Provider Primary Care Provider Jaimie Delgado Primary Care Provider Encounter Details Date Type Department Care Team Description 09/29/2000 Hospital Encounter [facility] - Amisha Osborne MD Other Unknown, Provider, [address] [place], [place] [phone] Social History Tobacco Use Types Packs/Day Years [...] / COVID-19? documented as of this encounter Plan of Treatment Upcoming Encounters Date Type Specialty Care Team Description 07/15/2022 Telemedicine Hematology and Oncology Armando Martinez MD [address] [place] [address] [address] [place] [address] (Wo rk) 07/20/2022 Office Visit Surgical Oncology Rio Pearson DO 111 [facility], [address] [place], [place] [phone] (Wo rk) 09/23/2022 Office Visit Dermatology Miriam Bentley MD 111 [facility], [address] [place], [place] [phone] (Wo rk) documented as of this encounter Procedures Procedure Name Priority Date/Time Associated Diagnosis Comme nts CYTOPATHOLOGY Routine 09/29/2000 0:00 EST Results for this procedure are i n the results section . documented in this encounter Results CYTOPATHOLOGY (09/29/2000 0:00 EST) Pathology Report: CYTOPATHOLOGY REPORT [facility] Reports generated via electronic interface contain yenifer ginal data; however they are lacking the format of the original re port. Caution should be taken when reading/interpreting unfo rmatted reports. Name: ? BRITTANEY GRULLON ? Accession #: ? [id number] : ? 1950 (Age: 50) ??F ?Collect Date: ? 09/20 Location: ? [facility] ? Receive Date : ? 10/03/2000 Provider: ?AMISHA OSBORNE MD Copy to: ? Specimen/Source: ?ThinPrep Pap Test, Cervix/ Endocervix Last Menstrual Period: ? 09/21/00 Previous Gynecologic Pathology: ? ASC-US ? SPECIMEN ADEQUACY ? Satisfactory for evaluation. GENERAL CATEGORIZATION ? Epithelial Cell Abnormality DESCRIPTIVE DIAGNOSIS ? Atypical squamous jennifer ls of undetermined significance (ASCUS), cannot rule out squamous intraepithelial lesion (TODD). RECOMMENDATION ? Recommend clinical correlation and further eval uation, as clinically indicated. ? Document reviewed and electronically signed by: ? BRIGIDA SPRING MD [facility] ? Report Date: ??10/20/2000 10:51 End of Report Specimen Performing Organization Address City/State/ZIP Code Phon e Number [facility] [address] [place] [address] SERVICES [facility] [address] [place] [address] documented in this encounter Visit Diagnoses Not on filedocumented in this encounter Care Teams Stock Lifter Relationship Specialty Start Date End Date Steve Barbour MD PCP - General 08/12/09 Juan Pablo Garrett MD PCP - General 07/05/16 04/28/19 [address] [place], [place] [phone] None, Provider PCP - General 04/29/19 04/29/19 Juan Pablo Garrett MD PCP - General 04/30/19 06/21/21 [address] [place] [place] [address] Unknown, Provider, PCP - General 08/13/21 08/17/21 Jaimie Delgado PCP - General Internal Medicine - 08/18/[address] Primary Care [place], [place] [phone] documented as of this encounter
--- OUTSIDE RECORDS SUMMARY | 2022-07-12 11:39 | XMS_ITS | Encounter Summary ---
:1950 Author Organization [facility] Address [address] [place] [address] Care Team Providers Name Role Phone Steve Barbour MD Primary Care Provider Unavailable Encounter Details Date Type Department Care Team Description 03/15/2006 Results Only [facility] Kaia Friedman FNP Services - [address] [phone] Social History Tobacco Use Types Packs/Day Years Used Date Never Assessed Sex Assigned at Date Recorded Not on file documented as of this encounter Plan of Treatment Upcoming Encounters Date Type Specialty Care Team Description 07/15/2022 Telemedicine Hematology and Oncology Armando Martinez MD [address] [place] [address] [phone] (Wo rk) 07/20/2022 Office Visit Surgical Oncology Rio Pearson DO 111 [facility] 2 [place], [place] [phone] (Wo rk) 09/23/2022 Office Visit Dermatology Miriam Bentley MD 111 [facility], [facility] 5 [place], [place] [phone] (Wo rk) documented as of this encounter Procedures Procedure Name Priority Date/Time Associated Diagnosis Comme nts CYTOPATHOLOGY Routine 03/15/2006 0:00 EDT Results for this procedure are i n the results section . documented in this encounter Results CYTOPATHOLOGY (03/15/2006 0:00 EDT) Pathology Report: CYTOPATHOLOGY REPORT [facility] Reports generated via electronic interface contain yenifer ginal data; however they are lacking the format of the original re port. Caution should be taken when reading/interpreting unfo rmatted reports. Name: ? IMELDA, BRITTANEY Viviane ? Accession #: ? [id number] : ? 1950 (Age: 56) ??F ?Collect Date: ? 02/19 Location: ? [facility] ? Receive Date : ? 03/16/2006 Provider: ?KAIA [facility] Copy to: ? Specimen/Source: ? ThinPrep Pap Test, Cervix/Endocervix, processed on [employer] ThinPrep Imaging System, with manual evaluation Last Menstrual Period: ? 11/23 Previous Gynecologic Pathology: ? Yes Other: ? HPVA - HPV testing requested if ASC-US on the current ThinPrep Pap test. ? SPECIMEN ADEQUACY ? Satisfactory for Evaluation - transformation zone component present GENERAL CATEGORIZATION ? Epithelial Cell Abnormality INTERPRETATION ? Squamous Cell Abnormality - Atypical squamous c ells, undetermined significance. EDUCATIONAL NOTES/RECOMMENDATIONS ? [facility] recommends mariam pratt the 2001 Consensus Guidelines for the Management of Women with Cervical Cytological Abnormalities (JAM Kurtis,2002;287:2120-9). Management algorithms have b een distributed by [facility] and are available online at www.ASCCP.org. ? Document reviewed and electronically signed by: ? SANJU JAFFE MD ? Report Date: ??03/21/2006 14:41 End of Report Specimen Performing Organization Address City/State/ZIP Code Phon e Number [facility] [address] [place] [address] SERVICES [facility] [address] [place] [address] documented in this encounter Visit Diagnoses Not on filedocumented in this encounter Care Teams Regional Sales Consultant Relationship Specialty Start Date End Date Steve Barbour MD PCP - General 08/12/09 documented as of this encounter
--- OUTSIDE RECORDS SUMMARY | 2022-07-12 11:39 | XMS_ITS | Encounter Summary ---
:1950 Author Organization [facility] Address [address] [place] [address] Care Team Providers Name Role Phone Steve Barbour MD Primary Care Provider Unavailable Encounter Details Date Type Department Care Team Description 06/26/2012 Hospital Encounter [facility] Lisbet Roberts MD [phone] [place] [address] Social History Tobacco Use Types Packs/Day Years Used Date Never Assessed Sex Assigned at Date Recorded Not on file documented as of this encounter Medications at Time of Discharge Medication Sig Dispensed Refills Start Date End Date ALBUTEROL INHL Inhale 2 Inhalers as directed as needed (Rarely) . 0 FLUTICASONE/SALMETEROL Inhale as directed. 0 12/16/2013 (ADVAIR HFA INHL) MONTELUKAST SODIUM Take by mouth daily. 0 12/16/2013 (SINGULAIR ORAL) MULTIVITAMINS Take by mouth. 0 014 (MULTIVITAMIN ORAL) documented as of this encounter Discharge Disposition Disposition Code Departure Means Destination Auto Discharge Home documented in this encounter Plan of Treatment Upcoming Encounters Date Type Specialty Care Team Description 07/15/2022 Telemedicine Hematology and Oncology Armando Martinez MD [address] [place] [address] [address] [place] [phone] (Wo rk) 07/20/2022 Office Visit Surgical Oncology Rio Pearson, DO 111 [facility] [place] [facility], [facility], [address] [place], [place] [phone] (Wo rk) 09/23/2022 Office Visit Dermatology Miriam Bentley MD 111 [facility], [address] [place], [place] [phone] (Wo rk) documented as of this encounter Visit Diagnoses Not on filedocumented in this encounter Care Teams Buffer Inflated Pad Relationship Specialty Start Date End Date Steve Barbour MD PCP - General 08/12/09 documented as of this encounter
--- OUTSIDE RECORDS SUMMARY | 2022-07-12 11:39 | XMS_ITS | Encounter Summary ---
:1950 Author Organization [facility] Address [address] [place] [address] Care Team Providers Name Role Phone Steve Barbour MD Primary Care Provider Unavailable Encounter Details Date Type Department Care Team Description 09/16/2009 Abstract Used for ABSTRACTING Data Steve Barbour, Social History Tobacco Use Types Packs/Day Years Used Date Never Assessed Sex Assigned at Date Recorded Not on file documented as of this encounter Plan of Treatment Upcoming Encounters Date Type Specialty Care Team Description 07/15/2022 Telemedicine Hematology and Oncology Armando Martinez MD [address] [place] [address] [address] [place] [address] (Wo rk) 07/20/2022 Office Visit Surgical Oncology Rio Pearson DO 111 [facility] 2 [place], [place] [phone] (Wo rk) 09/23/2022 Office Visit Dermatology Miriam Bentley MD 111 [facility] 5 [place], [place] [phone] (Chula butts) documented as of this encounter Visit Diagnoses Not on filedocumented in this encounter Historical Medications This list may reflect changes made after this encounter. Medication Sig Dispensed Refills Start Date End Date ALBUTEROL INHL Inhale 2 Inhalers as directed as needed (Rarely) . 0 FLUTICASONE/SALMETEROL Inhale as directed. 0 12/16/2013 (ADVAIR HFA INHL) MONTELUKAST SODIUM Take by mouth daily. 0 12/16/2013 (SINGULAIR ORAL) MULTIVITAMINS Take by mouth. 0 014 (MULTIVITAMIN ORAL) added in this encounter Care Teams Fish Bin Tender Relationship Specialty Start Date End Date Steve Barbour MD PCP - General 08/12/09 documented as of this encounter
--- OUTSIDE RECORDS SUMMARY | 2022-07-12 11:39 | XMS_ITS | Encounter Summary ---
:1950 Author Organization [facility] Address [address] [place] [address] Care Team Providers Name Role Phone Steve Barbour MD Primary Care Provider Unavailable Encounter Details Date Type Department Care Team Description 12/16/2013 Phlebotomy Only [facility] Felt Machine Mechanic, Idris a, unspecified - [facility] [address] [place], [place] [phone] Social History Tobacco Use Types Packs/Day Years Used Date Never Smoker Smokeless Tobacco: Never Used Alcohol Use Standard Drinks/Week Comments No 0 (1 standard drink = 0.6 oz pure alcoho l) Sex Assigned at Date Recorded Not on file documented as of this encounter Plan of Treatment Upcoming Encounters Date Type Specialty Care Team Description 07/15/2022 Telemedicine Hematology and Oncology Armando Martinez MD [address] [place] [address] [address] [place], [place] [phone] (Wo beckie) 07/20/2022 Office Visit Surgical Oncology Rio Pearson DO 111 [facility], [facility] 2 [place], [place] [phone] (Wo rk) 09/23/2022 Office Visit Dermatology Miriam Bentley MD 111 [facility], [facility] 5 [place], [place] [phone] (Wo rk) documented as of this encounter Procedures Procedure Name Priority Date/Time Associated Comments Diagnosis DIFFERENTIAL Routine 12/16/2013 11:40 Anemia, unspecified Resu lts for this EST procedure are i n the results section. COMPLETE BLOOD COUNT Routine 12/16/2013 11:40 Anemia, unspecif ied Results for this EST procedure are i n the results section. COMPLETE BLOOD COUNT Routine 12/16/2013 11:40 Anemia, unspecif ied AND DIFFERENTIAL EST COMPREHENSIVE Routine 12/16/2013 11:40 Anemia, unspecified Res ults for this METABOLIC PANEL (CMP) EST proced ure are in the results section. documented in this encounter Results DIFFERENTIAL (12/16/2013 11:40 EST) Neutrophils 71.0 45.5 - 79.7 [facility] Lymphocytes 21.0 15.0 - 46.8 [facility] Monocytes 6.0 1.8 - 12.0 % [facility] Eosinophils 2.0 0.6 - 6.9 % [facility] ABS Neutrophils 6.60 2.20 - 8.85 [facility] K/cmm LAB ABS Lymphs 1.95 1.09 - 3.30 [facility] ABS Monocytes 0.56 0.1 - 0.8 [facility] K/cmm LAB ABS Eosinophils 0.19 0.03 - 0.61 [facility] K/cmm LAB RBC Morphology 1+ [facility] Comment: LAB Anisocytosis 2+ Macrocytes 2+ Hypochromia 1+ Poikilocytosis 1+ Ovalocytes Platelet 1+Comment: Large [facility] Morphology platelets LAB Type of Diff: Manual [facility] Specimen Performing Organization Address City/State/ZIP Code Phon e Number [facility] [address] [place] [address] SERVICES [facility] [address] [place] [address] (ABNORMAL) HEMAGRAM (12/16/2013 11:40 EST) Pathologist Sig nature WBC 9.30 4.0 - 12.4 K/cmm [facility] RBC 3.81 (L) 3.86 - 5.04 M/cmm [facility] Hemoglobin 8.7 (L) 11.6 - 15.2 gm/dl [facility] HCT 28.4 (L) 34.9 - 44.4 % [facility] MCV 75 (L) 81 - 98 fl [facility] MCH 22.8 (L) 26.7 - 33.3 pg [facility] MCHC 30.5 (L) 32.1 - 35.9 gm/dl [facility] PLT 453 (H) 141 - 320 K/cmm [facility] RDW-CV 22.0 (H) 11.7 - 14.6 % [facility] Specimen Performing Organization Address [facility] Phon e Number [facility] [address] [place] [address] SERVICES [facility] [address] [place] [address] COMPREHENSIVE METABOLIC PANEL (CMP) (12/16/2013 11:40 EST) [facility] nature Potassium 3.8 3.5 - 5.0 mEq/L [facility] Sodium 138 136 - 145 mEq/L [facility] Chloride 97 96 - 110 mEq/L [facility] CO2 31 24 - 32 mEq/L [facility] Total Alkaline 84 38 - 126 U/L [facility] Phosphatase Bilirubin, Total 0.5 0.2 - 1.3 mg/dl [facility] AST 19 15 - 46 U/L [facility] ALT 31 9 - 52 U/L [facility] Albumin 4.4 3.4 - 4.9 g/dl [facility] Total Protein 7.5 6.5 - 8.3 g/dl [facility] Creatinine 0.67 0.52 - 1.04 [facility] mg/dl GFR, Calculated >60 >60 [facility] ml/min/1.73m2 BUN 24 10 - 26 mg/dl [facility] Calcium 9.6 8.5 - 10.5 [facility] mg/dl Calculated Calcium 9.6 8.5 - 10.5 [facility] mg/dl Glucose, Serum 82 70 - 100 mg/dl [facility] Fasting? Unknown [facility] Specimen Blood specimen (specimen) Performing Organization Address [facility]/ZIP Code Phon e Number [facility] [address] [place] [address] SERVICES [facility] [address] [place] [address] documented in this encounter Visit Diagnoses Diagnosis Anemia, unspecified documented in this encounter Care Teams Stud Master/Mistress Relationship Specialty Start Date End Date Steve Barbour MD PCP - General 08/12/09 documented as of this encounter
--- OUTSIDE RECORDS SUMMARY | 2022-07-12 11:39 | XMS_ITS | Encounter Summary ---
:1950 Author Organization [facility] Address [address] [place] [address] Care Team Providers Name Role Phone Steve Barbour MD Primary Care Provider Unavailable Encounter Details Date Type Department Care Team Description 02/10/2010 Hospital Encounter [facility] Steve Barbour MD 1 [place] [address] Social History Tobacco Use Types Packs/Day Years [...] Hematology and Oncology Armando Martinez MD 130 [facility], [facility] [address] [place], [place] [phone] (Wo rk) 07/20/2022 Office Visit Surgical Oncology Rio Pearson, DO 111 [facility] venue [facility], [facility], [facility] 2 [place], [place] [phone] (Wo rk) 09/23/2022 Office Visit Dermatology Miriam Bentley MD [address] [place] [address], [facility] 5 [place], [place] [phone] (Wo rk) documented as of this encounter Visit Diagnoses Not on filedocumented in this encounter Care Teams Industrial Fabric Cutter Relationship Specialty Start Date End Date Steve Barbour MD PCP - General 08/12/09 documented as of this encounter
--- OUTSIDE RECORDS SUMMARY | 2022-07-12 11:39 | XMS_ITS | Encounter Summary ---
:1950 Author Organization [facility] Address [address] [place] [address] Care Team Providers Name Role Phone Steve Barbour MD Primary Care Provider Unavailable Juan Pablo Garrett MD Primary Care Provider None, Provider Primary Care Provider Unavailable Juan Pablo Garrett MD Primary Care Provider Unknown, Provider Primary Care Provider Jaimie Delgado Primary Care Provider Encounter Details Date Type Department Care Team Description 02/03/2009 Before PRISM Converted [facility] in, Visit (Maple) Maple conversion Steve Barber MD [address] [place], [place] [phone] Social History Tobacco Use Types Packs/Day Years Used Date Never Assessed Sex Assigned at Date Recorded Not on file documented as of this encounter Plan of Treatment Upcoming Encounters Date Type Specialty Care Team Description 07/15/2022 Telemedicine Hematology and Oncology Armando Martinez MD [address] [place] [address], [facility] [address] [place] [address] ([place] but[place]) 07/20/2022 Office Visit Surgical Oncology Rio Pearson DO [address] [facility], [facility] 2 [place], [place] [address] ([place]) 09/23/2022 Office Visit Dermatology Miriam Bentley MD [address] [facility], [facility], [address] [place] [address] (Wo rk) documented as of this encounter Procedures Procedure Name Priority Date/Time Associated Diagnosis Comme nts MA MAMMO SCREENING 02/03/2009 7:38 EDT Re sults for this DIGITAL procedure are i n the results section. documented in this encounter Results MA MAMMO SCREENING DIGITAL (02/03/2009 7:38 EDT) Anatomical Region Laterality Modality Other Specimen Narrative [facility] - 03/17/2009 2: 06 EDT Routine Comparison is made to films from 008 (bilateral) and films from 01/24/2007 (bilateral) and films fr 01/17/2006 (bilateral) and films from 01/11/2005 and films from . Bilateral Breast Findings: (CAD used to interpret routine digital): The breasts are almost entirely fat. No significant masses, calcifications or other abnormalities ar e seen. IMPRESSION: BILATERAL BREASTS - CATEGORY 1, NEGATIVE Negative, no evidence of malignancy. Nor mal interval follow-up is recommended in 12 months. OVERALL ASSESSMENT - NEGATIVE END OF IMPRESSION The patient will be notified of her/his breast imaging results via a lay letter from Radiology. ??Radiology w ill contact the patient directly regarding any findings which re quire additional imaging (Category 0) at this time. I have personally reviewed the images an d the above interpretation and agree with the findings. Procedure Note Brandt Oates MD / Deborah Lee MD - 03/17/2009 Routine Comparison is made to films from 008 (bilateral) and films from 01/24/2007 (bilateral) and films fr om 01/17/2006 (bilateral) and films from 01/11/2005 and films from . Bilateral Breast Findings: (CAD used to interpret routine digital): The breasts are almost entirely fat. No significant masses, calcifications or other abnormalities ar e seen. IMPRESSION: BILATERAL BREASTS - CATEGORY 1, NEGATIVE Negative, no evidence of malignancy. Nor mal interval follow-up is recommended in 12 months. OVERALL ASSESSMENT - NEGATIVE END OF IMPRESSION The patient will be notified of her/his breast imaging results via a lay letter from Radiology. Radiology mignon l contact the patient directly regarding any findings which re quire additional imaging (Category 0) at this time. I have personally reviewed the images an d the above interpretation and agree with the findings. Performing Organization Address City/State/ZIP Code Phon e Number [facility] [address] [facility] [address] [facility] [address] [place], [place] [address] documented in this encounter Visit Diagnoses Not on filedocumented in this encounter Care Teams Pattern Shop Supervisor Relationship Specialty Start Date End Date Steve Barbour MD PCP - General 08/12/09 Juan Pablo Garrett MD PCP - General 07/05/16 04/28/19 [address] [place], [place] [phone] None, Provider PCP - General 04/29/19 04/29/19 Juan Pablo Garrett MD PCP - General 04/30/19 06/21/[address] [place], [place] [phone] Unknown, Provider, PCP - General 08/13/21 08/17/21 Jaimie Delgado PCP - General Internal Medicine - 08/18/21 [address] Primary Care [place], [place] [phone] documented as of this encounter
--- OUTSIDE RECORDS SUMMARY | 2022-07-12 11:39 | XMS_ITS | Encounter Summary ---
:1950 Author Organization [facility] Address [address] [place] [address] Care Team Providers Name Role Phone Unavailable Primary Care Provider Unavailable Encounter Details Date Type Department Care Team Description 01/07/2004 Hospital Encounter [facility] - Joaquina Ya FNP Other [address] [place] [address] Social History Tobacco Use Types Packs/Day Years Used Date Never Assessed Sex Assigned at Date Recorded Not on file documented as of this encounter Discharge Disposition Disposition Code Departure Means Destination Auto Discharge documented in this encounter Plan of Treatment Upcoming Encounters Date Type Specialty Care Team Description 07/15/2022 Telemedicine Hematology and Oncology Armando Martinez MD [address] [place] [address] [phone] (Wo rk) 07/20/2022 Office Visit Surgical Oncology Rio Pearson DO 111 [facility] 2 [place], [place] [phone] (Wo rk) 09/23/2022 Office Visit Dermatology Miriam Bentley MD 111 [facility] 5 [place], [place] [phone] (Wo rk) documented as of this encounter Procedures Procedure Name Priority Date/Time Associated Comments Diagnosis RAD US AV BREAST Routine 01/07/2004 14:45 Results for this UNILAT OR BILAT EST procedure ar e in the results section. KHUSHI BLANCOG DIGITAL Routine 01/07/2004 13:52 Resu lts for this UNILATERAL ADDED EST procedure a re in VIEWS the results section. documented in this encounter Results RAD US AV BREAST UNILAT OR BILAT (01/07/2004 14:45 EST) Anatomical Region Laterality Modality Other Specimen Narrative [facility] - 07/20/2009 5: 19 EDT LEFT AV AND LEFT U/S ROUND MASS SUBAREOLAR Procedure Note Nimesh Mei MD - 07/20/2009 LEFT AV AND LEFT U/S ROUND MASS SUBAREOLAR Performing Organization Address City/State/ZIP Code Phon e Number [facility] 111 [facility] [address] [facility] [address] [place], [place] [address] KHUSHI ARTHUR [place] DIGITAL UNILATERAL ADDED VIEWS (01/07/2004 13:52 EST) Anatomical Region Laterality Modality Other Specimen Impressions [facility] - 07/20/2009 5: 19 EDT IMPRESSION: LEFT BREAST - CATEGORY 2 Circumscribed oval nodule at 12 o'clock corresponding to an area of focal benign duct ectasia, no evidence o f malignancy. Routine bilateral screening mammogram is recomme nded in 12 months. Results and recommendations for follow-u p were discussed with the patient by the audit consultant at the time o f the exam. OVERALL ASSESSMENT - BENIGN END OF IMPRESSION Narrative [facility] - 07/20/2009 5: 19 EDT LEFT AV AND LEFT U/S ROUND MASS SUBAREOLAR Comparison is made to films from 004. Left Breast Findings (digital additional and ultrasound projections): The breast is heterogeneously dense. Thi s may lower the sensitivity of mammography. An oval circumscribed but p artly obscured nodule is present at 12 o'clock. Ultrasound demonstrates this to be an ar ea of mild duct ectasia; there is no evidence of a solid suspicious mas s in this region. There are no intraductal nodules. Procedure Note Nimesh Mei MD - 07/20/2009 LEFT AV AND LEFT U/S ROUND MASS SUBAREOLAR Comparison is made to films from 004. Left Breast Findings (digital additional and ultrasound projections): The breast is heterogeneously dense. Thi s may lower the sensitivity of mammography. An oval circumscribed but p artly obscured nodule is present at 12 o'clock. Ultrasound demonstrates this to be an ar ea of mild duct ectasia; there is no evidence of a solid suspicious mas s in this region. There are no intraductal nodules. IMPRESSION IMPRESSION: LEFT BREAST - CATEGORY 2 Circumscribed oval nodule at 12 o'clock corresponding to an area of focal benign duct ectasia, no evidence o f malignancy. Routine bilateral screening mammogram is recomme nded in 12 months. Results and recommendations for follow-u p were discussed with the patient by the audit consultant at the time o f the exam. OVERALL ASSESSMENT - BENIGN END OF IMPRESSION Performing Organization Address City/State/ZIP Code Phon e Number [facility] 111 [facility] [address] [facility] [address] [place], [place] [address] documented in this encounter Visit Diagnoses Not on filedocumented in this encounter
--- OUTSIDE RECORDS SUMMARY | 2022-07-12 11:39 | XMS_ITS | Encounter Summary ---
:1950 Author Organization [facility] Address [address] [place] [address] Care Team Providers Name Role Phone Unavailable Primary Care Provider Unavailable Encounter Details Date Type Department Care Team Description 06/20/2007 Hospital Encounter [facility] - Joaquina Ya FNP Maple conversion [address] [place], [place] [phone] Social History Tobacco Use Types Packs/Day Years Used Date Never Assessed Sex Assigned at Date Recorded Not on file documented as of this encounter Discharge Disposition Disposition Code Departure Means Destination Auto Discharge documented in this encounter Plan of Treatment Upcoming Encounters Date Type Specialty Care Team Description 07/15/2022 Telemedicine Hematology and Oncology Armando Martinez MD [address] [place] [address] [address] [place], [place] [phone] (Wo rk) 07/20/2022 Office Visit Surgical Oncology Rio Pearson DO 111 [facility] 2 [place], [place] [phone] (Wo rk) 09/23/2022 Office Visit Dermatology Miriam Bentley MD 111 [facility] 5 [place], [place] [phone] (Wo rk) documented as of this encounter Visit Diagnoses Not on filedocumented in this encounter
--- OUTSIDE RECORDS SUMMARY | 2022-07-12 11:39 | XMS_ITS | Encounter Summary ---
:1950 Author Organization [facility] Address [address] [place] [address] Care Team Providers Name Role Phone Unavailable Primary Care Provider Unavailable Encounter Details Date Type Department Care Team Description 12/11/2003 Hospital Encounter [facility] - Kaia Friedman FNP Other [address] [place] [address] Social History Tobacco Use Types Packs/Day Years Used Date Never Assessed Sex Assigned at Date Recorded Not on file documented as of this encounter Discharge Disposition Disposition Code Departure Means Destination Auto Discharge documented in this encounter Plan of Treatment Upcoming Encounters Date Type Specialty Care Team Description 07/15/2022 Telemedicine Hematology and Oncology Armando Martinez MD [address] [place] [address] [phone] (Wo rk) 07/20/2022 Office Visit Surgical Oncology Rio Pearson DO 111 [facility] 2 [place], [place] [phone] (Wo rk) 09/23/2022 Office Visit Dermatology Miriam Bentley MD 111 [facility] 5 [place], [place] [phone] (Wo rk) documented as of this encounter Procedures Procedure Name Priority Date/Time Associated Comments Diagnosis MA MAMMO SCREENING Routine 12/11/2003 12:47 Resul ts for this DIGITAL EST procedure are i n the results section. CYTOPATHOLOGY Routine 12/11/2003 0:00 Results for this EST procedure are i n the results section. SURGICAL PATHOLOGY Routine 12/11/2003 0:00 Result s for this EST procedure are i n the results section. documented in this encounter Results MA MAMMO SCREENING DIGITAL (12/11/2003 12:47 EST) Anatomical Region Laterality Modality Other Specimen Impressions [facility] - 07/20/2009 0: 40 EDT IMPRESSION: LEFT BREAST - CATEGORY 0 New round mass measuring 5 mm in the sub areolar region. Spot magnification view(s) and ultrasound are recommended at this time in the ultrasound, 5 degree angle CC, and m ediolateral projections. RIGHT BREAST - CATEGORY 1 Negative, no evidence of malignancy. Nor mal interval follow-up is recommended in 12 months. OVERALL ASSESSMENT - INCOMPLETE: NEED AD DITIONAL IMAGING EVALUATION END OF IMPRESSION Narrative [facility] - 07/20/2009 0: 40 EDT ROUTINE ??[PCP POLINA PEREZ, SPENCER DICKSON] Comparison is made to films from and 10-29-2001. Left Breast Findings (CAD used to interp ret routine digital projection): The breast is heterogeneously dense. Thi s may lower the sensitivity of mammography. A round mass with circumscr ibed margins is present measuring 5 mm in the subareolar region. This is a new finding. Right Breast Findings (CAD used to inter pret routine digital projection): The breast is heterogeneously dense. Thi s may lower the sensitivity of mammography. No significant masses, calc ifications or other abnormalities are seen. Procedure Note Mia Zarco MD - 07/20/2009 ROUTINE [PCP POLINA PEREZ, SPENCER Bethea] Comparison is made to films from and 10-29-2001. Left Breast Findings (CAD used to interp ret routine digital projection): The breast is heterogeneously dense. Thi s may lower the sensitivity of mammography. A round mass with circumscr ibed margins is present measuring 5 mm in the subareolar region. This is a new finding. Right Breast Findings (CAD used to inter pret routine digital projection): The breast is heterogeneously dense. Thi s may lower the sensitivity of mammography. No significant masses, calc ifications or other abnormalities are seen. IMPRESSION IMPRESSION: LEFT BREAST - CATEGORY 0 New round mass measuring 5 mm in the sub areolar region. Spot magnification view(s) and ultrasound are recommended at this time in the ultrasound, 5 degree angle CC, and m ediolateral projections. RIGHT BREAST - CATEGORY 1 Negative, no evidence of malignancy. Nor mal interval follow-up is recommended in 12 months. OVERALL ASSESSMENT - INCOMPLETE: NEED AD DITIONAL IMAGING EVALUATION END OF IMPRESSION Performing Organization Address City/State/ZIP Code Phon e Number [facility] 111 [facility] [address] [facility] [address] [place], [place] [address] SURGICAL PATHOLOGY (12/11/2003 0:00 EST) Pathology Report: SURGICAL PATHOLOGY REPORT [facility] Reports generated via electronic interface contain yenifer ginal data; LAB however they are lacking the format of the original re port. Caution should be taken when reading/interpreting unfo rmatted reports. Name: ? BRITTANEY GRULLON ? Accession #: ? [id number] ? : ? 1950 (Age: 53) ??F ? Collect Date: ? 12/11/2003 ? Location: ? [facility] ? Receive Date: ? 004 ? Provider: KAIA FRIEDMAN [facility] Copy to: ? Final Pathologic Diagnosis: ? Vulva, polypectomy: - Benign fibroepithelial polyp. ??See comment. Comment: ? This case has been sh own at the intradepartmental consultation conference. (Dr. Lawrence)/[facility] Document reviewed and electronically signed by: Franco Lawrence MD Report ??Date: 12/15/2003 16:36 By the signature above, the attending physician certif ies that he/she has personally conducted a gross and/or microscopic examin ation of the described specimens and rendered or confirmed the above diagnosi s. Specimen(s) Received: ? Vulvar polyp Clinical History: ? H/O colon polyp; clinical diagnosis code: V72.3 Gross Description: ? Received in formalin labelled Mitchel and vulvar polyp is a lanza-pink smooth to wrinkled 0.6 x 0.6 x 0.4 cm papule. ??The specimen is inked, trisected, and entirely submitted in one cassette. ??(Abimael Humphries )/sherly End of Report Specimen Performing Organization Address City/State/ZIP Code Phon e Number [facility] [address] [place] [address] SERVICES [facility] [address] [place] [address] CYTOPATHOLOGY (12/11/2003 0:00 EST) Pathologist [facility] Pathology Report: CYTOPATHOLOGY REPORT [facility] Reports generated via electronic interface contain yenifer ginal data; however they are lacking the format of the original re port. Caution should be taken when reading/interpreting unfo rmatted reports. Name: ? MITCHELFRANCISJayson Pan ? Accession #: ? [id number] : ? 1950 (Age: 53) ??F ?Collect Date: ? 11/21 Location: ? [facility] ? Receive Date : ? 12/15/2003 Provider: ?KAIA FRIEDMAN [facility] Copy to: ? Specimen/Source: ?ThinPrep Pap Test, Cervix/ Endocervix Last Menstrual Period: ? 12/08/03 Previous Gynecologic Pathology: ? Yes: 2001 Treatment History: ? Colposcopy: O.K. Other: ? HPVA - HPV testing requested if ASC-US on the current ThinPrep Pap test. ? SPECIMEN ADEQUACY ? Satisfactory for Evaluation - transformation zone component present GENERAL CATEGORIZATION ? Negative for Intraepithelial Lesion or Malignan cy INTERPRETATION ? Reactive cellular cuco nges associated with inflammation present (includes repair). ? Document reviewed and electronically signed by: ? Addie Colon MD ? Report Date: ??12/19/2003 14:49 End of Report Specimen Performing Organization Address City/State/ZIP Code Phon e Number [facility] [address] [place] [phone] SERVICES [facility] [address] [place] [address] documented in this encounter Visit Diagnoses Not on filedocumented in this encounter
--- OUTSIDE RECORDS SUMMARY | 2022-07-12 11:39 | XMS_ITS | Encounter Summary ---
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 MACHINE [address] [address] Social History Tobacco Use Types Packs/Day Years Used Date Never Assessed Sex Assigned at Date Recorded Not on file documented as of this encounter Discharge Disposition Disposition Code Departure Means Destination Auto Discharge documented in this encounter Plan of Treatment Upcoming Encounters Date Type Specialty Care Team Description 07/15/2022 Telemedicine Hematology and Oncology Armando Martinez MD [address] [place] [address] [address] [place], [place] [phone] (Wo rk) 07/20/2022 Office Visit Surgical Oncology Rio Pearson DO 111 [facility] 2 [place], [place] [phone] (Wo rk) 09/23/2022 Office Visit Dermatology Miriam Bentley MD 111 [facility] 5 [place], [place] [phone] (Wo rk) documented as of this encounter Visit Diagnoses Not on filedocumented in this encounter
--- OUTSIDE RECORDS SUMMARY | 2022-07-12 11:39 | XMS_ITS | Encounter Summary ---
:1950 Author Organization [facility] Address [address] [place] [address] Care Team Providers Name Role Phone Steve Barbour MD Primary Care Provider Unavailable Juan Pablo Garrett MD Primary Care Provider None, Provider Primary Care Provider Unavailable Juan Pablo Garrett MD Primary Care Provider Unknown, Provider Primary Care Provider Jaimie Delgado Primary Care Provider Encounter Details Date Type Department Care Team Description 11/07/2000 Hospital Encounter [facility] - Nadine Arriola MD 111 [facility], [facility] 4 [place] [phone] Other Unknown, Provider, [address] [place], [place] [phone] Social History Tobacco Use Types Packs/Day Years [...] Oncology Armando Martinez MD 130 [facility] [address] (Wo rk) 07/20/2022 Office Visit Surgical Oncology Rio Pearson DO 111 [facility], [facility] 2 [place], [place] [phone] (Wo rk) 09/23/2022 Office Visit Dermatology Miriam Bentley MD 111 [facility], [facility] 5 [place], [place] [phone] (Wo rk) documented as of this encounter Procedures Procedure Name Priority Date/Time Associated Diagnosis Comme [facility] SURGICAL PATHOLOGY Routine 11/07/2000 0:00 EST Re sults for this procedure are i n the results section. documented in this encounter Results SURGICAL PATHOLOGY (11/07/2000 0:00 EST) Pathology Report: SURGICAL PATHOLOGY REPORT [facility] Reports generated via electronic interface contain yenifer ginal data; LAB however they are lacking the format of the original re port. Caution should be taken when reading/interpreting unfo rmatted reports. Name: ? BRITTANEY GRULLON ? Accession #: ? [id number] ? : ? 1950 (Age: 50) ??F ? Collect Date: ? 11/07/2000 ? Location: ? [facility] ? Receive Date: ? 000 ? Provider: NADINE ARRIOLA MD Copy to: ? Final Pathologic Diagnosis: A. ?Endocervix, curettage: 1. ?Minute fragments of benign endocervic al glands. B. ?Cervix, 12 o' clock, biopsy: 1. ?Benign squa mous epithelium with focal reactive epithelial changes. 2. ?No transformation zone epithelium franklin ntified. 3. ?No dysplasia identified. Document reviewed and electronically signed by: Angie Arndt MD Report ??Date: 11/10/2000 15:26 By the signature above, the attending physician certif ies that he/she has personally conducted a gross and/or microscopic examin ation of the described specimens and rendered or confirmed the above diagnosi s. Specimen(s) Received: ? A. ??#1 ECC B. ??#2 Bx Cx at 12 o' clock Clinical History: ? ASCUS; R/O TODD PAP; clinical diagnosis code: ?? 795.0 Gross Description: ? Received in formalin labelled Mitchel and #1 ECC are 0.75cc of lanza-red mucinous material. ??The specimen is entirely submitte d (A). ?? Received in formalin labelled Mitchel and #2 Cx bx is a rodriguez-red irregular 0.3 x 0.2 x 0.1 cm soft tiss ue fragment. ??The specimen is entirely submitted as (B). ??(Abimael Humphries)/vianey End of Report Specimen Performing Organization Address City/State/ZIP Code Phon e Number [facility] [address] [place] [address] SERVICES [facility] [address] [place] [address] documented in this encounter Visit Diagnoses Not on filedocumented in this encounter Care Teams Environmental Health Sanitarian Relationship Specialty Start Date End Date Steve Barbour MD PCP - General 08/12/09 Juan Pablo Garrett MD PCP - General 07/05/16 04/28/19 [address] [place], [place] [phone] None, Provider PCP - General 04/29/19 04/29/19 Juan Pablo Garrett MD PCP - General 04/30/19 06/21/[address] [place] [address] Unknown, Provider, PCP - General 08/13/21 08/17/21 Jaimie Delgado PCP - General Internal Medicine - 08/18/[address] Primary Care [place], [place] [phone] documented as of this encounter
--- OUTSIDE RECORDS SUMMARY | 2022-07-12 11:39 | XMS_ITS | Encounter Summary ---
:1950 Author Organization [facility] Address [address] [place] [address] Care Team Providers Name Role Phone Steve Barbour MD Primary Care Provider Unavailable Reason for Visit Reason Comments Anemia npv Consult (Routine) - Closed Specialty Diagnoses / Referred By Referred To Cont act Procedures Contact Gastroenterology and Diagnoses Anemia Helene Montero Vecchio, James A, MD Hepatology [address] [address] [place] [address] Referral ID Status Reason Start Date Expiration Date Visits Requ ested Visits Authorized [id number] Closed 1 1 Encounter Details Date Type Department Care Team Description 12/16/2013 Office Visit [facility] Fili Hill Anemia, unspecified Gastroenterology - Wesley Hull MD (Dianna Quintero) [place] [address] [place] [address] Social History Tobacco Use Types Packs/Day Years Used Date Never Smoker Smokeless Tobacco: Never Used Alcohol Use Standard Drinks/Week Comments No 0 (1 standard drink = 0.6 oz pure alcoho l) Sex Assigned at Date Recorded Not on file documented as of this encounter Last Filed Vital Signs Vital Sign Reading Time Taken Comments Blood Pressure 126/72 12/16/2013 1041 EST Pulse 88 12/16/2013 1041 EST Temperature - - Respiratory Rate - - Oxygen Saturation - - Inhaled Oxygen Concentration - - Weight 72.1 kg (159 lb) 12/16/2013 1041 EST Height 160 cm (5' 3) 12/16/2013 1041 EST Body Mass Index 28.17 12/16/2013 1041 EST documented in this encounter Discharge Diagnoses Diagnosis 285.9 ANEMIA NOS[ICD-9-CM] documented in this encounter Discharge Disposition Disposition Code Departure Means Destination Auto Discharge documented in this encounter Progress Notes Fili Hill MD - 12/16/2013 1231 EST DIVISION OF GASTROENTEROLOGY NEW PATIENT EVALUATION - 12/16/2013 Thank you, Dr Barbour and Dr Montero, for referring Ms Grullon for at least a 3 year historyof anemia. According to the patient, she has had investigations for anemia dating back at least 3 years with upper endoscopies and colonoscopies, and as well wireless capsule studies performed by Dr Lopez. The patient presently has no symptoms, but in October she felt weak and tired and at that point in time had a blood test done and it showed her hemoglobin to be 6.3. She denies any dysphagia, no pain on swallowing. No nausea or vomiting, no abdominal pain. No change in bowel habits, no constipation, diarrhea, bright red blood per rectum or melena. No weight loss. Denies any fever or chills, eye problems, rashes or joint problems. Otherwise, patient states she is doing well except for when she feels tired. SOCIAL: Does not smoke cigarettes no alcohol ALLERGIES: SULFA and SHELLFISH. PSH: PRESENT MEDICATIONS: Include vitamin C, ferrous fumarate, Prozac, Advair, HydroDIURIL, Singulair, Requip and omeprazole. OBJECTIVE: On examination today, blood pressure is 126/72, pulse 88, weight was 159 pounds for a BMIof 28.17. No recent laboratory available. The patient reports having had a hemoglobin done in October that was 6.3. This was not sent with her at the time of the consultation. The patient has a report of an upper endoscopy performed in March 2010 that showed a hiatal hernia and? ulcer. The patient reports having had a colonoscopy in August 2010 that showed a small polyp. The patient reports having had repeat upper endoscopy done more recently and more recently as well acolonoscopy and as well a wireless capsule study, all reportedly unremarkable. The patient reports as well that she has factor V Leiden deficiency. IMPRESSION: 1. Anemia with most likely occult blood loss. The likelihood that this is a bone marrow problem seems less likely. The likelihood that this is a problem from hemolysis also seems less likely as well. The anemia most likely represents gastrointestinal blood loss, most likely from small bowel. 2. Factor V Leiden deficiency. The patient will be seen by hematology for this as well for consideration for a bone marrow issue. PLAN AND CONTINGENCY: Most recent endoscopies will be reviewed. The likelihood the anemia is a result of an upper GI or colon within the reach of a standard endoscope seems less likely. The most likelyetiology of her blood loss is small bowel and most likely AVMs. A small bowel enteroscopy with spiral technology with Dr. Jak Olivares of gastroenterology will be the next step. The patient as well will be seen by hematology. Fili Hill MD, AGAWm 11 16 AM - Fili Hill MD, AGAWm mn Dictation ID: [id number] cc: Helene JOELP, [facility] [address], [address] [place] [address] Steve Barbour MD, [place] [address] Fili Linares MD - 12/16/2013 1116 EST This office note has been dictated. documented in this encounter Plan of Treatment Upcoming Encounters Date Type Specialty Care Team Description 07/15/2022 Telemedicine Hematology and Oncology Armando Martinez MD [address] [place] [address] [address] [place] [address] (Chula butts) 07/20/2022 Office Visit Surgical Oncology Rio Pearson DO 111 [facility], [facility] 2 [place], [place] [address] (Chula rk) 09/23/2022 Office Visit Dermatology Miriam Bentley MD [facility] [address] [place] [address] (Wo rk) documented as of this encounter Results COMPREHENSIVE METABOLIC PANEL (CMP) (12/16/2013 11:40 EST) Pathologist Sig nature Potassium 3.8 3.5 - 5.0 mEq/L [facility] Sodium 138 136 - 145 mEq/L [facility] Chloride 97 96 - 110 mEq/L [facility] CO2 31 24 - 32 mEq/L [facility] Total Alkaline 84 38 - 126 U/L [facility] Phosphatase Bilirubin, Total 0.5 0.2 - 1.3 mg/dl [facility] AST 19 15 - 46 U/L [facility] ALT 31 9 - 52 U/L [facility] Albumin 4.4 3.4 - 4.9 g/dl [facility] Total Protein 7.5 6.5 - 8.3 g/dl [facility] Creatinine 0.67 0.52 - 1.04 [facility] mg/dl GFR, Calculated >60 >60 [facility] ml/min/1.73m2 BUN 24 10 - 26 mg/dl [facility] Calcium 9.6 8.5 - 10.5 [facility] mg/dl Calculated Calcium 9.6 8.5 - 10.5 [facility] mg/dl Glucose, Serum 82 70 - 100 mg/dl [facility] Fasting? Unknown [facility] Specimen Blood specimen (specimen) Performing Organization Address City/State/ZIP Code Phon e Number [facility] [address] [place] [address] SERVICES [facility] [address] [place] [address] documented in this encounter Visit Diagnoses Diagnosis Anemia, unspecified - Primary documented in this encounter Discontinued Medications Medication Sig Discontinue Reason Start Date End Date MONTELUKAST SODIUM Take by mouth Patient Stopped Taking 12/16/2013 (SINGULAIR ORAL) daily. ROPINIROLE HCL (REQUIP Take by mouth. Patient Stopped Taking 12/16/2013 ORAL) FLUTICASONE/SALMETEROL Inhale as Patient Stopped Taking 12/16/2013 (ADVAIR HFA INHL) directed. MULTIVITAMINS Take by mouth. Patient Stopped Taking (MULTIVITAMIN ORAL) documented as of this encounter Historical Medications This list may reflect changes made after this encounter. Medication Sig Dispensed Refills Start Date End Date fluticasone-salmeterol Inhale 1 Puff as 0 (ADVAIR) 250-50 mcg/dose directed every 12 diskus inhalerIndications: hours as needed. Anemia, unspecified FLUoxetine (PROZAC) 20 mg Take 20 mg by 0 capsuleIndications: Anemia, mouth daily. unspecified hydrochlorothiazide Take 50 mg by 0 (HYDRODIURIL) 50 mg mouth daily. tabletIndications: Anemia, unspecified rOPINIRole (REQUIP) 0.5 mg Take 1 mg by 0 tabletIndications: Anemia, mouth at bedtime. unspecified montelukast (SINGULAIR) 10 Take 10 mg by 0 mg tabletIndications: mouth daily. Anemia, unspecified ascorbic acid (VITAMIN C) Take 1,000 mg by mouth 2 times daily . 0 05/10/2018 1,000 mg tabletIndications: Anemia, unspecified omeprazole (PRILOSEC) 20 mg Take 20 mg by 0 05/10/2018 capsuleIndications: Anemia, mouth daily. unspecified added in this encounter Care Teams Chancellor Relationship Specialty Start Date End Date Steve Barbour MD PCP - General 08/12/09 documented as of this encounter
--- OUTSIDE RECORDS SUMMARY | 2022-07-12 11:39 | XMS_ITS | Encounter Summary ---
:1950 Author Organization [facility] Address [address] [place] [address] Care Team Providers Name Role Phone Steve Barbour MD Primary Care Provider Unavailable Encounter Details Date Type Department Care Team Description 06/20/2007 Results Only [facility] Kaia Friedman FNP Services - [address] [phone] Social History Tobacco Use Types Packs/Day Years Used Date Never Assessed Sex Assigned at Date Recorded Not on file documented as of this encounter Plan of Treatment Upcoming Encounters Date Type Specialty Care Team Description 07/15/2022 Telemedicine Hematology and Oncology Armando Martinez MD [address] [place] [address] [phone] (Wo rk) 07/20/2022 Office Visit Surgical Oncology Rio Pearson DO 111 [facility] 2 [place], [place] [address] (Wo rk) 09/23/2022 Office Visit Dermatology Miriam Bentley MD 111 [facility], [facility] 5 [place], [place] [address] (Wo rk) documented as of this encounter Procedures Procedure Name Priority Date/Time Associated Comments Diagnosis HPV DETECTION, HIGH Routine 06/20/2007 10:44 Resu lts for this RISK TYPES EDT procedure are i n the results section. CYTOPATHOLOGY Routine 06/20/2007 0:00 Results for this EDT procedure are i n the results section. documented in this encounter Results HUMAN PAPILLOMA VIRUS DNA TEST (06/20/2007 10:44 EDT) Specimen Description Cervix, ThinPrep [facility] vial Result Negative for HPV [facility] types 16, 18, 31, 33, 35, 39, 45, 51, 52, 56, 58, 59, and 68. Report Status Final [facility] [id number] Specimen Performing Organization Address City/State/ZIP Code Phon e Number [facility] [address] [place] [address] SERVICES [facility] [address] [place] [address] CYTOPATHOLOGY (06/20/2007 0:00 EDT) Pathology Report: CYTOPATHOLOGY REPORT [facility] Reports generated via electronic interface contain yenifer ginal data; however they are lacking the format of the original re port. Caution should be taken when reading/interpreting unfo rmatted reports. Name: ? BRITTANEY GRULLON ? Accession #: ? [id number] : ? 1950 (Age: 57) ??F ?Collect Date: ? 11/2006 Location: ? [facility] ? Receive Date : ? 06/22/2007 Provider: ?KAIA FRIEDMAN [facility] Copy to: ? Specimen/Source: ? ThinPrep Pap Test, Cervix/Endocervix, processed on Sensory NetworksPrep Imaging System, with manual evaluation Last Menstrual Period: ? 09/23 Previous Gynecologic Pathology: ? ASC-US: 2006 Other: ? HPVDX - HPV testing requested regardless of diag nosis on current ThinPrep Pap test. ? SPECIMEN ADEQUACY ? Satisfactory for Evaluation - transformation zone component present GENERAL CATEGORIZATION ? Negative for Intraepithelial Lesion or Malignan cy INTERPRETATION ? Reactive cellular cuco nges associated with inflammation present (includes repair). ? Document reviewed and electronically signed by: ? Addie Colon MD ? Report Date: ??07/02/2007 15:02 End of Report Specimen Performing Organization Address City/State/ZIP Code Phon e Number [facility] [address] [place] [address] SERVICES [facility] [address] [place] [address] documented in this encounter Visit Diagnoses Not on filedocumented in this encounter Care Teams Investigator Welfare Relationship Specialty Start Date End Date Steve Barbour MD PCP - General 08/12/09 documented as of this encounter
--- OUTSIDE RECORDS SUMMARY | 2022-07-12 11:39 | XMS_ITS | Encounter Summary ---
:1950 Author Organization [facility] Address [address] [place] [address] Care Team Providers Name Role Phone Steve Barbour MD Primary Care Provider Unavailable Encounter Details Date Type Department Care Team Description 08/01/2012 Results Only [facility] Women[facility] Daily , Eli Hearn, AUDIOVISUAL PRODUCTION SPECIALIST Services - [facility] [address] [facility] [address] [place], [place] [address] [place] [phone] Social History Tobacco Use Types Packs/Day Years [...] Hematology and Oncology Armando Martinez MD [address] [place] [address] [address] [place] [address] (Wo rk) 07/20/2022 Office Visit Surgical Oncology Rio Pearson DO 111 [facility] 2 [place], [place] [address] (Wo rk) 09/23/2022 Office Visit Dermatology Miriam Bentley MD 111 [facility], [address] [place], [place] [phone] (Wo rk) documented as of this encounter Procedures Procedure Name Priority Date/Time Associated Diagnosis Comme nts PAP TEST- RESULT Routine 08/01/2012 0:00 EDT Resu lts for this ONLY procedure are i n the results section. documented in this encounter Results PAP TEST- RESULT ONLY (08/01/2012 0:00 EDT) Pathology Report: CYTOPATHOLOGY REPORT [facility] Reports generated via electronic interface contain yenifer ginal data; however they are lacking the format of the original re port. Caution should be taken when reading/interpreting unfo rmatted reports. Name: ? BRITTANEY GRULLON ? Accession #: ? [id number] ? : ? 1950 (Age: 62) ??F ?Collect Da te: ? 08/01/2012 ? Location: ? OBGYN ? Receive Date: ? 2011 ? Provider: ELI Hearn DAILY AUDIOVISUAL PRODUCTION SPECIALIST Copy to: ? Final Report SPECIMEN ADEQUACY ? Satisfactory for Evaluation - assessment of transformation zone component not appl icable ( e.g. atrophy, vaginal sample, hysterectomy) GENERAL CATEGORIZATION ? Negative for Intraepithelial Lesion or Malignan cy ?? Previous Gynecologic Pathology: Yes: H/O abnormal 2000 Specimen/Source: ??Pap Test, Cervix/Endocervix, ThinPr ep Imaging System with manual evaluation Document reviewed and electronically signed by: ? Richard Watt, CT(ASCP) ? Report ??Date: 08/09/2012 08:12 HPV with Pap Test ? Date Ordered: ? 08/09/2012 ? Status: ?? Signed Out ?Date Complete: ? 08/13/2012 ? By: ??S ystem Interface ? Date Reported: ? 08/13/2012 ? Interpretation RESULT: Negative for HPV. No E6 or E7 mRNA is detected from HPV types 16,18,31,3 3,35, 39,45,51,52,56,58,59,66, and 68 by aircraft engine technician media nusrat amplification. Comments Document reviewed and electronically signed by: ? System Interface ? Report date: 08/13/2012 By the signature above, the attending physician certif ies that he/she has personally conducted a gross and/or microscopic examin ation of the described specimens and rendered or confirmed the above diagnosi s. End of Report Specimen Performing Organization Address City/State/ZIP Code Phon e Number [facility] [address] [place] [address] SERVICES [facility] [address] [place] [address] documented in this encounter Visit Diagnoses Not on filedocumented in this encounter Care Teams Storage Specialist Relationship Specialty Start Date End Date Steve Barbour MD PCP - General 08/12/09 documented as of this encounter
--- OUTSIDE RECORDS SUMMARY | 2022-07-12 11:39 | XMS_ITS | Encounter Summary ---
:1950 Author Organization [facility] Address [address] [place] [address] Care Team Providers Name Role Phone Unavailable Primary Care Provider Unavailable Encounter Details Date Type Department Care Team Description 11/19/2001 Hospital Encounter [facility] Yaneth Roche NP 111 [facility], [facility] 4 [place] [address] Other Unknown, Provider, [address] [place] [address] Social History Tobacco Use Types Packs/Day Years Used Date Never Assessed Sex Assigned at Date Recorded Not on file documented as of this encounter Discharge Disposition Disposition Code Departure Means Destination Auto Discharge documented in this encounter Plan of Treatment Upcoming Encounters Date Type Specialty Care Team Description 07/15/2022 Telemedicine Hematology and Oncology Armando Martinez MD [address] [place] [address] [phone] (Wo rk) 07/20/2022 Office Visit Surgical Oncology Rio Pearson DO 111 [facility], [facility] 2 [place], [place] [address] (Wo rk) 09/23/2022 Office Visit Dermatology Miriam Bentley MD 111 [facility], [address] [place], [place] [address] (Wo rk) documented as of this encounter Visit Diagnoses Not on filedocumented in this encounter
--- OUTSIDE RECORDS SUMMARY | 2022-07-12 11:39 | XMS_ITS | Encounter Summary ---
:1950 Author Organization [facility] Address [address] [place] [address] Care Team Providers Name Role Phone Steve Barbour MD Primary Care Provider Unavailable Encounter Details Date Type Department Care Team Description 12/07/2011 Abstract [facility] Adult Radha Barbour, Primary Care - Cody lynch MD [address] [place] [phone] Social History Tobacco Use Types Packs/Day Years Used Date Never Assessed Sex Assigned at Date Recorded Not on file documented as of this encounter Plan of Treatment Upcoming Encounters Date Type Specialty Care Team Description 07/15/2022 Telemedicine Hematology and Oncology Armando Martinez MD [address] [place] [address] [phone] (Wo rk) 07/20/2022 Office Visit Surgical Oncology Rio Pearson DO 111 [facility] 2 [place], [place] [address] (Wo rk) 09/23/2022 Office Visit Dermatology Miriam Bentley MD 111 [facility], [facility] 5 [place], [place] [address] (Wo rk) documented as of this encounter Visit Diagnoses Not on filedocumented in this encounter Care Teams Rotary Driller Prospecting Relationship Specialty Start Date End Date Steve Barbour MD PCP - General 08/12/09 documented as of this encounter
--- OUTSIDE RECORDS SUMMARY | 2022-07-12 11:39 | XMS_ITS | Encounter Summary ---
:1950 Author Organization [facility] Address [address] [place] [address] Care Team Providers Name Role Phone Steve Barbour MD Primary Care Provider Unavailable Juan Pablo Garrett MD Primary Care Provider None, Provider Primary Care Provider Unavailable Juan Pablo Garrett MD Primary Care Provider Encounter Details Date Type Department Care Team Description 04/07/2010 Historical Results [facility] - Anita Lopez MD Only [facility] - [address] [place] [phone] (Wo rk) Social History Tobacco Use Types Packs/Day Years Used Date Never Assessed Sex Assigned at Date Recorded Not on file documented as of this encounter Plan of Treatment Upcoming Encounters Date Type Specialty Care Team Description 07/15/2022 Telemedicine Hematology and Oncology Armando Martinez MD 130 [facility] [address] [place] [address] (Wo rk) 07/20/2022 Office Visit Surgical Oncology Rio Pearson, DO 111 [facility], [facility], Level [address] [place], [place] [phone] (Wo rk) 09/23/2022 Office Visit Dermatology Miriam Bentley MD 111 [facility], [facility], Level [address] [place], [place] [address] (Wo rk) documented as of this encounter Procedures Procedure Name Priority Date/Time Associated Diagnosis Comme [facility] SURGICAL PATHOLOGY Routine 04/07/2010 Results f or this procedure are i n the results section . documented in this encounter Results SURGICAL PATHOLOGY (04/07/2010) Specimen Narrative [facility] - 010 12:06 EDT Name: BRITTANEY GRULLON ? : [birth year] ?Age/Sex: 69/F ?Unit#: [id number] ? Loc: END ? Status: DEP CLI ?? Reg Date: 04/07/10 ? Pt.Phone Number : ? Specimen: [id number] ? STA TUS: SOUT ?Spec Date:04/07/10 ? Physician Copies: ?Donny Lopez MD ? Tissues: A ?? Gastrointestinal Tract (SM ALL BOWEL) ? Steve Barbour CPT: 57487 ?? Units: ??1 ?FINAL DIAGNOSIS ? Small bowel, biopsy; ? - No sign of celiac disease, ??no specific pathologic features. ? GROSS DESCRIPTION ? Received in Bouin's and labeled small bowel biopsies are mucosal tissue ? fragments that measure 0.2 cm in greatest dimensions, e.s. ??BT ?? PREOP DX/CLINICAL HISTORY ?Anemia Signed ____(signature on file)____ Owen Stevenson M.D. 04/08/10 ?? By the signature above, the attending ph ysician certifies that he/she has personally conducted a gross and/or microscopic exa mination of the described specimens and rendered or confirmed the above diagnosi s. Test Performed by [facility], [address] [place] [address] Records Clerk: Leena Gallo MD PHD Performing Organization Address City/State/ZIP Code Phon e Number [facility] [address] [place] [address] LAB documented in this encounter Visit Diagnoses Not on filedocumented in this encounter Care Teams Lining Finisher Relationship Specialty Start Date End Date Steve Barbour MD PCP - General 08/12/09 Juan Pablo Garrett MD PCP - General 07/05/16 04/28/19 [address] [place], [place] [phone] None, Provider PCP - General 04/29/19 04/29/19 Juan Pablo Garrett MD PCP - General 04/30/19 06/21/[address] [place], [place] [phone] documented as of this encounter
--- OUTSIDE RECORDS SUMMARY | 2022-07-12 11:39 | XMS_ITS | Encounter Summary ---
:1950 Author Organization [facility] Address [address] [place] [address] Care Team Providers Name Role Phone Unavailable Primary Care Provider Unavailable Encounter Details Date Type Department Care Team Description 02/03/2009 Hospital Encounter [facility] - Steve Barbour MD [address] [place] [address] Social History Tobacco Use Types Packs/Day Years Used Date Never Assessed Sex Assigned at Date Recorded Not on file documented as of this encounter Discharge Disposition Disposition Code Departure Means Destination Auto Discharge documented in this encounter Plan of Treatment Upcoming Encounters Date Type Specialty Care Team Description 07/15/2022 Telemedicine Hematology and Oncology Armando Martinez MD [address] [place] [address] [place] [address] [phone] (Wo rk) 07/20/2022 Office Visit Surgical Oncology Rio Pearson DO 111 [facility] 2 [place], [place] [phone] (Wo rk) 09/23/2022 Office Visit Dermatology Miriam Bentley MD 111 [facility] 5 [place], [place] [phone] (Wo rk) documented as of this encounter Visit Diagnoses Not on filedocumented in this encounter
--- OUTSIDE RECORDS SUMMARY | 2022-07-12 11:39 | XMS_ITS | Encounter Summary ---
:1950 Author Organization [facility] Address [address] [place] [address] Care Team Providers Name Role Phone Steve Barbour MD Primary Care Provider Unavailable Encounter Details Date Type Department Care Team Description 03/10/2005 Results Only [facility] Women[facility] Kaia Friedman FNP Services - [address] [phone] Social History Tobacco Use Types Packs/Day Years Used Date Never Assessed Sex Assigned at Date Recorded Not on file documented as of this encounter Plan of Treatment Upcoming Encounters Date Type Specialty Care Team Description 07/15/2022 Telemedicine Hematology and Oncology Armando Martinez MD [address] [place] [address] [phone] (Wo rk) 07/20/2022 Office Visit Surgical Oncology Rio Pearson DO 111 [facility] 2 [place], [place] [phone] (Wo rk) 09/23/2022 Office Visit Dermatology Miriam Bentley MD 111 [facility] 5 [place], [place] [address] (Wo rk) documented as of this encounter Procedures Procedure Name Priority Date/Time Associated Diagnosis Comme nts CYTOPATHOLOGY Routine 03/10/2005 0:00 EDT Results for this procedure are i n the results section . documented in this encounter Results CYTOPATHOLOGY (03/10/2005 0:00 EDT) Pathology Report: CYTOPATHOLOGY REPORT BRIDGET MONZON Reports generated via electronic interface contain yenifer ginal data; however they are lacking the format of the original re port. Caution should be taken when reading/interpreting unfo rmatted reports. Name: ? IMELDA BRITTANEY R ? Accession #: ? [id number] : ? 1950 (Age: 55) ??F ?Collect Date: ? 02/19 Location: ? [facility] ? Receive Date : ? 03/14/2005 Provider: ?KAIA FRIEDMAN [facility] Copy to: ? Specimen/Source: ?ThinPrep Pap Test, Cervix/ Endocervix Last Menstrual Period: ? 10/14/05 Previous Gynecologic Pathology: ? ASC-US Other: ? HPVA - HPV testing requested if ASC-US on the current ThinPrep Pap test. ? SPECIMEN ADEQUACY ? Satisfactory for Evaluation - transformation zone component present GENERAL CATEGORIZATION ? Negative for Intraepithelial Lesion or Malignan cy INTERPRETATION ? Reactive cellular cuco nges associated with inflammation present (includes repair). ? Document reviewed and electronically signed by: ? SHAJI HOLDER MD ? Report Date: ??03/18/2005 17:35 End of Report Specimen Performing Organization Address City/State/ZIP Code Phon e Number [facility] [address] [place] [address] [address] documented in this encounter Visit Diagnoses Not on filedocumented in this encounter Care Teams [place] Attorney Relationship Specialty Start Date End Date Steve Barbour MD PCP - General 08/12/09 documented as of this encounter
--- OUTSIDE RECORDS SUMMARY | 2022-07-12 11:39 | XMS_ITS | Encounter Summary ---
:1950 Author Organization [facility] Address [address] [place] [address] Care Team Providers Name Role Phone Steve Barbour MD Primary Care Provider Unavailable Encounter Details Date Type Department Care Team Description 07/01/2013 Results Only [facility]- GIULIA Barbour MD [phone] Social History Tobacco Use Types Packs/Day Years Used Date Never Smoker Smokeless Tobacco: Never Used Alcohol Use Standard Drinks/Week Comments No 0 (1 standard drink = 0.6 oz pure alcoho l) Sex Assigned at Date Recorded Not on file documented as of this encounter Plan of Treatment Upcoming Encounters Date Type Specialty Care Team Description 07/15/2022 Telemedicine Hematology and Oncology Armando Martinez MD [address] [place] [address] [address] [place], [place] [phone] (Wo rk) 07/20/2022 Office Visit Surgical Oncology Rio Pearson DO 111 [facility] 2 [place], [place] [phone] (Wo rk) 09/23/2022 Office Visit Dermatology Miriam Bentley MD 111 [facility] 5 [place], [place] [phone] (Wo rk) documented as of this encounter Procedures Procedure Name Priority Date/Time Associated Diagnosis Comme nts MA MAMMO SCREENING 07/02/2013 11:52 Resul ts for this DIGITAL EDT procedure are i n the results section. documented in this encounter Results MA MAMMO SCREENING DIGITAL (07/02/2013 11:52 EDT) Anatomical Region Laterality Modality Other Specimen Narrative [facility] - 07/04/2013 9:50 EDT Comparison has been made to previous images. Bilateral Breast Findings: (Routine digi nam views with CAD) There are scattered fibroglandular [...] will contact your patient directly. Procedure Note 07/04/2013 Comparison has been made to previous [facility] ges. Bilateral Breast Findings: (Routine digi nam views with CAD) There are scattered fibroglandular [...] Organization Address City/State/ZIP Code Phon e Number [facility] S PROSPECT [facility] documented in this encounter Visit Diagnoses Not on filedocumented in this encounter Care Teams Plugger Man Relationship Specialty Start Date End Date Steve Barbour MD PCP - General 08/12/09 documented as of this encounter
--- OUTSIDE RECORDS SUMMARY | 2022-07-12 11:39 | XMS_ITS | Encounter Summary ---
:1950 Author Organization [facility] Address [address] [place] [address] Care Team Providers Name Role Phone Steve Barbour MD Primary Care Provider Unavailable Encounter Details Date Type Department Care Team Description 02/09/2010 Results Only [facility]- PRISM Steve Barbour, Social History Tobacco Use Types Packs/Day Years Used Date Never Assessed Sex Assigned at Date Recorded Not on file documented as of this encounter Plan of Treatment Upcoming Encounters Date Type Specialty Care Team Description 07/15/2022 Telemedicine Hematology and Oncology Armando Martinez MD [address] [place] [address] [address] [place] [phone] (Wo rk) 07/20/2022 Office Visit Surgical Oncology Rio Pearson DO 111 [facility] 2 [place], [place] [phone] (Wo rk) 09/23/2022 Office Visit Dermatology Miriam Bentley MD 111 [facility], [facility] 5 [place], [place] [phone] (Wo rk) documented as of this encounter Procedures Procedure Name Priority Date/Time Associated Diagnosis Comme nts MA MAMMO SCREENING 02/10/2010 13:00 Resul ts for this DIGITAL EDT procedure are i n the results section. documented in this encounter Results MA MAMMO SCREENING DIGITAL (02/10/2010 13:00 EDT) Anatomical Region Laterality Modality Other Specimen Narrative [facility] - 02/10/2010 17:07 EDT Comparison is made to films from 009 (bilateral) and films from 01/30/2008 (bilateral) and films fr om 01/24/2007 (bilateral) and films from 01/17/2006 (bilateral) and fi lms from 01/11/2005 and films from 12/11/2003. Bilateral Breast Findings: (CAD used to interpret [...] additional imaging (Category 0) at this time. Procedure Note 02/10/2010 Comparison is made to films from 009 (bilateral) and films from 01/30/2008 (bilateral) and films fr om 01/24/2007 (bilateral) and films from 01/17/2006 (bilateral) and fi lms from 01/11/2005 and films from 12/11/2003. Bilateral Breast Findings: (CAD used to interpret [...] additional imaging (Category 0) at this time. Performing Organization Address City/State/ZIP Code Phon e Number [facility] S PROSPECT [facility] documented in this encounter Visit Diagnoses Not on filedocumented in this encounter Care Teams Software Verification Engineer Relationship Specialty Start Date End Date Steve Barbour MD PCP - General 08/12/09 documented as of this encounter
--- OUTSIDE RECORDS SUMMARY | 2022-07-12 11:39 | XMS_ITS | Encounter Summary ---
:1950 Author Organization [facility] Address [address] [place] [address] Care Team Providers Name Role Phone Steve Barbour MD Primary Care Provider Unavailable Encounter Details Date Type Department Care Team Description 08/01/2012 Phlebotomy Only [facility] Integrated [employer] InspectorJax gynecological examination; - [facility] Outpatient Galactorrhea [address] [place], [place] [phone] Social History Tobacco Use Types Packs/Day Years Used Date Never Smoker Smokeless Tobacco: Never Used Alcohol Use Standard Drinks/Week Comments No 0 (1 standard drink = 0.6 oz pure alcoho l) Sex Assigned at Date Recorded Not on file documented as of this encounter Plan of Treatment Upcoming Encounters Date Type Specialty Care Team Description 07/15/2022 Telemedicine Hematology and Oncology Armando Martinez MD [address] [place] [address] [address] [place], [place] [phone] (Chula butts) 07/20/2022 Office Visit Surgical Oncology Rio Pearson DO 111 [facility], [facility] 2 [place], [place] [phone] (Wo rk) 09/23/2022 Office Visit Dermatology Miriam Bentley MD 111 [facility], [facility] 5 [place], [place] [phone] (Chula rk) documented as of this encounter Procedures Procedure Name Priority Date/Time Associated Diagnosis Comme nts PROLACTIN Routine 08/01/2012 9:35 Galactorrhea Results for this EDT procedure are i n the results section. TSH Routine 08/01/2012 9:35 Routine gynecological Res ults for this EDT examination procedure are i n the results section. GLUCOSE, SERUM Routine 08/01/2012 9:35 Routine gynecological R esults for this EDT examination procedure are i n the results section. LIPID PROFILE Routine 08/01/2012 9:35 Routine gynecological Re sults for this (INCLUDES EDT examination procedure are i n CHOLESTEROL, the results TRIGLYCERIDES, section. HDL, LDL) documented in this encounter Results PROLACTIN (08/01/2012 9:35 EDT) Pathologist Sig nature Prolactin 10.1 ng/ml [facility] Comment: Non-: 2.8-29.2 : 9.7-208.5 Post Menopausal: 1.8-20.3 Specimen Blood specimen (specimen) Performing Organization Address City/[facility]/ZIP [facility] Phon e Number [facility] [address] [place] [address] SERVICES [facility] [address] [place] [address] GLUCOSE, SERUM (08/01/2012 9:35 EDT) Pathologist Sig [facility] Glucose, Serum 87 70 - 100 mg/dl [facility] Specimen Blood specimen (specimen) Performing Organization Address City/[facility]/ZIP [facility] Phon e Number [facility] [address] [place] [address] SERVICES [facility] [address] [place] [address] TSH (08/01/2012 9:35 EDT) Pathologist Sig nature TSH 1.16 0.35 - 5.00 uIU/ml [facility] Specimen Blood specimen (specimen) Performing Organization Address City/[facility]/ZIP [facility] Phon e Number [facility] [address] [place] [address] SERVICES [facility] [address] [place] [address] LIPID PROFILE (INCLUDES CHOLESTEROL, TRIGLYCERIDES, HDL, LDL) (08/01/2012 9:35 EDT) Cholesterol 242 mg/dl [facility] Comment: Desirable:<200 Borderline High:200-239 High:>mu=912 Triglycerides 201 mg/dl [facility] Comment: Normal:<150 Borderline High:150-199 High:200-499 Very High:>jr=795 HDL 54 mg/dl [facility] Comment: Low:<40 Normal:40-60 Desirable: >60 LDL, Calculated 148 mg/dl [facility] Comment: Optimal:<100 Near Optimal:100-129 Borderline High:130-159 High:160-189 Very High:>et=448 Chol/HDL Ratio 4.5 [facility] Fasting? Yes [facility] Specimen Blood specimen (specimen) Performing Organization Address City/State/ZIP Code Phon e Number [facility] [address] [place] [address] SERVICES [facility] [address] [place] [address] documented in this encounter Visit Diagnoses Diagnosis Routine gynecological examination Galactorrhea Galactorrhea not associated with childbi rth documented in this encounter Care Teams Rod Cup Filler Relationship Specialty Start Date End Date Steve Barbour MD PCP - General 08/12/09 documented as of this encounter
--- OUTSIDE RECORDS SUMMARY | 2022-07-12 11:39 | XMS_ITS | Encounter Summary ---
:1950 Author Organization [facility] Address [address] [place] [address] Care Team Providers Name Role Phone Steve Barbour MD Primary Care Provider Unavailable Reason for Referral Consult (Routine/Next Available) - Specialty Report Received Specialty Diagnoses / Procedures Referred By Contact Refer red To Contact Hematology Diagnoses Anemia, unspecified Fili Hill MD [address] [place] [id number] Referral ID Status Reason Start Expiration Visits Visits Date Date Requested Authorized [id number] Specialty Specialty 12/16/2013 1 1 Report Services Received Required Question Answer Reason for Request: ANEMIA Encounter Details Date Type Department Care Team Description 12/16/2013 Orders Only [facility] Fili Hill Anemia, unspecified Gastroenterology - Wesley Hull MD (Dianna Quintero) [place] [address] [place] [address] Social History Tobacco Use Types Packs/Day Years Used Date Never Smoker Smokeless Tobacco: Never Used Alcohol Use Standard Drinks/Week Comments No 0 (1 standard drink = 0.6 oz pure alcoho l) Sex Assigned at Date Recorded Not on file documented as of this encounter Plan of Treatment Upcoming Encounters Date Type Specialty Care Team Description 07/15/2022 Telemedicine Hematology and Oncology Armnado Martinez MD [address] [place] [address], [facility] [address] [place] [address] (Wo rk) 07/20/2022 Office Visit Surgical Oncology Rio Pearson DO 111 [facility], Level 2 [place], [place] [phone] (Wo rk) 09/23/2022 Office Visit Dermatology Miriam Bentley MD 111 [facility], Level 5 [place], [place] [phone] (Wo rk) Scheduled Referrals Name Type Priority Associated Diagnoses Order S chedule AMB CONSULT Outpatient Referral Routine Anemia, unspecified O rdered: HEMATOLOGY 12/16/2013 documented as of this encounter Visit Diagnoses Diagnosis Anemia, unspecified - Primary documented in this encounter Care Teams Helicopter Officer Relationship Specialty Start Date End Date Steve Barbour MD PCP - General 08/12/09 documented as of this encounter
--- OUTSIDE RECORDS SUMMARY | 2022-07-12 11:39 | XMS_ITS | Encounter Summary ---
:1950 Author Organization [facility] Address [address] [place] [address] Care Team Providers Name Role Phone Steve Barbour MD Primary Care Provider Unavailable Encounter Details Date Type Department Care Team Description 06/20/2011 Results Only Imaging [facility]- GIULIA Barbour MD [phone] Social History Tobacco Use Types Packs/Day Years Used Date Never Assessed Sex Assigned at Date Recorded Not on file documented as of this encounter Plan of Treatment Upcoming Encounters Date Type Specialty Care Team Description 07/15/2022 Telemedicine Hematology and Oncology Armando Martinez MD [address] [place] [address] [address] [place] [address] (Wo rk) 07/20/2022 Office Visit Surgical Oncology Rio Pearson DO 111 [facility] 2 [place], [place] [phone] (Wo rk) 09/23/2022 Office Visit Dermatology Miriam Bentley MD 111 [facility], [facility] 5 [place], [place] [phone] (Wo rk) documented as of this encounter Procedures Procedure Name Priority Date/Time Associated Diagnosis Comme nts KHUSHI MAMMO SCREENING 06/22/2011 13:14 Resul ts for this DIGITAL EDT procedure are i n the results section. documented in this encounter Results KHUSHI MAMMO SCREENING DIGITAL (06/22/2011 13:14 EDT) Anatomical Region Laterality Modality Other Specimen Narrative [facility] - 06/24/2011 8:39 EDT Comparison is made to images from 02/10/2010 (bilateral) and images from 02/03/2009 (bilateral) and images f rom 01/30/2008 (bilateral) and images from 01/24/2007 (bilateral) a nd images from 01/17/2006 (bilateral) and images from 01/11/2005 a nd images from 12/11/2003. Bilateral Breast Findings: (CAD used to interpret routine digital) The breasts are almost entirely fat (les s than 25% fibroglandular). No significant masses, calcifications or other abnormalities are seen. IMPRESSION: BILATERAL BREASTS: Negative, no evidence of malignancy. Normal interval follow-up is recommended in 12 months. OVERALL ASSESSMENT - CATEGORY 1 - NEGATI VE END OF IMPRESSION The patient will be notified of her/his breast imaging results via a lay letter from Radiology. Radiology mignon l contact the patient directly regarding any findings which re quire additional imaging (Category 0) at this time. Procedure Note 06/24/2011 Comparison is made to images from 2009 (bilateral) and images from 02/03/2009 (bilateral) and images f rom 01/30/2008 (bilateral) and images from 01/24/2007 (bilateral) a nd images from 01/17/2006 (bilateral) and images from 01/11/2005 a nd images from 12/11/2003. Bilateral Breast Findings: (CAD used to interpret routine digital) The breasts are almost entirely fat (les s than 25% fibroglandular). No significant masses, calcifications or other abnormalities are seen. IMPRESSION: BILATERAL BREASTS: Negative, no evidence of malignancy. Normal interval follow-up is recommended in 12 months. OVERALL ASSESSMENT - CATEGORY 1 - NEGATI VE END OF IMPRESSION The patient will be notified of her/his breast imaging results via a lay letter from Radiology. Radiology mignon l contact the patient directly regarding any findings which re quire additional imaging (Category 0) at this time. Performing Organization Address City/State/ZIP Code Phon e Number [facility] S PROSPECT [facility] documented in this encounter Visit Diagnoses Not on filedocumented in this encounter Care Teams Tractor Operator Battery Relationship Specialty Start Date End Date Steve Barbour MD PCP - General 08/12/09 documented as of this encounter
--- OUTSIDE RECORDS SUMMARY | 2022-07-12 11:39 | XMS_ITS | Encounter Summary ---
:1950 Author Organization [facility] Address [address] [place] [address] Care Team Providers Name Role Phone Unavailable Primary Care Provider Unavailable Encounter Details Date Type Department Care Team Description 03/15/2006 Hospital Encounter [facility] - Joaquina Ya FNP [employer] [address] [place], [place] [phone] Social History Tobacco Use Types Packs/Day Years Used Date Never Assessed Sex Assigned at Date Recorded Not on file documented as of this encounter Discharge Disposition Disposition Code Departure Means Destination Auto Discharge documented in this encounter Plan of Treatment Upcoming Encounters Date Type Specialty Care Team Description 07/15/2022 Telemedicine Hematology and Oncology Armando Martinez MD [address] [place] [address] [phone] (Wo rk) 07/20/2022 Office Visit Surgical Oncology Rio Pearson DO 111 [facility] 2 [place], [place] [phone] (Wo rk) 09/23/2022 Office Visit Dermatology Miriam Bentley MD 111 [facility] 5 [place], [place] [address] (Wo rk) documented as of this encounter Procedures Procedure Name Priority Date/Time Associated Diagnosis Comme nts HPV DETECTION, HIGH Routine 03/15/2006 15:55 Resu lts for this RISK TYPES EDT procedure are i n the results section. documented in this encounter Results HUMAN PAPILLOMA VIRUS DNA TEST (03/15/2006 15:55 EDT) Specimen Description Cervix, ThinPrep [facility] vial Result Negative for HPV [facility] types 16, 18, 31, 33, 35, 39, 45, 51, 52, 56, 58, 59, and 68. Report Status Final [facility] [id number] Specimen Performing Organization Address City/State/ZIP Code Phon e Number [facility] [address] [place] [address] SERVICES [facility] [address] [place] [address] documented in this encounter Visit Diagnoses Not on filedocumented in this encounter
--- OUTSIDE RECORDS SUMMARY | 2022-07-12 11:39 | XMS_ITS | Encounter Summary ---
:1950 Author Organization [facility] Address [address] [place] [address] Care Team Providers Name Role Phone Polina Perez MD Primary Care Provider Unavailable Reason for Visit Reason Comments Gynecologic Exam Encounter Details Date Type Department Care Team Description 08/01/2012 Office Visit [facility] Daily, Carolyn Lund gynecological examination (Primary Dx); Women's Services - DIRECTOR PATIENT Galactorrhea [facility] [address] [place] [phone] Social History Tobacco Use Types Packs/Day Years Used Date Never Smoker Smokeless Tobacco: Never Used Alcohol Use Standard Drinks/Week Comments No 0 (1 standard drink = 0.6 oz pure alcoho l) Sex Assigned at Date Recorded Not on file documented as of this encounter Last Filed Vital Signs Vital Sign Reading Time Taken Comments Blood Pressure 168/92 08/01/2012 0812 EDT Pulse - - Temperature - - Respiratory Rate - - Oxygen Saturation - - Inhaled Oxygen Concentration - - Weight 73.8 kg (162 lb 12.8 oz) 08/01/2012 08 EDT Height 160.7 cm (5' 3.25) 08/01/2012 0812 EDT Body Mass Index 28.61 08/01/2012 0812 EDT documented in this encounter Discharge Disposition Disposition Code Departure Means Destination Auto Discharge documented in this encounter Progress Notes Daily, Mckenna Travis - 08/01/2012 0854 EDT SUBJECTIVE: Brittaney Grullon is an 62 y.o. postmenopausal woman who presents for an annual car chaser exam. Menarche age 11. Postmenopausal since 2003. Denies any vaginal bleeding. H/o abnormal pap smear in 1999, followed by negative colposcopy. Normal pap 2008. Negative HPV 2006. Denies any car chaser complaints. Not currently sexually active. Continues to have intermittent left nipple discharge that is milky white. No blood Normal mammogram 07/01 Colonoscopy march or April at [facility]-found one polyp-repeat in 5 years. Dexa scan: not sure when she last had-normal Takes calcium 600 mg daily. Anemia-had colonscopy and upper endoscopy and could not find any bleeding. 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 Asthma ??? Abnormal vaginal Pap smear ??? Factor 5 Leiden mutation, heterozygous ??? Restless legs syndrome ??? Galactorrhea Past Medical History Diagnosis Date ??? Restless legs syndrome 08/01/2012 ??? Galactorrhea 08/01/2012 History reviewed. No pertinent family history. Current Outpatient Prescriptions Medication Sig Dispense Refill ??? MULTIVITAMINS (MULTIVITAMIN ORAL) Take by mouth. ??? MONTELUKAST SODIUM (SINGULAIR ORAL) Take by mouth daily. ??? FLUTICASONE/SALMETEROL (ADVAIR HFA INHL) Inhale as directed. ??? ALBUTEROL INHL Inhale as directed. Allergies Allergen Reactions ??? Shellfish Anaphylaxis ??? Sulfa(Sulfonamide Antibiotics) Rash ??? Antibiotic (Ruwnp-Jbwlv-Pbvwtsb-Pramoxine) Rash ??? Other - See Comments antibiotics History Alcohol Use No History Smoking status ??? Never Smoker Smokeless tobacco ??? Never Used Sexual History: not currently active Domestic Violence History: no Diet: common adult Multivitamin: Yes Dietary Supplements: calcium and vit D; iron Review Of Systems: MUSCULO-SKELETAL: restless leg HEMATOLOGIC: anemia As mentioned above and in Subjective, all other Review of Systems reviewed and negative. OBJECTIVE: BP 168/92 Ht 160.7 cm (63.25) Wt 73.846 kg (162 lb 12.8 oz) BMI 28.61 kg/m2 @BP@ , @height@, Body mass index is 28.61 kg/(m^2). Pt declined custom marine canvas fabricator for exam General Appearance: healthy, alert, cooperative, oriented, and in no acute distress Neck: Neck supple. No adenopathy. Thyroid symmetric, normal size, Breast: Inspection negative. No nipple discharge or bleeding. No massses or tenderness. No axillary nodes or masses. Left nipple inversion-not new; no discharge Lungs: Lungs clear to auscultation. Good diaphragmatic excursion. No signs of distress. Heart: RRR. No murmurs, clicks, or gallops Abdomen: Abdomen soft, non-tender. No masses, organomegaly, obese Pelvic: URETHRA: normal appearing urethra with no masses, tenderness or lesions CLITORIS: normal appearing clitoris with no hypertrophy or enlargement BARTHOLIN'S GLANDS: normal appearing Bartholin's glands with no masses, tenderness or erythema VULVA: normal appearing vulva with no masses, tenderness, or lesions VAGINA: atrophic CERVIX: normal appearing cervix without discharge or lesions UTERUS: uterus is normal size, shape, consistency and nontender ADNEXA: normal adnexa in size, nontender and no masses RECTAL: deferred secondary to recent colonscopy ASSESSMENT: Postmenopausal Elevated BP PLAN: Orders Placed This Encounter Procedures ??? Lipid Profile (Includes Cholesterol, Triglycerides, HDL, LDL) Standing Status: Future Number of Occurrences: Standing Expiration Date: 08/01/2013 Order Specific Question: CC Results To (Max 3): Answer: POLINA PEREZ [[id number]] ??? TSH Standing Status: Future Number of Occurrences: Standing Expiration Date: 08/01/2013 Order Specific Question: CC Results To (Max 3): Answer: POLINA PEREZ [[id number]] ??? Glucose, Serum Standing Status: Future Number of Occurrences: Standing Expiration Date: 08/01/2013 Order Specific Question: CC Results To (Max 3): Answer: POLINA PEREZ [[id number]] ??? Prolactin Standing Status: Future Number of Occurrences: Standing Expiration Date: 08/01/2013 Order Specific Question: CC Results To (Max 3): Answer: POLINA PEREZ [[id number]] Pap smear: Pap and HPV-5 years Mammography: Yearly after age 40 Caclium 1500 mg daily with vit D 1000 units Weight bearing exercises F/u with PCP regarding BP if continues to be elevated Lifestyle and Patient Education Categories: Pap smear screening/results, Osteoporosis and Adequate intake of calcium and vitamin D Return Visit: 1 yr annual exam and as needed Mckenna Travis Daily, DIRECTOR PATIENT documented in this encounter Plan of Treatment Upcoming Encounters Date Type Specialty Care Team Description 07/15/2022 Telemedicine Hematology and Oncology Armando Martinez MD [address] [facility] [address] [place], [place] [address] (Wo rk) 07/20/2022 Office Visit Surgical Oncology Rio Pearson DO [address] [facility] [address] [place], [place] [address] (Wo rk) 09/23/2022 Office Visit Dermatology Miriam Bentley MD [address] [facility] 5 [place], [place] [address] (Wo rk) documented as of this encounter Results PROLACTIN (08/01/2012 9:35 EDT) Pathologist Sig nature Prolactin 10.1 ng/ml [facility] Comment: Non-: 2.8-29.2 : 9.7-208.5 Post Menopausal: 1.8-20.3 Specimen Blood specimen (specimen) Performing Organization Address City/[facility] Code Phon e Number [facility] [address] [place] [address] SERVICES [facility] [address] [place] [address] GLUCOSE, SERUM (08/01/2012 9:35 EDT) Pathologist Sig nature Glucose, Serum 87 70 - 100 mg/dl [facility] Specimen Blood specimen (specimen) Performing Organization Address City/[facility] Phon e Number [facility] [address] [place] [address] SERVICES [facility] [address] [place] [address] TSH (08/01/2012 9:35 EDT) Pathologist Sig nature TSH 1.16 0.35 - 5.00 uIU/ml [facility] Specimen Blood specimen (specimen) Performing Organization Address [facility]/ZIP [facility] Phon e Number [facility] [address] [place] [address] SERVICES [facility] [address] [place] [address] LIPID PROFILE (INCLUDES CHOLESTEROL, TRIGLYCERIDES, HDL, LDL) (08/01/2012 9:35 EDT) Cholesterol 242 mg/dl [facility] Comment: Desirable:<200 Borderline High:200-239 High:>zw=367 Triglycerides 201 mg/dl [facility] Comment: Normal:<150 Borderline High:150-199 High:200-499 Very High:>lg=100 HDL 54 mg/dl [facility] Comment: Low:<40 Normal:40-60 Desirable: >60 LDL, Calculated 148 mg/dl [facility] Comment: Optimal:<100 Near Optimal:100-129 Borderline High:130-159 High:160-189 Very High:>ca=054 Chol/HDL Ratio 4.5 [facility] Fasting? Yes [facility] Specimen Blood specimen (specimen) Performing Organization Address [facility] Phon e Number [facility] [address] [place] [address] [facility] [address] [place] [address] documented in this encounter Visit Diagnoses Diagnosis Routine gynecological examination - Prim michael Galactorrhea Galactorrhea not associated with childbi rth documented in this encounter Historical Medications This list may reflect changes made after this encounter. Medication Sig Dispensed Refills Start Date End Date FERROUS FUMARATE (IRON Take 50 mg by mouth 2 times daily . 0 02/25/2022 ORAL) ROPINIROLE HCL (REQUIP Take by mouth. 0 12/16/2013 ORAL) added in this encounter Care Teams Computer Terminal Operator Relationship Specialty Start Date End Date Polina Perez MD PCP - General 08/12/09 documented as of this encounter
--- OUTSIDE RECORDS SUMMARY | 2022-07-12 11:39 | XMS_ITS | Encounter Summary ---
:1950 Author Organization [facility] Address [address] [place] [address] Care Team Providers Name Role Phone Steve Barbour MD Primary Care Provider Unavailable Juan Pablo Garrett MD Primary Care Provider None, Provider Primary Care Provider Unavailable Juan Pablo Garrett MD Primary Care Provider Unknown, Provider Primary Care Provider Jaimie Delgado Primary Care Provider Encounter Details Date Type Department Care Team Description 06/25/2001 Hospital Encounter [facility] [place] [address] [phone] Other Unknown, Provider, [address] [place], [place] [id number] Social History Tobacco Use Types Packs/Day Years [...] Telemedicine Hematology and Oncology Armando Martinez MD [address] [place] [address] [address] [place] [address] (Wo rk) 07/20/2022 Office Visit Surgical Oncology Lili Rioniko Walsh DO [address] [facility], [facility], [address] [place], [place] [phone] (Wo rk) 09/23/2022 Office Visit Dermatology Miriam Bentley MD [address] [facility], [facility], [address] [place] [address] (Wo rk) documented as of this encounter Procedures Procedure Name Priority Date/Time Associated Diagnosis Comme nts HDL Routine 06/25/2001 11:15 EDT Results for this procedure are i n the results section . CHOLESTEROL Routine 06/25/2001 11:15 EDT Results for this procedure are i n the results section . CYTOPATHOLOGY Routine 06/25/2001 0:00 EDT Results for this procedure are i n the results section . documented in this encounter Results HDL (06/25/2001 11:15 EDT) Pathologist Sig nature HDL 48 mg/dl [facility] Comment: Highly Desirable:>60 Desirable:35-60 High Risk:<35 Specimen Performing Organization Address City/[facility] Code Phon e Number [facility] [address] [place] [address] [address] [facility] [address] [place] [address] CHOLESTEROL (06/25/2001 11:15 EDT) Pathologist Sig nature Cholesterol 217 mg/dl [facility] Comment: Desirable:<200 Borderline:200-239 High Risk:>ka=505 Specimen Performing Organization Address City/[facility] Phon e Number [facility] [address] [place] [address] [facility] [address] [place] [address] CYTOPATHOLOGY (06/25/2001 0:00 EDT) Pathology Report: CYTOPATHOLOGY REPORT [facility] Reports generated via electronic interface contain yenifer ginal data; however they are lacking the format of the original re port. Caution should be taken when reading/interpreting unfo rmatted reports. Name: ? BRITTANEY GRULLON ? Accession #: ? [id number] : ? 1950 (Age: 51) ??F ?Collect Date: ? 04/2001 Location: ? [facility] ? Receive Date : ? 06/27/2001 Provider: ?KAYLEN SKELTON MD Copy to: ? Specimen/Source: ?ThinPrep Pap Test, Source Not Provided Last Menstrual Period: ? 06/16/01 Previous Gynecologic Pathology: ? ASC-US: R/o TODD Treatment History: ? Colposcopy: 11/07/00 ? SPECIMEN ADEQUACY ? Satisfactory for evaluation. GENERAL CATEGORIZATION ? Within Normal Limits ? Document reviewed and electronically signed by: ? EDWIN Saeed(ASCP) ? Report Date: ??07/03/2001 09:37 End of Report Specimen Performing Organization Address City/State/ZIP Code Phon e Number [facility] [address] [place] [address] SERVICES [facility] [address] [place] [address] documented in this encounter Visit Diagnoses Not on filedocumented in this encounter Care Teams Sand Mixer Operator Relationship Specialty Start Date End Date Steve Barbour MD PCP - General 08/12/09 Juan Pablo Garrett MD PCP - General 07/05/16 04/28/19 [address] [place] [address] None, Provider PCP - General 04/29/19 04/29/19 Juan Pablo Garrett MD PCP - General 04/30/19 06/21/[address] [place] [address] Unknown, Provider, PCP - General 08/13/21 08/17/21 Jaimie Delgado PCP - General Internal Medicine - 08/18/[address] Primary Care [place], [place] [phone] documented as of this encounter
--- OUTSIDE RECORDS SUMMARY | 2022-07-12 11:39 | XMS_ITS | Encounter Summary ---
:1950 Author Organization [facility] Address [address] [place] [address] Care Team Providers Name Role Phone Unavailable Primary Care Provider Unavailable Encounter Details Date Type Department Care Team Description 10/29/2001 Hospital [facility] [phone] [place] [address] [facility] [address] [place] [phone] (Wo rk) Social History Tobacco Use Types Packs/Day Years Used Date Never Assessed Sex Assigned at Date Recorded Not on file documented as of this encounter Discharge Disposition Disposition Code Departure Means Destination Auto Discharge documented in this encounter Plan of Treatment Upcoming Encounters Date Type Specialty Care Team Description 07/15/2022 Telemedicine Hematology and Oncology Armando Martinez MD [address] [place] [address] [address] [place] [address] (Wo rk) 07/20/2022 Office Visit Surgical Oncology Rio Pearson DO [address] [facility] [address] [place] [address] (Wo rk) 09/23/2022 Office Visit Dermatology Miriam Bentley MD [address] [facility] 5 [place] [address] (Wo rk) documented as of this encounter Procedures Procedure Name Priority Date/Time Associated Comments Diagnosis MA MAMMOGRAPHIC SCREEN Routine 10/29/2001 16:26 R esults for this LEAH EST procedure are i n the results section. HPV DETECTION, HIGH Routine 10/29/2001 16:10 Resu lts for this RISK TYPES EST procedure are i n the results section. CYTOPATHOLOGY Routine 10/29/2001 0:00 Results for this EST procedure are i n the results section. documented in this encounter Results MA MAMMOGRAPHIC SCREEN LEAH (10/29/2001 16:26 EST) Anatomical Region Laterality Modality Other Specimen Impressions [facility] - 10/09/2009 1: 08 EST IMPRESSION: BILATERAL BREASTS - Category 1 Negative, no evidence of malignancy. Nor mal interval follow-up is recommended in 12 months. OVERALL ASSESSMENT - NEGATIVE END OF IMPRESSION Narrative [facility] - 10/09/2009 1: 08 EST ROUTINE ?LAST MAMMO 10-28-00, PT WILL HAND CARRY OLD FILMS FROM [facility] ?[PCP POLINA ??CHRIS] Comparison is made to outside films from 05-28-1998 (bilateral). Bilateral Breast Findings: The breasts are heterogeneously dense. T his may lower the sensitivity of mammography. No masses, significant c alcifications or other abnormalities are seen. Procedure Note Nadia Lion, PT / Alexandria Mei MD - 10/09/2009 ROUTINE LAST MAMMO 10-28-00, PT WILL HAND CARRY OLD FILMS FROM [facility] [PCP POLINA PEREZ] Comparison is made to outside films from 05-28-1998 (bilateral). Bilateral Breast Findings: The breasts are heterogeneously dense. T his may lower the sensitivity of mammography. No masses, significant c alcifications or other abnormalities are seen. IMPRESSION IMPRESSION: BILATERAL BREASTS - Category 1 Negative, no evidence of malignancy. Nor mal interval follow-up is recommended in 12 months. OVERALL ASSESSMENT - NEGATIVE END OF IMPRESSION Performing Organization Address City/State/ZIP Code Phon e Number [facility] [address] [facility] [address] [facility] [address] [place], [place] [address] HUMAN PAPILLOMA VIRUS DNA TEST (10/29/2001 16:10 EST) Specimen Description Cervix, ThinPrep [facility] Result Positive for one or more of HPV types 16,18,31,33,35,39,45,51,52,56,58,59, or 68. These [facility] high/intermediate risk HPV t ypes are associated with dysplasia and some cervical cancers. LAB Positive for one or more of HPV types 6,11,42,43, or 44. These low riskHPV types are usually associated with benign conditions. Report Status Final [facility] [id number] [facility] Specimen Performing Organization Address City/State/ZIP Code Phon e Number [facility] [address] [place] [address] SERVICES [facility] [address] [place] [phone] CYTOPATHOLOGY (10/29/2001 0:00 EST) Pathology Report: CYTOPATHOLOGY REPORT [facility] Reports generated via electronic interface contain yenifer ginal data; however they are lacking the format of the original re port. Caution should be taken when reading/interpreting unfo rmatted reports. Name: ? BRITTANEY GRULLON ? Accession #: ? [id number] : ? 1950 (Age: 51) ??F ?Collect Date: ? 10/20 Location: ? [facility] ? Receive Date : ? 10/31/2001 Provider: ?CARMITA HICKS ANP Copy to: ? Specimen/Source: ?ThinPrep Pap Test, Cervix/ Endocervix Last Menstrual Period: ? 10/18/01 Previous Gynecologic Pathology: ? ASC-US: cannot rule out @IL Treatment History: ? Colposcopy ? SPECIMEN ADEQUACY ? Satisfactory for evaluation. GENERAL CATEGORIZATION ? Epithelial Cell Abnormality DESCRIPTIVE DIAGNOSIS ? Atypical squamous jennifer ls of undetermined significance (ASCUS), cannot rule out squamous intraepithelial lesion (TODD). RECOMMENDATION ? Recommend clinical correlation and further eval uation, as clinically indicated. ? Document reviewed and electronically signed by: ? MICKI ISLAS MD ? Report Date: ??11/06/2001 11:54 End of Report Specimen Performing Organization Address City/State/ZIP Code Phon e Number [facility] [address] [place] [address] SERVICES [facility] [address] [place] [address] documented in this encounter Visit Diagnoses Not on filedocumented in this encounter
--- OUTSIDE RECORDS SUMMARY | 2022-07-12 11:39 | XMS_ITS | Encounter Summary ---
:1950 Author Organization [facility] Address [address] [place] [address] Care Team Providers Name Role Phone Steve Barbour MD Primary Care Provider Unavailable Reason for Visit Reason Onset Date Comments New Patient Visit 12/16/2013 anemia and factor 5 Appointment Related 12/25/2013 LMOM for Floey with date/time. Also spoke with patient, she accepte d appointment on 01/08/14 at 4:00 pm [facility] Dr[address] Elvin dang. 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 Encounter Details Date Type Department Care Team Description 12/16/2013 Telephone [facility] [place] New P atient Visit Hematology & Oncology - MD (ane jasmin and factor 5); Main [place] Appointment Related [address] ([place] [address] date/time. Also spoke [phone] with patient, s he accepted appoin tment on 01/08/14 at 4:00 pm [facility] Dr. Elvin martines. Said she was di agnosed with factor V a t [facility] in the early I will request he r chart to hopefully fi nd this information.) Social History Tobacco Use Types Packs/Day Years Used Date Never Smoker Smokeless Tobacco: Never Used Alcohol Use Standard Drinks/Week Comments No 0 (1 standard drink = 0.6 oz pure alcoho l) Sex Assigned at Date Recorded Not on file documented as of this encounter Miscellaneous Notes Telephone Encounter - Shanon Webber - 12/25/2013 1037 EST LMOM for Steven with date/time. Also spoke with patient, she accepted appointment on 01/08/14 at 4:[address] Elvin Veronica. 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 elephone Encounter - Kamryn Brito - 12/16/2013 1123 EST Notes in PRISM, please contact pt directly for scheuling documented in this encounter Plan of Treatment Upcoming Encounters Date Type Specialty Care Team Description 07/15/2022 Telemedicine Hematology and Oncology Armando Martinez MD [address] [place] [address] [address] [place], [place] [phone] (Wo rk) 07/20/2022 Office Visit Surgical Oncology Rio Pearson DO [address] [facility], [facility] 2 [place], [place] [address] (Wo rk) 09/23/2022 Office Visit Dermatology Miriam Bentley MD [address] [facility], [address] [place] [address] (Wo rk) documented as of this encounter Visit Diagnoses Not on filedocumented in this encounter Care Teams Retail Cosmetics Sales Counter Manager Relationship Specialty Start Date End Date Steve Barbour MD PCP - General 08/12/09 documented as of this encounter
--- OUTSIDE RECORDS SUMMARY | 2022-07-12 11:39 | XMS_ITS | Encounter Summary ---
:1950 Author Organization [facility] Address [address] [place] [address] Care Team Providers Name Role Phone Unavailable Primary Care Provider Unavailable Encounter Details Date Type Department Care Team Description 06/10/2002 Hospital Encounter [facility] - Kaia Friedman FNP Other Unknown, Provider, [address] [place] [address] Social History Tobacco Use Types Packs/Day Years Used Date Never Assessed Sex Assigned at Date Recorded Not on file documented as of this encounter Discharge Disposition Disposition Code Departure Means Destination Auto Discharge documented in this encounter Plan of Treatment Upcoming Encounters Date Type Specialty Care Team Description 07/15/2022 Telemedicine Hematology and Oncology Armando Martinez MD [address] [place] [address] [address] [place], [place] [phone] (Wo rk) 07/20/2022 Office Visit Surgical Oncology Rio Pearson DO 111 [facility] [address] [place], [place] [phone] (Wo rk) 09/23/2022 Office Visit Dermatology Miriam Bentley MD 111 [facility], [facility] [address] [place], [place] [phone] (Wo rk) documented as of this encounter Procedures Procedure Name Priority Date/Time Associated Comments Diagnosis MA MAMMOGRAPHIC SCREEN Routine 10/31/2002 8:34 Re sults for this LEAH EST procedure are i n the results section. CYTOPATHOLOGY Routine 06/10/2002 0:00 Results for this EDT procedure are i n the results section. documented in this encounter Results MA MAMMOGRAPHIC SCREEN LEAH (10/31/2002 8:34 EST) Anatomical Region Laterality Modality Other Specimen Impressions [facility] - 08/17/2009 2: 11 EDT IMPRESSION: BILATERAL BREASTS - Category 1 Negative, no evidence of malignancy. Nor mal interval follow-up is recommended in 12 months. OVERALL ASSESSMENT - NEGATIVE END OF IMPRESSION Narrative [facility] - 08/17/2009 2: 11 EDT ROUTINE ?? [PCP POLINA PEREZ, SPENCER FRIEDMAN] Comparison is made to films from (bilateral). Bilateral Breast Findings: There are scattered fibroglandular densi ties. No significant masses, calcifications or other abnormalities ar e seen. Procedure Note Nimesh Mei MD / hDiraj Lee MD - 08/17/2009 ROUTINE [PCP POLINA PEREZ, SPENCER FRIEDMAN] Comparison is made to films from (bilateral). Bilateral Breast Findings: There are scattered fibroglandular densi ties. No significant masses, calcifications or other abnormalities ar e seen. IMPRESSION IMPRESSION: BILATERAL BREASTS - Category 1 Negative, no evidence of malignancy. Nor mal interval follow-up is recommended in 12 months. OVERALL ASSESSMENT - NEGATIVE END OF IMPRESSION Performing Organization Address City/State/ZIP Code Phon e Number [facility] [address] [facility] [address] [facility] [address] [place], [place] [address] CYTOPATHOLOGY (06/10/2002 0:00 EDT) Pathology Report: CYTOPATHOLOGY REPORT [facility] Reports generated via electronic interface contain yenifer ginal data; however they are lacking the format of the original re port. Caution should be taken when reading/interpreting unfo rmatted reports. Name: ? BRITTANEY GRULLON ? Accession #: ? [id number] : ? 1950 (Age: 52) ??F ?Collect Date: ? 05/21 Location: ? [facility] ? Receive Date : ? 06/11/2002 Provider: ?KAIA ALBERTOEY [employer] PROJECT MANAGER Copy to: ? Specimen/Source: ?ThinPrep Pap Test, Cervix/ Endocervix Last Menstrual Period: ? 05/30/02 Previous Gynecologic Pathology: ? ASC-US Treatment History: ? Colposcopy: 2000 ? SPECIMEN ADEQUACY ? Satisfactory for Evaluation - transformation zone component absent GENERAL CATEGORIZATION ? Negative for Intraepithelial Lesion or Malignan cy ? Document reviewed and electronically signed by: ? ODELL Crook(ASCP) ? Report Date: ??06/17/2002 14:07 End of Report Specimen Performing Organization Address City/State/ZIP Code Phon e Number [facility] [address] [place] [address] SERVICES [facility] [address] [place] [phone] documented in this encounter Visit Diagnoses Not on filedocumented in this encounter
--- OUTSIDE RECORDS SUMMARY | 2022-07-12 11:39 | XMS_ITS | Encounter Summary ---
:1950 Author Organization [facility] Address [address] [place] [address] Care Team Providers Name Role Phone Unavailable Primary Care Provider Unavailable Encounter Details Date Type Department Care Team Description 10/31/2002 Hospital Encounter [facility] - Mia Hummel NP [address] [place], [place] [phone] Other Unknown, Provider, [address] [place], [place] [address] Social History Tobacco Use Types Packs/Day Years Used Date Never Assessed Sex Assigned at Date Recorded Not on file documented as of this encounter Discharge Disposition Disposition Code Departure Means Destination Auto Discharge documented in this encounter Plan of Treatment Upcoming Encounters Date Type Specialty Care Team Description 07/15/2022 Telemedicine Hematology and Oncology Armando Martinez MD [address] [place] [address] [address] [place], [place] [phone] (Wo rk) 07/20/2022 Office Visit Surgical Oncology Rio Pearson DO 111 [facility] 2 [place], [place] [phone] (Wo rk) 09/23/2022 Office Visit Dermatology Miriam Bentley MD 111 [facility] 5 [place], [place] [phone] (Wo rk) documented as of this encounter Procedures Procedure Name Priority Date/Time Associated Comments Diagnosis LIPID PROFILE Routine 10/31/2002 10:00 Results fo r this (INCLUDES CHOLESTEROL, EST proce dure are in TRIGLYCERIDES, HDL, the resu lts LDL) section. CYTOPATHOLOGY Routine 10/31/2002 0:00 Results for this EST procedure are i n the results section. documented in this encounter Results LIPID PROFILE (INCLUDES CHOLESTEROL, TRIGLYCERIDES, HDL, LDL) (10/31/2002 10:00 EST) Cholesterol 247 mg/dl [facility] Comment: Desirable:<200 Borderline:200-239 High Risk:>ih=210 Triglycerides 132 35 - 160 mg/dl [facility] HDL 52 mg/dl [facility] Comment: Highly Desirable:>60 Desirable:35-60 High Risk:<35 LDL, Calculated 169 mg/dl [facility] Comment: Desirable:<130 Borderline:130-159 High Risk:>gv=[id number] Chol/HDL Ratio 4.8 [facility] Specimen Performing Organization Address City/State/ZIP Code Phon e Number [facility] [address] [place] [address] [facility] [address] [place] [address] CYTOPATHOLOGY (10/31/2002 0:00 EST) Pathology Report: CYTOPATHOLOGY REPORT [facility] Reports generated via electronic interface contain yenifer ginal data; however they are lacking the format of the original re port. Caution should be taken when reading/interpreting unfo rmatted reports. Name: ? BRITTANEY GRULLON ? Accession #: ? [id number] : ? 1950 (Age: 52) ??F ?Collect Date: ? 10/20 Location: ? [facility] ? Receive Date : ? 11/01/2002 Provider: ?MIA HUMMEL VOCATIONAL EVALUATOR Copy to: ? Specimen/Source: ?ThinPrep Pap Test, Cervix/ Endocervix Last Menstrual Period: ? 10/11/02 Treatment History: ? Colposcopy: 1999 Other: ? HPVA - HPV testing requested if ASC-US on the current ThinPrep Pap test. ? SPECIMEN ADEQUACY ? Satisfactory for Evaluation - transformation zone component present GENERAL CATEGORIZATION ? Negative for Intraepithelial Lesion or Malignan cy ? Document reviewed and electronically signed by: ? ODELL Parker(ASCP) ? Report Date: ??11/04/2002 13:30 End of Report Specimen Performing Organization Address City/State/ZIP Code Phon e Number [facility] [address] [place] [phone] SERVICES [facility] [address] [place] [address] documented in this encounter Visit Diagnoses Not on filedocumented in this encounter
--- OUTSIDE RECORDS SUMMARY | 2022-07-12 11:39 | XMS_ITS | Encounter Summary ---
:1950 Author Organization [facility] Address [address] [place] [address] Care Team Providers Name Role Phone Unavailable Primary Care Provider Unavailable Encounter Details Date Type Department Care Team Description 10/30/2001 Hospital Encounter [facility] Yaneth Roche NP 111 [facility], [facility] [address] [place] [address] Other Unknown, Provider, [address] [place] [address] Social History Tobacco Use Types Packs/Day Years Used Date Never Assessed Sex Assigned at Date Recorded Not on file documented as of this encounter Discharge Disposition Disposition Code Departure Means Destination Auto Discharge documented in this encounter Plan of Treatment Upcoming Encounters Date Type Specialty Care Team Description 07/15/2022 Telemedicine Hematology and Oncology Armando Martinez MD [address] [place] [address] [phone] (Wo rk) 07/20/2022 Office Visit Surgical Oncology Rio Pearson DO 111 [facility], [facility] [address] [place], [place] [phone] (Wo rk) 09/23/2022 Office Visit Dermatology Miriam Bentley MD 111 [facility], [address] [place], [place] [phone] (Wo rk) documented as of this encounter Visit Diagnoses Not on filedocumented in this encounter
[2022-07-12 17:17] LABS: Abs Immature Grans 0.03 10^3/uL (0.0-0.06); Absolute Basophil Count 0.04 10^3/uL (0.0-0.2); Absolute Lymphocyte Count 1.09 10^3/uL (1.2-3.4); Absolute Monocyte Count 0.47 10^3/uL (0.1-0.8); Basophils % 0.5; Eosinophils % 1.2; HCT 39.6 % (36.0-46.0); Immature Grans % 0.4; Lymphocytes % 13.1; MCHC 32.8 % (32.0-36.0); MCV 95 fL (80-95); MPV 11.5 fL (8.0-11.0); Monocytes % 5.6; Neutrophils % 79.2; Platelet Count 252 10^3/uL (130-400); RBC 4.19 10^6/uL (3.93-5.22); RDW 13.1 % (11.7-14.6); RDW-SD 45.3 fL; WBC 8.33 10^3/uL (4.4-10.8)
[2022-07-12 17:54] LABS: Ferritin 27 ng/mL (8-252)
== END 2022-07-12 11:22 | disposition home or self-care (01) ==
LOC: LBN 11:21
PROVIDERS: PCP Internal Medicine; Visit Provider Internal Medicine Hematology & Oncology
DX: D50.0 Iron deficiency anemia secondary to blood loss (chronic) (principal)
CPT/HCPCS: 82728; 85025

== ENCOUNTER 2023-05-18 13:40 | Outpatient (REF) | payer MEDICARE, SELFPAY ==
[2023-05-18 14:24] LABS: HCT 40.9 % (36.0-46.0); HGB 13.2 g/dL (11.2-15.7); MCH 30.8 pg (27.0-33.0); MCHC 32.3 % (32.0-36.0); MCV 95 fL (80-95); MPV 11.2 fL (8.0-11.0); Platelet Count 256 10^3/uL (130-400); RBC 4.29 10^6/uL (3.93-5.22); RDW 13.2 % (11.7-14.6); RDW-SD 46.1 fL; WBC 7.54 10^3/uL (4.4-10.8)
[2023-05-18 15:14] LABS: Anion Gap 8.2 mmol/L (3-11); BUN 23 mg/dL (7-18); CO2 28.8 mmol/L (21.0-32.0); CREATININE 0.8 mg/dL (0.55-1.02); Calcium 10.2 mg/dL (8.5-10.1); Chloride 106 mmol/L (98-107); Estimated GFR 76.79 (mL/min/1.73m2); Ferritin 26 ng/mL (8-252); Glucose 115 mg/dL (74-106); Potassium 4.1 mmol/L (3.5-5.1); Sodium 143 mmol/L (136-145)
== END 2023-05-18 13:41 | disposition home or self-care (01) ==
LOC: NCHCN 13:40
PROVIDERS: PCP Internal Medicine; Visit Provider Internal Medicine
DX: D50.9 Iron deficiency anemia, unspecified (principal); I10 Essential (primary) hypertension
CPT/HCPCS: 80048; 85027; 82728

== ENCOUNTER 2023-12-13 10:12 | Outpatient (REF) | payer MEDICARE, SELFPAY ==
[2023-12-13 15:24] LABS: Bilirubin, Direct 0.2 mg/dL (0.0-0.2); Bilirubin, Total 1.2 mg/dL (0.2-1.0)
== END 2023-12-13 10:13 | disposition home or self-care (01) ==
LOC: NCHCN 10:12
PROVIDERS: PCP Internal Medicine; Visit Provider Internal Medicine
DX: R17 Unspecified jaundice (principal); E80.6 Other disorders of bilirubin metabolism
CPT/HCPCS: 82247; 82248

== ENCOUNTER 2023-12-28 14:51 | Outpatient (REF) | payer MEDICARE, SELFPAY ==
[2023-12-28 15:31] LABS: Abs Immature Grans 0.06 10^3/uL (0.0-0.06); Absolute Basophil Count 0.06 10^3/uL (0.0-0.2); Absolute Eosinophil Count 0.17 10^3/uL (0.0-0.7); Absolute Lymphocyte Count 1.18 10^3/uL (1.2-3.4); Absolute Monocyte Count 0.68 10^3/uL (0.1-0.8); Absolute Neutrophil Count 7.83 10^3/uL (1.2-6.7); Basophils % 0.6; Eosinophils % 1.7; HCT 40.6 % (36.0-46.0); HGB 13.1 g/dL (11.2-15.7); Immature Grans % 0.6; Lymphocytes % 11.8; MCH 30.1 pg (27.0-33.0); MCHC 32.3 % (32.0-36.0); MCV 93 fL (80-95); MPV 10.8 fL (8.0-11.0); Monocytes % 6.8; Neutrophils % 78.5; Platelet Count 246 10^3/uL (130-400); RBC 4.35 10^6/uL (3.93-5.22); RDW 13.6 % (11.7-14.6); RDW-SD 46.8 fL; WBC 9.98 10^3/uL (4.4-10.8)
[2023-12-28 16:16] LABS: Ferritin 54 ng/mL (8-252)
== END 2023-12-28 14:52 | disposition home or self-care (01) ==
LOC: LBN 14:51
PROVIDERS: PCP Internal Medicine; Visit Provider Internal Medicine Hematology & Oncology
DX: D50.0 Iron deficiency anemia secondary to blood loss (chronic) (principal)
CPT/HCPCS: 82728; 85025

== ENCOUNTER 2024-03-27 16:40 | Outpatient (REF) | payer MEDICARE, SELFPAY ==
[2024-03-27 21:14] LABS: HCT 40.7 % (36.0-46.0); MCH 30.5 pg (27.0-33.0); MCHC 31.9 % (32.0-36.0); MCV 96 fL (80-95); Platelet Count 260 10^3/uL (130-400); RBC 4.26 10^6/uL (3.93-5.22); RDW 13.8 % (11.7-14.6); RDW-SD 48.9 fL; WBC 10.79 10^3/uL (4.4-10.8)
[2024-03-27 21:44] LABS: Iron 39 ug/dL (50-170); Total Iron Binding Capacity 417 ug/dL (250-450); Transferrin Sat 9 % (15-50)
[2024-03-27 21:52] LABS: Ferritin 24 ng/mL (8-252)
== END 2024-03-27 16:41 | disposition home or self-care (01) ==
LOC: NCHCN 16:40
PROVIDERS: PCP Internal Medicine; Visit Provider Internal Medicine
DX: R06.09 Other forms of dyspnea (principal)
CPT/HCPCS: 85027; 82728; 83540; 83550

== ENCOUNTER 2024-12-20 22:20 | Outpatient (REF) | payer MEDICARE, SELFPAY ==
[2024-12-20 21:29] LABS: HCT 42.5 % (36.0-46.0); MCH 32.1 pg (27.0-33.0); MCHC 32.9 % (32.0-36.0); MCV 98 fL (80-95); MPV 10.9 fL (8.0-11.0); Platelet Count 248 10^3/uL (130-400); RBC 4.36 10^6/uL (3.93-5.22); RDW 12.7 % (11.7-14.6); RDW-SD 45.5 fL; WBC 10.64 10^3/uL (4.4-10.8)
[2024-12-20 21:36] LABS: Iron 56 ug/dL (50-170); Total Iron Binding Capacity 327 ug/dL (250-450); Transferrin Sat 17 % (15-50)
[2024-12-20 21:53] LABS: ALT 29 U/L (14-59); AST 20 U/L (15-37); Albumin 3.8 g/dL (3.4-5.0); Alkaline Phosphatase 99 U/L (46-116); Anion Gap 6.7 mmol/L (3-11); BUN 22 mg/dL (7-18); Bilirubin, Total 1.18 mg/dL (0.2-1.0); CO2 30.3 mmol/L (21.0-32.0); CREATININE 0.9 mg/dL (0.55-1.02); Calcium 10.5 mg/dL (8.5-10.1); Chloride 105 mmol/L (98-107); Estimated GFR 66.26 (mL/min/1.73m2); Ferritin 111 ng/mL (8-252); Glucose 209 mg/dL (74-106); Potassium 3.5 mmol/L (3.5-5.1); Sodium 142 mmol/L (136-145); Total Protein 7.5 g/dL (6.4-8.2)
== END 2024-12-20 22:21 | disposition home or self-care (01) ==
LOC: NCHCN 22:20
PROVIDERS: PCP Internal Medicine; Visit Provider Internal Medicine
DX: D50.0 Iron deficiency anemia secondary to blood loss (chronic) (principal); I10 Essential (primary) hypertension
CPT/HCPCS: 80053; 85027; 82728; 83540; 83550

== ENCOUNTER 2025-03-26 11:03 | Outpatient (REF) | payer MEDICARE, SELFPAY ==
[2025-03-26 14:46] LABS: Anion Gap 5.6 mmol/L (3-11); BUN 19 mg/dL (7-18); CO2 30.4 mmol/L (21.0-32.0); CREATININE 0.7 mg/dL (0.55-1.02); Calcium 10.4 mg/dL (8.5-10.1); Chloride 103 mmol/L (98-107); Estimated GFR 89.02 (mL/min/1.73m2); Glucose 76 mg/dL (74-106); Sodium 139 mmol/L (136-145)
== END 2025-03-26 11:04 | disposition home or self-care (01) ==
LOC: NCHCN 11:03
PROVIDERS: PCP Internal Medicine; Visit Provider Internal Medicine
DX: I10 Essential (primary) hypertension (principal)
CPT/HCPCS: 80048

== ENCOUNTER 2025-08-11 15:18 | Outpatient (REF) | payer MEDICARE, SELFPAY ==
[2025-08-11 22:13] LABS: Anion Gap 5.7 mmol/L (3-11); BUN 25 mg/dL (7-18); CO2 31.3 mmol/L (21.0-32.0); Calcium 10.5 mg/dL (8.5-10.1); Chloride 103 mmol/L (98-107); Estimated GFR 89.02 (mL/min/1.73m2); Ferritin 46 ng/mL (8-252); Glucose 84 mg/dL (74-106); Potassium 3.6 mmol/L (3.5-5.1); Sodium 140 mmol/L (136-145)
[2025-08-12 15:04] LABS: Iron 60 ug/dL (50-170)
[2025-08-12 15:22] LABS: Vitamin D 25 Total 35 ng/mL (30-100)
[2025-08-12 15:32] LABS: COMMENT (LAB VIEW ONLY) 105.85 mg/dL; Microalb ug/mg Crea 12.5 ug/mg Cr
== END 2025-08-11 15:19 | disposition home or self-care (01) ==
LOC: NCHCN 15:18
PROVIDERS: PCP Internal Medicine; Visit Provider Internal Medicine
DX: D50.0 Iron deficiency anemia secondary to blood loss (chronic) (principal); M81.0 Age-related osteoporosis without current pathological fracture
CPT/HCPCS: 80048; 82306; 82043; 82570; 82728; 83540

== ENCOUNTER 2025-09-30 11:04 | Outpatient (REF) | payer MEDICARE, SELFPAY ==
[2025-09-30 14:34] LABS: Anion Gap 7.7 mmol/L (3-11); BUN 18 mg/dL (9-23); CO2 29.3 mmol/L (20.0-31.0); Calcium 10.0 mg/dL (8.3-10.6); Chloride 104 mmol/L (98-107); Glucose 106 mg/dL (74-106); Potassium 3.9 mmol/L (3.5-5.1); Sodium 141 mmol/L (136-145)
== END 2025-09-30 11:05 | disposition home or self-care (01) ==
LOC: NCHCN 11:04
PROVIDERS: PCP Internal Medicine; Visit Provider Internal Medicine
DX: I10 Essential (primary) hypertension (principal)
CPT/HCPCS: 80048